=== PATIENT | female | born 1960 | race African-American/Black ===

== ENCOUNTER 2018-07-25 10:53 | Emergency (ER) | payer OTHER, SELFPAY ==
[2018-07-25 11:14] VITALS: BP 131/72; PULSE 99; RESP 12; TEMP 36.4; O2SAT 100
--- NOTE | 2018-07-25 11:16 | PC.NURSE ---
lesions present on right leg, inside of right thigh. Started on wednesday. Saw PCP for right side sciatic pain been taking naproxsyn, tylenol and oxycodon with minimal to no relief.
--- NOTE | 2018-07-25 11:24 | ED_ITS ---
HPI - Skin/Abscess/Foreign Bdy General Chief complaint: Skin/Abscess/Foreign Body Stated complaint: siatica, blisters on right leg Time Seen by Provider: 07/25/18 11:01 Source: patient Mode of arrival: ambulatory Limitations: no limitations History of Present Illness HPI narrative: Patient is a 58-year-old female who presents with all right leg pain and back pain. She had sharp stabbing burning pain down her right leg starting on Wednesday. She was seen by the [employer] [facility] started on prednisone given oxycodone and Tylenol. She says none of it is helping. 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 She does not remember any specific injury. She noticed a rash last evening and progressively got worse today. Pain is unbearable. MD complaint: rash Related Data Home Medications Medication Instructions Recorded Confirmed acetaminophen [Mapap 1 dose PO PRN PRN 07/25/18 07/25/18 (acetaminophen)] aspirin 81 mg PO DAILY 07/25/18 07/25/18 atorvastatin 10 mg PO DAILY 07/25/18 07/25/18 hydroxychloroquine 1 tab PO BID 07/25/18 07/25/18 lisinopril 10 mg PO DAILY 07/25/18 07/25/18 metformin 1,000 mg PO BID 07/25/18 07/25/18 oxycodone 1 tab PO TID 07/25/18 07/25/18 prednisolone acetate 1 drp OPHTHALMIC (EYE) DIRECTED 07/25/18 07/25/18 prednisone 1 dose PO DIRECTED 07/25/18 07/25/18 Previous Rx's Medication Instructions Recorded acyclovir 800 mg PO 5XD #35 tab 07/25/18 hydrocodone-acetaminophen 1 tab PO Q6H PRN #10 tab 07/25/18 meloxicam 15 mg PO DAILY #20 tab 07/25/18 Allergies Allergy/AdvReac Type Severity Reaction Status Date / Time atenolol [ATENOLOL] Allergy Unknown RASH Unverified 07/25/18 11:29 Review of Systems Review of Systems All systems reviewed & are unremarkable except as noted in HPI and below Constitutional Denies chills, Denies fever(s), Denies lethargy and Denies weakness ENT Ears, Nose, Mouth, and Throat: Denies neck pain Cardiovascular Denies chest pain, Denies irregular heart rhythm, Denies lightheadedness, Denies palpitations, Denies dyspnea, Denies dyspnea on exertion and Denies orthopnea Respiratory Denies cough, Denies dyspnea, Denies dyspnea on exertion and Denies wheezing Gastrointestinal Gastrointestinal: Denies abdominal pain, Denies change in bowel habits, Denies diarrhea, Denies nausea and Denies vomiting Musculoskeletal Denies back pain, Denies deformity, Denies neck pain and Reports tingling Integumentary/Breasts Reports as per HPI Neurologic Reports tingling and Denies weakness Endocrine Denies palpitations Allergic/Immunologic Denies wheezing Exam Initial Vital Signs Initial Vital Signs: Vital Signs Temperature 97.6 F 07/25/18 11:14 Pulse Rate 99 H 07/25/18 11:14 Respiratory Rate 12 07/25/18 11:14 Blood Pressure 131/72 07/25/18 11:14 Pulse Oximetry 100 07/25/18 11:14 GENERAL: Tearful crying appears in pain HEENT: Head atraumatic,EOMI, pupils reactive, face symmetric, CARDIOVASCULAR: Regular rate and rhythm without murmurs, rubs or gallops. RESPIRATORY: Breath sounds equal bilaterally, no wheezes rales or rhonchi. ABDOMEN: Soft, nontender. Normoactive bowel sounds all 4 quadrants. No guarding or rebound. BACK: No vertebral tenderness no step-offs EXTREMITIES: Normal range of motion, no clubbing or edema. Neurovascularly intact NEUROLOGICAL: Alert and oriented x4.Normal gait and speech. Cranial nerves II through XII grossly intact. SKIN: Grouped vesicle like lesions right leg none on the left leg. They are mostly on the lower part of her leg mostly L4 dermatome Course Orders Ordered: Discontinued Medications Morphine Sulfate (Morphine) 4 mg SUBCUT NOW ONE Stop: 07/25/18 11:21 Last Admin: 07/25/18 11:25 Dose: 4 mg Vital Signs - 8 hr 07/25/18 11:14 07/25/18 12:28 Temperature 97.6 F Pulse Rate 99 H 83 Respiratory Rate 12 12 Blood Pressure 131/72 Blood Pressure [Right Arm] 135/83 Pulse Oximetry 100 98 MDM - Skin/Abscess/Foreign Bdy MDM Narrative Medical decision making narrative: Pain is better after morphine. She is given medications. She has already been on gabapentin in the past she said that she did not like the way it made her feel. Recommend follow up with her primary care physician and clearance for return to work. 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 Discharge Plan Departure Patient Disposition: Home Clinical Impression: Shingles rash Discharge Date/Time: 07/25/18 12:39 Interventions: ED Discharge Assessment Last Done: 07/25/18 12:38 Instructions: Shingles (Herpes Zoster) (Alternative Therapy), Shingles Activity Restrictions/Additional Instructions: *You have been diagnosed with shingles *What to do: Do not work until the rash crust over usually in 1-2weeks. See your primary care provider if you should need disability. The pain can persist for 3-6 weeks. Do not come in contact with anyone who hasn't had chickenpox or been vaccinated *Continue to take medications as directed Acyclovir 800 mg 5 times a day for 7 days Meloxicam 15 mg once a day for [id number] pain [place] 1 tablet every 4 hr or 2 tablets every 6 hr *Follow up with your primary care provider in 2-3 days *Return to ER if you should have pain that is not tolerable, worsening rash, fever, headache, neck pain or any new, worsening or concerning symptoms CONTROLLED SUBSTANCE DISCHARGE (Narcotoic/benzodiazepine/Flexeril/Phenergan) 1. You have been prescribed narcotic medications, it does have acetaminophen/ Tylenol/paracetamol in it so do not take extra Tylenol or Tylenol containing products 2. Please understand that we cannot provide further refills of narcotics, benzodiazepines or controlled substances through the ED and her pain management will need to be through your provider. 3. While on these medications you cannot drive or operate heavy machinery. 4. You cannot sign legal documents or perform any duties such as this. 5. As long as you're taking opiate pain medications he should also be taking a stool softener such as Colace, Dulcolax, MiraLAX or prune juice, to help avoid constipation. Prescriptions: New hydrocodone-acetaminophen 5-325 mg tablet 1 tab PO Q6H PRN (Reason: pain) Qty: 10 RF: 0 meloxicam 15 mg tablet 15 mg PO DAILY Qty: 20 RF: 0 acyclovir 800 mg tablet 800 mg PO 5XD Qty: 35 RF: 0 No Action acetaminophen [Mapap (acetaminophen)] 325 mg tablet 1 dose PO PRN PRN (Reason: pain) RF: 0 atorvastatin 10 mg tablet 10 mg PO DAILY RF: 0 prednisone 20 mg tablet 1 dose PO DIRECTED RF: 0 aspirin 81 mg tablet,delayed release (DR/EC) 81 mg PO DAILY RF: 0 prednisolone acetate 1 % drops,suspension 1 drp ophthalmic (eye) DIRECTED RF: 0 metformin 1,000 mg tablet 1,000 mg PO BID RF: 0 lisinopril 10 mg tablet 10 mg PO DAILY RF: 0 hydroxychloroquine 200 mg tablet 1 tab PO BID RF: 0 oxycodone 5 mg tablet 1 tab PO TID RF: 0 Referrals: [facility] [Outside] Stand Alone Forms: Work/School Restrictions
[2018-07-25] MEDS: MORPHINE 4 MG/ML INJ SUBCUT (11:25)
[2018-07-25 12:28] VITALS: BP 135/83; PULSE 83; RESP 12; O2SAT 98
--- NOTE | 2018-07-28 16:18 | PC.NURSE ---
follow up call, no answer
== END 2018-07-25 12:39 | disposition home or self-care (01) ==
PROVIDERS: Emergency Provider Emergency Medicine
DX: B02.9 Zoster without complications (principal)
CPT/HCPCS: 96372; 99282; 99283; J2270

== ENCOUNTER 2022-09-29 12:36 | Emergency (ER) | payer OTHER, SELFPAY ==
[2022-09-29] VITALS (15 sets, daily range): BP systolic 118–153; BP diastolic 58–74; PULSE 80–91; RESP 15–27; TEMP 36.7–37.4; O2SAT 99–100; BMI 31.4
[2022-09-29 13:56] LABS: Mean Corpuscular HGB Conc 32.2 % (30-36); Mean Corpuscular Hemoglobin 23.4 PG (26-34); Mean Corpuscular Volume 72.6 fL (80-100); Platelet Count 191 X10^3/uL (150-400); Red Cell Distribution Width 22.7 % (11.6-14.8); White Blood Cell Count 7.3 X10^3/uL (4.5-11.0)
[2022-09-29 13:58] LABS: Add Manual Diff / Slide Review YES; Hemoglobin 6.8 g/dL (12.0-16.0)
[2022-09-29 14:06] LABS: Alanine Aminotransferase 24 IU/L (<35); Albumin 2.5 g/dL (3.5-5.0); Albumin Globulin Ratio 0.6 (1.0-2.8); Alkaline Phosphatase 92 U/L (38-126); Aspartate Aminotransferase 47 IU/L (14-36); BUN Creatinine Ratio 15.8 (6-22); Bilirubin Total 1.3 mg/dL (0.2-1.3); Blood Urea Nitrogen 9 mg/dL (7-17); Calcium 7.6 mg/dL (8.4-10.2); Carbon Dioxide 28 mmol/L (22-32); Chloride 105 mmol/L (98-107); Estimated Glomerular Filt Rate > 60 mL/min (>60); Globulin 4.4 g/dL (1.7-4.1); Glucose 113 mg/dL (80-110); HEMOLYSIS < 15 (0-50); Potassium 3.2 mmol/L (3.4-5.1); Sodium 138 mmol/L (137-145); Total Protein 6.9 g/dL (6.3-8.2)
[2022-09-29 14:10] LABS: Neutrophils Absolute Manual 3285 /uL (3000-5900); Nucleated Red Blood Cells 1 #/Diff; Total Cells Counted 100
[2022-09-29 14:11] LABS: Anisocytosis 3+; Hypersegmented Neutrophils 1+; Hypochromasia 2+; Poikilocytosis 2+; Target Cells 2+
[2022-09-29 14:14] LABS: NT-proBNP (BNP-Adult 18+) 181 pg/mL (<125)
--- NOTE | 2022-09-29 18:58 | ED_ITS ---
HPI - Recheck/Abnormal Lab/Rx General Chief Complaint: Recheck/Abnormal Lab/Rx Stated Complaint: sent by [facility], anemic Time Seen by Provider: 09/29/22 18:14 Source: patient Mode of arrival: Ambulatory History of Present Illness HPI narrative: Patient here with . Here for anemia. Patient states she saw her family doctor today for ongoing 3 weeks of feeling bloated and tired and fatigued. Not her usual self. She was found to be anemic and sent here for transfusion. Blood has been started. Denies any regular black or bloody stools but had 1 episode of dark stool about a week or 2 ago. Denies any chest pain palpitations or dyspnea. Is not on any blood thinners. No history of anemia in the past. No hematemesis or hematuria. Related Data Home Medications Medication Instructions Recorded Confirmed acetaminophen 325 mg tablet 1 dose PO PRN PRN pain 07/25/18 07/25/18 aspirin 81 mg tablet,delayed 81 mg PO DAILY 07/25/18 07/25/18 release atorvastatin 10 mg tablet 10 mg PO DAILY 07/25/18 07/25/18 hydroxychloroquine 200 mg tablet 1 tab PO BID 07/25/18 07/25/18 lisinopril 10 mg tablet 10 mg PO DAILY 07/25/18 07/25/18 metformin 1,000 mg tablet 1,000 mg PO BID 07/25/18 07/25/18 oxycodone 5 mg tablet 1 tab PO TID 07/25/18 07/25/18 prednisolone acetate 1 % eye 1 drp ophthalmic (eye) DIRECTED 07/25/18 07/25/18 drops,suspension prednisone 20 mg tablet 1 dose PO DIRECTED 07/25/18 07/25/18 Previous Rx's Medication Instructions Recorded acyclovir 800 mg tablet 800 mg PO 5XD #35 tabs 07/25/18 hydrocodone 5 mg-acetaminophen 325 1 tab PO Q6H PRN pain #10 tabs 07/25/18 mg tablet meloxicam 15 mg tablet 15 mg PO DAILY #20 tabs 07/25/18 Allergies Allergy/AdvReac Type Severity Reaction Status Date / Time atenolol [ATENOLOL] Allergy Unknown RASH Verified 09/29/22 13:18 Review of Systems Review of Systems Narrative: GENERAL: negative chills, positive fatigue, malaise, negative fever, sweats. HEENT: negative sinus pain, ear pain, sore throat RESPIRATORY: negative dyspnea, cough CARDIOVASCULAR: negative chest pain, palpitations GASTROINTESTINAL: negative nausea, vomiting, abdominal pain, negative black or bloody stools or GI bleed : negative dysuria, frequency, hematuria MUSCULOSKELETAL: negative muscle or bony pain SKIN: negative rash, skin lesions NEUROLOGIC: negative weakness, numbness ROS Unobtainable: All systems reviewed & are unremarkable except as noted in HPI and below Patient History Social History Smoking Status: Unknown if ever smoked Smoking Status: Unknown if ever smoked alcohol intake frequency: holidays/special occasions only Substance Use Type: does not use Exam Narrative Exam Narrative: GENERAL: in no distress, not toxic not dyspneic HEAD: Normocephalic. EYES: Pupils equal round No scleral icterus. There is pale conjunctiva ENT: Mucous membranes moist. NECK: Trachea midline. CARDIOVASCULAR: Regular rate and rhythm without murmurs RESPIRATORY: Clear to auscultation. Breath sounds equal bilaterally. No wheezes, rales, or rhonchi. GASTROINTESTINAL: Abdomen soft, non-tender EXTREMITIES: No gross deformities. There is 2+ bilateral pedal edema. BACK: No flank tenderness. NEURO: AOx4. 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 SKIN: Warm and dry PSYCH: Not anxious, is cooperative Initial Vital Signs Initial Vital Signs: Vital Signs Temperature 98.3 F 09/29/22 13:18 Pulse Rate 90 09/29/22 13:18 Respiratory Rate 15 09/29/22 13:18 Blood Pressure 144/69 H 09/29/22 13:18 Pulse Oximetry 99 09/29/22 13:18 Oxygen Delivery Method 09/29/22 13:18 Course Course Course Narrative: No new issues during course of stay Orders Ordered: ED Orders 09/29/22 23:34 HH [Hemoglobin and Hematocrit] Stat Reevaluation(s) Reevaluation #1: Reviewed laboratory studies with patient and . They do agree for blood transfusions and they do agree for outpatient workup with Hematology and general surgery for workup for anemia including endoscopy. Return precautions reviewed with them. They did desire discharge home Time: 01:51 Vital Signs Vital signs: Vital Signs - 8 hr 09/29/22 23:10 09/30/22 01:08 09/30/22 02:07 Temperature 98.3 F Pulse Rate 81 80 82 Respiratory Rate 19 16 16 Blood Pressure 118/58 L 111/58 L 125/60 Pulse Oximetry 97 100 Oxygen Delivery Method Room Air Room Air MDM - Recheck/Abnormal Lab/Rx Lab Data Result diagrams: 09/30/22 01:17 09/29/22 13:23 Labs: Lab Results 09/29/22 09/29/22 09/29/22 Range/Units 13:23 13:23 13:23 WBC 7.3 (4.5-11.0) X10^3/uL RBC 2.90 L (4.0-5.2) X10^6/uL Hgb 6.8 L* (12.0-16.0) g/dL Hct 21.0 L (36-46) % MCV 72.6 L (80-100) fL MCH 23.4 L (26-34) PG MCHC 32.2 (30-36) % RDW 22.7 H (11.6-14.8) % Plt Count 191 (150-400) X10^3/uL Neut % (Auto) Not Reportable Lymph % (Auto) Not Reportable [place] % (Auto) Not Reportable Eos % (Auto) Not Reportable Baso % (Auto) Not Reportable Lymph # (Auto) Not Reportable [place] # (Auto) Not Reportable Baso # (Auto) Not Reportable Total Counted 100 Seg Neutrophils % 45.0 (38-70) % Lymphocytes % (Manual) 29.0 (25-45) % Monocytes % (Manual) 6.0 (2-11) % Eosinophils % (Manual) 19.0 H (2-4) % Basophils % (Manual) 1.0 (0-1) % Neutrophils # (Manual) 3285 (2970-3627) /uL Nucleated RBCs 1 H ( - 0) #/Diff Hypersegmented Neuts 1+ RBC Morphology Not Reportable Hypochromasia 2+ H Poikilocytosis 2+ H Anisocytosis 3+ H Target Cells 2+ H Sodium 138 (137-145) mmol/L Potassium 3.2 L (3.4-5.1) mmol/L Chloride 105 (98-107) mmol/L Carbon Dioxide 28 (22-32) mmol/L BUN 9 (7-17) mg/dL Creatinine 0.57 (0.52-1.04) mg/dL Estimated GFR > 60 (>60) mL/min BUN/Creatinine Ratio 15.8 (6-22) Glucose 113 H (80-110) mg/dL Calcium 7.6 L (8.4-10.2) mg/dL Total Bilirubin 1.3 (0.2-1.3) mg/dL AST 47 H (14-36) IU/L ALT 24 (<35) IU/L Alkaline Phosphatase 92 (38-126) U/L NT-Pro-B Natriuret Pep 181 H (<125) pg/mL Total Protein 6.9 (6.3-8.2) g/dL Albumin 2.5 L (3.5-5.0) g/dL Globulin 4.4 H (1.7-4.1) g/dL Albumin/Globulin Ratio 0.6 L (1.0-2.8) Blood Type A Positive Antibody Screen Negative Crossmatch See Detail 09/30/22 Range/Units 01:17 WBC (4.5-11.0) X10^3/uL RBC (4.0-5.2) X10^6/uL Hgb 7.8 L (12.0-16.0) g/dL Hct 23.6 L (36-46) % MCV (80-100) fL MCH (26-34) PG MCHC (30-36) % RDW (11.6-14.8) % Plt Count (150-400) X10^3/uL Neut % (Auto) Lymph % (Auto) [place] % (Auto) Eos % (Auto) Baso % (Auto) Lymph # (Auto) [place] # (Auto) Baso # (Auto) Total Counted Seg Neutrophils % (38-70) % Lymphocytes % (Manual) (25-45) % Monocytes % (Manual) (2-11) % Eosinophils % (Manual) (2-4) % Basophils % (Manual) (0-1) % Neutrophils # (Manual) ([id number]) /uL Nucleated RBCs ( - 0) #/Diff Hypersegmented Neuts RBC Morphology Hypochromasia Poikilocytosis Anisocytosis Target Cells Sodium (137-145) mmol/L Potassium (3.4-5.1) mmol/L Chloride (98-107) mmol/L Carbon Dioxide (22-32) mmol/L BUN (7-17) mg/dL Creatinine (0.52-1.04) mg/dL Estimated GFR (>60) mL/min BUN/Creatinine Ratio (6-22) Glucose (80-110) mg/dL Calcium (8.4-10.2) mg/dL Total Bilirubin (0.2-1.3) mg/dL AST (14-36) IU/L ALT (<35) IU/L Alkaline Phosphatase (38-126) U/L NT-Pro-B Natriuret Pep (<125) pg/mL Total Protein (6.3-8.2) g/dL Albumin (3.5-5.0) g/dL Globulin (1.7-4.1) g/dL Albumin/Globulin Ratio (1.0-2.8) Blood Type Antibody Screen Crossmatch MDM Narrative Medical decision making narrative: Appropriate for discharge home. Exam reassuring. At this time appropriate for outpatient evaluation for anemia including Hematology as well as General surgery for endoscopy. No rectal bleeding here. Reviewed results with patient and . They do agree for discharge home. Return precautions reviewed with them. Given CBC results likely this is chronic/indolent anemia. Not brisk bleed. No imaging indicated. Repeat H&H is reassuring as well. Vital signs are stable Discharge Plan Departure Patient Disposition: Home Clinical Impression: Anemia Instructions: Anemia Activity Restrictions/Additional Instructions: Please see family doctor for referral to General surgery as well as Hematology for your diagnosis of anemia. There are many sources of anemia. You also may call provided general surgery office tomorrow to schedule appointment for endoscopy of the stomach and colon. Return if worsening questions or concerns or if any dizziness or any trouble breathing or feel like you are going to faint. Prescriptions: No Action acetaminophen [Mapap (acetaminophen)] 325 mg tablet 1 dose PO PRN PRN (Reason: pain) atorvastatin 10 mg tablet 10 mg PO DAILY prednisone 20 mg tablet 1 dose PO DIRECTED aspirin 81 mg tablet,delayed release (DR/EC) 81 mg PO DAILY prednisolone acetate 1 % drops,suspension 1 drp ophthalmic (eye) DIRECTED metformin 1,000 mg tablet 1,000 mg PO BID lisinopril 10 mg tablet 10 mg PO DAILY hydroxychloroquine 200 mg tablet 1 tab PO BID oxycodone 5 mg tablet 1 tab PO TID hydrocodone-acetaminophen 5-325 mg tablet 1 tab PO Q6H PRN (Reason: pain) Qty: 10 0RF meloxicam 15 mg tablet 15 mg PO DAILY Qty: 20 0RF acyclovir 800 mg tablet 800 mg PO 5XD Qty: 35 0RF Rx Instructions: while awake Referrals: Wild Todd MD [Physician] - Provider,Esperanza HANKS [Primary Care Provider] - Visit Report Forms: Patient Portal/API
[2022-09-30 01:08] VITALS: BP 111/58; PULSE 80; RESP 16; O2SAT 97
[2022-09-30 01:35] LABS: Hematocrit 23.6 % (36-46); Hemoglobin 7.8 g/dL (12.0-16.0)
[2022-09-30 02:07] VITALS: BP 125/60; PULSE 82; RESP 16; O2SAT 100
== END 2022-09-30 02:10 | disposition home or self-care (01) ==
PROVIDERS: Emergency Medicine; Emergency Provider Emergency Medicine
DX: D64.9 Anemia, unspecified (principal)
CPT/HCPCS: 36415; 36430; 80053; 83880; 85007; 85014; 85018; 85025; 86850; 86900; 86901; 99284; P9016

== ENCOUNTER 2022-10-19 21:30 | Emergency (ER) | payer OTHER, SELFPAY ==
[2022-10-19 21:41] VITALS: BP 131/89; PULSE 97; RESP 16; TEMP 36.9; O2SAT 100; BMI 27.4
[2022-10-19 22:12] LABS: INR 1.5 (0.9-1.3); Prothrombin Time 16.9 SECONDS (10.1-12.7)
[2022-10-19 22:14] LABS: PTT Partial Thromboplastin Tim 37 SECONDS (26-36)
[2022-10-19 22:16] LABS: Alanine Aminotransferase 24 IU/L (<35); Albumin 2.6 g/dL (3.5-5.0); Albumin Globulin Ratio 0.6 (1.0-2.8); Alkaline Phosphatase 81 U/L (38-126); Aspartate Aminotransferase 44 IU/L (14-36); BUN Creatinine Ratio 23.9 (6-22); Bilirubin Total 1.6 mg/dL (0.2-1.3); Blood Urea Nitrogen 16 mg/dL (7-17); Calcium 7.4 mg/dL (8.4-10.2); Carbon Dioxide 28 mmol/L (22-32); Chloride 108 mmol/L (98-107); Estimated Glomerular Filt Rate > 60 mL/min (>60); Globulin 4.4 g/dL (1.7-4.1); Glucose 102 mg/dL (80-110); HEMOLYSIS < 15 (0-50); Potassium 3.3 mmol/L (3.4-5.1); Sodium 139 mmol/L (137-145)
--- NOTE | 2022-10-19 22:29 | ED.GIBLEED ---
HPI - GI Bleed <Danita Cooper, DO - Last Filed: 10/26/22 08:03> General Chief complaint: GI Bleed Stated complaint: no energy/black stool/fever Time Seen by Provider: 10/19/22 22:29 Source: patient Mode of arrival: Ambulatory Limitations: no limitations History of Present Illness HPI Narrative: This is a 62-year-old female with history of hypertension, dyslipidemia patient is on aspirin daily. Her home meds are Lasix, aspirin, atorvastatin and losartan. Patient presents today with lightheadedness, near syncopal episode, patient states she would a fever of 101 F temp early today, she states no chest pain but she is had some shortness of breath with exertion, she describes abdominal pain that is sort of diffuse. She notes nausea and at least 1 episode of vomiting. She is had 6 black stools today which she describes as diarrhea like. She states she had had any bloody stools or black stools since September 30 when she was discharged for anemia. Patient denies dysuria, urgency and states she only has frequency when she takes her Lasix. She denies any vaginal bleeding or discharge. She has been referred to Gastroenterology she is supposed to be seen in their office but has not had an EGD or colonoscopy. Patient states she is allergic to lisinopril and atenolol. She follows with primary care at [facility]. No tobacco, occasional alcohol, no illicit. She is accompanied by her . Related Data Home Medications Medication Instructions Recorded Confirmed aspirin 81 mg tablet,delayed 81 mg PO DAILY 07/25/18 10/20/22 release atorvastatin 10 mg tablet 10 mg PO DAILY 07/25/18 10/20/22 furosemide 20 mg tablet 20 mg PO DAILY 10/20/22 10/20/22 losartan 25 mg tablet 25 mg PO DAILY 10/20/22 10/20/22 potassium chloride 20 mEq 20 meq PO BID 10/23/22 10/23/22 tablet,extended release(part/cryst) Previous Rx's Medication Instructions Recorded cephalexin 500 mg capsule 500 mg PO TID #12 caps 10/25/22 pantoprazole 40 mg tablet,delayed 40 mg PO BID #60 tabs 10/25/22 release (Protonix) pantoprazole 40 mg tablet,delayed 40 mg PO BID #60 tabs 10/25/22 release (Protonix) Allergies Allergy/AdvReac Type Severity Reaction Status Date / Time atenolol [ATENOLOL] Allergy Unknown RASH Verified 10/23/22 20:06 lisinopril AdvReac Verified 10/23/22 20:06 Review of Systems <Danita Cooper DO - Last Filed: 10/26/22 08:03> Review of Systems ROS Unobtainable: All systems reviewed & are unremarkable except as noted in HPI and below Patient History <Danita Cooper DO - Last Filed: 10/26/22 08:03> Social History Smoking Status: Unknown if ever smoked Smoking Status: Unknown if ever smoked alcohol intake frequency: holidays/special occasions only Substance Use Type: does not use Exam <Danita Cooper DO - Last Filed: 10/26/22 08:03> Narrative Exam Narrative: GEN: well nourished, well appearing female, alert and oriented x 3, patient appears to be in mild distress. HEENT: Atraumatic, pupils are equal round reactive to light, extraocular movements are intact, nares are clear, there is conjunctival pallor. Throat is clear without any exudates, erythema, tonsillar enlargement or uvular deviation HEART: Regular rate and rhythm without murmur, clicks, rubs. LUNGS:Lungs clear to auscultation, no wheezes, rales, crackles, chest moves symmetrically ABD:bowel sounds normal, soft, non-tender, no guarding, rebound, rigidity, no masses noted, no hepatosplenomegaly, stool occult :No CVA tenderness MSCL: Non-tender, no muscle atrophy, muscles strength 5/5 upper and lower extremities, full range of motion, normal gait NEURO:CN 2-12 intact, sensation normal Initial Vital Signs Initial Vital Signs: Vital Signs Temperature 98.4 F 10/19/22 21:41 Pulse Rate 97 H 10/19/22 21:41 Respiratory Rate 16 10/19/22 21:41 Blood Pressure 131/89 10/19/22 21:41 Pulse Oximetry 100 10/19/22 21:41 Oxygen Delivery Method 10/19/22 21:41 <Didi Fitzpatrick MD - Last Filed: 10/25/22 12:36> Initial Vital Signs Initial Vital Signs: Vital Signs Temperature 98.4 F 10/19/22 21:41 Pulse Rate 97 H 10/19/22 21:41 Respiratory Rate 16 10/19/22 21:41 Blood Pressure 131/89 10/19/22 21:41 Pulse Oximetry 100 10/19/22 21:41 Oxygen Delivery Method 10/19/22 21:41 <Rayo Cho DO - Last Filed: 10/24/22 06:15> Initial Vital Signs Initial Vital Signs: Vital Signs Temperature 98.4 F 10/19/22 21:41 Pulse Rate 97 H 10/19/22 21:41 Respiratory Rate 16 10/19/22 21:41 Blood Pressure 131/89 10/19/22 21:41 Pulse Oximetry 100 10/19/22 21:41 Oxygen Delivery Method 10/19/22 21:41 <Eamon Mtz MD - Last Filed: 11/18/22 08:19> Initial Vital Signs Initial Vital Signs: Vital Signs Temperature 98.4 F 10/19/22 21:41 Pulse Rate 97 H 10/19/22 21:41 Respiratory Rate 16 10/19/22 21:41 Blood Pressure 131/89 10/19/22 21:41 Pulse Oximetry 100 10/19/22 21:41 Oxygen Delivery Method 10/19/22 21:41 <Mervin King DO - Last Filed: 10/25/22 17:41> Initial Vital Signs Initial Vital Signs: Vital Signs Temperature 98.4 F 10/19/22 21:41 Pulse Rate 97 H 10/19/22 21:41 Respiratory Rate 16 10/19/22 21:41 Blood Pressure 131/89 10/19/22 21:41 Pulse Oximetry 100 10/19/22 21:41 Oxygen Delivery Method 10/19/22 21:41 <Cristel Jacome DO - Last Filed: 10/26/22 07:41> Initial Vital Signs Initial Vital Signs: Vital Signs Temperature 98.4 F 10/19/22 21:41 Pulse Rate 97 H 10/19/22 21:41 Respiratory Rate 16 10/19/22 21:41 Blood Pressure 131/89 10/19/22 21:41 Pulse Oximetry 100 10/19/22 21:41 Oxygen Delivery Method 10/19/22 21:41 Course <Danita Cooper DO - Last Filed: 10/26/22 08:03> Orders Ordered: Discontinued Medications Atorvastatin Calcium (Atorvastatin 20 Mg Tablet) 10 mg PO BEDTIME [facility] Last Admin: 10/24/22 21:04 Dose: 10 mg Documented By: Admin: 10/23/22 21:10 Dose: 10 mg Documented By: Admin: 10/22/22 21:03 Dose: 10 mg Documented By: Admin: 10/21/22 21:05 Dose: 10 mg Documented By: Admin: 10/20/22 20:53 Dose: 10 mg Documented By: YUNIOR Furosemide (Furosemide 40 Mg/4 Ml Vial) 40 mg IV NOW ONE Stop: 10/24/22 19:12 Last Admin: 10/24/22 19:53 Dose: 40 mg Documented By: RENETTA Sodium Chloride (Normal Saline 0.9%) 1,000 mls @ 150 mls/hr IV CONT [facility] Last Infusion: 10/21/22 12:42 Dose: 0 mls/hr Documented By: Admin: 10/21/22 06:57 Dose: 150 mls/hr Documented By: Infusion: 10/21/22 06:47 Dose: 150 mls/hr Documented By: Admin: 10/21/22 00:06 Dose: 150 mls/hr Documented By: Infusion: 10/21/22 00:05 Dose: 0 mls/hr Documented By: Admin: 10/20/22 17:29 Dose: 150 mls/hr Documented By: Infusion: 10/20/22 17:28 Dose: 0 mls/hr Documented By: Infusion: 10/20/22 16:13 Dose: 150 mls/hr Documented By: Infusion: 10/20/22 08:00 Dose: 0 mls/hr Documented By: Admin: 10/20/22 02:11 Dose: 150 mls/hr Documented By: CHRISTIANO Metronidazole (Flagyl) 500 mg in 100 mls @ 100 mls/hr IV NOW ONE Stop: 10/20/22 02:45 Last Infusion: 10/20/22 04:26 Dose: 0 mls/hr Documented By: Admin: 10/20/22 03:15 Dose: 100 mls/hr Documented By: CHRISTIANO Cefepime HCl 2 gm/ Sodium (Chloride) 100 mls @ 200 mls/hr IV NOW ONE Stop: 10/20/22 01:47 Last Infusion: 10/20/22 03:11 Dose: 0 mls/hr Documented By: Infusion: 10/20/22 02:26 Dose: 200 mls/hr Documented By: Infusion: 10/20/22 02:13 Dose: 0 mls/hr Documented By: Admin: 10/20/22 02:12 Dose: 200 mls/hr Documented By: CHRISTIANO Octreotide Acetate 500 mcg/ (Sodium Chloride) 101 mls @ 10.1 mls/hr IV CONT [facility]; Protocol Last Infusion: 10/24/22 08:00 Dose: 0 mcg/hr, 0 mls/hr Documented By: Admin: 10/24/22 00:58 Dose: 50 mcg/hr, 10.1 mls/hr Documented By: Infusion: 10/24/22 00:58 Dose: 50 mcg/hr, 10.1 mls/hr Documented By: Admin: 10/23/22 15:54 Dose: 50 mcg/hr, 10.1 mls/hr Documented By: Infusion: 10/23/22 02:44 Dose: 50 mcg/hr, 10.1 mls/hr Documented By: Infusion: 10/23/22 02:43 Dose: 0 mcg/hr, 0 mls/hr Documented By: Admin: 10/22/22 16:59 Dose: 50 mcg/hr, 10.1 mls/hr Documented By: Infusion: 10/22/22 16:59 Dose: 50 mcg/hr, 10.1 mls/hr Documented By: Admin: 10/22/22 07:05 Dose: 50 mcg/hr, 10.1 mls/hr Documented By: Infusion: 10/22/22 07:05 Dose: 0 mcg/hr, 0 mls/hr Documented By: Admin: 10/21/22 21:06 Dose: 50 mcg/hr, 10.1 mls/hr Documented By: Infusion: 10/21/22 20:46 Dose: 50 mcg/hr, 10.1 mls/hr Documented By: Admin: 10/21/22 10:46 Dose: 50 mcg/hr, 10.1 mls/hr Documented By: Infusion: 10/21/22 10:45 Dose: 0 mcg/hr, 0 mls/hr Documented By: Admin: 10/21/22 00:07 Dose: 50 mcg/hr, 10.1 mls/hr Documented By: Infusion: 10/21/22 00:05 Dose: 0 mcg/hr, 0 mls/hr Documented By: Admin: 10/20/22 14:11 Dose: 50 mcg/hr, 10.1 mls/hr Documented By: Infusion: 10/20/22 14:11 Dose: 50 mcg/hr, 10.1 mls/hr Documented By: Infusion: 10/20/22 09:22 Dose: 50 mcg/hr, 10.1 mls/hr Documented By: Infusion: 10/20/22 07:53 Dose: 0 mcg/hr, 0 mls/hr Documented By: Admin: 10/20/22 03:12 Dose: 50 mcg/hr, 10.1 mls/hr Documented By: CHRISTIANO Cefepime HCl 2 gm/ Sodium (Chloride) 100 mls @ 200 mls/hr IV Q12H [facility] Last Infusion: 10/24/22 06:13 Dose: 0 mls/hr Documented By: Admin: 10/24/22 05:31 Dose: 200 mls/hr Documented By: Infusion: 10/23/22 20:45 Dose: 0 mls/hr Documented By: Admin: 10/23/22 20:13 Dose: 200 mls/hr Documented By: Infusion: 10/23/22 08:37 Dose: 0 mls/hr Documented By: Admin: 10/23/22 07:13 Dose: 200 mls/hr Documented By: Infusion: 10/22/22 20:45 Dose: 0 mls/hr Documented By: Admin: 10/22/22 20:13 Dose: 200 mls/hr Documented By: GAETANO(2) Infusion: 10/22/22 06:40 Dose: 0 mls/hr Documented By: Admin: 10/22/22 05:52 Dose: 200 mls/hr Documented By: Infusion: 10/21/22 19:15 Dose: 0 mls/hr Documented By: Admin: 10/21/22 18:25 Dose: 200 mls/hr Documented By: Infusion: 10/21/22 05:36 Dose: 0 mls/hr Documented By: Admin: 10/21/22 05:02 Dose: 200 mls/hr Documented By: Infusion: 10/20/22 18:46 Dose: 0 mls/hr Documented By: Admin: 10/20/22 17:29 Dose: 200 mls/hr Documented By: Admin: 10/20/22 06:00 Dose: Not Given Documented By: TIMOTEO Metronidazole (Flagyl) 500 mg in 100 mls @ 100 mls/hr IV Q8H [facility] Last Infusion: 10/24/22 01:04 Dose: 0 mls/hr Documented By: Admin: 10/24/22 00:13 Dose: 100 mls/hr Documented By: Infusion: 10/23/22 17:45 Dose: 0 mls/hr Documented By: Admin: 10/23/22 16:33 Dose: 100 mls/hr Documented By: Infusion: 10/23/22 10:10 Dose: 0 mls/hr Documented By: Admin: 10/23/22 08:56 Dose: 100 mls/hr Documented By: Infusion: 10/23/22 02:30 Dose: 0 mls/hr Documented By: Admin: 10/23/22 01:28 Dose: 100 mls/hr Documented By: Infusion: 10/22/22 18:26 Dose: 0 mls/hr Documented By: GAETANO(2) Admin: 10/22/22 17:01 Dose: 100 mls/hr Documented By: Infusion: 10/22/22 09:10 Dose: 0 mls/hr Documented By: Admin: 10/22/22 08:08 Dose: 100 mls/hr Documented By: Infusion: 10/22/22 02:22 Dose: 0 mls/hr Documented By: Admin: 10/22/22 01:13 Dose: 100 mls/hr Documented By: Infusion: 10/21/22 18:26 Dose: 0 mls/hr Documented By: Admin: 10/21/22 17:06 Dose: 100 mls/hr Documented By: Infusion: 10/21/22 09:50 Dose: 0 mls/hr Documented By: Admin: 10/21/22 08:41 Dose: 100 mls/hr Documented By: Infusion: 10/21/22 01:20 Dose: 0 mls/hr Documented By: Admin: 10/21/22 00:16 Dose: 100 mls/hr Documented By: Infusion: 10/20/22 17:28 Dose: 0 mls/hr Documented By: Admin: 10/20/22 16:22 Dose: 100 mls/hr Documented By: Infusion: 10/20/22 11:45 Dose: 0 mls/hr Documented By: Admin: 10/20/22 10:31 Dose: 100 mls/hr Documented By: FAUZIA POTASSIUM CHLORIDE IN WATER (Potassium Cl 10 Meq/100 Ml Nathalia) 10 meq in 100 mls @ 100 mls/hr IV Q1H [facility] Stop: 10/21/22 13:29 Last Infusion: 10/21/22 15:04 Dose: 0 mls/hr Documented By: Admin: 10/21/22 13:54 Dose: 100 mls/hr Documented By: Infusion: 10/21/22 13:51 Dose: 0 mls/hr Documented By: Admin: 10/21/22 12:37 Dose: 100 mls/hr Documented By: NELY Calcium Gluconate 9.3 meq/ (Sodium Chloride) 70 mls @ 140 mls/hr IV NOW ONE Stop: 10/21/22 11:48 Last Infusion: 10/21/22 12:29 Dose: 0 mls/hr Documented By: Admin: 10/21/22 11:48 Dose: 140 mls/hr Documented By: ENRIQUE Phytonadione 10 mg/ Sodium (Chloride) 101 mls @ 202 mls/hr IV NOW ONE Stop: 10/24/22 18:41 Last Infusion: 10/24/22 20:45 Dose: 0 mls/hr Documented By: Admin: 10/24/22 19:52 Dose: 202 mls/hr Documented By: RENETTA Losartan Potassium (Losartan 25 Mg Tablet) 25 mg PO DAILY [facility] Last Admin: 10/25/22 09:27 Dose: 25 mg Documented By: Admin: 10/24/22 09:58 Dose: 25 mg Documented By: Admin: 10/23/22 08:56 Dose: 25 mg Documented By: Admin: 10/22/22 08:08 Dose: 25 mg Documented By: Admin: 10/21/22 08:40 Dose: 25 mg Documented By: Admin: 10/20/22 11:45 Dose: Not Given Documented By: FAUZIA Octreotide Acetate (Octreotide 100 Mcg/Ml Vial) 50 mcg IV NOW ONE Stop: 10/20/22 02:01 Last Admin: 10/20/22 03:13 Dose: 50 mcg Documented By: CHRISTIANO Ondansetron HCl (Ondansetron 4 Mg/2 Ml Inj) 4 mg IV NOW PRN PRN Reason: Nausea And Vomiting Last Admin: 10/20/22 03:28 Dose: 4 mg Documented By: CHRISTIANO Ondansetron HCl (Ondansetron 4 Mg Odt) 4 mg SL NOW PRN PRN Reason: Nausea And Vomiting Ondansetron HCl (Ondansetron 4 Mg/2 Ml Inj) 4 mg IV Q6HR PRN PRN Reason: Nausea And Vomiting Pantoprazole Sodium (Pantoprazole 40 Mg Vial) 80 mg IV NOW ONE Stop: 10/19/22 21:56 Last Admin: 10/19/22 22:55 Dose: 80 mg Documented By: OBEY(2) Pantoprazole Sodium (Pantoprazole 40 Mg Vial) 80 mg IV BID [facility] Last Admin: 10/23/22 21:10 Dose: 80 mg Documented By: Admin: 10/23/22 08:56 Dose: 80 mg Documented By: Admin: 10/22/22 21:03 Dose: 80 mg Documented By: Admin: 10/22/22 09:55 Dose: 80 mg Documented By: Admin: 10/21/22 21:05 Dose: 80 mg Documented By: Admin: 10/21/22 08:40 Dose: 80 mg Documented By: Admin: 10/20/22 20:52 Dose: 80 mg Documented By: Admin: 10/20/22 12:46 Dose: 80 mg Documented By: FAUZIA Pantoprazole Sodium (Pantoprazole Dr 20 Mg Tablet) 40 mg PO BID [facility] Last Admin: 10/25/22 09:27 Dose: 40 mg Documented By: Admin: 10/24/22 21:02 Dose: 40 mg Documented By: Admin: 10/24/22 09:58 Dose: 40 mg Documented By: GAETANO Reevaluation(s) Reevaluation #1: Patient has been at bedside reviewed her findings. They reiterate both her and her that she does not drink alcohol regularly and only occasionally will have a glass. Patient has never been told she would hepatitis there changes. She has had not had a prior EGD or scope. Vital Signs Vital signs: Vital Signs - 8 hr 10/25/22 12:35 10/25/22 12:36 10/25/22 12:36 Pulse Rate 74 74 Blood Pressure 127/61 Pulse Oximetry 99 99 Oxygen Delivery Method Room Air <Didi Fitzpatrick MD - Last Filed: 10/25/22 12:36> Orders Ordered: Discontinued Medications Atorvastatin Calcium (Atorvastatin 20 Mg Tablet) 10 mg PO BEDTIME [facility] Last Admin: 10/24/22 21:04 Dose: 10 mg Documented By: Admin: 10/23/22 21:10 Dose: 10 mg Documented By: Admin: 10/22/22 21:03 Dose: 10 mg Documented By: Admin: 10/21/22 21:05 Dose: 10 mg Documented By: Admin: 10/20/22 20:53 Dose: 10 mg Documented By: RB Furosemide (Furosemide 40 Mg/4 Ml Vial) 40 mg IV NOW ONE Stop: 10/24/22 19:12 Last Admin: 10/24/22 19:53 Dose: 40 mg Documented By: SB Sodium Chloride (Normal Saline 0.9%) 1,000 mls @ 150 mls/hr IV CONT [facility] Last Infusion: 10/21/22 12:42 Dose: 0 mls/hr Documented By: Admin: 10/21/22 06:57 Dose: 150 mls/hr Documented By: Infusion: 10/21/22 06:47 Dose: 150 mls/hr Documented By: Admin: 10/21/22 00:06 Dose: 150 mls/hr Documented By: Infusion: 10/21/22 00:05 Dose: 0 mls/hr Documented By: Admin: 10/20/22 17:29 Dose: 150 mls/hr Documented By: Infusion: 10/20/22 17:28 Dose: 0 mls/hr Documented By: Infusion: 10/20/22 16:13 Dose: 150 mls/hr Documented By: Infusion: 10/20/22 08:00 Dose: 0 mls/hr Documented By: Admin: 10/20/22 02:11 Dose: 150 mls/hr Documented By: CHRISTIANO Metronidazole (Flagyl) 500 mg in 100 mls @ 100 mls/hr IV NOW ONE Stop: 10/20/22 02:45 Last Infusion: 10/20/22 04:26 Dose: 0 mls/hr Documented By: Admin: 10/20/22 03:15 Dose: 100 mls/hr Documented By: CHRISTIANO Cefepime HCl 2 gm/ Sodium (Chloride) 100 mls @ 200 mls/hr IV NOW ONE Stop: 10/20/22 01:47 Last Infusion: 10/20/22 03:11 Dose: 0 mls/hr Documented By: Infusion: 10/20/22 02:26 Dose: 200 mls/hr Documented By: Infusion: 10/20/22 02:13 Dose: 0 mls/hr Documented By: Admin: 10/20/22 02:12 Dose: 200 mls/hr Documented By: CHRISTIANO Octreotide Acetate 500 mcg/ (Sodium Chloride) 101 mls @ 10.1 mls/hr IV CONT [facility]; Protocol Last Infusion: 10/24/22 08:00 Dose: 0 mcg/hr, 0 mls/hr Documented By: Admin: 10/24/22 00:58 Dose: 50 mcg/hr, 10.1 mls/hr Documented By: Infusion: 10/24/22 00:58 Dose: 50 mcg/hr, 10.1 mls/hr Documented By: Admin: 10/23/22 15:54 Dose: 50 mcg/hr, 10.1 mls/hr Documented By: Infusion: 10/23/22 02:44 Dose: 50 mcg/hr, 10.1 mls/hr Documented By: Infusion: 10/23/22 02:43 Dose: 0 mcg/hr, 0 mls/hr Documented By: Admin: 10/22/22 16:59 Dose: 50 mcg/hr, 10.1 mls/hr Documented By: Infusion: 10/22/22 16:59 Dose: 50 mcg/hr, 10.1 mls/hr Documented By: Admin: 10/22/22 07:05 Dose: 50 mcg/hr, 10.1 mls/hr Documented By: Infusion: 10/22/22 07:05 Dose: 0 mcg/hr, 0 mls/hr Documented By: Admin: 10/21/22 21:06 Dose: 50 mcg/hr, 10.1 mls/hr Documented By: Infusion: 10/21/22 20:46 Dose: 50 mcg/hr, 10.1 mls/hr Documented By: Admin: 10/21/22 10:46 Dose: 50 mcg/hr, 10.1 mls/hr Documented By: KMLb Infusion: 10/21/22 10:45 Dose: 0 mcg/hr, 0 mls/hr Documented By: Admin: 10/21/22 00:07 Dose: 50 mcg/hr, 10.1 mls/hr Documented By: Infusion: 10/21/22 00:05 Dose: 0 mcg/hr, 0 mls/hr Documented By: Admin: 10/20/22 14:11 Dose: 50 mcg/hr, 10.1 mls/hr Documented By: Infusion: 10/20/22 14:11 Dose: 50 mcg/hr, 10.1 mls/hr Documented By: Infusion: 10/20/22 09:22 Dose: 50 mcg/hr, 10.1 mls/hr Documented By: Infusion: 10/20/22 07:53 Dose: 0 mcg/hr, 0 mls/hr Documented By: Admin: 10/20/22 03:12 Dose: 50 mcg/hr, 10.1 mls/hr Documented By: CHRISTIANO Cefepime HCl 2 gm/ Sodium (Chloride) 100 mls @ 200 mls/hr IV Q12H [facility] Last Infusion: 10/24/22 06:13 Dose: 0 mls/hr Documented By: Admin: 10/24/22 05:31 Dose: 200 mls/hr Documented By: Infusion: 10/23/22 20:45 Dose: 0 mls/hr Documented By: Admin: 10/23/22 20:13 Dose: 200 mls/hr Documented By: Infusion: 10/23/22 08:37 Dose: 0 mls/hr Documented By: Admin: 10/23/22 07:13 Dose: 200 mls/hr Documented By: Infusion: 10/22/22 20:45 Dose: 0 mls/hr Documented By: Admin: 10/22/22 20:13 Dose: 200 mls/hr Documented By: GAETANO(2) Infusion: 10/22/22 06:40 Dose: 0 mls/hr Documented By: Admin: 10/22/22 05:52 Dose: 200 mls/hr Documented By: Infusion: 10/21/22 19:15 Dose: 0 mls/hr Documented By: Admin: 10/21/22 18:25 Dose: 200 mls/hr Documented By: Infusion: 10/21/22 05:36 Dose: 0 mls/hr Documented By: Admin: 10/21/22 05:02 Dose: 200 mls/hr Documented By: Infusion: 10/20/22 18:46 Dose: 0 mls/hr Documented By: Admin: 10/20/22 17:29 Dose: 200 mls/hr Documented By: Admin: 10/20/22 06:00 Dose: Not Given Documented By: TIMOTEO Metronidazole (Flagyl) 500 mg in 100 mls @ 100 mls/hr IV Q8H [facility] Last Infusion: 10/24/22 01:04 Dose: 0 mls/hr Documented By: Admin: 10/24/22 00:13 Dose: 100 mls/hr Documented By: Infusion: 10/23/22 17:45 Dose: 0 mls/hr Documented By: Admin: 10/23/22 16:33 Dose: 100 mls/hr Documented By: Infusion: 10/23/22 10:10 Dose: 0 mls/hr Documented By: Admin: 10/23/22 08:56 Dose: 100 mls/hr Documented By: Infusion: 10/23/22 02:30 Dose: 0 mls/hr Documented By: Admin: 10/23/22 01:28 Dose: 100 mls/hr Documented By: Infusion: 10/22/22 18:26 Dose: 0 mls/hr Documented By: GAETANO(2) Admin: 10/22/22 17:01 Dose: 100 mls/hr Documented By: Infusion: 10/22/22 09:10 Dose: 0 mls/hr Documented By: Admin: 10/22/22 08:08 Dose: 100 mls/hr Documented By: Infusion: 10/22/22 02:22 Dose: 0 mls/hr Documented By: Admin: 10/22/22 01:13 Dose: 100 mls/hr Documented By: Infusion: 10/21/22 18:26 Dose: 0 mls/hr Documented By: Admin: 10/21/22 17:06 Dose: 100 mls/hr Documented By: Infusion: 10/21/22 09:50 Dose: 0 mls/hr Documented By: Admin: 10/21/22 08:41 Dose: 100 mls/hr Documented By: Infusion: 10/21/22 01:20 Dose: 0 mls/hr Documented By: Admin: 10/21/22 00:16 Dose: 100 mls/hr Documented By: Infusion: 10/20/22 17:28 Dose: 0 mls/hr Documented By: Admin: 10/20/22 16:22 Dose: 100 mls/hr Documented By: Infusion: 10/20/22 11:45 Dose: 0 mls/hr Documented By: Admin: 10/20/22 10:31 Dose: 100 mls/hr Documented By: FAUZIA POTASSIUM CHLORIDE IN WATER (Potassium Cl 10 Meq/100 Ml Nathalia) 10 meq in 100 mls @ 100 mls/hr IV Q1H [facility] Stop: 10/21/22 13:29 Last Infusion: 10/21/22 15:04 Dose: 0 mls/hr Documented By: Admin: 10/21/22 13:54 Dose: 100 mls/hr Documented By: Infusion: 10/21/22 13:51 Dose: 0 mls/hr Documented By: Admin: 10/21/22 12:37 Dose: 100 mls/hr Documented By: NELY Calcium Gluconate 9.3 meq/ (Sodium Chloride) 70 mls @ 140 mls/hr IV NOW ONE Stop: 10/21/22 11:48 Last Infusion: 10/21/22 12:29 Dose: 0 mls/hr Documented By: Admin: 10/21/22 11:48 Dose: 140 mls/hr Documented By: ENRIQUE Phytonadione 10 mg/ Sodium (Chloride) 101 mls @ 202 mls/hr IV NOW ONE Stop: 10/24/22 18:41 Last Infusion: 10/24/22 20:45 Dose: 0 mls/hr Documented By: Admin: 10/24/22 19:52 Dose: 202 mls/hr Documented By: RENETTA Losartan Potassium (Losartan 25 Mg Tablet) 25 mg PO DAILY [facility] Last Admin: 10/25/22 09:27 Dose: 25 mg Documented By: Admin: 10/24/22 09:58 Dose: 25 mg Documented By: Admin: 10/23/22 08:56 Dose: 25 mg Documented By: Admin: 10/22/22 08:08 Dose: 25 mg Documented By: Admin: 10/21/22 08:40 Dose: 25 mg Documented By: Admin: 10/20/22 11:45 Dose: Not Given Documented By: FAUZIA Octreotide Acetate (Octreotide 100 Mcg/Ml Vial) 50 mcg IV NOW ONE Stop: 10/20/22 02:01 Last Admin: 10/20/22 03:13 Dose: 50 mcg Documented By: CHRISTIANO Ondansetron HCl (Ondansetron 4 Mg/2 Ml Inj) 4 mg IV NOW PRN PRN Reason: Nausea And Vomiting Last Admin: 10/20/22 03:28 Dose: 4 mg Documented By: CHRISTIANO Ondansetron HCl (Ondansetron 4 Mg Odt) 4 mg SL NOW PRN PRN Reason: Nausea And Vomiting Ondansetron HCl (Ondansetron 4 Mg/2 Ml Inj) 4 mg IV Q6HR PRN PRN Reason: Nausea And Vomiting Pantoprazole Sodium (Pantoprazole 40 Mg Vial) 80 mg IV NOW ONE Stop: 10/19/22 21:56 Last Admin: 10/19/22 22:55 Dose: 80 mg Documented By: OBEY(2) Pantoprazole Sodium (Pantoprazole 40 Mg Vial) 80 mg IV BID [facility] Last Admin: 10/23/22 21:10 Dose: 80 mg Documented By: Admin: 10/23/22 08:56 Dose: 80 mg Documented By: Admin: 10/22/22 21:03 Dose: 80 mg Documented By: Admin: 10/22/22 09:55 Dose: 80 mg Documented By: Admin: 10/21/22 21:05 Dose: 80 mg Documented By: Admin: 10/21/22 08:40 Dose: 80 mg Documented By: Admin: 10/20/22 20:52 Dose: 80 mg Documented By: Admin: 10/20/22 12:46 Dose: 80 mg Documented By: FAUZIA Pantoprazole Sodium (Pantoprazole Dr 20 Mg Tablet) 40 mg PO BID [facility] Last Admin: 10/25/22 09:27 Dose: 40 mg Documented By: Admin: 10/24/22 21:02 Dose: 40 mg Documented By: Admin: 10/24/22 09:58 Dose: 40 mg Documented By: GAETANO Vital Signs Vital signs: Vital Signs - 8 hr 10/25/22 12:35 10/25/22 12:36 10/25/22 12:36 Pulse Rate 74 74 Blood Pressure 127/61 Pulse Oximetry 99 99 Oxygen Delivery Method Room Air <Rayo Cho, DO - Last Filed: 10/24/22 06:15> Orders Ordered: Discontinued Medications Atorvastatin Calcium (Atorvastatin 20 Mg Tablet) 10 mg PO BEDTIME [facility] Last Admin: 10/24/22 21:04 Dose: 10 mg Documented By: Admin: 10/23/22 21:10 Dose: 10 mg Documented By: Admin: 10/22/22 21:03 Dose: 10 mg Documented By: Admin: 10/21/22 21:05 Dose: 10 mg Documented By: Admin: 10/20/22 20:53 Dose: 10 mg Documented By: YUNIOR Furosemide (Furosemide 40 Mg/4 Ml Vial) 40 mg IV NOW ONE Stop: 10/24/22 19:12 Last Admin: 10/24/22 19:53 Dose: 40 mg Documented By: RENETTA Sodium Chloride (Normal Saline 0.9%) 1,000 mls @ 150 mls/hr IV CONT [facility] Last Infusion: 10/21/22 12:42 Dose: 0 mls/hr Documented By: Admin: 10/21/22 06:57 Dose: 150 mls/hr Documented By: Infusion: 10/21/22 06:47 Dose: 150 mls/hr Documented By: Admin: 10/21/22 00:06 Dose: 150 mls/hr Documented By: Infusion: 10/21/22 00:05 Dose: 0 mls/hr Documented By: Admin: 10/20/22 17:29 Dose: 150 mls/hr Documented By: Infusion: 10/20/22 17:28 Dose: 0 mls/hr Documented By: Infusion: 10/20/22 16:13 Dose: 150 mls/hr Documented By: Infusion: 10/20/22 08:00 Dose: 0 mls/hr Documented By: Admin: 10/20/22 02:11 Dose: 150 mls/hr Documented By: CHRISTIANO Metronidazole (Flagyl) 500 mg in 100 mls @ 100 mls/hr IV NOW ONE Stop: 10/20/22 02:45 Last Infusion: 10/20/22 04:26 Dose: 0 mls/hr Documented By: Admin: 10/20/22 03:15 Dose: 100 mls/hr Documented By: CHRISTIANO Cefepime HCl 2 gm/ Sodium (Chloride) 100 mls @ 200 mls/hr IV NOW ONE Stop: 10/20/22 01:47 Last Infusion: 10/20/22 03:11 Dose: 0 mls/hr Documented By: Infusion: 10/20/22 02:26 Dose: 200 mls/hr Documented By: Infusion: 10/20/22 02:13 Dose: 0 mls/hr Documented By: Admin: 10/20/22 02:12 Dose: 200 mls/hr Documented By: CHRISTIANO Octreotide Acetate 500 mcg/ (Sodium Chloride) 101 mls @ 10.1 mls/hr IV CONT [facility]; Protocol Last Infusion: 10/24/22 08:00 Dose: 0 mcg/hr, 0 mls/hr Documented By: Admin: 10/24/22 00:58 Dose: 50 mcg/hr, 10.1 mls/hr Documented By: Infusion: 10/24/22 00:58 Dose: 50 mcg/hr, 10.1 mls/hr Documented By: Admin: 10/23/22 15:54 Dose: 50 mcg/hr, 10.1 mls/hr Documented By: Infusion: 10/23/22 02:44 Dose: 50 mcg/hr, 10.1 mls/hr Documented By: Infusion: 10/23/22 02:43 Dose: 0 mcg/hr, 0 mls/hr Documented By: Admin: 10/22/22 16:59 Dose: 50 mcg/hr, 10.1 mls/hr Documented By: Infusion: 10/22/22 16:59 Dose: 50 mcg/hr, 10.1 mls/hr Documented By: Admin: 10/22/22 07:05 Dose: 50 mcg/hr, 10.1 mls/hr Documented By: Infusion: 10/22/22 07:05 Dose: 0 mcg/hr, 0 mls/hr Documented By: Admin: 10/21/22 21:06 Dose: 50 mcg/hr, 10.1 mls/hr Documented By: Infusion: 10/21/22 20:46 Dose: 50 mcg/hr, 10.1 mls/hr Documented By: Admin: 10/21/22 10:46 Dose: 50 mcg/hr, 10.1 mls/hr Documented By: Infusion: 10/21/22 10:45 Dose: 0 mcg/hr, 0 mls/hr Documented By: Admin: 10/21/22 00:07 Dose: 50 mcg/hr, 10.1 mls/hr Documented By: Infusion: 10/21/22 00:05 Dose: 0 mcg/hr, 0 mls/hr Documented By: Admin: 10/20/22 14:11 Dose: 50 mcg/hr, 10.1 mls/hr Documented By: Infusion: 10/20/22 14:11 Dose: 50 mcg/hr, 10.1 mls/hr Documented By: Infusion: 10/20/22 09:22 Dose: 50 mcg/hr, 10.1 mls/hr Documented By: Infusion: 10/20/22 07:53 Dose: 0 mcg/hr, 0 mls/hr Documented By: Admin: 10/20/22 03:12 Dose: 50 mcg/hr, 10.1 mls/hr Documented By: CHRISTIANO Cefepime HCl 2 gm/ Sodium (Chloride) 100 mls @ 200 mls/hr IV Q12H [facility] Last Infusion: 10/24/22 06:13 Dose: 0 mls/hr Documented By: Admin: 10/24/22 05:31 Dose: 200 mls/hr Documented By: Infusion: 10/23/22 20:45 Dose: 0 mls/hr Documented By: Admin: 10/23/22 20:13 Dose: 200 mls/hr Documented By: Infusion: 10/23/22 08:37 Dose: 0 mls/hr Documented By: Admin: 10/23/22 07:13 Dose: 200 mls/hr Documented By: Infusion: 10/22/22 20:45 Dose: 0 mls/hr Documented By: Admin: 10/22/22 20:13 Dose: 200 mls/hr Documented By: GAETANO(2) Infusion: 10/22/22 06:40 Dose: 0 mls/hr Documented By: Admin: 10/22/22 05:52 Dose: 200 mls/hr Documented By: Infusion: 10/21/22 19:15 Dose: 0 mls/hr Documented By: Admin: 10/21/22 18:25 Dose: 200 mls/hr Documented By: Infusion: 10/21/22 05:36 Dose: 0 mls/hr Documented By: Admin: 10/21/22 05:02 Dose: 200 mls/hr Documented By: Infusion: 10/20/22 18:46 Dose: 0 mls/hr Documented By: Admin: 10/20/22 17:29 Dose: 200 mls/hr Documented By: Admin: 10/20/22 06:00 Dose: Not Given Documented By: TIMOTEO Metronidazole (Flagyl) 500 mg in 100 mls @ 100 mls/hr IV Q8H [facility] Last Infusion: 10/24/22 01:04 Dose: 0 mls/hr Documented By: Admin: 10/24/22 00:13 Dose: 100 mls/hr Documented By: Infusion: 10/23/22 17:45 Dose: 0 mls/hr Documented By: Admin: 10/23/22 16:33 Dose: 100 mls/hr Documented By: Infusion: 10/23/22 10:10 Dose: 0 mls/hr Documented By: Admin: 10/23/22 08:56 Dose: 100 mls/hr Documented By: Infusion: 10/23/22 02:30 Dose: 0 mls/hr Documented By: Admin: 10/23/22 01:28 Dose: 100 mls/hr Documented By: Infusion: 10/22/22 18:26 Dose: 0 mls/hr Documented By: GAETANO(2) Admin: 10/22/22 17:01 Dose: 100 mls/hr Documented By: Infusion: 10/22/22 09:10 Dose: 0 mls/hr Documented By: Admin: 10/22/22 08:08 Dose: 100 mls/hr Documented By: Infusion: 10/22/22 02:22 Dose: 0 mls/hr Documented By: Admin: 10/22/22 01:13 Dose: 100 mls/hr Documented By: Infusion: 10/21/22 18:26 Dose: 0 mls/hr Documented By: Admin: 10/21/22 17:06 Dose: 100 mls/hr Documented By: Infusion: 10/21/22 09:50 Dose: 0 mls/hr Documented By: Admin: 10/21/22 08:41 Dose: 100 mls/hr Documented By: Infusion: 10/21/22 01:20 Dose: 0 mls/hr Documented By: Admin: 10/21/22 00:16 Dose: 100 mls/hr Documented By: Infusion: 10/20/22 17:28 Dose: 0 mls/hr Documented By: Admin: 10/20/22 16:22 Dose: 100 mls/hr Documented By: Infusion: 10/20/22 11:45 Dose: 0 mls/hr Documented By: Admin: 10/20/22 10:31 Dose: 100 mls/hr Documented By: FAUZIA POTASSIUM CHLORIDE IN WATER (Potassium Cl 10 Meq/100 Ml Nathalia) 10 meq in 100 mls @ 100 mls/hr IV Q1H [facility] Stop: 10/21/22 13:29 Last Infusion: 10/21/22 15:04 Dose: 0 mls/hr Documented By: Admin: 10/21/22 13:54 Dose: 100 mls/hr Documented By: Infusion: 10/21/22 13:51 Dose: 0 mls/hr Documented By: Admin: 10/21/22 12:37 Dose: 100 mls/hr Documented By: NELY Calcium Gluconate 9.3 meq/ (Sodium Chloride) 70 mls @ 140 mls/hr IV NOW ONE Stop: 10/21/22 11:48 Last Infusion: 10/21/22 12:29 Dose: 0 mls/hr Documented By: Admin: 10/21/22 11:48 Dose: 140 mls/hr Documented By: ENRIQUE Phytonadione 10 mg/ Sodium (Chloride) 101 mls @ 202 mls/hr IV NOW ONE Stop: 10/24/22 18:41 Last Infusion: 10/24/22 20:45 Dose: 0 mls/hr Documented By: Admin: 10/24/22 19:52 Dose: 202 mls/hr Documented By: RENETTA Losartan Potassium (Losartan 25 Mg Tablet) 25 mg PO DAILY [facility] Last Admin: 10/25/22 09:27 Dose: 25 mg Documented By: Admin: 10/24/22 09:58 Dose: 25 mg Documented By: Admin: 10/23/22 08:56 Dose: 25 mg Documented By: Admin: 10/22/22 08:08 Dose: 25 mg Documented By: Admin: 10/21/22 08:40 Dose: 25 mg Documented By: Admin: 10/20/22 11:45 Dose: Not Given Documented By: FAUZIA Octreotide Acetate (Octreotide 100 Mcg/Ml Vial) 50 mcg IV NOW ONE Stop: 10/20/22 02:01 Last Admin: 10/20/22 03:13 Dose: 50 mcg Documented By: CHRISTIANO Ondansetron HCl (Ondansetron 4 Mg/2 Ml Inj) 4 mg IV NOW PRN PRN Reason: Nausea And Vomiting Last Admin: 10/20/22 03:28 Dose: 4 mg Documented By: CHRISTIANO Ondansetron HCl (Ondansetron 4 Mg Odt) 4 mg SL NOW PRN PRN Reason: Nausea And Vomiting Ondansetron HCl (Ondansetron 4 Mg/2 Ml Inj) 4 mg IV Q6HR PRN PRN Reason: Nausea And Vomiting Pantoprazole Sodium (Pantoprazole 40 Mg Vial) 80 mg IV NOW ONE Stop: 10/19/22 21:56 Last Admin: 10/19/22 22:55 Dose: 80 mg Documented By: OBEY(2) Pantoprazole Sodium (Pantoprazole 40 Mg Vial) 80 mg IV BID [facility] Last Admin: 10/23/22 21:10 Dose: 80 mg Documented By: Admin: 10/23/22 08:56 Dose: 80 mg Documented By: Admin: 10/22/22 21:03 Dose: 80 mg Documented By: Admin: 10/22/22 09:55 Dose: 80 mg Documented By: Admin: 10/21/22 21:05 Dose: 80 mg Documented By: Admin: 10/21/22 08:40 Dose: 80 mg Documented By: Admin: 10/20/22 20:52 Dose: 80 mg Documented By: Admin: 10/20/22 12:46 Dose: 80 mg Documented By: FAUZIA Pantoprazole Sodium (Pantoprazole Dr 20 Mg Tablet) 40 mg PO BID [facility] Last Admin: 10/25/22 09:27 Dose: 40 mg Documented By: Admin: 10/24/22 21:02 Dose: 40 mg Documented By: Admin: 10/24/22 09:58 Dose: 40 mg Documented By: GAETANO Vital Signs Vital signs: Vital Signs - 8 hr 10/25/22 12:35 10/25/22 12:36 10/25/22 12:36 Pulse Rate 74 74 Blood Pressure 127/61 Pulse Oximetry 99 99 Oxygen Delivery Method Room Air <Eamon Mtz MD - Last Filed: 11/18/22 08:19> Course Course Narrative: 10/21/22 @12:20. Patient has a prior history of GI bleed. She re-presented yesterday, not feeling well. She had acute anemia with H/H 6.7/20.9. She was transfused 2 units PRBCs. She drinks very little alcohol. She has no prior history of PUD. CT findings included cirrhosis and portal hypertension with gastroesophageal and splenic varices. A recanalized paraumbilical vein is present, with ascites. Cholelithiasis was noted. A stone was present at the ampulla of Vater. MRCP revealed a small stone at the ampulla, there is no biliary ductal dilatation. Cirrhosis and portal hypertension was again noted. Labs this morning shows stable H and H of 8.3/25.3. Total bilirubin is 1.7. There is no significant elevation of AST, ALT, or ALP. She remains on octreotide drip. She is receiving Protonix. She is receiving Cefepime due to concerns of cholecystitis/common bile duct stone. Multiple facilities have been called regarding transfer, she should be seen by employee development director regarding bleeding varices, in potential ERCP. She is on multiple eating this. Calls have been initiated again today, there is yet to be a receiving facility identified.Elvi RENDON Orders Ordered: Discontinued Medications Atorvastatin Calcium (Atorvastatin 20 Mg Tablet) 10 mg PO BEDTIME [facility] Last Admin: 10/24/22 21:04 Dose: 10 mg Documented By: Admin: 10/23/22 21:10 Dose: 10 mg Documented By: Admin: 10/22/22 21:03 Dose: 10 mg Documented By: Admin: 10/21/22 21:05 Dose: 10 mg Documented By: Admin: 10/20/22 20:53 Dose: 10 mg Documented By: YUNIOR Furosemide (Furosemide 40 Mg/4 Ml Vial) 40 mg IV NOW ONE Stop: 10/24/22 19:12 Last Admin: 10/24/22 19:53 Dose: 40 mg Documented By: RENETTA Sodium Chloride (Normal Saline 0.9%) 1,000 mls @ 150 mls/hr IV CONT [facility] Last Infusion: 10/21/22 12:42 Dose: 0 mls/hr Documented By: Admin: 10/21/22 06:57 Dose: 150 mls/hr Documented By: Infusion: 10/21/22 06:47 Dose: 150 mls/hr Documented By: Admin: 10/21/22 00:06 Dose: 150 mls/hr Documented By: Infusion: 10/21/22 00:05 Dose: 0 mls/hr Documented By: Admin: 10/20/22 17:29 Dose: 150 mls/hr Documented By: Infusion: 10/20/22 17:28 Dose: 0 mls/hr Documented By: Infusion: 10/20/22 16:13 Dose: 150 mls/hr Documented By: Infusion: 10/20/22 08:00 Dose: 0 mls/hr Documented By: Admin: 10/20/22 02:11 Dose: 150 mls/hr Documented By: CHRISTIANO Metronidazole (Flagyl) 500 mg in 100 mls @ 100 mls/hr IV NOW ONE Stop: 10/20/22 02:45 Last Infusion: 10/20/22 04:26 Dose: 0 mls/hr Documented By: Admin: 10/20/22 03:15 Dose: 100 mls/hr Documented By: CHRISTIANO Cefepime HCl 2 gm/ Sodium (Chloride) 100 mls @ 200 mls/hr IV NOW ONE Stop: 10/20/22 01:47 Last Infusion: 10/20/22 03:11 Dose: 0 mls/hr Documented By: Infusion: 10/20/22 02:26 Dose: 200 mls/hr Documented By: Infusion: 10/20/22 02:13 Dose: 0 mls/hr Documented By: Admin: 10/20/22 02:12 Dose: 200 mls/hr Documented By: CHRISTIANO Octreotide Acetate 500 mcg/ (Sodium Chloride) 101 mls @ 10.1 mls/hr IV CONT [facility]; Protocol Last Infusion: 10/24/22 08:00 Dose: 0 mcg/hr, 0 mls/hr Documented By: Admin: 10/24/22 00:58 Dose: 50 mcg/hr, 10.1 mls/hr Documented By: Infusion: 10/24/22 00:58 Dose: 50 mcg/hr, 10.1 mls/hr Documented By: Admin: 10/23/22 15:54 Dose: 50 mcg/hr, 10.1 mls/hr Documented By: Infusion: 10/23/22 02:44 Dose: 50 mcg/hr, 10.1 mls/hr Documented By: Infusion: 10/23/22 02:43 Dose: 0 mcg/hr, 0 mls/hr Documented By: Admin: 10/22/22 16:59 Dose: 50 mcg/hr, 10.1 mls/hr Documented By: Infusion: 10/22/22 16:59 Dose: 50 mcg/hr, 10.1 mls/hr Documented By: Admin: 10/22/22 07:05 Dose: 50 mcg/hr, 10.1 mls/hr Documented By: Infusion: 10/22/22 07:05 Dose: 0 mcg/hr, 0 mls/hr Documented By: Admin: 10/21/22 21:06 Dose: 50 mcg/hr, 10.1 mls/hr Documented By: Infusion: 10/21/22 20:46 Dose: 50 mcg/hr, 10.1 mls/hr Documented By: Admin: 10/21/22 10:46 Dose: 50 mcg/hr, 10.1 mls/hr Documented By: Infusion: 10/21/22 10:45 Dose: 0 mcg/hr, 0 mls/hr Documented By: Admin: 10/21/22 00:07 Dose: 50 mcg/hr, 10.1 mls/hr Documented By: Infusion: 10/21/22 00:05 Dose: 0 mcg/hr, 0 mls/hr Documented By: Admin: 10/20/22 14:11 Dose: 50 mcg/hr, 10.1 mls/hr Documented By: Infusion: 10/20/22 14:11 Dose: 50 mcg/hr, 10.1 mls/hr Documented By: Infusion: 10/20/22 09:22 Dose: 50 mcg/hr, 10.1 mls/hr Documented By: Infusion: 10/20/22 07:53 Dose: 0 mcg/hr, 0 mls/hr Documented By: Admin: 10/20/22 03:12 Dose: 50 mcg/hr, 10.1 mls/hr Documented By: CHRISTIANO Cefepime HCl 2 gm/ Sodium (Chloride) 100 mls @ 200 mls/hr IV Q12H [facility] Last Infusion: 10/24/22 06:13 Dose: 0 mls/hr Documented By: Admin: 10/24/22 05:31 Dose: 200 mls/hr Documented By: Infusion: 10/23/22 20:45 Dose: 0 mls/hr Documented By: Admin: 10/23/22 20:13 Dose: 200 mls/hr Documented By: Infusion: 10/23/22 08:37 Dose: 0 mls/hr Documented By: Admin: 10/23/22 07:13 Dose: 200 mls/hr Documented By: Infusion: 10/22/22 20:45 Dose: 0 mls/hr Documented By: Admin: 10/22/22 20:13 Dose: 200 mls/hr Documented By: GAETANO(2) Infusion: 10/22/22 06:40 Dose: 0 mls/hr Documented By: Admin: 10/22/22 05:52 Dose: 200 mls/hr Documented By: Infusion: 10/21/22 19:15 Dose: 0 mls/hr Documented By: Admin: 10/21/22 18:25 Dose: 200 mls/hr Documented By: Infusion: 10/21/22 05:36 Dose: 0 mls/hr Documented By: Admin: 10/21/22 05:02 Dose: 200 mls/hr Documented By: Infusion: 10/20/22 18:46 Dose: 0 mls/hr Documented By: Admin: 10/20/22 17:29 Dose: 200 mls/hr Documented By: Admin: 10/20/22 06:00 Dose: Not Given Documented By: TIMOTEO Metronidazole (Flagyl) 500 mg in 100 mls @ 100 mls/hr IV Q8H [facility] Last Infusion: 10/24/22 01:04 Dose: 0 mls/hr Documented By: Admin: 10/24/22 00:13 Dose: 100 mls/hr Documented By: Infusion: 10/23/22 17:45 Dose: 0 mls/hr Documented By: Admin: 10/23/22 16:33 Dose: 100 mls/hr Documented By: Infusion: 10/23/22 10:10 Dose: 0 mls/hr Documented By: Admin: 10/23/22 08:56 Dose: 100 mls/hr Documented By: Infusion: 10/23/22 02:30 Dose: 0 mls/hr Documented By: Admin: 10/23/22 01:28 Dose: 100 mls/hr Documented By: Infusion: 10/22/22 18:26 Dose: 0 mls/hr Documented By: GAETANO(2) Admin: 10/22/22 17:01 Dose: 100 mls/hr Documented By: Infusion: 10/22/22 09:10 Dose: 0 mls/hr Documented By: Admin: 10/22/22 08:08 Dose: 100 mls/hr Documented By: Infusion: 10/22/22 02:22 Dose: 0 mls/hr Documented By: Admin: 10/22/22 01:13 Dose: 100 mls/hr Documented By: Infusion: 10/21/22 18:26 Dose: 0 mls/hr Documented By: Admin: 10/21/22 17:06 Dose: 100 mls/hr Documented By: Infusion: 10/21/22 09:50 Dose: 0 mls/hr Documented By: Admin: 10/21/22 08:41 Dose: 100 mls/hr Documented By: Infusion: 10/21/22 01:20 Dose: 0 mls/hr Documented By: Admin: 10/21/22 00:16 Dose: 100 mls/hr Documented By: Infusion: 10/20/22 17:28 Dose: 0 mls/hr Documented By: Admin: 10/20/22 16:22 Dose: 100 mls/hr Documented By: Infusion: 10/20/22 11:45 Dose: 0 mls/hr Documented By: Admin: 10/20/22 10:31 Dose: 100 mls/hr Documented By: FAUZIA POTASSIUM CHLORIDE IN WATER (Potassium Cl 10 Meq/100 Ml Nathalia) 10 meq in 100 mls @ 100 mls/hr IV Q1H [facility] Stop: 10/21/22 13:29 Last Infusion: 10/21/22 15:04 Dose: 0 mls/hr Documented By: Admin: 10/21/22 13:54 Dose: 100 mls/hr Documented By: Infusion: 10/21/22 13:51 Dose: 0 mls/hr Documented By: Admin: 10/21/22 12:37 Dose: 100 mls/hr Documented By: NELY Calcium Gluconate 9.3 meq/ (Sodium Chloride) 70 mls @ 140 mls/hr IV NOW ONE Stop: 10/21/22 11:48 Last Infusion: 10/21/22 12:29 Dose: 0 mls/hr Documented By: Admin: 10/21/22 11:48 Dose: 140 mls/hr Documented By: ENRIQUE Phytonadione 10 mg/ Sodium (Chloride) 101 mls @ 202 mls/hr IV NOW ONE Stop: 10/24/22 18:41 Last Infusion: 10/24/22 20:45 Dose: 0 mls/hr Documented By: Admin: 10/24/22 19:52 Dose: 202 mls/hr Documented By: RENETTA Losartan Potassium (Losartan 25 Mg Tablet) 25 mg PO DAILY [facility] Last Admin: 10/25/22 09:27 Dose: 25 mg Documented By: Admin: 10/24/22 09:58 Dose: 25 mg Documented By: Admin: 10/23/22 08:56 Dose: 25 mg Documented By: Admin: 10/22/22 08:08 Dose: 25 mg Documented By: Admin: 10/21/22 08:40 Dose: 25 mg Documented By: Admin: 10/20/22 11:45 Dose: Not Given Documented By: FAUZIA Octreotide Acetate (Octreotide 100 Mcg/Ml Vial) 50 mcg IV NOW ONE Stop: 10/20/22 02:01 Last Admin: 10/20/22 03:13 Dose: 50 mcg Documented By: CHRISTIANO Ondansetron HCl (Ondansetron 4 Mg/2 Ml Inj) 4 mg IV NOW PRN PRN Reason: Nausea And Vomiting Last Admin: 10/20/22 03:28 Dose: 4 mg Documented By: CHRISTIANO Ondansetron HCl (Ondansetron 4 Mg Odt) 4 mg SL NOW PRN PRN Reason: Nausea And Vomiting Ondansetron HCl (Ondansetron 4 Mg/2 Ml Inj) 4 mg IV Q6HR PRN PRN Reason: Nausea And Vomiting Pantoprazole Sodium (Pantoprazole 40 Mg Vial) 80 mg IV NOW ONE Stop: 10/19/22 21:56 Last Admin: 10/19/22 22:55 Dose: 80 mg Documented By: OBEY(2) Pantoprazole Sodium (Pantoprazole 40 Mg Vial) 80 mg IV BID [facility] Last Admin: 10/23/22 21:10 Dose: 80 mg Documented By: Admin: 10/23/22 08:56 Dose: 80 mg Documented By: Admin: 10/22/22 21:03 Dose: 80 mg Documented By: Admin: 10/22/22 09:55 Dose: 80 mg Documented By: Admin: 10/21/22 21:05 Dose: 80 mg Documented By: Admin: 10/21/22 08:40 Dose: 80 mg Documented By: Admin: 10/20/22 20:52 Dose: 80 mg Documented By: Admin: 10/20/22 12:46 Dose: 80 mg Documented By: FAUZIA Pantoprazole Sodium (Pantoprazole Dr 20 Mg Tablet) 40 mg PO BID [facility] Last Admin: 10/25/22 09:27 Dose: 40 mg Documented By: Admin: 10/24/22 21:02 Dose: 40 mg Documented By: Admin: 10/24/22 09:58 Dose: 40 mg Documented By: GAETANO Vital Signs Vital signs: Vital Signs - 8 hr 10/25/22 12:35 10/25/22 12:36 10/25/22 12:36 Pulse Rate 74 74 Blood Pressure 127/61 Pulse Oximetry 99 99 Oxygen Delivery Method Room Air <Mervin King DO - Last Filed: 10/25/22 17:41> Orders Ordered: Discontinued Medications Atorvastatin Calcium (Atorvastatin 20 Mg Tablet) 10 mg PO BEDTIME [facility] Last Admin: 10/24/22 21:04 Dose: 10 mg Documented By: Admin: 10/23/22 21:10 Dose: 10 mg Documented By: Admin: 10/22/22 21:03 Dose: 10 mg Documented By: Admin: 10/21/22 21:05 Dose: 10 mg Documented By: Admin: 10/20/22 20:53 Dose: 10 mg Documented By: YUNIOR Furosemide (Furosemide 40 Mg/4 Ml Vial) 40 mg IV NOW ONE Stop: 10/24/22 19:12 Last Admin: 10/24/22 19:53 Dose: 40 mg Documented By: RENETTA Sodium Chloride (Normal Saline 0.9%) 1,000 mls @ 150 mls/hr IV CONT [facility] Last Infusion: 10/21/22 12:42 Dose: 0 mls/hr Documented By: Admin: 10/21/22 06:57 Dose: 150 mls/hr Documented By: Infusion: 10/21/22 06:47 Dose: 150 mls/hr Documented By: Admin: 10/21/22 00:06 Dose: 150 mls/hr Documented By: Infusion: 10/21/22 00:05 Dose: 0 mls/hr Documented By: Admin: 10/20/22 17:29 Dose: 150 mls/hr Documented By: Infusion: 10/20/22 17:28 Dose: 0 mls/hr Documented By: Infusion: 10/20/22 16:13 Dose: 150 mls/hr Documented By: Infusion: 10/20/22 08:00 Dose: 0 mls/hr Documented By: Admin: 10/20/22 02:11 Dose: 150 mls/hr Documented By: CHRISTIANO Metronidazole (Flagyl) 500 mg in 100 mls @ 100 mls/hr IV NOW ONE Stop: 10/20/22 02:45 Last Infusion: 10/20/22 04:26 Dose: 0 mls/hr Documented By: Admin: 10/20/22 03:15 Dose: 100 mls/hr Documented By: CHRISTIANO Cefepime HCl 2 gm/ Sodium (Chloride) 100 mls @ 200 mls/hr IV NOW ONE Stop: 10/20/22 01:47 Last Infusion: 10/20/22 03:11 Dose: 0 mls/hr Documented By: Infusion: 10/20/22 02:26 Dose: 200 mls/hr Documented By: Infusion: 10/20/22 02:13 Dose: 0 mls/hr Documented By: Admin: 10/20/22 02:12 Dose: 200 mls/hr Documented By: CHRISTIANO Octreotide Acetate 500 mcg/ (Sodium Chloride) 101 mls @ 10.1 mls/hr IV CONT [facility]; Protocol Last Infusion: 10/24/22 08:00 Dose: 0 mcg/hr, 0 mls/hr Documented By: Admin: 10/24/22 00:58 Dose: 50 mcg/hr, 10.1 mls/hr Documented By: Infusion: 10/24/22 00:58 Dose: 50 mcg/hr, 10.1 mls/hr Documented By: Admin: 10/23/22 15:54 Dose: 50 mcg/hr, 10.1 mls/hr Documented By: Infusion: 10/23/22 02:44 Dose: 50 mcg/hr, 10.1 mls/hr Documented By: Infusion: 10/23/22 02:43 Dose: 0 mcg/hr, 0 mls/hr Documented By: Admin: 10/22/22 16:59 Dose: 50 mcg/hr, 10.1 mls/hr Documented By: Infusion: 10/22/22 16:59 Dose: 50 mcg/hr, 10.1 mls/hr Documented By: Admin: 10/22/22 07:05 Dose: 50 mcg/hr, 10.1 mls/hr Documented By: Infusion: 10/22/22 07:05 Dose: 0 mcg/hr, 0 mls/hr Documented By: Admin: 10/21/22 21:06 Dose: 50 mcg/hr, 10.1 mls/hr Documented By: Infusion: 10/21/22 20:46 Dose: 50 mcg/hr, 10.1 mls/hr Documented By: Admin: 10/21/22 10:46 Dose: 50 mcg/hr, 10.1 mls/hr Documented By: Infusion: 10/21/22 10:45 Dose: 0 mcg/hr, 0 mls/hr Documented By: Admin: 10/21/22 00:07 Dose: 50 mcg/hr, 10.1 mls/hr Documented By: Infusion: 10/21/22 00:05 Dose: 0 mcg/hr, 0 mls/hr Documented By: Admin: 10/20/22 14:11 Dose: 50 mcg/hr, 10.1 mls/hr Documented By: Infusion: 10/20/22 14:11 Dose: 50 mcg/hr, 10.1 mls/hr Documented By: Infusion: 10/20/22 09:22 Dose: 50 mcg/hr, 10.1 mls/hr Documented By: Infusion: 10/20/22 07:53 Dose: 0 mcg/hr, 0 mls/hr Documented By: Admin: 10/20/22 03:12 Dose: 50 mcg/hr, 10.1 mls/hr Documented By: CHRISTIANO Cefepime HCl 2 gm/ Sodium (Chloride) 100 mls @ 200 mls/hr IV Q12H [facility] Last Infusion: 10/24/22 06:13 Dose: 0 mls/hr Documented By: Admin: 10/24/22 05:31 Dose: 200 mls/hr Documented By: Infusion: 10/23/22 20:45 Dose: 0 mls/hr Documented By: Admin: 10/23/22 20:13 Dose: 200 mls/hr Documented By: Infusion: 10/23/22 08:37 Dose: 0 mls/hr Documented By: Admin: 10/23/22 07:13 Dose: 200 mls/hr Documented By: Infusion: 10/22/22 20:45 Dose: 0 mls/hr Documented By: Admin: 10/22/22 20:13 Dose: 200 mls/hr Documented By: GAETANO(2) Infusion: 10/22/22 06:40 Dose: 0 mls/hr Documented By: Admin: 10/22/22 05:52 Dose: 200 mls/hr Documented By: Infusion: 10/21/22 19:15 Dose: 0 mls/hr Documented By: Admin: 10/21/22 18:25 Dose: 200 mls/hr Documented By: Infusion: 10/21/22 05:36 Dose: 0 mls/hr Documented By: Admin: 10/21/22 05:02 Dose: 200 mls/hr Documented By: Infusion: 10/20/22 18:46 Dose: 0 mls/hr Documented By: Admin: 10/20/22 17:29 Dose: 200 mls/hr Documented By: Admin: 10/20/22 06:00 Dose: Not Given Documented By: TIMOTEO Metronidazole (Flagyl) 500 mg in 100 mls @ 100 mls/hr IV Q8H [facility] Last Infusion: 10/24/22 01:04 Dose: 0 mls/hr Documented By: Admin: 10/24/22 00:13 Dose: 100 mls/hr Documented By: Infusion: 10/23/22 17:45 Dose: 0 mls/hr Documented By: Admin: 10/23/22 16:33 Dose: 100 mls/hr Documented By: Infusion: 10/23/22 10:10 Dose: 0 mls/hr Documented By: Admin: 10/23/22 08:56 Dose: 100 mls/hr Documented By: Infusion: 10/23/22 02:30 Dose: 0 mls/hr Documented By: Admin: 10/23/22 01:28 Dose: 100 mls/hr Documented By: Infusion: 10/22/22 18:26 Dose: 0 mls/hr Documented By: GAETANO(2) Admin: 10/22/22 17:01 Dose: 100 mls/hr Documented By: Infusion: 10/22/22 09:10 Dose: 0 mls/hr Documented By: Admin: 10/22/22 08:08 Dose: 100 mls/hr Documented By: Infusion: 10/22/22 02:22 Dose: 0 mls/hr Documented By: Admin: 10/22/22 01:13 Dose: 100 mls/hr Documented By: Infusion: 10/21/22 18:26 Dose: 0 mls/hr Documented By: Admin: 10/21/22 17:06 Dose: 100 mls/hr Documented By: Infusion: 10/21/22 09:50 Dose: 0 mls/hr Documented By: Admin: 10/21/22 08:41 Dose: 100 mls/hr Documented By: Infusion: 10/21/22 01:20 Dose: 0 mls/hr Documented By: Admin: 10/21/22 00:16 Dose: 100 mls/hr Documented By: Infusion: 10/20/22 17:28 Dose: 0 mls/hr Documented By: Admin: 10/20/22 16:22 Dose: 100 mls/hr Documented By: Infusion: 10/20/22 11:45 Dose: 0 mls/hr Documented By: Admin: 10/20/22 10:31 Dose: 100 mls/hr Documented By: FAUZIA POTASSIUM CHLORIDE IN WATER (Potassium Cl 10 Meq/100 Ml Nathalia) 10 meq in 100 mls @ 100 mls/hr IV Q1H [facility] Stop: 10/21/22 13:29 Last Infusion: 10/21/22 15:04 Dose: 0 mls/hr Documented By: Admin: 10/21/22 13:54 Dose: 100 mls/hr Documented By: Infusion: 10/21/22 13:51 Dose: 0 mls/hr Documented By: Admin: 10/21/22 12:37 Dose: 100 mls/hr Documented By: NELY Calcium Gluconate 9.3 meq/ (Sodium Chloride) 70 mls @ 140 mls/hr IV NOW ONE Stop: 10/21/22 11:48 Last Infusion: 10/21/22 12:29 Dose: 0 mls/hr Documented By: Admin: 10/21/22 11:48 Dose: 140 mls/hr Documented By: ENRIQUE Phytonadione 10 mg/ Sodium (Chloride) 101 mls @ 202 mls/hr IV NOW ONE Stop: 10/24/22 18:41 Last Infusion: 10/24/22 20:45 Dose: 0 mls/hr Documented By: Admin: 10/24/22 19:52 Dose: 202 mls/hr Documented By: RENETTA Losartan Potassium (Losartan 25 Mg Tablet) 25 mg PO DAILY [facility] Last Admin: 10/25/22 09:27 Dose: 25 mg Documented By: Admin: 10/24/22 09:58 Dose: 25 mg Documented By: Admin: 10/23/22 08:56 Dose: 25 mg Documented By: Admin: 10/22/22 08:08 Dose: 25 mg Documented By: Admin: 10/21/22 08:40 Dose: 25 mg Documented By: Admin: 10/20/22 11:45 Dose: Not Given Documented By: FAUZIA Octreotide Acetate (Octreotide 100 Mcg/Ml Vial) 50 mcg IV NOW ONE Stop: 10/20/22 02:01 Last Admin: 10/20/22 03:13 Dose: 50 mcg Documented By: CHRISTIANO Ondansetron HCl (Ondansetron 4 Mg/2 Ml Inj) 4 mg IV NOW PRN PRN Reason: Nausea And Vomiting Last Admin: 10/20/22 03:28 Dose: 4 mg Documented By: CHRISTIANO Ondansetron HCl (Ondansetron 4 Mg Odt) 4 mg SL NOW PRN PRN Reason: Nausea And Vomiting Ondansetron HCl (Ondansetron 4 Mg/2 Ml Inj) 4 mg IV Q6HR PRN PRN Reason: Nausea And Vomiting Pantoprazole Sodium (Pantoprazole 40 Mg Vial) 80 mg IV NOW ONE Stop: 10/19/22 21:56 Last Admin: 10/19/22 22:55 Dose: 80 mg Documented By: OBEY(2) Pantoprazole Sodium (Pantoprazole 40 Mg Vial) 80 mg IV BID [facility] Last Admin: 10/23/22 21:10 Dose: 80 mg Documented By: Admin: 10/23/22 08:56 Dose: 80 mg Documented By: Admin: 10/22/22 21:03 Dose: 80 mg Documented By: Admin: 10/22/22 09:55 Dose: 80 mg Documented By: Admin: 10/21/22 21:05 Dose: 80 mg Documented By: Admin: 10/21/22 08:40 Dose: 80 mg Documented By: Admin: 10/20/22 20:52 Dose: 80 mg Documented By: Admin: 10/20/22 12:46 Dose: 80 mg Documented By: FAUZIA Pantoprazole Sodium (Pantoprazole Dr 20 Mg Tablet) 40 mg PO BID [facility] Last Admin: 10/25/22 09:27 Dose: 40 mg Documented By: Admin: 10/24/22 21:02 Dose: 40 mg Documented By: Admin: 10/24/22 09:58 Dose: 40 mg Documented By: GAETANO Vital Signs Vital signs: Vital Signs - 8 hr 10/25/22 12:35 10/25/22 12:36 10/25/22 12:36 Pulse Rate 74 74 Blood Pressure 127/61 Pulse Oximetry 99 99 Oxygen Delivery Method Room Air <Cristel Jacome DO - Last Filed: 10/26/22 07:41> Orders Ordered: Discontinued Medications Atorvastatin Calcium (Atorvastatin 20 Mg Tablet) 10 mg PO BEDTIME [facility] Last Admin: 10/24/22 21:04 Dose: 10 mg Documented By: Admin: 10/23/22 21:10 Dose: 10 mg Documented By: Admin: 10/22/22 21:03 Dose: 10 mg Documented By: Admin: 10/21/22 21:05 Dose: 10 mg Documented By: Admin: 10/20/22 20:53 Dose: 10 mg Documented By: RB Furosemide (Furosemide 40 Mg/4 Ml Vial) 40 mg IV NOW ONE Stop: 10/24/22 19:12 Last Admin: 10/24/22 19:53 Dose: 40 mg Documented By: RENETTA Sodium Chloride (Normal Saline 0.9%) 1,000 mls @ 150 mls/hr IV CONT [facility] Last Infusion: 10/21/22 12:42 Dose: 0 mls/hr Documented By: Admin: 10/21/22 06:57 Dose: 150 mls/hr Documented By: Infusion: 10/21/22 06:47 Dose: 150 mls/hr Documented By: Admin: 10/21/22 00:06 Dose: 150 mls/hr Documented By: Infusion: 10/21/22 00:05 Dose: 0 mls/hr Documented By: Admin: 10/20/22 17:29 Dose: 150 mls/hr Documented By: Infusion: 10/20/22 17:28 Dose: 0 mls/hr Documented By: Infusion: 10/20/22 16:13 Dose: 150 mls/hr Documented By: Infusion: 10/20/22 08:00 Dose: 0 mls/hr Documented By: Admin: 10/20/22 02:11 Dose: 150 mls/hr Documented By: CHRISTIANO Metronidazole (Flagyl) 500 mg in 100 mls @ 100 mls/hr IV NOW ONE Stop: 10/20/22 02:45 Last Infusion: 10/20/22 04:26 Dose: 0 mls/hr Documented By: Admin: 10/20/22 03:15 Dose: 100 mls/hr Documented By: CHRISTIANO Cefepime HCl 2 gm/ Sodium (Chloride) 100 mls @ 200 mls/hr IV NOW ONE Stop: 10/20/22 01:47 Last Infusion: 10/20/22 03:11 Dose: 0 mls/hr Documented By: Infusion: 10/20/22 02:26 Dose: 200 mls/hr Documented By: Infusion: 10/20/22 02:13 Dose: 0 mls/hr Documented By: Admin: 10/20/22 02:12 Dose: 200 mls/hr Documented By: CHRISTIANO Octreotide Acetate 500 mcg/ (Sodium Chloride) 101 mls @ 10.1 mls/hr IV CONT [facility]; Protocol Last Infusion: 10/24/22 08:00 Dose: 0 mcg/hr, 0 mls/hr Documented By: Admin: 10/24/22 00:58 Dose: 50 mcg/hr, 10.1 mls/hr Documented By: Infusion: 10/24/22 00:58 Dose: 50 mcg/hr, 10.1 mls/hr Documented By: Admin: 10/23/22 15:54 Dose: 50 mcg/hr, 10.1 mls/hr Documented By: Infusion: 10/23/22 02:44 Dose: 50 mcg/hr, 10.1 mls/hr Documented By: Infusion: 10/23/22 02:43 Dose: 0 mcg/hr, 0 mls/hr Documented By: Admin: 10/22/22 16:59 Dose: 50 mcg/hr, 10.1 mls/hr Documented By: Infusion: 10/22/22 16:59 Dose: 50 mcg/hr, 10.1 mls/hr Documented By: Admin: 10/22/22 07:05 Dose: 50 mcg/hr, 10.1 mls/hr Documented By: Infusion: 10/22/22 07:05 Dose: 0 mcg/hr, 0 mls/hr Documented By: Admin: 10/21/22 21:06 Dose: 50 mcg/hr, 10.1 mls/hr Documented By: Infusion: 10/21/22 20:46 Dose: 50 mcg/hr, 10.1 mls/hr Documented By: Admin: 10/21/22 10:46 Dose: 50 mcg/hr, 10.1 mls/hr Documented By: Infusion: 10/21/22 10:45 Dose: 0 mcg/hr, 0 mls/hr Documented By: Admin: 10/21/22 00:07 Dose: 50 mcg/hr, 10.1 mls/hr Documented By: Infusion: 10/21/22 00:05 Dose: 0 mcg/hr, 0 mls/hr Documented By: Admin: 10/20/22 14:11 Dose: 50 mcg/hr, 10.1 mls/hr Documented By: Infusion: 10/20/22 14:11 Dose: 50 mcg/hr, 10.1 mls/hr Documented By: Infusion: 10/20/22 09:22 Dose: 50 mcg/hr, 10.1 mls/hr Documented By: Infusion: 10/20/22 07:53 Dose: 0 mcg/hr, 0 mls/hr Documented By: Admin: 10/20/22 03:12 Dose: 50 mcg/hr, 10.1 mls/hr Documented By: CHRISTIANO Cefepime HCl 2 gm/ Sodium (Chloride) 100 mls @ 200 mls/hr IV Q12H [facility] Last Infusion: 10/24/22 06:13 Dose: 0 mls/hr Documented By: Admin: 10/24/22 05:31 Dose: 200 mls/hr Documented By: Infusion: 10/23/22 20:45 Dose: 0 mls/hr Documented By: Admin: 10/23/22 20:13 Dose: 200 mls/hr Documented By: Infusion: 10/23/22 08:37 Dose: 0 mls/hr Documented By: Admin: 10/23/22 07:13 Dose: 200 mls/hr Documented By: Infusion: 10/22/22 20:45 Dose: 0 mls/hr Documented By: Admin: 10/22/22 20:13 Dose: 200 mls/hr Documented By: GAETANO(2) Infusion: 10/22/22 06:40 Dose: 0 mls/hr Documented By: Admin: 10/22/22 05:52 Dose: 200 mls/hr Documented By: Infusion: 10/21/22 19:15 Dose: 0 mls/hr Documented By: Admin: 10/21/22 18:25 Dose: 200 mls/hr Documented By: Infusion: 10/21/22 05:36 Dose: 0 mls/hr Documented By: Admin: 10/21/22 05:02 Dose: 200 mls/hr Documented By: Infusion: 10/20/22 18:46 Dose: 0 mls/hr Documented By: Admin: 10/20/22 17:29 Dose: 200 mls/hr Documented By: Admin: 10/20/22 06:00 Dose: Not Given Documented By: TIMOTEO Metronidazole (Flagyl) 500 mg in 100 mls @ 100 mls/hr IV Q8H [facility] Last Infusion: 10/24/22 01:04 Dose: 0 mls/hr Documented By: Admin: 10/24/22 00:13 Dose: 100 mls/hr Documented By: Infusion: 10/23/22 17:45 Dose: 0 mls/hr Documented By: Admin: 10/23/22 16:33 Dose: 100 mls/hr Documented By: Infusion: 10/23/22 10:10 Dose: 0 mls/hr Documented By: Admin: 10/23/22 08:56 Dose: 100 mls/hr Documented By: Infusion: 10/23/22 02:30 Dose: 0 mls/hr Documented By: Admin: 10/23/22 01:28 Dose: 100 mls/hr Documented By: Infusion: 10/22/22 18:26 Dose: 0 mls/hr Documented By: GAETANO(2) Admin: 10/22/22 17:01 Dose: 100 mls/hr Documented By: Infusion: 10/22/22 09:10 Dose: 0 mls/hr Documented By: Admin: 10/22/22 08:08 Dose: 100 mls/hr Documented By: Infusion: 10/22/22 02:22 Dose: 0 mls/hr Documented By: Admin: 10/22/22 01:13 Dose: 100 mls/hr Documented By: Infusion: 10/21/22 18:26 Dose: 0 mls/hr Documented By: Admin: 10/21/22 17:06 Dose: 100 mls/hr Documented By: Infusion: 10/21/22 09:50 Dose: 0 mls/hr Documented By: Admin: 10/21/22 08:41 Dose: 100 mls/hr Documented By: Infusion: 10/21/22 01:20 Dose: 0 mls/hr Documented By: Admin: 10/21/22 00:16 Dose: 100 mls/hr Documented By: Infusion: 10/20/22 17:28 Dose: 0 mls/hr Documented By: Admin: 10/20/22 16:22 Dose: 100 mls/hr Documented By: Infusion: 10/20/22 11:45 Dose: 0 mls/hr Documented By: Admin: 10/20/22 10:31 Dose: 100 mls/hr Documented By: FAUZIA POTASSIUM CHLORIDE IN WATER (Potassium Cl 10 Meq/100 Ml Nathalia) 10 meq in 100 mls @ 100 mls/hr IV Q1H [facility] Stop: 10/21/22 13:29 Last Infusion: 10/21/22 15:04 Dose: 0 mls/hr Documented By: Admin: 10/21/22 13:54 Dose: 100 mls/hr Documented By: Infusion: 10/21/22 13:51 Dose: 0 mls/hr Documented By: Admin: 10/21/22 12:37 Dose: 100 mls/hr Documented By: NELY Calcium Gluconate 9.3 meq/ (Sodium Chloride) 70 mls @ 140 mls/hr IV NOW ONE Stop: 10/21/22 11:48 Last Infusion: 10/21/22 12:29 Dose: 0 mls/hr Documented By: Admin: 10/21/22 11:48 Dose: 140 mls/hr Documented By: ENRIQUE Phytonadione 10 mg/ Sodium (Chloride) 101 mls @ 202 mls/hr IV NOW ONE Stop: 10/24/22 18:41 Last Infusion: 10/24/22 20:45 Dose: 0 mls/hr Documented By: Admin: 10/24/22 19:52 Dose: 202 mls/hr Documented By: RENETTA Losartan Potassium (Losartan 25 Mg Tablet) 25 mg PO DAILY [facility] Last Admin: 10/25/22 09:27 Dose: 25 mg Documented By: Admin: 10/24/22 09:58 Dose: 25 mg Documented By: Admin: 10/23/22 08:56 Dose: 25 mg Documented By: Admin: 10/22/22 08:08 Dose: 25 mg Documented By: Admin: 10/21/22 08:40 Dose: 25 mg Documented By: Admin: 10/20/22 11:45 Dose: Not Given Documented By: FAUZIA Octreotide Acetate (Octreotide 100 Mcg/Ml Vial) 50 mcg IV NOW ONE Stop: 10/20/22 02:01 Last Admin: 10/20/22 03:13 Dose: 50 mcg Documented By: CHRISTIANO Ondansetron HCl (Ondansetron 4 Mg/2 Ml Inj) 4 mg IV NOW PRN PRN Reason: Nausea And Vomiting Last Admin: 10/20/22 03:28 Dose: 4 mg Documented By: CHRISTIANO Ondansetron HCl (Ondansetron 4 Mg Odt) 4 mg SL NOW PRN PRN Reason: Nausea And Vomiting Ondansetron HCl (Ondansetron 4 Mg/2 Ml Inj) 4 mg IV Q6HR PRN PRN Reason: Nausea And Vomiting Pantoprazole Sodium (Pantoprazole 40 Mg Vial) 80 mg IV NOW ONE Stop: 10/19/22 21:56 Last Admin: 10/19/22 22:55 Dose: 80 mg Documented By: OBEY(2) Pantoprazole Sodium (Pantoprazole 40 Mg Vial) 80 mg IV BID [facility] Last Admin: 10/23/22 21:10 Dose: 80 mg Documented By: Admin: 10/23/22 08:56 Dose: 80 mg Documented By: Admin: 10/22/22 21:03 Dose: 80 mg Documented By: Admin: 10/22/22 09:55 Dose: 80 mg Documented By: Admin: 10/21/22 21:05 Dose: 80 mg Documented By: Admin: 10/21/22 08:40 Dose: 80 mg Documented By: Admin: 10/20/22 20:52 Dose: 80 mg Documented By: Admin: 10/20/22 12:46 Dose: 80 mg Documented By: FAUZIA Pantoprazole Sodium (Pantoprazole Dr 20 Mg Tablet) 40 mg PO BID [facility] Last Admin: 10/25/22 09:27 Dose: 40 mg Documented By: Admin: 10/24/22 21:02 Dose: 40 mg Documented By: Admin: 10/24/22 09:58 Dose: 40 mg Documented By: GAETANO Vital Signs Vital signs: Vital Signs - 8 hr 10/25/22 12:35 10/25/22 12:36 10/25/22 12:36 Pulse Rate 74 74 Blood Pressure 127/61 Pulse Oximetry 99 99 Oxygen Delivery Method Room Air MDM - GI Bleed <Danita Cooper DO - Last Filed: 10/26/22 08:03> Lab Data 10/25/22 10:25 10/25/22 05:47 Labs: Lab Results 10/19/22 10/19/22 10/19/22 Range/Units 21:55 21:55 21:55 WBC 9.3 (4.5-11.0) X10^3/uL RBC 3.55 L (4.0-5.2) X10^6/uL Hgb 8.1 L (12.0-16.0) g/dL Hct 25.3 L (36-46) % MCV 71.3 L (80-100) fL MCH 22.7 L (26-34) PG MCHC 31.8 (30-36) % RDW 23.3 H (11.6-14.8) % Plt Count 224 (150-400) X10^3/uL Neut % (Auto) Not Reportable Lymph % (Auto) Not Reportable [place] % (Auto) Not Reportable Eos % (Auto) Not Reportable Baso % (Auto) Not Reportable Neut # (Auto) (4849-4978) /uL Lymph # (Auto) Not Reportable [place] # (Auto) Not Reportable Eos # (Auto) (0-450) /uL Baso # (Auto) Not Reportable Total Counted 100 Seg Neutrophils % 48.0 (38-70) % Band Neutrophils % 1.0 L (3-7) % Lymphocytes % (Manual) 27.0 (25-45) % Atypical Lymphs % ( - 0) % Monocytes % (Manual) 15.0 H (2-11) % Eosinophils % (Manual) 6.0 H (2-4) % Basophils % (Manual) 3.0 H (0-1) % Neutrophils # (Manual) 4557 (9435-2993) /uL RBC Morphology See below Hypochromasia 2+ H Poikilocytosis Anisocytosis 3+ H Microcytosis Target Cells [place] Cells Schistocytes 1+ H Smear Path Review PT 16.9 H (10.1-12.7) SECONDS INR 1.5 H (0.9-1.3) APTT 37 H (26-36) SECONDS Sodium 139 (137-145) mmol/L Potassium 3.3 L (3.4-5.1) mmol/L Chloride 108 H (98-107) mmol/L Carbon Dioxide 28 (22-32) mmol/L BUN 16 (7-17) mg/dL Creatinine 0.67 (0.52-1.04) mg/dL Estimated GFR > 60 (>60) mL/min BUN/Creatinine Ratio 23.9 H (6-22) Glucose 102 (80-110) mg/dL Calcium 7.4 L (8.4-10.2) mg/dL Total Bilirubin 1.6 H (0.2-1.3) mg/dL AST 44 H (14-36) IU/L ALT 24 (<35) IU/L Alkaline Phosphatase 81 (38-126) U/L Ammonia (9-30) umol/L Total Creatine Kinase (30-135) U/L CK-MB (CK-2) CK-MB (CK-2) Rel Index Troponin I (0.01-0.034) ng/mL NT-Pro-B Natriuret Pep (<125) pg/mL Total Protein 7.0 (6.3-8.2) g/dL Albumin 2.6 L (3.5-5.0) g/dL Globulin 4.4 H (1.7-4.1) g/dL Albumin/Globulin Ratio 0.6 L (1.0-2.8) Lipase (23-300) U/L SARS-CoV-2 (PCR) (Negative) Blood Type Antibody Screen Crossmatch 10/19/22 10/19/22 10/20/22 Range/Units 21:55 21:55 01:35 WBC (4.5-11.0) X10^3/uL RBC (4.0-5.2) X10^6/uL Hgb (12.0-16.0) g/dL Hct (36-46) % MCV (80-100) fL MCH (26-34) PG MCHC (30-36) % RDW (11.6-14.8) % Plt Count (150-400) X10^3/uL Neut % (Auto) Lymph % (Auto) [place] % (Auto) Eos % (Auto) Baso % (Auto) Neut # (Auto) (9173-4322) /uL Lymph # (Auto) [place] # (Auto) Eos # (Auto) (0-450) /uL Baso # (Auto) Total Counted Seg Neutrophils % (38-70) % Band Neutrophils % (3-7) % Lymphocytes % (Manual) (25-45) % Atypical Lymphs % ( - 0) % Monocytes % (Manual) (2-11) % Eosinophils % (Manual) (2-4) % Basophils % (Manual) (0-1) % Neutrophils # (Manual) (5542-8309) /uL RBC Morphology Hypochromasia Poikilocytosis Anisocytosis Microcytosis Target Cells [place] Cells Schistocytes Smear Path Review PT (10.1-12.7) SECONDS INR (0.9-1.3) APTT (26-36) SECONDS Sodium (137-145) mmol/L Potassium (3.4-5.1) mmol/L Chloride (98-107) mmol/L Carbon Dioxide (22-32) mmol/L BUN (7-17) mg/dL Creatinine (0.52-1.04) mg/dL Estimated GFR (>60) mL/min BUN/Creatinine Ratio (6-22) Glucose (80-110) mg/dL Calcium (8.4-10.2) mg/dL Total Bilirubin (0.2-1.3) mg/dL AST (14-36) IU/L ALT (<35) IU/L Alkaline Phosphatase (38-126) U/L Ammonia (9-30) umol/L Total Creatine Kinase (30-135) U/L CK-MB (CK-2) CK-MB (CK-2) Rel Index Troponin I (0.01-0.034) ng/mL NT-Pro-B Natriuret Pep (<125) pg/mL Total Protein (6.3-8.2) g/dL Albumin (3.5-5.0) g/dL Globulin (1.7-4.1) g/dL Albumin/Globulin Ratio (1.0-2.8) Lipase 256 (23-300) U/L SARS-CoV-2 (PCR) Negative (Negative) Blood Type A Positive Antibody Screen Negative Crossmatch See Detail 10/20/22 10/20/22 10/20/22 Range/Units 06:28 06:28 06:28 WBC 7.4 (4.5-11.0) X10^3/uL RBC 2.90 L (4.0-5.2) X10^6/uL Hgb 6.7 L* (12.0-16.0) g/dL Hct 20.9 L* (36-46) % MCV 72.0 L (80-100) fL MCH 23.2 L (26-34) PG MCHC 32.2 (30-36) % RDW 23.6 H (11.6-14.8) % Plt Count 166 (150-400) X10^3/uL Neut % (Auto) 29.7 L Lymph % (Auto) 42.[address] [place] % (Auto) 12.9 Eos % (Auto) 14.0 H Baso % (Auto) 1.1 Neut # (Auto) 2200 (8170-1096) /uL Lymph # (Auto) 3100 [place] # (Auto) 1000 H Eos # (Auto) 1000 H (0-450) /uL Baso # (Auto) 100 Total Counted Seg Neutrophils % (38-70) % Band Neutrophils % (3-7) % Lymphocytes % (Manual) (25-45) % Atypical Lymphs % ( - 0) % Monocytes % (Manual) (2-11) % Eosinophils % (Manual) (2-4) % Basophils % (Manual) (0-1) % Neutrophils # (Manual) (2155-1323) /uL RBC Morphology See below Hypochromasia 2+ H Poikilocytosis Anisocytosis 2+ H Microcytosis 1+ H Target Cells Ene Cells Schistocytes 1+ H Smear Path Review PT 18.0 H (10.1-12.7) SECONDS INR 1.6 H (0.9-1.3) APTT 38 H (26-36) SECONDS Sodium 137 (137-145) mmol/L Potassium 3.2 L (3.4-5.1) mmol/L Chloride 111 H (98-107) mmol/L Carbon Dioxide 22 (22-32) mmol/L BUN 17 (7-17) mg/dL Creatinine 0.57 (0.52-1.04) mg/dL Estimated GFR > 60 (>60) mL/min BUN/Creatinine Ratio 29.8 H (6-22) Glucose 86 (80-110) mg/dL Calcium 7.0 L (8.4-10.2) mg/dL Total Bilirubin 1.5 H (0.2-1.3) mg/dL AST 41 H (14-36) IU/L ALT 21 (<35) IU/L Alkaline Phosphatase 63 (38-126) U/L Ammonia (9-30) umol/L Total Creatine Kinase (30-135) U/L CK-MB (CK-2) CK-MB (CK-2) Rel Index Troponin I (0.01-0.034) ng/mL NT-Pro-B Natriuret Pep (<125) pg/mL Total Protein 6.0 L (6.3-8.2) g/dL Albumin 2.1 L (3.5-5.0) g/dL Globulin 3.9 (1.7-4.1) g/dL Albumin/Globulin Ratio 0.5 L (1.0-2.8) Lipase 210 (23-300) U/L SARS-CoV-2 (PCR) (Negative) Blood Type Antibody Screen Crossmatch 10/20/22 10/20/22 10/21/22 Range/Units 06:28 17:40 05:54 WBC 6.0 (4.5-11.0) X10^3/uL RBC 3.26 L (4.0-5.2) X10^6/uL Hgb 8.5 L 8.3 L (12.0-16.0) g/dL Hct 25.4 L 25.3 L (36-46) % MCV 77.5 L D (80-100) fL MCH 25.4 L (26-34) PG MCHC 32.7 (30-36) % RDW 23.7 H (11.6-14.8) % Plt Count 134 L (150-400) X10^3/uL Neut % (Auto) 27.0 L Lymph % (Auto) 34.7 [place] % (Auto) 15.8 H Eos % (Auto) 21.0 H Baso % (Auto) 1.5 Neut # (Auto) 1600 (3185-8429) /uL Lymph # (Auto) [address] [place] # (Auto) 1000 H Eos # (Auto) 1300 H (0-450) /uL Baso # (Auto) 100 Total Counted Seg Neutrophils % (38-70) % Band Neutrophils % (3-7) % Lymphocytes % (Manual) (25-45) % Atypical Lymphs % ( - 0) % Monocytes % (Manual) (2-11) % Eosinophils % (Manual) (2-4) % Basophils % (Manual) (0-1) % Neutrophils # (Manual) (6275-7027) /uL RBC Morphology See below Hypochromasia 2+ H Poikilocytosis 1+ H Anisocytosis 3+ H Microcytosis Target Cells 1+ H [place] Cells Schistocytes 1+ H Smear Path Review PT (10.1-12.7) SECONDS INR (0.9-1.3) APTT (26-36) SECONDS Sodium (137-145) mmol/L Potassium (3.4-5.1) mmol/L Chloride (98-107) mmol/L Carbon Dioxide (22-32) mmol/L BUN (7-17) mg/dL Creatinine (0.52-1.04) mg/dL Estimated GFR (>60) mL/min BUN/Creatinine Ratio (6-22) Glucose (80-110) mg/dL Calcium (8.4-10.2) mg/dL Total Bilirubin (0.2-1.3) mg/dL AST (14-36) IU/L ALT (<35) IU/L Alkaline Phosphatase (38-126) U/L Ammonia 15 (9-30) umol/L Total Creatine Kinase (30-135) U/L CK-MB (CK-2) CK-MB (CK-2) Rel Index Troponin I (0.01-0.034) ng/mL NT-Pro-B Natriuret Pep (<125) pg/mL Total Protein (6.3-8.2) g/dL Albumin (3.5-5.0) g/dL Globulin (1.7-4.1) g/dL Albumin/Globulin Ratio (1.0-2.8) Lipase (23-300) U/L SARS-CoV-2 (PCR) (Negative) Blood Type Antibody Screen Crossmatch 10/21/22 10/21/22 10/22/22 Range/Units 05:54 17:35 07:04 WBC 5.6 6.7 (4.5-11.0) X10^3/uL RBC 3.27 L 3.83 L (4.0-5.2) X10^6/uL Hgb 8.3 L 9.6 L (12.0-16.0) g/dL Hct 25.4 L 30.1 L (36-46) % MCV 77.6 L 78.5 L (80-100) fL MCH 25.4 L 24.9 L (26-34) PG MCHC 32.7 31.8 (30-36) % RDW 24.0 H 24.4 H (11.6-14.8) % Plt Count 145 L 169 (150-400) X10^3/uL Neut % (Auto) 22.6 L 21.3 L Lymph % (Auto) 38.[address] [place] % (Auto) 16.3 H 13.0 Eos % (Auto) 21.1 H 21.0 H Baso % (Auto) 1.2 1.2 Neut # (Auto) 1300 L 1400 L (9975-3402) /uL Lymph # (Auto) [address] # (Auto) 900 900 Eos # (Auto) 1200 H 1400 H (0-450) /uL Baso # (Auto) 100 100 Total Counted Seg Neutrophils % (38-70) % Band Neutrophils % (3-7) % Lymphocytes % (Manual) (25-45) % Atypical Lymphs % ( - 0) % Monocytes % (Manual) (2-11) % Eosinophils % (Manual) (2-4) % Basophils % (Manual) (0-1) % Neutrophils # (Manual) (4641-7475) /uL RBC Morphology See below Not Reportable Hypochromasia 2+ H Poikilocytosis 1+ H Anisocytosis 2+ H Microcytosis 2+ H Target Cells 1+ H Ene Cells 1+ H Schistocytes 2+ H Smear Path Review PT (10.1-12.7) SECONDS INR (0.9-1.3) APTT (26-36) SECONDS Sodium 139 (137-145) mmol/L Potassium 3.2 L (3.4-5.1) mmol/L Chloride 113 H (98-107) mmol/L Carbon Dioxide 23 (22-32) mmol/L BUN 12 (7-17) mg/dL Creatinine 0.68 (0.52-1.04) mg/dL Estimated GFR > 60 (>60) mL/min BUN/Creatinine Ratio 17.6 (6-22) Glucose 85 (80-110) mg/dL Calcium 6.8 L (8.4-10.2) mg/dL Total Bilirubin 1.7 H (0.2-1.3) mg/dL AST 40 H (14-36) IU/L ALT 20 (<35) IU/L Alkaline Phosphatase 64 (38-126) U/L Ammonia (9-30) umol/L Total Creatine Kinase (30-135) U/L CK-MB (CK-2) CK-MB (CK-2) Rel Index Troponin I (0.01-0.034) ng/mL NT-Pro-B Natriuret Pep (<125) pg/mL Total Protein 5.9 L (6.3-8.2) g/dL Albumin 2.1 L (3.5-5.0) g/dL Globulin 3.8 (1.7-4.1) g/dL Albumin/Globulin Ratio 0.6 L (1.0-2.8) Lipase 230 (23-300) U/L SARS-CoV-2 (PCR) (Negative) Blood Type Antibody Screen Crossmatch 10/22/22 10/23/22 10/23/22 Range/Units 07:04 07:30 07:30 WBC 5.8 (4.5-11.0) X10^3/uL RBC 3.49 L (4.0-5.2) X10^6/uL Hgb 9.0 L (12.0-16.0) g/dL Hct 27.4 L (36-46) % MCV 78.5 L (80-100) fL MCH 25.6 L (26-34) PG MCHC 32.6 (30-36) % RDW 25.3 H (11.6-14.8) % Plt Count 144 L (150-400) X10^3/uL Neut % (Auto) Not Reportable Lymph % (Auto) Not Reportable [place] % (Auto) Not Reportable Eos % (Auto) Not Reportable Baso % (Auto) Not Reportable Neut # (Auto) (4968-6817) /uL Lymph # (Auto) Not Reportable [place] # (Auto) Not Reportable Eos # (Auto) (0-450) /uL Baso # (Auto) Not Reportable Total Counted 100 Seg Neutrophils % 36.0 L (38-70) % Band Neutrophils % (3-7) % Lymphocytes % (Manual) 25.0 (25-45) % Atypical Lymphs % 7.0 H ( - 0) % Monocytes % (Manual) 9.0 (2-11) % Eosinophils % (Manual) 23.0 H (2-4) % Basophils % (Manual) (0-1) % Neutrophils # (Manual) 2088 L (1359-9245) /uL RBC Morphology Not Reportable Hypochromasia Poikilocytosis 1+ H Anisocytosis Microcytosis Target Cells [place] Cells Schistocytes Smear Path Review PT (10.1-12.7) SECONDS INR (0.9-1.3) APTT (26-36) SECONDS Sodium 140 141 (137-145) mmol/L Potassium 3.6 3.6 (3.4-5.1) mmol/L Chloride 113 H 115 H (98-107) mmol/L Carbon Dioxide 22 24 (22-32) mmol/L BUN 10 9 (7-17) mg/dL Creatinine 0.75 0.62 (0.52-1.04) mg/dL Estimated GFR > 60 > 60 (>60) mL/min BUN/Creatinine Ratio 13.3 14.5 (6-22) Glucose 94 91 (80-110) mg/dL Calcium 7.6 L 7.0 L (8.4-10.2) mg/dL Total Bilirubin 1.7 H 1.4 H (0.2-1.3) mg/dL AST 53 H 42 H (14-36) IU/L ALT 23 18 (<35) IU/L Alkaline Phosphatase 81 68 (38-126) U/L Ammonia (9-30) umol/L Total Creatine Kinase (30-135) U/L CK-MB (CK-2) CK-MB (CK-2) Rel Index Troponin I (0.01-0.034) ng/mL NT-Pro-B Natriuret Pep (<125) pg/mL Total Protein 7.1 6.0 L (6.3-8.2) g/dL Albumin 2.5 L 2.1 L (3.5-5.0) g/dL Globulin 4.6 H 3.9 (1.7-4.1) g/dL Albumin/Globulin Ratio 0.5 L 0.5 L (1.0-2.8) Lipase 342 H 220 (23-300) U/L SARS-CoV-2 (PCR) (Negative) Blood Type Antibody Screen Crossmatch 10/24/22 10/24/22 10/24/22 Range/Units 07:03 07:03 13:40 WBC 6.2 (4.5-11.0) X10^3/uL RBC 3.63 L (4.0-5.2) X10^6/uL Hgb 9.1 L (12.0-16.0) g/dL Hct 28.4 L (36-46) % MCV 78.3 L (80-100) fL MCH 25.2 L (26-34) PG MCHC 32.2 (30-36) % RDW 26.1 H (11.6-14.8) % Plt Count 148 L (150-400) X10^3/uL Neut % (Auto) 22.9 L Lymph % (Auto) 32.6 [place] % (Auto) 19.0 H Eos % (Auto) 23.6 H Baso % (Auto) 1.9 Neut # (Auto) 1400 L (2857-1763) /uL Lymph # (Auto) 2000 [place] # (Auto) 1200 H Eos # (Auto) 1500 H (0-450) /uL Baso # (Auto) 100 Total Counted Seg Neutrophils % (38-70) % Band Neutrophils % (3-7) % Lymphocytes % (Manual) (25-45) % Atypical Lymphs % ( - 0) % Monocytes % (Manual) (2-11) % Eosinophils % (Manual) (2-4) % Basophils % (Manual) (0-1) % Neutrophils # (Manual) (2183-6211) /uL RBC Morphology See below Hypochromasia 1+ H Poikilocytosis Anisocytosis Microcytosis 1+ H Target Cells 1+ H [place] Cells Schistocytes 1+ H Smear Path Review PT 23.0 H D (10.1-12.7) SECONDS INR 2.0 H (0.9-1.3) APTT 40 H (26-36) SECONDS Sodium 140 (137-145) mmol/L Potassium 3.5 (3.4-5.1) mmol/L Chloride 113 H (98-107) mmol/L Carbon Dioxide 23 (22-32) mmol/L BUN 8 (7-17) mg/dL Creatinine 0.63 (0.52-1.04) mg/dL Estimated GFR > 60 (>60) mL/min BUN/Creatinine Ratio 12.7 (6-22) Glucose 85 (80-110) mg/dL Calcium 7.1 L (8.4-10.2) mg/dL Total Bilirubin 1.4 H (0.2-1.3) mg/dL AST 41 H (14-36) IU/L ALT 17 (<35) IU/L Alkaline Phosphatase 68 (38-126) U/L Ammonia (9-30) umol/L Total Creatine Kinase (30-135) U/L CK-MB (CK-2) CK-MB (CK-2) Rel Index Troponin I (0.01-0.034) ng/mL NT-Pro-B Natriuret Pep (<125) pg/mL Total Protein 6.2 L (6.3-8.2) g/dL Albumin 2.1 L (3.5-5.0) g/dL Globulin 4.1 (1.7-4.1) g/dL Albumin/Globulin Ratio 0.5 L (1.0-2.8) Lipase 213 (23-300) U/L SARS-CoV-2 (PCR) (Negative) Blood Type Antibody Screen Crossmatch 10/24/22 10/25/22 10/25/22 Range/Units 18:29 05:47 05:47 WBC (4.5-11.0) X10^3/uL RBC (4.0-5.2) X10^6/uL Hgb 8.7 L (12.0-16.0) g/dL Hct 26.9 L (36-46) % MCV (80-100) fL MCH (26-34) PG MCHC (30-36) % RDW (11.6-14.8) % Plt Count (150-400) X10^3/uL Neut % (Auto) Lymph % (Auto) [place] % (Auto) Eos % (Auto) Baso % (Auto) Neut # (Auto) (7871-4761) /uL Lymph # (Auto) [place] # (Auto) Eos # (Auto) (0-450) /uL Baso # (Auto) Total Counted Seg Neutrophils % (38-70) % Band Neutrophils % (3-7) % Lymphocytes % (Manual) (25-45) % Atypical Lymphs % ( - 0) % Monocytes % (Manual) (2-11) % Eosinophils % (Manual) (2-4) % Basophils % (Manual) (0-1) % Neutrophils # (Manual) (9863-9214) /uL RBC Morphology Hypochromasia Poikilocytosis Anisocytosis Microcytosis Target Cells [place] Cells Schistocytes Smear Path Review PT (10.1-12.7) SECONDS INR (0.9-1.3) APTT (26-36) SECONDS Sodium 138 (137-145) mmol/L Potassium 3.4 (3.4-5.1) mmol/L Chloride 109 H (98-107) mmol/L Carbon Dioxide 26 (22-32) mmol/L BUN 8 (7-17) mg/dL Creatinine 0.66 (0.52-1.04) mg/dL Estimated GFR > 60 (>60) mL/min BUN/Creatinine Ratio 12.1 (6-22) Glucose 94 (80-110) mg/dL Calcium 6.8 L (8.4-10.2) mg/dL Total Bilirubin 1.3 (0.2-1.3) mg/dL AST 38 H (14-36) IU/L ALT 16 (<35) IU/L Alkaline Phosphatase 62 (38-126) U/L Ammonia (9-30) umol/L Total Creatine Kinase 66 (30-135) U/L CK-MB (CK-2) TNP CK-MB (CK-2) Rel Index TNP Troponin I < 0.012 (0.01-0.034) ng/mL NT-Pro-B Natriuret Pep 320 H (<125) pg/mL Total Protein 5.7 L (6.3-8.2) g/dL Albumin 1.9 L (3.5-5.0) g/dL Globulin 3.8 (1.7-4.1) g/dL Albumin/Globulin Ratio 0.5 L (1.0-2.8) Lipase (23-300) U/L SARS-CoV-2 (PCR) (Negative) Blood Type Antibody Screen Crossmatch 10/25/22 Range/Units 10:25 WBC (4.5-11.0) X10^3/uL RBC (4.0-5.2) X10^6/uL Hgb 9.5 L (12.0-16.0) g/dL Hct 29.2 L (36-46) % MCV (80-100) fL MCH (26-34) PG MCHC (30-36) % RDW (11.6-14.8) % Plt Count (150-400) X10^3/uL Neut % (Auto) Lymph % (Auto) [place] % (Auto) Eos % (Auto) Baso % (Auto) Neut # (Auto) (2507-2898) /uL Lymph # (Auto) [place] # (Auto) Eos # (Auto) (0-450) /uL Baso # (Auto) Total Counted Seg Neutrophils % (38-70) % Band Neutrophils % (3-7) % Lymphocytes % (Manual) (25-45) % Atypical Lymphs % ( - 0) % Monocytes % (Manual) (2-11) % Eosinophils % (Manual) (2-4) % Basophils % (Manual) (0-1) % Neutrophils # (Manual) (7536-4005) /uL RBC Morphology Hypochromasia Poikilocytosis Anisocytosis Microcytosis Target Cells Ene Cells Schistocytes Smear Path Review PT (10.1-12.7) SECONDS INR (0.9-1.3) APTT (26-36) SECONDS Sodium (137-145) mmol/L Potassium (3.4-5.1) mmol/L Chloride (98-107) mmol/L Carbon Dioxide (22-32) mmol/L BUN (7-17) mg/dL Creatinine (0.52-1.04) mg/dL Estimated GFR (>60) mL/min BUN/Creatinine Ratio (6-22) Glucose (80-110) mg/dL Calcium (8.4-10.2) mg/dL Total Bilirubin (0.2-1.3) mg/dL AST (14-36) IU/L ALT (<35) IU/L Alkaline Phosphatase (38-126) U/L Ammonia (9-30) umol/L Total Creatine Kinase (30-135) U/L CK-MB (CK-2) CK-MB (CK-2) Rel Index Troponin I (0.01-0.034) ng/mL NT-Pro-B Natriuret Pep (<125) pg/mL Total Protein (6.3-8.2) g/dL Albumin (3.5-5.0) g/dL Globulin (1.7-4.1) g/dL Albumin/Globulin Ratio (1.0-2.8) Lipase (23-300) U/L SARS-CoV-2 (PCR) (Negative) Blood Type Antibody Screen Crossmatch Urine Dip Bedside Urine Glucose Negative Bedside Urine Bilirubin - Negative Bedside Urine Ketone +/- 5 Urine Specific [place] 1.005 Bedside Urine Occult Blood - Negative Bedside Urine pH 6.0 Bedside Urine Protein - Negative Bedside Urine Urobilinogen - Negative Bedside Urine Nitrite - Negative Bedside Urine Leukocytes - Negative Esterase Imaging Data CT scan - abdomen/pelvis: Radiologist's Impression: Close Abdomen/Pelvis CT (Signed) Colt Rondon - 10/19/22 Launch?[place] [address] CT Scan Report Signed Patient: Ruba Lan MR#: [id number] : 1960 Acct:[id number] Age/Sex: 62 / F Date of Service: 10/19/22 Loc: ED Accession Number: [id number] ?? Procedure: CT abdomen pelvis w con Ordering Provider: Danita Cooper D.O. PROCEDURE:? CT ABDOMEN PELVIS W CON ? INDICATIONS:? abd pain, elevated lfts, black stools, vomiting ? TECHNIQUE:? After the administration of IV contrast, axial sections were acquired from the lung bases to the pubic symphysis.? Coronal and sagittal reformats were performed.? For radiation dose reduction, the following was used:? automated exposure control, adjustment of mA and/or kV according to patient size. ? COMPARISON:? None. ? FINDINGS:? Image quality:? Excellent.? ? Lung bases:? There is a small right pleural effusion.? Mild dependent atelectasis demonstrated bilaterally.? ? Heart:? Heart is normal in size. ? ? ABDOMEN: Liver:? There is a nodular hepatic contour with heterogeneous attenuation of the liver compatible with cirrhosis.? No discrete mass identified on the current study. Gallbladder:? There are calcified gallstones in the gallbladder fundus.? Mild gallbladder wall thickening is also noted. Biliary ducts:? No biliary ductal dilatation.? There is a small calcification measuring up to 0.3 cm in the region of the ampulla of Vater suggestive of choledocholithiasis. ? Pancreas:? Unremarkable.? ? Spleen:? Normal in size.? ? Adrenal Glands:? No adrenal nodules.? ? Kidneys and Ureters:? No hydronephrosis.? ? ? Stomach and Bowel:? There is diffuse bowel wall thickening throughout the small and large bowel. Peritoneum:? There is a small to moderate amount of intraperitoneal free fluid consistent with ascites.? No free air.? ? Ventral Wall: ? No hernia.? Abdominal Nodes:? No retroperitoneal or mesenteric adenopathy by size criteria.? Vessels:? Aorta and inferior vena cava are normal in size.? There are gastroesophageal and splenic varices.? A prominent enlarged recanalized paraumbilical vein is also noted.? ? ? PELVIS: Pelvic Organs:? Unremarkable.? ? Bladder:? Unremarkable.? ? Pelvic Nodes: No enlarged lymph nodes.? Miscellaneous: No inguinal hernias are seen. ? ? ? Bones:? Visualized osseous structures demonstrate no suspicious focal lesions. ? IMPRESSION:? ? 1.? Findings consistent with cirrhosis and portal hypertension including gastroesophageal and splenic varices, a recanalized paraumbilical vein, and ascites. ? 2. Cholelithiasis with a suspected common duct stone at the ampulla of Vater.? Recommend correlation with laboratory values and if indicated further evaluation may be obtained with MRCP or ERCP. ? 3. Diffuse bowel wall thickening involving small and large bowel loops suggestive of an infectious or inflammatory gastroenteritis.? ? ? Dictated by: Colt Rondon M.D. on 10/20/2022 at 0:43 ? ? Approved by: Colt Rondon M.D. on 10/20/2022 at 0:50?? [facility] Narrative Medical decision making narrative: This is a 62-year-old female comes with complaint of near-syncope, black stools and diarrhea and fever today. Patient is noted to have hemoglobin which appears stable from when she was transfused before it is 8 today which would be consistent with being transfused 2 units from when she her hemoglobin was 6 on 09/30/2022. Patient does not have any leukocytosis, normal platelets, microcytic anemia. INR is 1.5 patient is on aspirin but no other reported anticoagulants, she is also noted to have elevation in her bilirubin at 1.6, AST is 44 ALT is normal alk-phos is 81 lipase is 256. Patient's abdomen pelvis CT shows what appears to be stone in the ampulla of Vater, cholelithiasis patient has some diffuse bowel wall thickening suggestive infectious or inflammatory gastroenteritis. Patient has cirrhosis with portal hypertension gastroesophageal and splenic varices and a recanalized paraumbilical vein and ascites, patient received Protonix 80 mg IV plan for b.i.d., octreotide drip as stools and GI bleed could be from varices she has not had any hematemesis reported or here in the department. No reported significant alcohol history. Patient's renal function normal although she is potassium at 3.3 likely from vomiting today. Patient appears to need ERCP, possible banding of varices will need transfer as we do not have either of these available at our facility. So far has been hemodynamically stable will continue with very turned fluids. Protonix 80 mg b.i.d., octreotide drip, continue antibiotics for possible infection as patient had reported fever of 101 F yesterday and is high risk for cholangitis. Cultures were obtained prior to antibiotics. Patient signed out to Dr. Fitzpatrick while awaiting goal of placement for ERCP. 10/20/22 7:[address] Fitzpatrick 62-year-old woman who presented the evening of October 19 with recurrent black stools, dizziness low-grade temp to 101.? She was seen for similar on September 30 after outpatient labs revealed an H&H of 6.8 and 21, transfused and eventually discharged home.? Has not been able to follow-up as an outpatient.? Initial labs indicate a bilirubin of 1.6, AST of 44 and lipase is 256.? CT scan indicates a stone in the ampulla of Vater. ?We have been looking for facilities with a capacity for ERCP and she is on multiple waiting list and [facility] is involved as well. Objective: Appears fatigued Chest:? Symmetrical air movement, no wheezing Cardiac: Mild tachycardia no murmurs Abdomen: Minor epigastric pain no rebound or guarding Assessment and plan 1.? Upper GI bleed with known esophageal and gastric varices.? Being transfused 2 units of packed red blood cells currently.? Will check H&H after transfusion. 2.? Incidentally appreciated common bile duct stone, bilirubin today is 1.5, AST is 41, ALT is 21, alk-phos is 63.? MRCP confirms ?possible/equivocal small stone at the downstream extrahepatic bile duct near the ampulla.? No ductal dilatation demonstrated.? 7 mm cyst in the pancreatic body recommended pancreatic protocol MRI as follow-up in a year Patient is updated. Phone calls again made to [facility] with no beds available.? Recommendation was to try back again at 3. 355pm Again, phone calls to hospital. No beds for transfer Dr cho overnight 10/20-10/21: Received turned over. Reviewed patient's history and physical workup up to this point. She is remained stable. Has received 2 units of packed red blood cells. Her H&H is improved. Continues to be no beds available for transfer. Care turned over to Dr. Mtz to follow-up and disposition. Dr Cho overnight 10/21-10/22: Resumed care of patient. Reviewed the daily events. Her H&H has been stable. She is been stable overnight without issue. Morning labs ordered. Care turned over to Dr. King to follow-up and disposition. 0700 (Fernando) Patient received in sign out from Dr. Cho. I have reviewed the clinical course and performed an independent history and physical exam. Repeat labs are pending. No reported issues over the course of the night. She feels significantly better than when she presented a few days ago and denies any ongoing dizziness or lightheadedness. She has been consuming clear liquids without difficulty. H&H is stable up to 9.6 and 30 0855 - call to Dr. Garcia ([facility]). We discussed history and physical exam as well as labs and imaging. He recommends we stay the course but does recommend contacting local GI Dr. Aguayo as he may be available 0915 - discussed with Dr. Aguayo. He is not in town and does not take call. After lengthy discussion of clinical course including labs, therapies and interventions he recommends continuing the course and states transfer for EGD and possible ERCP is in patient's best interest. Dr cho overnight 10/22-10/23: Assumed care patient. Reviewed patient's daily events. Patient has been stable overnight. Care turned over to Dr. Jacome to continue to observe until disposition. 10/23/[address] Jacome-patient signed out to me by Dr. Brown culinary manager seen evaluated patient myself. Patient presents with GI bleed found to have varices fever and probable common bile duct stone. She did receive a blood transfusion while in the emergency department H and H has been stable for couple of days. She has also remained if afebrile without leukocytosis. MRCP does show probable common bile duct stone. After speaking with to GI doctor yesterday they agree that she does need further evaluation with ERCP and of it evaluation for esophageal varices. She remains on octreotide drip and Protonix 80 mg twice daily. Patient reports that she is had no further episodes of bleeding. She would like to get up and shower today. She has no abdominal pain nausea or vomiting. Significant critical bed shortage she remains on multiple lists. She is hemodynamically stable at this time GENERAL: Alert generally weak 62-year-old female HEENT: Head atraumatic,EOMI, pupils reactive, CARDIOVASCULAR: Regular rate and rhythm without murmurs, rubs or gallops. RESPIRATORY: Breath sounds equal bilaterally, no wheezes rales or rhonchi. ABDOMEN: Soft no localization of tenderness no distention no right upper quadrant pain EXTREMITIES: Normal range of motion, no clubbing or edema. Neurovascularly intact NEUROLOGICAL: Alert and oriented x4. SKIN: Warm, dry, no laceration, no petechiae, no rashes or lesions. Assessment and plan 1.? Upper GI bleed with known esophageal and gastric varices.? Has been transfused 2 units H&H stable . Remains on octreotide and Protonix 2.? Incidentally appreciated common bile duct stone, bilirubin today is 1.4, AST is 42, ALT is 18, alk-phos is 68.? MRCP confirms ?possible/equivocal small stone at the downstream extrahepatic bile duct near the ampulla.? No ductal dilatation demonstrated.? 7 mm cyst in the pancreatic body recommended pancreatic protocol MRI as follow-up in a year. To GI providers recommended transfer for ERCP. 3. Transfer higher level of care Dr cho overnight 10/23-10/24: Received turned over and reviewed patient's daily events. She is remained stable overnight. No new issues. Morning labs ordered. Care turned over to day provider to continue to observe until disposition can be found. We again attempted to find placement overnight without success. 04/06/23-8am (naa) patient signed out to me by Dr. Cho seen evaluated patient myself this morning. Patient has been stable for the last couple of days. She has intermittent mild abdominal cramping and pain but not requiring any pain medication. She has had no further episodes of rectal bleeding looks as though she is may have only had 1 episode of vomiting. Found to have esophageal varices and anemia transfused but now stable. She is been on octreotide drip 405 hours along with Protonix and antibiotics. Blood cultures are negative no further fevers. GENERAL: Well-appearing, well-nourished and in no acute distress. CARDIOVASCULAR: peripheral pulses in tact, cap refill <2 sec RESPIRATORY: No respiratory distress, speaks in full sentences without difficulty ABDOMEN: Soft, minimal tenderness no distention no guarding no rebound negative Angela sign EXTREMITIES: Normal range of motion, no clubbing or edema. Neurovascularly intact NEUROLOGICAL: Cranial nerves II through XII grossly intact. Normal gait and speech. SKIN: Warm, dry, no petechiae, no rashes or lesions. Assessment and plan 1.? Upper GI bleed with known esophageal and gastric varices.? Has been transfused 2 units H&H stable . -spoke with Dr. Clayton [facility] updated patient's symptoms and test results reports that is okay to stop Protonix and octreotide. If no bleeding for 12 hours after the octreotide has stopped may consider discharging home. He is updated on the bilirubin liver enzymes as well and waiting for ERCP. He reports that numbers are not alarming and without any significant pain or worsening status could actually have an ERCP as an outpatient. No evidence of choledocholithiasis or pancreatitis. 2.? Incidentally appreciated common bile duct stone, bilirubin today is 145, AST is 41, ALT is 17, alk-phos is 68.? MRCP confirms ?possible/equivocal small stone at the downstream extrahepatic bile duct near the ampulla.? -Dr. Clayton consulted this morning states that can have an outpatient ERCP please see above plan 3. Patient remains on multiple list however a likelihood of getting her transferred seem low. She also has been in the emergency department for multiple days and remains stable. Stop octreotide assess if there is further bleeding, change to p.o. PPI and possible follow-up GI as an outpatient. 4. Fever blood cultures are negative no leukocytosis no other evidence of infection she has had 4 days of antibiotics at this time I feel it is appropriate to stop the antibiotics. 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 She denies any calf pain they are not erythematous 181-called to evaluate patient by nursing. Patient is complaining of some shortness of breath she feels like she can not swallow. Tongue is not swollen she does not really have any chest pain but sometimes she does. She earlier had swelling on her feet with a negative DVT study. She is not hypoxic or tachycardic. Ordered CT angio to rule out out pulmonary embolism BNP troponin and EKG. Patient does report that she does have a history of congestive heart failure,. CT angio was negative for pulmonary embolism blood work is overall reassuring negative troponin BNP minimally elevated at 320. It will give her 1 dose of Lasix to help diurese her. She has not no evidence of rebleeding. No evidence of angioedema or allergic reaction [1900] (Fernando) Patient received in sign out from [Naa]. I have reviewed the clinical course and performed an independent history and physical exam. She is feeling better. Plan was to re-evaluate at about 8:00 p.m., 12 hours after octreotide. Given her shortness of breath and development of symptoms late this afternoon evening CT angiogram was ordered which was thankfully negative but did demonstrate some fluid overload, she is given Lasix as an has created dilute urine. As she was not yet discharge she remained on transfer center list and as result [facility] called back. We have reviewed the patient's course and she also agrees with discharge and outpatient follow-up but recommends a dose of vitamin K here in the emergency department given her evidence of liver disease and elevated INR. Furthermore she recommends antibiotics for 5 days as an outpatient 2100 -patient feeling some cramping in her anterior thighs and feeling nauseated, I have reassed her and she has reassuring vitals and exam. Repeat labs ordered. Will hold on over night, repeat labs in the morning 10/25/22 Dr Nanette Khan is assumed. 62-year-old patient with presumed upper GI bleeding new diagnosis of cirrhosis uncertain etiology Patient has now been off octreotide for 24 hours. H&H has increased from 9.1-9.5 without any evidence of continued active bleeding. She has had a liquid diet and is willing to try a turkey sandwich to make sure that it stays down without pain. Liver enzymes including bilirubin trended down without additional intervention. We have been unsuccessful in trying to transfer this patient due to severe bed shortages across [facility]. We have talked to multiple providers. Most recently discussion with Dr. Clayton, GI doctor at [facility] who felt that discharge home and outpatient follow-up would be safe. Again reviewed with Dr. Clayton who agrees with discharge home. Recommends having patient call [phone], [place] to schedule an urgent follow-up next week with him. All of these findings reviewed with patient as well as instructions to return to the emergency department should she have additional upper or lower bleeding. Patient does have an increasing appetite and did tolerate a turkey sandwich in the emergency department without any nausea or retching. Recommendation was to continue antibiotics so 5 additional days of Keflex will be given. Discharge meds will include 25 mg of losartan as prior to admission, pantoprazole 40 mg b.i.d., 5 days of Keflex. Discontinue aspirin, Lasix and potassium. <Didi Fitzpatrick MD - Last Filed: 10/25/22 12:36> Lab Data Labs: Lab Results 10/19/22 10/19/22 10/19/22 Range/Units 21:55 21:55 21:55 WBC 9.3 (4.5-11.0) X10^3/uL RBC 3.55 L (4.0-5.2) X10^6/uL Hgb 8.1 L (12.0-16.0) g/dL Hct 25.3 L (36-46) % MCV 71.3 L (80-100) fL MCH 22.7 L (26-34) PG MCHC 31.8 (30-36) % RDW 23.3 H (11.6-14.8) % Plt Count 224 (150-400) X10^3/uL Neut % (Auto) Not Reportable Lymph % (Auto) Not Reportable [place] % (Auto) Not Reportable Eos % (Auto) Not Reportable Baso % (Auto) Not Reportable Neut # (Auto) (4496-3198) /uL Lymph # (Auto) Not Reportable [place] # (Auto) Not Reportable Eos # (Auto) (0-450) /uL Baso # (Auto) Not Reportable Total Counted 100 Seg Neutrophils % 48.0 (38-70) % Band Neutrophils % 1.0 L (3-7) % Lymphocytes % (Manual) 27.0 (25-45) % Atypical Lymphs % ( - 0) % Monocytes % (Manual) 15.0 H (2-11) % Eosinophils % (Manual) 6.0 H (2-4) % Basophils % (Manual) 3.0 H (0-1) % Neutrophils # (Manual) 4557 (5671-3205) /uL RBC Morphology See below Hypochromasia 2+ H Poikilocytosis Anisocytosis 3+ H Microcytosis Target Cells Ene Cells Schistocytes 1+ H Smear Path Review PT 16.9 H (10.1-12.7) SECONDS INR 1.5 H (0.9-1.3) APTT 37 H (26-36) SECONDS Sodium 139 (137-145) mmol/L Potassium 3.3 L (3.4-5.1) mmol/L Chloride 108 H (98-107) mmol/L Carbon Dioxide 28 (22-32) mmol/L BUN 16 (7-17) mg/dL Creatinine 0.67 (0.52-1.04) mg/dL Estimated GFR > 60 (>60) mL/min BUN/Creatinine Ratio 23.9 H (6-22) Glucose 102 (80-110) mg/dL Calcium 7.4 L (8.4-10.2) mg/dL Total Bilirubin 1.6 H (0.2-1.3) mg/dL AST 44 H (14-36) IU/L ALT 24 (<35) IU/L Alkaline Phosphatase 81 (38-126) U/L Ammonia (9-30) umol/L Total Creatine Kinase (30-135) U/L CK-MB (CK-2) CK-MB (CK-2) Rel Index Troponin I (0.01-0.034) ng/mL NT-Pro-B Natriuret Pep (<125) pg/mL Total Protein 7.0 (6.3-8.2) g/dL Albumin 2.6 L (3.5-5.0) g/dL Globulin 4.4 H (1.7-4.1) g/dL Albumin/Globulin Ratio 0.6 L (1.0-2.8) Lipase (23-300) U/L SARS-CoV-2 (PCR) (Negative) Blood Type Antibody Screen Crossmatch 10/19/22 10/19/22 10/20/22 Range/Units 21:55 21:55 01:35 WBC (4.5-11.0) X10^3/uL RBC (4.0-5.2) X10^6/uL Hgb (12.0-16.0) g/dL Hct (36-46) % MCV (80-100) fL MCH (26-34) PG MCHC (30-36) % RDW (11.6-14.8) % Plt Count (150-400) X10^3/uL Neut % (Auto) Lymph % (Auto) [place] % (Auto) Eos % (Auto) Baso % (Auto) Neut # (Auto) (8509-2921) /uL Lymph # (Auto) [place] # (Auto) Eos # (Auto) (0-450) /uL Baso # (Auto) Total Counted Seg Neutrophils % (38-70) % Band Neutrophils % (3-7) % Lymphocytes % (Manual) (25-45) % Atypical Lymphs % ( - 0) % Monocytes % (Manual) (2-11) % Eosinophils % (Manual) (2-4) % Basophils % (Manual) (0-1) % Neutrophils # (Manual) (0080-2180) /uL RBC Morphology Hypochromasia Poikilocytosis Anisocytosis Microcytosis Target Cells Ene Cells Schistocytes Smear Path Review PT (10.1-12.7) SECONDS INR (0.9-1.3) APTT (26-36) SECONDS Sodium (137-145) mmol/L Potassium (3.4-5.1) mmol/L Chloride (98-107) mmol/L Carbon Dioxide (22-32) mmol/L BUN (7-17) mg/dL Creatinine (0.52-1.04) mg/dL Estimated GFR (>60) mL/min BUN/Creatinine Ratio (6-22) Glucose (80-110) mg/dL Calcium (8.4-10.2) mg/dL Total Bilirubin (0.2-1.3) mg/dL AST (14-36) IU/L ALT (<35) IU/L Alkaline Phosphatase (38-126) U/L Ammonia (9-30) umol/L Total Creatine Kinase (30-135) U/L CK-MB (CK-2) CK-MB (CK-2) Rel Index Troponin I (0.01-0.034) ng/mL NT-Pro-B Natriuret Pep (<125) pg/mL Total Protein (6.3-8.2) g/dL Albumin (3.5-5.0) g/dL Globulin (1.7-4.1) g/dL Albumin/Globulin Ratio (1.0-2.8) Lipase 256 (23-300) U/L SARS-CoV-2 (PCR) Negative (Negative) Blood Type A Positive Antibody Screen Negative Crossmatch See Detail 10/20/22 10/20/22 10/20/22 Range/Units 06:28 06:28 06:28 WBC 7.4 (4.5-11.0) X10^3/uL RBC 2.90 L (4.0-5.2) X10^6/uL Hgb 6.7 L* (12.0-16.0) g/dL Hct 20.9 L* (36-46) % MCV 72.0 L (80-100) fL MCH 23.2 L (26-34) PG MCHC 32.2 (30-36) % RDW 23.6 H (11.6-14.8) % Plt Count 166 (150-400) X10^3/uL Neut % (Auto) 29.7 L Lymph % (Auto) 42.[address] [place] % (Auto) 12.9 Eos % (Auto) 14.0 H Baso % (Auto) 1.1 Neut # (Auto) 2200 (5063-9442) /uL Lymph # (Auto) 3100 [place] # (Auto) 1000 H Eos # (Auto) 1000 H (0-450) /uL Baso # (Auto) 100 Total Counted Seg Neutrophils % (38-70) % Band Neutrophils % (3-7) % Lymphocytes % (Manual) (25-45) % Atypical Lymphs % ( - 0) % Monocytes % (Manual) (2-11) % Eosinophils % (Manual) (2-4) % Basophils % (Manual) (0-1) % Neutrophils # (Manual) (6939-8231) /uL RBC Morphology See below Hypochromasia 2+ H Poikilocytosis Anisocytosis 2+ H Microcytosis 1+ H Target Cells Ene Cells Schistocytes 1+ H Smear Path Review PT 18.0 H (10.1-12.7) SECONDS INR 1.6 H (0.9-1.3) APTT 38 H (26-36) SECONDS Sodium 137 (137-145) mmol/L Potassium 3.2 L (3.4-5.1) mmol/L Chloride 111 H (98-107) mmol/L Carbon Dioxide 22 (22-32) mmol/L BUN 17 (7-17) mg/dL Creatinine 0.57 (0.52-1.04) mg/dL Estimated GFR > 60 (>60) mL/min BUN/Creatinine Ratio 29.8 H (6-22) Glucose 86 (80-110) mg/dL Calcium 7.0 L (8.4-10.2) mg/dL Total Bilirubin 1.5 H (0.2-1.3) mg/dL AST 41 H (14-36) IU/L ALT 21 (<35) IU/L Alkaline Phosphatase 63 (38-126) U/L Ammonia (9-30) umol/L Total Creatine Kinase (30-135) U/L CK-MB (CK-2) CK-MB (CK-2) Rel Index Troponin I (0.01-0.034) ng/mL NT-Pro-B Natriuret Pep (<125) pg/mL Total Protein 6.0 L (6.3-8.2) g/dL Albumin 2.1 L (3.5-5.0) g/dL Globulin 3.9 (1.7-4.1) g/dL Albumin/Globulin Ratio 0.5 L (1.0-2.8) Lipase 210 (23-300) U/L SARS-CoV-2 (PCR) (Negative) Blood Type Antibody Screen Crossmatch 10/20/22 10/20/22 10/21/22 Range/Units 06:28 17:40 05:54 WBC 6.0 (4.5-11.0) X10^3/uL RBC 3.26 L (4.0-5.2) X10^6/uL Hgb 8.5 L 8.3 L (12.0-16.0) g/dL Hct 25.4 L 25.3 L (36-46) % MCV 77.5 L D (80-100) fL MCH 25.4 L (26-34) PG MCHC 32.7 (30-36) % RDW 23.7 H (11.6-14.8) % Plt Count 134 L (150-400) X10^3/uL Neut % (Auto) 27.0 L Lymph % (Auto) 34.7 [place] % (Auto) 15.8 H Eos % (Auto) 21.0 H Baso % (Auto) 1.5 Neut # (Auto) 1600 (3857-6122) /uL Lymph # (Auto) 2100 [place] # (Auto) 1000 H Eos # (Auto) 1300 H (0-450) /uL Baso # (Auto) 100 Total Counted Seg Neutrophils % (38-70) % Band Neutrophils % (3-7) % Lymphocytes % (Manual) (25-45) % Atypical Lymphs % ( - 0) % Monocytes % (Manual) (2-11) % Eosinophils % (Manual) (2-4) % Basophils % (Manual) (0-1) % Neutrophils # (Manual) (9451-2612) /uL RBC Morphology See below Hypochromasia 2+ H Poikilocytosis 1+ H Anisocytosis 3+ H Microcytosis Target Cells 1+ H Ene Cells Schistocytes 1+ H Smear Path Review PT (10.1-12.7) SECONDS INR (0.9-1.3) APTT (26-36) SECONDS Sodium (137-145) mmol/L Potassium (3.4-5.1) mmol/L Chloride (98-107) mmol/L Carbon Dioxide (22-32) mmol/L BUN (7-17) mg/dL Creatinine (0.52-1.04) mg/dL Estimated GFR (>60) mL/min BUN/Creatinine Ratio (6-22) Glucose (80-110) mg/dL Calcium (8.4-10.2) mg/dL Total Bilirubin (0.2-1.3) mg/dL AST (14-36) IU/L ALT (<35) IU/L Alkaline Phosphatase (38-126) U/L Ammonia 15 (9-30) umol/L Total Creatine Kinase (30-135) U/L CK-MB (CK-2) CK-MB (CK-2) Rel Index Troponin I (0.01-0.034) ng/mL NT-Pro-B Natriuret Pep (<125) pg/mL Total Protein (6.3-8.2) g/dL Albumin (3.5-5.0) g/dL Globulin (1.7-4.1) g/dL Albumin/Globulin Ratio (1.0-2.8) Lipase (23-300) U/L SARS-CoV-2 (PCR) (Negative) Blood Type Antibody Screen Crossmatch 10/21/22 10/21/22 10/22/22 Range/Units 05:54 17:35 07:04 WBC 5.6 6.7 (4.5-11.0) X10^3/uL RBC 3.27 L 3.83 L (4.0-5.2) X10^6/uL Hgb 8.3 L 9.6 L (12.0-16.0) g/dL Hct 25.4 L 30.1 L (36-46) % MCV 77.6 L 78.5 L (80-100) fL MCH 25.4 L 24.9 L (26-34) PG MCHC 32.7 31.8 (30-36) % RDW 24.0 H 24.4 H (11.6-14.8) % Plt Count 145 L 169 (150-400) X10^3/uL Neut % (Auto) 22.6 L 21.3 L Lymph % (Auto) 38.[address] [place] % (Auto) 16.3 H 13.0 Eos % (Auto) 21.1 H 21.0 H Baso % (Auto) 1.2 1.2 Neut # (Auto) 1300 L 1400 L (9367-3547) /uL Lymph # (Auto) [address] [place] # (Auto) 900 900 Eos # (Auto) 1200 H 1400 H (0-450) /uL Baso # (Auto) 100 100 Total Counted Seg Neutrophils % (38-70) % Band Neutrophils % (3-7) % Lymphocytes % (Manual) (25-45) % Atypical Lymphs % ( - 0) % Monocytes % (Manual) (2-11) % Eosinophils % (Manual) (2-4) % Basophils % (Manual) (0-1) % Neutrophils # (Manual) (2773-8278) /uL RBC Morphology See below Not Reportable Hypochromasia 2+ H Poikilocytosis 1+ H Anisocytosis 2+ H Microcytosis 2+ H Target Cells 1+ H Ene Cells 1+ H Schistocytes 2+ H Smear Path Review PT (10.1-12.7) SECONDS INR (0.9-1.3) APTT (26-36) SECONDS Sodium 139 (137-145) mmol/L Potassium 3.2 L (3.4-5.1) mmol/L Chloride 113 H (98-107) mmol/L Carbon Dioxide 23 (22-32) mmol/L BUN 12 (7-17) mg/dL Creatinine 0.68 (0.52-1.04) mg/dL Estimated GFR > 60 (>60) mL/min BUN/Creatinine Ratio 17.6 (6-22) Glucose 85 (80-110) mg/dL Calcium 6.8 L (8.4-10.2) mg/dL Total Bilirubin 1.7 H (0.2-1.3) mg/dL AST 40 H (14-36) IU/L ALT 20 (<35) IU/L Alkaline Phosphatase 64 (38-126) U/L Ammonia (9-30) umol/L Total Creatine Kinase (30-135) U/L CK-MB (CK-2) CK-MB (CK-2) Rel Index Troponin I (0.01-0.034) ng/mL NT-Pro-B Natriuret Pep (<125) pg/mL Total Protein 5.9 L (6.3-8.2) g/dL Albumin 2.1 L (3.5-5.0) g/dL Globulin 3.8 (1.7-4.1) g/dL Albumin/Globulin Ratio 0.6 L (1.0-2.8) Lipase 230 (23-300) U/L SARS-CoV-2 (PCR) (Negative) Blood Type Antibody Screen Crossmatch 10/22/22 10/23/22 10/23/22 Range/Units 07:04 07:30 07:30 WBC 5.8 (4.5-11.0) X10^3/uL RBC 3.49 L (4.0-5.2) X10^6/uL Hgb 9.0 L (12.0-16.0) g/dL Hct 27.4 L (36-46) % MCV 78.5 L (80-100) fL MCH 25.6 L (26-34) PG MCHC 32.6 (30-36) % RDW 25.3 H (11.6-14.8) % Plt Count 144 L (150-400) X10^3/uL Neut % (Auto) Not Reportable Lymph % (Auto) Not Reportable [place] % (Auto) Not Reportable Eos % (Auto) Not Reportable Baso % (Auto) Not Reportable Neut # (Auto) (4118-8476) /uL Lymph # (Auto) Not Reportable [place] # (Auto) Not Reportable Eos # (Auto) (0-450) /uL Baso # (Auto) Not Reportable Total Counted 100 Seg Neutrophils % 36.0 L (38-70) % Band Neutrophils % (3-7) % Lymphocytes % (Manual) 25.0 (25-45) % Atypical Lymphs % 7.0 H ( - 0) % Monocytes % (Manual) 9.0 (2-11) % Eosinophils % (Manual) 23.0 H (2-4) % Basophils % (Manual) (0-1) % Neutrophils # (Manual) 2088 L (0918-5090) /uL RBC Morphology Not Reportable Hypochromasia Poikilocytosis 1+ H Anisocytosis Microcytosis Target Cells Ene Cells Schistocytes Smear Path Review PT (10.1-12.7) SECONDS INR (0.9-1.3) APTT (26-36) SECONDS Sodium 140 141 (137-145) mmol/L Potassium 3.6 3.6 (3.4-5.1) mmol/L Chloride 113 H 115 H (98-107) mmol/L Carbon Dioxide 22 24 (22-32) mmol/L BUN 10 9 (7-17) mg/dL Creatinine 0.75 0.62 (0.52-1.04) mg/dL Estimated GFR > 60 > 60 (>60) mL/min BUN/Creatinine Ratio 13.3 14.5 (6-22) Glucose 94 91 (80-110) mg/dL Calcium 7.6 L 7.0 L (8.4-10.2) mg/dL Total Bilirubin 1.7 H 1.4 H (0.2-1.3) mg/dL AST 53 H 42 H (14-36) IU/L ALT 23 18 (<35) IU/L Alkaline Phosphatase 81 68 (38-126) U/L Ammonia (9-30) umol/L Total Creatine Kinase (30-135) U/L CK-MB (CK-2) CK-MB (CK-2) Rel Index Troponin I (0.01-0.034) ng/mL NT-Pro-B Natriuret Pep (<125) pg/mL Total Protein 7.1 6.0 L (6.3-8.2) g/dL Albumin 2.5 L 2.1 L (3.5-5.0) g/dL Globulin 4.6 H 3.9 (1.7-4.1) g/dL Albumin/Globulin Ratio 0.5 L 0.5 L (1.0-2.8) Lipase 342 H 220 (23-300) U/L SARS-CoV-2 (PCR) (Negative) Blood Type Antibody Screen Crossmatch 10/24/22 10/24/22 10/24/22 Range/Units 07:03 07:03 13:40 WBC 6.2 (4.5-11.0) X10^3/uL RBC 3.63 L (4.0-5.2) X10^6/uL Hgb 9.1 L (12.0-16.0) g/dL Hct 28.4 L (36-46) % MCV 78.3 L (80-100) fL MCH 25.2 L (26-34) PG MCHC 32.2 (30-36) % RDW 26.1 H (11.6-14.8) % Plt Count 148 L (150-400) X10^3/uL Neut % (Auto) 22.9 L Lymph % (Auto) 32.6 [place] % (Auto) 19.0 H Eos % (Auto) 23.6 H Baso % (Auto) 1.9 Neut # (Auto) 1400 L (8367-1070) /uL Lymph # (Auto) 2000 [place] # (Auto) 1200 H Eos # (Auto) 1500 H (0-450) /uL Baso # (Auto) 100 Total Counted Seg Neutrophils % (38-70) % Band Neutrophils % (3-7) % Lymphocytes % (Manual) (25-45) % Atypical Lymphs % ( - 0) % Monocytes % (Manual) (2-11) % Eosinophils % (Manual) (2-4) % Basophils % (Manual) (0-1) % Neutrophils # (Manual) (7308-9230) /uL RBC Morphology See below Hypochromasia 1+ H Poikilocytosis Anisocytosis Microcytosis 1+ H Target Cells 1+ H Ene Cells Schistocytes 1+ H Smear Path Review PT 23.0 H D (10.1-12.7) SECONDS INR 2.0 H (0.9-1.3) APTT 40 H (26-36) SECONDS Sodium 140 (137-145) mmol/L Potassium 3.5 (3.4-5.1) mmol/L Chloride 113 H (98-107) mmol/L Carbon Dioxide 23 (22-32) mmol/L BUN 8 (7-17) mg/dL Creatinine 0.63 (0.52-1.04) mg/dL Estimated GFR > 60 (>60) mL/min BUN/Creatinine Ratio 12.7 (6-22) Glucose 85 (80-110) mg/dL Calcium 7.1 L (8.4-10.2) mg/dL Total Bilirubin 1.4 H (0.2-1.3) mg/dL AST 41 H (14-36) IU/L ALT 17 (<35) IU/L Alkaline Phosphatase 68 (38-126) U/L Ammonia (9-30) umol/L Total Creatine Kinase (30-135) U/L CK-MB (CK-2) CK-MB (CK-2) Rel Index Troponin I (0.01-0.034) ng/mL NT-Pro-B Natriuret Pep (<125) pg/mL Total Protein 6.2 L (6.3-8.2) g/dL Albumin 2.1 L (3.5-5.0) g/dL Globulin 4.1 (1.7-4.1) g/dL Albumin/Globulin Ratio 0.5 L (1.0-2.8) Lipase 213 (23-300) U/L SARS-CoV-2 (PCR) (Negative) Blood Type Antibody Screen Crossmatch 10/24/22 10/25/22 10/25/22 Range/Units 18:29 05:47 05:47 WBC (4.5-11.0) X10^3/uL RBC (4.0-5.2) X10^6/uL Hgb 8.7 L (12.0-16.0) g/dL Hct 26.9 L (36-46) % MCV (80-100) fL MCH (26-34) PG MCHC (30-36) % RDW (11.6-14.8) % Plt Count (150-400) X10^3/uL Neut % (Auto) Lymph % (Auto) [place] % (Auto) Eos % (Auto) Baso % (Auto) Neut # (Auto) (3214-8879) /uL Lymph # (Auto) [place] # (Auto) Eos # (Auto) (0-450) /uL Baso # (Auto) Total Counted Seg Neutrophils % (38-70) % Band Neutrophils % (3-7) % Lymphocytes % (Manual) (25-45) % Atypical Lymphs % ( - 0) % Monocytes % (Manual) (2-11) % Eosinophils % (Manual) (2-4) % Basophils % (Manual) (0-1) % Neutrophils # (Manual) (5570-2562) /uL RBC Morphology Hypochromasia Poikilocytosis Anisocytosis Microcytosis Target Cells [place] Cells Schistocytes Smear Path Review PT (10.1-12.7) SECONDS INR (0.9-1.3) APTT (26-36) SECONDS Sodium 138 (137-145) mmol/L Potassium 3.4 (3.4-5.1) mmol/L Chloride 109 H (98-107) mmol/L Carbon Dioxide 26 (22-32) mmol/L BUN 8 (7-17) mg/dL Creatinine 0.66 (0.52-1.04) mg/dL Estimated GFR > 60 (>60) mL/min BUN/Creatinine Ratio 12.1 (6-22) Glucose 94 (80-110) mg/dL Calcium 6.8 L (8.4-10.2) mg/dL Total Bilirubin 1.3 (0.2-1.3) mg/dL AST 38 H (14-36) IU/L ALT 16 (<35) IU/L Alkaline Phosphatase 62 (38-126) U/L Ammonia (9-30) umol/L Total Creatine Kinase 66 (30-135) U/L CK-MB (CK-2) TNP CK-MB (CK-2) Rel Index TNP Troponin I < 0.012 (0.01-0.034) ng/mL NT-Pro-B Natriuret Pep 320 H (<125) pg/mL Total Protein 5.7 L (6.3-8.2) g/dL Albumin 1.9 L (3.5-5.0) g/dL Globulin 3.8 (1.7-4.1) g/dL Albumin/Globulin Ratio 0.5 L (1.0-2.8) Lipase (23-300) U/L SARS-CoV-2 (PCR) (Negative) Blood Type Antibody Screen Crossmatch 10/25/22 Range/Units 10:25 WBC (4.5-11.0) X10^3/uL RBC (4.0-5.2) X10^6/uL Hgb 9.5 L (12.0-16.0) g/dL Hct 29.2 L (36-46) % MCV (80-100) fL MCH (26-34) PG MCHC (30-36) % RDW (11.6-14.8) % Plt Count (150-400) X10^3/uL Neut % (Auto) Lymph % (Auto) [place] % (Auto) Eos % (Auto) Baso % (Auto) Neut # (Auto) (6537-2862) /uL Lymph # (Auto) [place] # (Auto) Eos # (Auto) (0-450) /uL Baso # (Auto) Total Counted Seg Neutrophils % (38-70) % Band Neutrophils % (3-7) % Lymphocytes % (Manual) (25-45) % Atypical Lymphs % ( - 0) % Monocytes % (Manual) (2-11) % Eosinophils % (Manual) (2-4) % Basophils % (Manual) (0-1) % Neutrophils # (Manual) (7692-1499) /uL RBC Morphology Hypochromasia Poikilocytosis Anisocytosis Microcytosis Target Cells Ene Cells Schistocytes Smear Path Review PT (10.1-12.7) SECONDS INR (0.9-1.3) APTT (26-36) SECONDS Sodium (137-145) mmol/L Potassium (3.4-5.1) mmol/L Chloride (98-107) mmol/L Carbon Dioxide (22-32) mmol/L BUN (7-17) mg/dL Creatinine (0.52-1.04) mg/dL Estimated GFR (>60) mL/min BUN/Creatinine Ratio (6-22) Glucose (80-110) mg/dL Calcium (8.4-10.2) mg/dL Total Bilirubin (0.2-1.3) mg/dL AST (14-36) IU/L ALT (<35) IU/L Alkaline Phosphatase (38-126) U/L Ammonia (9-30) umol/L Total Creatine Kinase (30-135) U/L CK-MB (CK-2) CK-MB (CK-2) Rel Index Troponin I (0.01-0.034) ng/mL NT-Pro-B Natriuret Pep (<125) pg/mL Total Protein (6.3-8.2) g/dL Albumin (3.5-5.0) g/dL Globulin (1.7-4.1) g/dL Albumin/Globulin Ratio (1.0-2.8) Lipase (23-300) U/L SARS-CoV-2 (PCR) (Negative) Blood Type Antibody Screen Crossmatch Urine Dip Bedside Urine Glucose Negative Bedside Urine Bilirubin - Negative Bedside Urine Ketone +/- 5 Urine Specific [place] 1.005 Bedside Urine Occult Blood - Negative Bedside Urine pH 6.0 Bedside Urine Protein - Negative Bedside Urine Urobilinogen - Negative Bedside Urine Nitrite - Negative Bedside Urine Leukocytes - Negative Esterase MDM Narrative Medical decision making narrative: This is a 62-year-old female comes with complaint of near-syncope, black stools and diarrhea and fever today. Patient is noted to have hemoglobin which appears stable from when she was transfused before it is 8 today which would be consistent with being transfused 2 units from when she her hemoglobin was 6 on 09/30/2022. Patient does not have any leukocytosis, normal platelets, microcytic anemia. INR is 1.5 patient is on aspirin but no other reported anticoagulants, she is also noted to have elevation in her bilirubin at 1.6, AST is 44 ALT is normal alk-phos is 81 lipase is 256. Patient's abdomen pelvis CT shows what appears to be stone in the ampulla of Vater, cholelithiasis patient has some diffuse bowel wall thickening suggestive infectious or inflammatory gastroenteritis. Patient has cirrhosis with portal hypertension gastroesophageal and splenic varices and a recanalized paraumbilical vein and ascites, patient received Protonix 80 mg IV plan for b.i.d., octreotide drip as stools and GI bleed could be from varices she has not had any hematemesis reported or here in the department. No reported significant alcohol history. Patient's renal function normal although she is potassium at 3.3 likely from vomiting today. Patient appears to need ERCP, possible banding of varices will need transfer as we do not have either of these available at our facility. So far has been hemodynamically stable will continue with very turned fluids. Protonix 80 mg b.i.d., octreotide drip, continue antibiotics for possible infection as patient had reported fever of 101 F yesterday and is high risk for cholangitis. Cultures were obtained prior to antibiotics. 10/20/22 7:[address] Fitzpatrick 62-year-old woman who presented the evening of October 19 with recurrent black stools, dizziness low-grade temp to 101.? She was seen for similar on September 30 after outpatient labs revealed an H&H of 6.8 and 21, transfused and eventually discharged home.? Has not been able to follow-up as an outpatient.? Initial labs indicate a bilirubin of 1.6, AST of 44 and lipase is 256.? CT scan indicates a stone in the ampulla of Vater. ?We have been looking for facilities with a capacity for ERCP and she is on multiple waiting list and [facility] is involved as well. Objective: Appears fatigued Chest:? Symmetrical air movement, no wheezing Cardiac: Mild tachycardia no murmurs Abdomen: Minor epigastric pain no rebound or guarding Assessment and plan 1.? Upper GI bleed with known esophageal and gastric varices.? Being transfused 2 units of packed red blood cells currently.? Will check H&H after transfusion. 2.? Incidentally appreciated common bile duct stone, bilirubin today is 1.5, AST is 41, ALT is 21, alk-phos is 63.? MRCP confirms ?possible/equivocal small stone at the downstream extrahepatic bile duct near the ampulla.? No ductal dilatation demonstrated.? 7 mm cyst in the pancreatic body recommended pancreatic protocol MRI as follow-up in a year Patient is updated. Phone calls again made to [facility] with no beds available.? Recommendation was to try back again at 3. 355pm Again, phone calls to hospital. No beds for transfer Dr cho overnight 10/20-10/21: Received turned over. Reviewed patient's history and physical workup up to this point. She is remained stable. Has received 2 units of packed red blood cells. Her H&H is improved. Continues to be no beds available for transfer. Care turned over to Dr. Mtz to follow-up and disposition. Dr Cho overnight 10/21-10/22: Resumed care of patient. Reviewed the daily events. Her H&H has been stable. She is been stable overnight without issue. Morning labs ordered. Care turned over to Dr. King to follow-up and disposition. 0700 (Fernando) Patient received in sign out from Dr. Cho. I have reviewed the clinical course and performed an independent history and physical exam. Repeat labs are pending. No reported issues over the course of the night. She feels significantly better than when she presented a few days ago and denies any ongoing dizziness or lightheadedness. She has been consuming clear liquids without difficulty. H&H is stable up to 9.6 and 30 0855 - call to Dr. Garcia ([facility]). We discussed history and physical exam as well as labs and imaging. He recommends we stay the course but does recommend contacting local GI Dr. Aguayo as he may be available 0915 - discussed with Dr. Aguayo. He is not in town and does not take call. After lengthy discussion of clinical course including labs, therapies and interventions he recommends continuing the course and states transfer for EGD and possible ERCP is in patient's best interest. Dr cho overnight 10/22-10/23: Assumed care patient. Reviewed patient's daily events. Patient has been stable overnight. Care turned over to Dr. Jacome to continue to observe until disposition. 10/23/[address] Jacome-patient signed out to me by Dr. Kevin uribe seen evaluated patient myself. Patient presents with GI bleed found to have varices fever and probable common bile duct stone. She did receive a blood transfusion while in the emergency department H and H has been stable for couple of days. She has also remained if afebrile without leukocytosis. MRCP does show probable common bile duct stone. After speaking with to GI doctor yesterday they agree that she does need further evaluation with ERCP and of it evaluation for esophageal varices. She remains on octreotide drip and Protonix 80 mg twice daily. Patient reports that she is had no further episodes of bleeding. She would like to get up and shower today. She has no abdominal pain nausea or vomiting. Significant critical bed shortage she remains on multiple lists. She is hemodynamically stable at this time GENERAL: Alert generally weak 62-year-old female HEENT: Head atraumatic,EOMI, pupils reactive, CARDIOVASCULAR: Regular rate and rhythm without murmurs, rubs or gallops. RESPIRATORY: Breath sounds equal bilaterally, no wheezes rales or rhonchi. ABDOMEN: Soft no localization of tenderness no distention no right upper quadrant pain EXTREMITIES: Normal range of motion, no clubbing or edema. Neurovascularly intact NEUROLOGICAL: Alert and oriented x4. SKIN: Warm, dry, no laceration, no petechiae, no rashes or lesions. Assessment and plan 1.? Upper GI bleed with known esophageal and gastric varices.? Has been transfused 2 units H&H stable . Remains on octreotide and Protonix 2.? Incidentally appreciated common bile duct stone, bilirubin today is 1.4, AST is 42, ALT is 18, alk-phos is 68.? MRCP confirms ?possible/equivocal small stone at the downstream extrahepatic bile duct near the ampulla.? No ductal dilatation demonstrated.? 7 mm cyst in the pancreatic body recommended pancreatic protocol MRI as follow-up in a year. To GI providers recommended transfer for ERCP. 3. Transfer higher level of care Dr cho overnight 10/23-10/24: Received turned over and reviewed patient's daily events. She is remained stable overnight. No new issues. Morning labs ordered. Care turned over to day provider to continue to observe until disposition can be found. We again attempted to find placement overnight without success. 04/06/23-8am (naa) patient signed out to me by Dr. Cho seen evaluated patient myself this morning. Patient has been stable for the last couple of days. She has intermittent mild abdominal cramping and pain but not requiring any pain medication. She has had no further episodes of rectal bleeding looks as though she is may have only had 1 episode of vomiting. Found to have esophageal varices and anemia transfused but now stable. She is been on octreotide drip 405 hours along with Protonix and antibiotics. Blood cultures are negative no further fevers. GENERAL: Well-appearing, well-nourished and in no acute distress. CARDIOVASCULAR: peripheral pulses in tact, cap refill <2 sec RESPIRATORY: No respiratory distress, speaks in full sentences without difficulty ABDOMEN: Soft, minimal tenderness no distention no guarding no rebound negative Angela sign EXTREMITIES: Normal range of motion, no clubbing or edema. Neurovascularly intact NEUROLOGICAL: Cranial nerves II through XII grossly intact. Normal gait and speech. SKIN: Warm, dry, no petechiae, no rashes or lesions. Assessment and plan 1.? Upper GI bleed with known esophageal and gastric varices.? Has been transfused 2 units H&H stable . -spoke with Dr. Clayton [facility] updated patient's symptoms and test results reports that is okay to stop Protonix and octreotide. If no bleeding for 12 hours after the octreotide has stopped may consider discharging home. He is updated on the bilirubin liver enzymes as well and waiting for ERCP. He reports that numbers are not alarming and without any significant pain or worsening status could actually have an ERCP as an outpatient. No evidence of choledocholithiasis or pancreatitis. 2.? Incidentally appreciated common bile duct stone, bilirubin today is 145, AST is 41, ALT is 17, alk-phos is 68.? MRCP confirms ?possible/equivocal small stone at the downstream extrahepatic bile duct near the ampulla.? -Dr. Clayton consulted this morning states that can have an outpatient ERCP please see above plan 3. Patient remains on multiple list however a likelihood of getting her transferred seem low. She also has been in the emergency department for multiple days and remains stable. Stop octreotide assess if there is further bleeding, change to p.o. PPI and possible follow-up GI as an outpatient. 4. Fever blood cultures are negative no leukocytosis no other evidence of infection she has had 4 days of antibiotics at this time I feel it is appropriate to stop the antibiotics. 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 She denies any calf pain they are not erythematous 181-called to evaluate patient by nursing. Patient is complaining of some shortness of breath she feels like she can not swallow. Tongue is not swollen she does not really have any chest pain but sometimes she does. She earlier had swelling on her feet with a negative DVT study. She is not hypoxic or tachycardic. Ordered CT angio to rule out out pulmonary embolism BNP troponin and EKG. Patient does report that she does have a history of congestive heart failure,. CT angio was negative for pulmonary embolism blood work is overall reassuring negative troponin BNP minimally elevated at 320. It will give her 1 dose of Lasix to help diurese her. She has not no evidence of rebleeding. No evidence of angioedema or allergic reaction [1900] (Fernando) Patient received in sign out from [Naa]. I have reviewed the clinical course and performed an independent history and physical exam. She is feeling better. Plan was to re-evaluate at about 8:00 p.m., 12 hours after octreotide. Given her shortness of breath and development of symptoms late this afternoon evening CT angiogram was ordered which was thankfully negative but did demonstrate some fluid overload, she is given Lasix as an has created dilute urine. As she was not yet discharge she remained on transfer center list and as result [place] [facility] called back. We have reviewed the patient's course and she also agrees with discharge and outpatient follow-up but recommends a dose of vitamin K here in the emergency department given her evidence of liver disease and elevated INR. Furthermore she recommends antibiotics for 5 days as an outpatient 2100 -patient feeling some cramping in her anterior thighs and feeling nauseated, I have reassed her and she has reassuring vitals and exam. Repeat labs ordered. Will hold on over night, repeat labs in the morning 10/25/22 Dr Nanette Khan is assumed. 62-year-old patient with presumed upper GI bleeding new diagnosis of cirrhosis uncertain etiology Patient has now been off octreotide for 24 hours. H&H has increased from 9.1-9.5 without any evidence of continued active bleeding. She has had a liquid diet and is willing to try a turkey sandwich to make sure that it stays down without pain. Liver enzymes including bilirubin trended down without additional intervention. We have been unsuccessful in trying to transfer this patient due to severe bed shortages across [facility]. We have talked to multiple providers. Most recently discussion with Dr. Clayton, GI doctor at [facility] who felt that discharge home and outpatient follow-up would be safe. Again reviewed with Dr. Clayton who agrees with discharge home. Recommends having patient call [phone], [facility] to schedule an urgent follow-up next week with him. All of these findings reviewed with patient as well as instructions to return to the emergency department should she have additional upper or lower bleeding. Patient does have an increasing appetite and did tolerate a turkey sandwich in the emergency department without any nausea or retching. Recommendation was to continue antibiotics so 5 additional days of Keflex will be given. Discharge meds will include 25 mg of losartan as prior to admission, pantoprazole 40 mg b.i.d., 5 days of Keflex. Discontinue aspirin, Lasix and potassium. <Rayo Cho, - Last Filed: 10/24/22 06:15> Lab Data Labs: Lab Results 10/19/22 10/19/22 10/19/22 Range/Units 21:55 21:55 21:55 WBC 9.3 (4.5-11.0) X10^3/uL RBC 3.55 L (4.0-5.2) X10^6/uL Hgb 8.1 L (12.0-16.0) g/dL Hct 25.3 L (36-46) % MCV 71.3 L (80-100) fL MCH 22.7 L (26-34) PG MCHC 31.8 (30-36) % RDW 23.3 H (11.6-14.8) % Plt Count 224 (150-400) X10^3/uL Neut % (Auto) Not Reportable Lymph % (Auto) Not Reportable [place] % (Auto) Not Reportable Eos % (Auto) Not Reportable Baso % (Auto) Not Reportable Neut # (Auto) (9439-2397) /uL Lymph # (Auto) Not Reportable [place] # (Auto) Not Reportable Eos # (Auto) (0-450) /uL Baso # (Auto) Not Reportable Total Counted 100 Seg Neutrophils % 48.0 (38-70) % Band Neutrophils % 1.0 L (3-7) % Lymphocytes % (Manual) 27.0 (25-45) % Atypical Lymphs % ( - 0) % Monocytes % (Manual) 15.0 H (2-11) % Eosinophils % (Manual) 6.0 H (2-4) % Basophils % (Manual) 3.0 H (0-1) % Neutrophils # (Manual) 4557 (8837-9081) /uL RBC Morphology See below Hypochromasia 2+ H Poikilocytosis Anisocytosis 3+ H Microcytosis Target Cells Ene Cells Schistocytes 1+ H Smear Path Review PT 16.9 H (10.1-12.7) SECONDS INR 1.5 H (0.9-1.3) APTT 37 H (26-36) SECONDS Sodium 139 (137-145) mmol/L Potassium 3.3 L (3.4-5.1) mmol/L Chloride 108 H (98-107) mmol/L Carbon Dioxide 28 (22-32) mmol/L BUN 16 (7-17) mg/dL Creatinine 0.67 (0.52-1.04) mg/dL Estimated GFR > 60 (>60) mL/min BUN/Creatinine Ratio 23.9 H (6-22) Glucose 102 (80-110) mg/dL Calcium 7.4 L (8.4-10.2) mg/dL Total Bilirubin 1.6 H (0.2-1.3) mg/dL AST 44 H (14-36) IU/L ALT 24 (<35) IU/L Alkaline Phosphatase 81 (38-126) U/L Ammonia (9-30) umol/L Total Creatine Kinase (30-135) U/L CK-MB (CK-2) CK-MB (CK-2) Rel Index Troponin I (0.01-0.034) ng/mL NT-Pro-B Natriuret Pep (<125) pg/mL Total Protein 7.0 (6.3-8.2) g/dL Albumin 2.6 L (3.5-5.0) g/dL Globulin 4.4 H (1.7-4.1) g/dL Albumin/Globulin Ratio 0.6 L (1.0-2.8) Lipase (23-300) U/L SARS-CoV-2 (PCR) (Negative) Blood Type Antibody Screen Crossmatch 10/19/22 10/19/22 10/20/22 Range/Units 21:55 21:55 01:35 WBC (4.5-11.0) X10^3/uL RBC (4.0-5.2) X10^6/uL Hgb (12.0-16.0) g/dL Hct (36-46) % MCV (80-100) fL MCH (26-34) PG MCHC (30-36) % RDW (11.6-14.8) % Plt Count (150-400) X10^3/uL Neut % (Auto) Lymph % (Auto) [place] % (Auto) Eos % (Auto) Baso % (Auto) Neut # (Auto) (0540-4267) /uL Lymph # (Auto) [place] # (Auto) Eos # (Auto) (0-450) /uL Baso # (Auto) Total Counted Seg Neutrophils % (38-70) % Band Neutrophils % (3-7) % Lymphocytes % (Manual) (25-45) % Atypical Lymphs % ( - 0) % Monocytes % (Manual) (2-11) % Eosinophils % (Manual) (2-4) % Basophils % (Manual) (0-1) % Neutrophils # (Manual) (2410-5530) /uL RBC Morphology Hypochromasia Poikilocytosis Anisocytosis Microcytosis Target Cells Ene Cells Schistocytes Smear Path Review PT (10.1-12.7) SECONDS INR (0.9-1.3) APTT (26-36) SECONDS Sodium (137-145) mmol/L Potassium (3.4-5.1) mmol/L Chloride (98-107) mmol/L Carbon Dioxide (22-32) mmol/L BUN (7-17) mg/dL Creatinine (0.52-1.04) mg/dL Estimated GFR (>60) mL/min BUN/Creatinine Ratio (6-22) Glucose (80-110) mg/dL Calcium (8.4-10.2) mg/dL Total Bilirubin (0.2-1.3) mg/dL AST (14-36) IU/L ALT (<35) IU/L Alkaline Phosphatase (38-126) U/L Ammonia (9-30) umol/L Total Creatine Kinase (30-135) U/L CK-MB (CK-2) CK-MB (CK-2) Rel Index Troponin I (0.01-0.034) ng/mL NT-Pro-B Natriuret Pep (<125) pg/mL Total Protein (6.3-8.2) g/dL Albumin (3.5-5.0) g/dL Globulin (1.7-4.1) g/dL Albumin/Globulin Ratio (1.0-2.8) Lipase 256 (23-300) U/L SARS-CoV-2 (PCR) Negative (Negative) Blood Type A Positive Antibody Screen Negative Crossmatch See Detail 10/20/22 10/20/22 10/20/22 Range/Units 06:28 06:28 06:28 WBC 7.4 (4.5-11.0) X10^3/uL RBC 2.90 L (4.0-5.2) X10^6/uL Hgb 6.7 L* (12.0-16.0) g/dL Hct 20.9 L* (36-46) % MCV 72.0 L (80-100) fL MCH 23.2 L (26-34) PG MCHC 32.2 (30-36) % RDW 23.6 H (11.6-14.8) % Plt Count 166 (150-400) X10^3/uL Neut % (Auto) 29.7 L Lymph % (Auto) 42.[address] [place] % (Auto) 12.9 Eos % (Auto) 14.0 H Baso % (Auto) 1.1 Neut # (Auto) 2200 (7312-5083) /uL Lymph # (Auto) 3100 [place] # (Auto) 1000 H Eos # (Auto) 1000 H (0-450) /uL Baso # (Auto) 100 Total Counted Seg Neutrophils % (38-70) % Band Neutrophils % (3-7) % Lymphocytes % (Manual) (25-45) % Atypical Lymphs % ( - 0) % Monocytes % (Manual) (2-11) % Eosinophils % (Manual) (2-4) % Basophils % (Manual) (0-1) % Neutrophils # (Manual) (6516-5103) /uL RBC Morphology See below Hypochromasia 2+ H Poikilocytosis Anisocytosis 2+ H Microcytosis 1+ H Target Cells [place] Cells Schistocytes 1+ H Smear Path Review PT 18.0 H (10.1-12.7) SECONDS INR 1.6 H (0.9-1.3) APTT 38 H (26-36) SECONDS Sodium 137 (137-145) mmol/L Potassium 3.2 L (3.4-5.1) mmol/L Chloride 111 H (98-107) mmol/L Carbon Dioxide 22 (22-32) mmol/L BUN 17 (7-17) mg/dL Creatinine 0.57 (0.52-1.04) mg/dL Estimated GFR > 60 (>60) mL/min BUN/Creatinine Ratio 29.8 H (6-22) Glucose 86 (80-110) mg/dL Calcium 7.0 L (8.4-10.2) mg/dL Total Bilirubin 1.5 H (0.2-1.3) mg/dL AST 41 H (14-36) IU/L ALT 21 (<35) IU/L Alkaline Phosphatase 63 (38-126) U/L Ammonia (9-30) umol/L Total Creatine Kinase (30-135) U/L CK-MB (CK-2) CK-MB (CK-2) Rel Index Troponin I (0.01-0.034) ng/mL NT-Pro-B Natriuret Pep (<125) pg/mL Total Protein 6.0 L (6.3-8.2) g/dL Albumin 2.1 L (3.5-5.0) g/dL Globulin 3.9 (1.7-4.1) g/dL Albumin/Globulin Ratio 0.5 L (1.0-2.8) Lipase 210 (23-300) U/L SARS-CoV-2 (PCR) (Negative) Blood Type Antibody Screen Crossmatch 10/20/22 10/20/22 10/21/22 Range/Units 06:28 17:40 05:54 WBC 6.0 (4.5-11.0) X10^3/uL RBC 3.26 L (4.0-5.2) X10^6/uL Hgb 8.5 L 8.3 L (12.0-16.0) g/dL Hct 25.4 L 25.3 L (36-46) % MCV 77.5 L D (80-100) fL MCH 25.4 L (26-34) PG MCHC 32.7 (30-36) % RDW 23.7 H (11.6-14.8) % Plt Count 134 L (150-400) X10^3/uL Neut % (Auto) 27.0 L Lymph % (Auto) 34.7 [place] % (Auto) 15.8 H Eos % (Auto) 21.0 H Baso % (Auto) 1.5 Neut # (Auto) 1600 (1656-9546) /uL Lymph # (Auto) 2[address] [place] # (Auto) 1000 H Eos # (Auto) 1300 H (0-450) /uL Baso # (Auto) 100 Total Counted Seg Neutrophils % (38-70) % Band Neutrophils % (3-7) % Lymphocytes % (Manual) (25-45) % Atypical Lymphs % ( - 0) % Monocytes % (Manual) (2-11) % Eosinophils % (Manual) (2-4) % Basophils % (Manual) (0-1) % Neutrophils # (Manual) (4869-2357) /uL RBC Morphology See below Hypochromasia 2+ H Poikilocytosis 1+ H Anisocytosis 3+ H Microcytosis Target Cells 1+ H Ene Cells Schistocytes 1+ H Smear Path Review PT (10.1-12.7) SECONDS INR (0.9-1.3) APTT (26-36) SECONDS Sodium (137-145) mmol/L Potassium (3.4-5.1) mmol/L Chloride (98-107) mmol/L Carbon Dioxide (22-32) mmol/L BUN (7-17) mg/dL Creatinine (0.52-1.04) mg/dL Estimated GFR (>60) mL/min BUN/Creatinine Ratio (6-22) Glucose (80-110) mg/dL Calcium (8.4-10.2) mg/dL Total Bilirubin (0.2-1.3) mg/dL AST (14-36) IU/L ALT (<35) IU/L Alkaline Phosphatase (38-126) U/L Ammonia 15 (9-30) umol/L Total Creatine Kinase (30-135) U/L CK-MB (CK-2) CK-MB (CK-2) Rel Index Troponin I (0.01-0.034) ng/mL NT-Pro-B Natriuret Pep (<125) pg/mL Total Protein (6.3-8.2) g/dL Albumin (3.5-5.0) g/dL Globulin (1.7-4.1) g/dL Albumin/Globulin Ratio (1.0-2.8) Lipase (23-300) U/L SARS-CoV-2 (PCR) (Negative) Blood Type Antibody Screen Crossmatch 10/21/22 10/21/22 10/22/22 Range/Units 05:54 17:35 07:04 WBC 5.6 6.7 (4.5-11.0) X10^3/uL RBC 3.27 L 3.83 L (4.0-5.2) X10^6/uL Hgb 8.3 L 9.6 L (12.0-16.0) g/dL Hct 25.4 L 30.1 L (36-46) % MCV 77.6 L 78.5 L (80-100) fL MCH 25.4 L 24.9 L (26-34) PG MCHC 32.7 31.8 (30-36) % RDW 24.0 H 24.4 H (11.6-14.8) % Plt Count 145 L 169 (150-400) X10^3/uL Neut % (Auto) 22.6 L 21.3 L Lymph % (Auto) 38.[address] % (Auto) 16.3 H 13.0 Eos % (Auto) 21.1 H 21.0 H Baso % (Auto) 1.2 1.2 Neut # (Auto) 1300 L 1400 L (3872-0718) /uL Lymph # (Auto) [address] # (Auto) 900 900 Eos # (Auto) 1200 H 1400 H (0-450) /uL Baso # (Auto) 100 100 Total Counted Seg Neutrophils % (38-70) % Band Neutrophils % (3-7) % Lymphocytes % (Manual) (25-45) % Atypical Lymphs % ( - 0) % Monocytes % (Manual) (2-11) % Eosinophils % (Manual) (2-4) % Basophils % (Manual) (0-1) % Neutrophils # (Manual) (2370-9909) /uL RBC Morphology See below Not Reportable Hypochromasia 2+ H Poikilocytosis 1+ H Anisocytosis 2+ H Microcytosis 2+ H Target Cells 1+ H Ene Cells 1+ H Schistocytes 2+ H Smear Path Review PT (10.1-12.7) SECONDS INR (0.9-1.3) APTT (26-36) SECONDS Sodium 139 (137-145) mmol/L Potassium 3.2 L (3.4-5.1) mmol/L Chloride 113 H (98-107) mmol/L Carbon Dioxide 23 (22-32) mmol/L BUN 12 (7-17) mg/dL Creatinine 0.68 (0.52-1.04) mg/dL Estimated GFR > 60 (>60) mL/min BUN/Creatinine Ratio 17.6 (6-22) Glucose 85 (80-110) mg/dL Calcium 6.8 L (8.4-10.2) mg/dL Total Bilirubin 1.7 H (0.2-1.3) mg/dL AST 40 H (14-36) IU/L ALT 20 (<35) IU/L Alkaline Phosphatase 64 (38-126) U/L Ammonia (9-30) umol/L Total Creatine Kinase (30-135) U/L CK-MB (CK-2) CK-MB (CK-2) Rel Index Troponin I (0.01-0.034) ng/mL NT-Pro-B Natriuret Pep (<125) pg/mL Total Protein 5.9 L (6.3-8.2) g/dL Albumin 2.1 L (3.5-5.0) g/dL Globulin 3.8 (1.7-4.1) g/dL Albumin/Globulin Ratio 0.6 L (1.0-2.8) Lipase 230 (23-300) U/L SARS-CoV-2 (PCR) (Negative) Blood Type Antibody Screen Crossmatch 10/22/22 10/23/22 10/23/22 Range/Units 07:04 07:30 07:30 WBC 5.8 (4.5-11.0) X10^3/uL RBC 3.49 L (4.0-5.2) X10^6/uL Hgb 9.0 L (12.0-16.0) g/dL Hct 27.4 L (36-46) % MCV 78.5 L (80-100) fL MCH 25.6 L (26-34) PG MCHC 32.6 (30-36) % RDW 25.3 H (11.6-14.8) % Plt Count 144 L (150-400) X10^3/uL Neut % (Auto) Not Reportable Lymph % (Auto) Not Reportable [place] % (Auto) Not Reportable Eos % (Auto) Not Reportable Baso % (Auto) Not Reportable Neut # (Auto) (6532-9934) /uL Lymph # (Auto) Not Reportable [place] # (Auto) Not Reportable Eos # (Auto) (0-450) /uL Baso # (Auto) Not Reportable Total Counted 100 Seg Neutrophils % 36.0 L (38-70) % Band Neutrophils % (3-7) % Lymphocytes % (Manual) 25.0 (25-45) % Atypical Lymphs % 7.0 H ( - 0) % Monocytes % (Manual) 9.0 (2-11) % Eosinophils % (Manual) 23.0 H (2-4) % Basophils % (Manual) (0-1) % Neutrophils # (Manual) 2088 L (5909-6395) /uL RBC Morphology Not Reportable Hypochromasia Poikilocytosis 1+ H Anisocytosis Microcytosis Target Cells Ene Cells Schistocytes Smear Path Review PT (10.1-12.7) SECONDS INR (0.9-1.3) APTT (26-36) SECONDS Sodium 140 141 (137-145) mmol/L Potassium 3.6 3.6 (3.4-5.1) mmol/L Chloride 113 H 115 H (98-107) mmol/L Carbon Dioxide 22 24 (22-32) mmol/L BUN 10 9 (7-17) mg/dL Creatinine 0.75 0.62 (0.52-1.04) mg/dL Estimated GFR > 60 > 60 (>60) mL/min BUN/Creatinine Ratio 13.3 14.5 (6-22) Glucose 94 91 (80-110) mg/dL Calcium 7.6 L 7.0 L (8.4-10.2) mg/dL Total Bilirubin 1.7 H 1.4 H (0.2-1.3) mg/dL AST 53 H 42 H (14-36) IU/L ALT 23 18 (<35) IU/L Alkaline Phosphatase 81 68 (38-126) U/L Ammonia (9-30) umol/L Total Creatine Kinase (30-135) U/L CK-MB (CK-2) CK-MB (CK-2) Rel Index Troponin I (0.01-0.034) ng/mL NT-Pro-B Natriuret Pep (<125) pg/mL Total Protein 7.1 6.0 L (6.3-8.2) g/dL Albumin 2.5 L 2.1 L (3.5-5.0) g/dL Globulin 4.6 H 3.9 (1.7-4.1) g/dL Albumin/Globulin Ratio 0.5 L 0.5 L (1.0-2.8) Lipase 342 H 220 (23-300) U/L SARS-CoV-2 (PCR) (Negative) Blood Type Antibody Screen Crossmatch 10/24/22 10/24/22 10/24/22 Range/Units 07:03 07:03 13:40 WBC 6.2 (4.5-11.0) X10^3/uL RBC 3.63 L (4.0-5.2) X10^6/uL Hgb 9.1 L (12.0-16.0) g/dL Hct 28.4 L (36-46) % MCV 78.3 L (80-100) fL MCH 25.2 L (26-34) PG MCHC 32.2 (30-36) % RDW 26.1 H (11.6-14.8) % Plt Count 148 L (150-400) X10^3/uL Neut % (Auto) 22.9 L Lymph % (Auto) 32.6 [place] % (Auto) 19.0 H Eos % (Auto) 23.6 H Baso % (Auto) 1.9 Neut # (Auto) 1400 L (7790-5449) /uL Lymph # (Auto) 2000 [place] # (Auto) 1200 H Eos # (Auto) 1500 H (0-450) /uL Baso # (Auto) 100 Total Counted Seg Neutrophils % (38-70) % Band Neutrophils % (3-7) % Lymphocytes % (Manual) (25-45) % Atypical Lymphs % ( - 0) % Monocytes % (Manual) (2-11) % Eosinophils % (Manual) (2-4) % Basophils % (Manual) (0-1) % Neutrophils # (Manual) (6157-0908) /uL RBC Morphology See below Hypochromasia 1+ H Poikilocytosis Anisocytosis Microcytosis 1+ H Target Cells 1+ H Ene Cells Schistocytes 1+ H Smear Path Review PT 23.0 H D (10.1-12.7) SECONDS INR 2.0 H (0.9-1.3) APTT 40 H (26-36) SECONDS Sodium 140 (137-145) mmol/L Potassium 3.5 (3.4-5.1) mmol/L Chloride 113 H (98-107) mmol/L Carbon Dioxide 23 (22-32) mmol/L BUN 8 (7-17) mg/dL Creatinine 0.63 (0.52-1.04) mg/dL Estimated GFR > 60 (>60) mL/min BUN/Creatinine Ratio 12.7 (6-22) Glucose 85 (80-110) mg/dL Calcium 7.1 L (8.4-10.2) mg/dL Total Bilirubin 1.4 H (0.2-1.3) mg/dL AST 41 H (14-36) IU/L ALT 17 (<35) IU/L Alkaline Phosphatase 68 (38-126) U/L Ammonia (9-30) umol/L Total Creatine Kinase (30-135) U/L CK-MB (CK-2) CK-MB (CK-2) Rel Index Troponin I (0.01-0.034) ng/mL NT-Pro-B Natriuret Pep (<125) pg/mL Total Protein 6.2 L (6.3-8.2) g/dL Albumin 2.1 L (3.5-5.0) g/dL Globulin 4.1 (1.7-4.1) g/dL Albumin/Globulin Ratio 0.5 L (1.0-2.8) Lipase 213 (23-300) U/L SARS-CoV-2 (PCR) (Negative) Blood Type Antibody Screen Crossmatch 10/24/22 10/25/22 10/25/22 Range/Units 18:29 05:47 05:47 WBC (4.5-11.0) X10^3/uL RBC (4.0-5.2) X10^6/uL Hgb 8.7 L (12.0-16.0) g/dL Hct 26.9 L (36-46) % MCV (80-100) fL MCH (26-34) PG MCHC (30-36) % RDW (11.6-14.8) % Plt Count (150-400) X10^3/uL Neut % (Auto) Lymph % (Auto) [place] % (Auto) Eos % (Auto) Baso % (Auto) Neut # (Auto) (8316-3043) /uL Lymph # (Auto) [place] # (Auto) Eos # (Auto) (0-450) /uL Baso # (Auto) Total Counted Seg Neutrophils % (38-70) % Band Neutrophils % (3-7) % Lymphocytes % (Manual) (25-45) % Atypical Lymphs % ( - 0) % Monocytes % (Manual) (2-11) % Eosinophils % (Manual) (2-4) % Basophils % (Manual) (0-1) % Neutrophils # (Manual) (4816-0927) /uL RBC Morphology Hypochromasia Poikilocytosis Anisocytosis Microcytosis Target Cells [place] Cells Schistocytes Smear Path Review PT (10.1-12.7) SECONDS INR (0.9-1.3) APTT (26-36) SECONDS Sodium 138 (137-145) mmol/L Potassium 3.4 (3.4-5.1) mmol/L Chloride 109 H (98-107) mmol/L Carbon Dioxide 26 (22-32) mmol/L BUN 8 (7-17) mg/dL Creatinine 0.66 (0.52-1.04) mg/dL Estimated GFR > 60 (>60) mL/min BUN/Creatinine Ratio 12.1 (6-22) Glucose 94 (80-110) mg/dL Calcium 6.8 L (8.4-10.2) mg/dL Total Bilirubin 1.3 (0.2-1.3) mg/dL AST 38 H (14-36) IU/L ALT 16 (<35) IU/L Alkaline Phosphatase 62 (38-126) U/L Ammonia (9-30) umol/L Total Creatine Kinase 66 (30-135) U/L CK-MB (CK-2) TNP CK-MB (CK-2) Rel Index TNP Troponin I < 0.012 (0.01-0.034) ng/mL NT-Pro-B Natriuret Pep 320 H (<125) pg/mL Total Protein 5.7 L (6.3-8.2) g/dL Albumin 1.9 L (3.5-5.0) g/dL Globulin 3.8 (1.7-4.1) g/dL Albumin/Globulin Ratio 0.5 L (1.0-2.8) Lipase (23-300) U/L SARS-CoV-2 (PCR) (Negative) Blood Type Antibody Screen Crossmatch 10/25/22 Range/Units 10:25 WBC (4.5-11.0) X10^3/uL RBC (4.0-5.2) X10^6/uL Hgb 9.5 L (12.0-16.0) g/dL Hct 29.2 L (36-46) % MCV (80-100) fL MCH (26-34) PG MCHC (30-36) % RDW (11.6-14.8) % Plt Count (150-400) X10^3/uL Neut % (Auto) Lymph % (Auto) [place] % (Auto) Eos % (Auto) Baso % (Auto) Neut # (Auto) (5454-5208) /uL Lymph # (Auto) [place] # (Auto) Eos # (Auto) (0-450) /uL Baso # (Auto) Total Counted Seg Neutrophils % (38-70) % Band Neutrophils % (3-7) % Lymphocytes % (Manual) (25-45) % Atypical Lymphs % ( - 0) % Monocytes % (Manual) (2-11) % Eosinophils % (Manual) (2-4) % Basophils % (Manual) (0-1) % Neutrophils # (Manual) (0094-2532) /uL RBC Morphology Hypochromasia Poikilocytosis Anisocytosis Microcytosis Target Cells Ene Cells Schistocytes Smear Path Review PT (10.1-12.7) SECONDS INR (0.9-1.3) APTT (26-36) SECONDS Sodium (137-145) mmol/L Potassium (3.4-5.1) mmol/L Chloride (98-107) mmol/L Carbon Dioxide (22-32) mmol/L BUN (7-17) mg/dL Creatinine (0.52-1.04) mg/dL Estimated GFR (>60) mL/min BUN/Creatinine Ratio (6-22) Glucose (80-110) mg/dL Calcium (8.4-10.2) mg/dL Total Bilirubin (0.2-1.3) mg/dL AST (14-36) IU/L ALT (<35) IU/L Alkaline Phosphatase (38-126) U/L Ammonia (9-30) umol/L Total Creatine Kinase (30-135) U/L CK-MB (CK-2) CK-MB (CK-2) Rel Index Troponin I (0.01-0.034) ng/mL NT-Pro-B Natriuret Pep (<125) pg/mL Total Protein (6.3-8.2) g/dL Albumin (3.5-5.0) g/dL Globulin (1.7-4.1) g/dL Albumin/Globulin Ratio (1.0-2.8) Lipase (23-300) U/L SARS-CoV-2 (PCR) (Negative) Blood Type Antibody Screen Crossmatch Urine Dip Bedside Urine Glucose Negative Bedside Urine Bilirubin - Negative Bedside Urine Ketone +/- 5 Urine Specific [place] 1.005 Bedside Urine Occult Blood - Negative Bedside Urine pH 6.0 Bedside Urine Protein - Negative Bedside Urine Urobilinogen - Negative Bedside Urine Nitrite - Negative Bedside Urine Leukocytes - Negative Esterase MDM Narrative Medical decision making narrative: This is a 62-year-old female comes with complaint of near-syncope, black stools and diarrhea and fever today. Patient is noted to have hemoglobin which appears stable from when she was transfused before it is 8 today which would be consistent with being transfused 2 units from when she her hemoglobin was 6 on 09/30/2022. Patient does not have any leukocytosis, normal platelets, microcytic anemia. INR is 1.5 patient is on aspirin but no other reported anticoagulants, she is also noted to have elevation in her bilirubin at 1.6, AST is 44 ALT is normal alk-phos is 81 lipase is 256. Patient's abdomen pelvis CT shows what appears to be stone in the ampulla of Vater, cholelithiasis patient has some diffuse bowel wall thickening suggestive infectious or inflammatory gastroenteritis. Patient has cirrhosis with portal hypertension gastroesophageal and splenic varices and a recanalized paraumbilical vein and ascites, patient received Protonix 80 mg IV plan for b.i.d., octreotide drip as stools and GI bleed could be from varices she has not had any hematemesis reported or here in the department. No reported significant alcohol history. Patient's renal function normal although she is potassium at 3.3 likely from vomiting today. Patient appears to need ERCP, possible banding of varices will need transfer as we do not have either of these available at our facility. So far has been hemodynamically stable will continue with very turned fluids. Protonix 80 mg b.i.d., octreotide drip, continue antibiotics for possible infection as patient had reported fever of 101 F yesterday and is high risk for cholangitis. Cultures were obtained prior to antibiotics. 10/20/22 7:[address] Fitzpatrick 62-year-old woman who presented the evening of October 19 with recurrent black stools, dizziness low-grade temp to 101.? She was seen for similar on September 30 after outpatient labs revealed an H&H of 6.8 and 21, transfused and eventually discharged home.? Has not been able to follow-up as an outpatient.? Initial labs indicate a bilirubin of 1.6, AST of 44 and lipase is 256.? CT scan indicates a stone in the ampulla of Vater. ?We have been looking for facilities with a capacity for ERCP and she is on multiple waiting list and [facility] is involved as well. Objective: Appears fatigued Chest:? Symmetrical air movement, no wheezing Cardiac: Mild tachycardia no murmurs Abdomen: Minor epigastric pain no rebound or guarding Assessment and plan 1.? Upper GI bleed with known esophageal and gastric varices.? Being transfused 2 units of packed red blood cells currently.? Will check H&H after transfusion. 2.? Incidentally appreciated common bile duct stone, bilirubin today is 1.5, AST is 41, ALT is 21, alk-phos is 63.? MRCP confirms ?possible/equivocal small stone at the downstream extrahepatic bile duct near the ampulla.? No ductal dilatation demonstrated.? 7 mm cyst in the pancreatic body recommended pancreatic protocol MRI as follow-up in a year Patient is updated. Phone calls again made to [facility] with no beds available.? Recommendation was to try back again at 3. 355pm Again, phone calls to hospital. No beds for transfer Dr cho overnight 10/20-10/21: Received turned over. Reviewed patient's history and physical workup up to this point. She is remained stable. Has received 2 units of packed red blood cells. Her H&H is improved. Continues to be no beds available for transfer. Care turned over to Dr. Mtz to follow-up and disposition. Dr Cho overnight 10/21-10/22: Resumed care of patient. Reviewed the daily events. Her H&H has been stable. She is been stable overnight without issue. Morning labs ordered. Care turned over to Dr. King to follow-up and disposition. [0700] (Fernando) Patient received in sign out from Dr. Jordan]. I have reviewed the clinical course and performed an independent history and physical exam. Repeat labs are pending. No reported issues over the course of the night. She feels significantly better than when she presented a few days ago and denies any ongoing dizziness or lightheadedness. She has been consuming clear liquids without difficulty. H&H is stable up to 9.6 and 30 0855 - call to Dr. Garcia ([facility]). We discussed history and physical exam as well as labs and imaging. He recommends we stay the course but does recommend contacting local GI Dr. Aguayo as he may be available 0915 - discussed with Dr. Aguayo. He is not in town and does not take call. After lengthy discussion of clinical course including labs, therapies and interventions he recommends continuing the course and states transfer for EGD and possible ERCP is in patient's best interest. Dr cho overnight 10/22-10/23: Assumed care patient. Reviewed patient's daily events. Patient has been stable overnight. Care turned over to Dr. Jacome to continue to observe until disposition. 10/23/[address] Jacome-patient signed out to me by Dr. Kevin uribe seen evaluated patient myself. Patient presents with GI bleed found to have varices fever and probable common bile duct stone. She did receive a blood transfusion while in the emergency department H and H has been stable for couple of days. She has also remained if afebrile without leukocytosis. MRCP does show probable common bile duct stone. After speaking with to GI doctor yesterday they agree that she does need further evaluation with ERCP and of it evaluation for esophageal varices. She remains on octreotide drip and Protonix 80 mg twice daily. Patient reports that she is had no further episodes of bleeding. She would like to get up and shower today. She has no abdominal pain nausea or vomiting. Significant critical bed shortage she remains on multiple lists. She is hemodynamically stable at this time GENERAL: Alert generally weak 62-year-old female HEENT: Head atraumatic,EOMI, pupils reactive, CARDIOVASCULAR: Regular rate and rhythm without murmurs, rubs or gallops. RESPIRATORY: Breath sounds equal bilaterally, no wheezes rales or rhonchi. ABDOMEN: Soft no localization of tenderness no distention no right upper quadrant pain EXTREMITIES: Normal range of motion, no clubbing or edema. Neurovascularly intact NEUROLOGICAL: Alert and oriented x4. SKIN: Warm, dry, no laceration, no petechiae, no rashes or lesions. Assessment and plan 1.? Upper GI bleed with known esophageal and gastric varices.? Has been transfused 2 units H&H stable . Remains on octreotide and Protonix 2.? Incidentally appreciated common bile duct stone, bilirubin today is 1.5, AST is 41, ALT is 21, alk-phos is 63.? MRCP confirms ?possible/equivocal small stone at the downstream extrahepatic bile duct near the ampulla.? No ductal dilatation demonstrated.? 7 mm cyst in the pancreatic body recommended pancreatic protocol MRI as follow-up in a year. To GI providers recommended transfer for ERCP. 3. Transfer higher level of care Dr cho overnight 10/23-10/24: Received turned over and reviewed patient's daily events. She is remained stable overnight. No new issues. Morning labs ordered. Care turned over to day provider to continue to observe until disposition can be found. We again attempted to find placement overnight without success. <Eamon Mtz MD - Last Filed: 11/18/22 08:19> Lab Data Labs: Lab Results 10/19/22 10/19/22 10/19/22 Range/Units 21:55 21:55 21:55 WBC 9.3 (4.5-11.0) X10^3/uL RBC 3.55 L (4.0-5.2) X10^6/uL Hgb 8.1 L (12.0-16.0) g/dL Hct 25.3 L (36-46) % MCV 71.3 L (80-100) fL MCH 22.7 L (26-34) PG MCHC 31.8 (30-36) % RDW 23.3 H (11.6-14.8) % Plt Count 224 (150-400) X10^3/uL Neut % (Auto) Not Reportable Lymph % (Auto) Not Reportable [place] % (Auto) Not Reportable Eos % (Auto) Not Reportable Baso % (Auto) Not Reportable Neut # (Auto) (7590-2110) /uL Lymph # (Auto) Not Reportable [place] # (Auto) Not Reportable Eos # (Auto) (0-450) /uL Baso # (Auto) Not Reportable Total Counted 100 Seg Neutrophils % 48.0 (38-70) % Band Neutrophils % 1.0 L (3-7) % Lymphocytes % (Manual) 27.0 (25-45) % Atypical Lymphs % ( - 0) % Monocytes % (Manual) 15.0 H (2-11) % Eosinophils % (Manual) 6.0 H (2-4) % Basophils % (Manual) 3.0 H (0-1) % Neutrophils # (Manual) 4557 (0164-9428) /uL RBC Morphology See below Hypochromasia 2+ H Poikilocytosis Anisocytosis 3+ H Microcytosis Target Cells [place] Cells Schistocytes 1+ H Smear Path Review PT 16.9 H (10.1-12.7) SECONDS INR 1.5 H (0.9-1.3) APTT 37 H (26-36) SECONDS Sodium 139 (137-145) mmol/L Potassium 3.3 L (3.4-5.1) mmol/L Chloride 108 H (98-107) mmol/L Carbon Dioxide 28 (22-32) mmol/L BUN 16 (7-17) mg/dL Creatinine 0.67 (0.52-1.04) mg/dL Estimated GFR > 60 (>60) mL/min BUN/Creatinine Ratio 23.9 H (6-22) Glucose 102 (80-110) mg/dL Calcium 7.4 L (8.4-10.2) mg/dL Total Bilirubin 1.6 H (0.2-1.3) mg/dL AST 44 H (14-36) IU/L ALT 24 (<35) IU/L Alkaline Phosphatase 81 (38-126) U/L Ammonia (9-30) umol/L Total Creatine Kinase (30-135) U/L CK-MB (CK-2) CK-MB (CK-2) Rel Index Troponin I (0.01-0.034) ng/mL NT-Pro-B Natriuret Pep (<125) pg/mL Total Protein 7.0 (6.3-8.2) g/dL Albumin 2.6 L (3.5-5.0) g/dL Globulin 4.4 H (1.7-4.1) g/dL Albumin/Globulin Ratio 0.6 L (1.0-2.8) Lipase (23-300) U/L SARS-CoV-2 (PCR) (Negative) Blood Type Antibody Screen Crossmatch 10/19/22 10/19/22 10/20/22 Range/Units 21:55 21:55 01:35 WBC (4.5-11.0) X10^3/uL RBC (4.0-5.2) X10^6/uL Hgb (12.0-16.0) g/dL Hct (36-46) % MCV (80-100) fL MCH (26-34) PG MCHC (30-36) % RDW (11.6-14.8) % Plt Count (150-400) X10^3/uL Neut % (Auto) Lymph % (Auto) [place] % (Auto) Eos % (Auto) Baso % (Auto) Neut # (Auto) (1953-2738) /uL Lymph # (Auto) [place] # (Auto) Eos # (Auto) (0-450) /uL Baso # (Auto) Total Counted Seg Neutrophils % (38-70) % Band Neutrophils % (3-7) % Lymphocytes % (Manual) (25-45) % Atypical Lymphs % ( - 0) % Monocytes % (Manual) (2-11) % Eosinophils % (Manual) (2-4) % Basophils % (Manual) (0-1) % Neutrophils # (Manual) (3036-0965) /uL RBC Morphology Hypochromasia Poikilocytosis Anisocytosis Microcytosis Target Cells [place] Cells Schistocytes Smear Path Review PT (10.1-12.7) SECONDS INR (0.9-1.3) APTT (26-36) SECONDS Sodium (137-145) mmol/L Potassium (3.4-5.1) mmol/L Chloride (98-107) mmol/L Carbon Dioxide (22-32) mmol/L BUN (7-17) mg/dL Creatinine (0.52-1.04) mg/dL Estimated GFR (>60) mL/min BUN/Creatinine Ratio (6-22) Glucose (80-110) mg/dL Calcium (8.4-10.2) mg/dL Total Bilirubin (0.2-1.3) mg/dL AST (14-36) IU/L ALT (<35) IU/L Alkaline Phosphatase (38-126) U/L Ammonia (9-30) umol/L Total Creatine Kinase (30-135) U/L CK-MB (CK-2) CK-MB (CK-2) Rel Index Troponin I (0.01-0.034) ng/mL NT-Pro-B Natriuret Pep (<125) pg/mL Total Protein (6.3-8.2) g/dL Albumin (3.5-5.0) g/dL Globulin (1.7-4.1) g/dL Albumin/Globulin Ratio (1.0-2.8) Lipase 256 (23-300) U/L SARS-CoV-2 (PCR) Negative (Negative) Blood Type A Positive Antibody Screen Negative Crossmatch See Detail 10/20/22 10/20/22 10/20/22 Range/Units 06:28 06:28 06:28 WBC 7.4 (4.5-11.0) X10^3/uL RBC 2.90 L (4.0-5.2) X10^6/uL Hgb 6.7 L* (12.0-16.0) g/dL Hct 20.9 L* (36-46) % MCV 72.0 L (80-100) fL MCH 23.2 L (26-34) PG MCHC 32.2 (30-36) % RDW 23.6 H (11.6-14.8) % Plt Count 166 (150-400) X10^3/uL Neut % (Auto) 29.7 L Lymph % (Auto) 42.[address] [place] % (Auto) 12.9 Eos % (Auto) 14.0 H Baso % (Auto) 1.1 Neut # (Auto) 2200 (0799-6814) /uL Lymph # (Auto) 3100 [place] # (Auto) 1000 H Eos # (Auto) 1000 H (0-450) /uL Baso # (Auto) 100 Total Counted Seg Neutrophils % (38-70) % Band Neutrophils % (3-7) % Lymphocytes % (Manual) (25-45) % Atypical Lymphs % ( - 0) % Monocytes % (Manual) (2-11) % Eosinophils % (Manual) (2-4) % Basophils % (Manual) (0-1) % Neutrophils # (Manual) (3775-6704) /uL RBC Morphology See below Hypochromasia 2+ H Poikilocytosis Anisocytosis 2+ H Microcytosis 1+ H Target Cells [place] Cells Schistocytes 1+ H Smear Path Review PT 18.0 H (10.1-12.7) SECONDS INR 1.6 H (0.9-1.3) APTT 38 H (26-36) SECONDS Sodium 137 (137-145) mmol/L Potassium 3.2 L (3.4-5.1) mmol/L Chloride 111 H (98-107) mmol/L Carbon Dioxide 22 (22-32) mmol/L BUN 17 (7-17) mg/dL Creatinine 0.57 (0.52-1.04) mg/dL Estimated GFR > 60 (>60) mL/min BUN/Creatinine Ratio 29.8 H (6-22) Glucose 86 (80-110) mg/dL Calcium 7.0 L (8.4-10.2) mg/dL Total Bilirubin 1.5 H (0.2-1.3) mg/dL AST 41 H (14-36) IU/L ALT 21 (<35) IU/L Alkaline Phosphatase 63 (38-126) U/L Ammonia (9-30) umol/L Total Creatine Kinase (30-135) U/L CK-MB (CK-2) CK-MB (CK-2) Rel Index Troponin I (0.01-0.034) ng/mL NT-Pro-B Natriuret Pep (<125) pg/mL Total Protein 6.0 L (6.3-8.2) g/dL Albumin 2.1 L (3.5-5.0) g/dL Globulin 3.9 (1.7-4.1) g/dL Albumin/Globulin Ratio 0.5 L (1.0-2.8) Lipase 210 (23-300) U/L SARS-CoV-2 (PCR) (Negative) Blood Type Antibody Screen Crossmatch 10/20/22 10/20/22 10/21/22 Range/Units 06:28 17:40 05:54 WBC 6.0 (4.5-11.0) X10^3/uL RBC 3.26 L (4.0-5.2) X10^6/uL Hgb 8.5 L 8.3 L (12.0-16.0) g/dL Hct 25.4 L 25.3 L (36-46) % MCV 77.5 L D (80-100) fL MCH 25.4 L (26-34) PG MCHC 32.7 (30-36) % RDW 23.7 H (11.6-14.8) % Plt Count 134 L (150-400) X10^3/uL Neut % (Auto) 27.0 L Lymph % (Auto) 34.7 [place] % (Auto) 15.8 H Eos % (Auto) 21.0 H Baso % (Auto) 1.5 Neut # (Auto) 1600 (0070-0565) /uL Lymph # (Auto) 2100 [place] # (Auto) 1000 H Eos # (Auto) 1300 H (0-450) /uL Baso # (Auto) 100 Total Counted Seg Neutrophils % (38-70) % Band Neutrophils % (3-7) % Lymphocytes % (Manual) (25-45) % Atypical Lymphs % ( - 0) % Monocytes % (Manual) (2-11) % Eosinophils % (Manual) (2-4) % Basophils % (Manual) (0-1) % Neutrophils # (Manual) (4232-3440) /uL RBC Morphology See below Hypochromasia 2+ H Poikilocytosis 1+ H Anisocytosis 3+ H Microcytosis Target Cells 1+ H Ene Cells Schistocytes 1+ H Smear Path Review PT (10.1-12.7) SECONDS INR (0.9-1.3) APTT (26-36) SECONDS Sodium (137-145) mmol/L Potassium (3.4-5.1) mmol/L Chloride (98-107) mmol/L Carbon Dioxide (22-32) mmol/L BUN (7-17) mg/dL Creatinine (0.52-1.04) mg/dL Estimated GFR (>60) mL/min BUN/Creatinine Ratio (6-22) Glucose (80-110) mg/dL Calcium (8.4-10.2) mg/dL Total Bilirubin (0.2-1.3) mg/dL AST (14-36) IU/L ALT (<35) IU/L Alkaline Phosphatase (38-126) U/L Ammonia 15 (9-30) umol/L Total Creatine Kinase (30-135) U/L CK-MB (CK-2) CK-MB (CK-2) Rel Index Troponin I (0.01-0.034) ng/mL NT-Pro-B Natriuret Pep (<125) pg/mL Total Protein (6.3-8.2) g/dL Albumin (3.5-5.0) g/dL Globulin (1.7-4.1) g/dL Albumin/Globulin Ratio (1.0-2.8) Lipase (23-300) U/L SARS-CoV-2 (PCR) (Negative) Blood Type Antibody Screen Crossmatch 10/21/22 10/21/22 10/22/22 Range/Units 05:54 17:35 07:04 WBC 5.6 6.7 (4.5-11.0) X10^3/uL RBC 3.27 L 3.83 L (4.0-5.2) X10^6/uL Hgb 8.3 L 9.6 L (12.0-16.0) g/dL Hct 25.4 L 30.1 L (36-46) % MCV 77.6 L 78.5 L (80-100) fL MCH 25.4 L 24.9 L (26-34) PG MCHC 32.7 31.8 (30-36) % RDW 24.0 H 24.4 H (11.6-14.8) % Plt Count 145 L 169 (150-400) X10^3/uL Neut % (Auto) 22.6 L 21.3 L Lymph % (Auto) 38.[address] [place] % (Auto) 16.3 H 13.0 Eos % (Auto) 21.1 H 21.0 H Baso % (Auto) 1.2 1.2 Neut # (Auto) 1300 L 1400 L (2807-3118) /uL Lymph # (Auto) [address] # (Auto) 900 900 Eos # (Auto) 1200 H 1400 H (0-450) /uL Baso # (Auto) 100 100 Total Counted Seg Neutrophils % (38-70) % Band Neutrophils % (3-7) % Lymphocytes % (Manual) (25-45) % Atypical Lymphs % ( - 0) % Monocytes % (Manual) (2-11) % Eosinophils % (Manual) (2-4) % Basophils % (Manual) (0-1) % Neutrophils # (Manual) (1310-8710) /uL RBC Morphology See below Not Reportable Hypochromasia 2+ H Poikilocytosis 1+ H Anisocytosis 2+ H Microcytosis 2+ H Target Cells 1+ H Ene Cells 1+ H Schistocytes 2+ H Smear Path Review PT (10.1-12.7) SECONDS INR (0.9-1.3) APTT (26-36) SECONDS Sodium 139 (137-145) mmol/L Potassium 3.2 L (3.4-5.1) mmol/L Chloride 113 H (98-107) mmol/L Carbon Dioxide 23 (22-32) mmol/L BUN 12 (7-17) mg/dL Creatinine 0.68 (0.52-1.04) mg/dL Estimated GFR > 60 (>60) mL/min BUN/Creatinine Ratio 17.6 (6-22) Glucose 85 (80-110) mg/dL Calcium 6.8 L (8.4-10.2) mg/dL Total Bilirubin 1.7 H (0.2-1.3) mg/dL AST 40 H (14-36) IU/L ALT 20 (<35) IU/L Alkaline Phosphatase 64 (38-126) U/L Ammonia (9-30) umol/L Total Creatine Kinase (30-135) U/L CK-MB (CK-2) CK-MB (CK-2) Rel Index Troponin I (0.01-0.034) ng/mL NT-Pro-B Natriuret Pep (<125) pg/mL Total Protein 5.9 L (6.3-8.2) g/dL Albumin 2.1 L (3.5-5.0) g/dL Globulin 3.8 (1.7-4.1) g/dL Albumin/Globulin Ratio 0.6 L (1.0-2.8) Lipase 230 (23-300) U/L SARS-CoV-2 (PCR) (Negative) Blood Type Antibody Screen Crossmatch 10/22/22 10/23/22 10/23/22 Range/Units 07:04 07:30 07:30 WBC 5.8 (4.5-11.0) X10^3/uL RBC 3.49 L (4.0-5.2) X10^6/uL Hgb 9.0 L (12.0-16.0) g/dL Hct 27.4 L (36-46) % MCV 78.5 L (80-100) fL MCH 25.6 L (26-34) PG MCHC 32.6 (30-36) % RDW 25.3 H (11.6-14.8) % Plt Count 144 L (150-400) X10^3/uL Neut % (Auto) Not Reportable Lymph % (Auto) Not Reportable [place] % (Auto) Not Reportable Eos % (Auto) Not Reportable Baso % (Auto) Not Reportable Neut # (Auto) (9943-1822) /uL Lymph # (Auto) Not Reportable [place] # (Auto) Not Reportable Eos # (Auto) (0-450) /uL Baso # (Auto) Not Reportable Total Counted 100 Seg Neutrophils % 36.0 L (38-70) % Band Neutrophils % (3-7) % Lymphocytes % (Manual) 25.0 (25-45) % Atypical Lymphs % 7.0 H ( - 0) % Monocytes % (Manual) 9.0 (2-11) % Eosinophils % (Manual) 23.0 H (2-4) % Basophils % (Manual) (0-1) % Neutrophils # (Manual) 2088 L (4329-7379) /uL RBC Morphology Not Reportable Hypochromasia Poikilocytosis 1+ H Anisocytosis Microcytosis Target Cells [place] Cells Schistocytes Smear Path Review PT (10.1-12.7) SECONDS INR (0.9-1.3) APTT (26-36) SECONDS Sodium 140 141 (137-145) mmol/L Potassium 3.6 3.6 (3.4-5.1) mmol/L Chloride 113 H 115 H (98-107) mmol/L Carbon Dioxide 22 24 (22-32) mmol/L BUN 10 9 (7-17) mg/dL Creatinine 0.75 0.62 (0.52-1.04) mg/dL Estimated GFR > 60 > 60 (>60) mL/min BUN/Creatinine Ratio 13.3 14.5 (6-22) Glucose 94 91 (80-110) mg/dL Calcium 7.6 L 7.0 L (8.4-10.2) mg/dL Total Bilirubin 1.7 H 1.4 H (0.2-1.3) mg/dL AST 53 H 42 H (14-36) IU/L ALT 23 18 (<35) IU/L Alkaline Phosphatase 81 68 (38-126) U/L Ammonia (9-30) umol/L Total Creatine Kinase (30-135) U/L CK-MB (CK-2) CK-MB (CK-2) Rel Index Troponin I (0.01-0.034) ng/mL NT-Pro-B Natriuret Pep (<125) pg/mL Total Protein 7.1 6.0 L (6.3-8.2) g/dL Albumin 2.5 L 2.1 L (3.5-5.0) g/dL Globulin 4.6 H 3.9 (1.7-4.1) g/dL Albumin/Globulin Ratio 0.5 L 0.5 L (1.0-2.8) Lipase 342 H 220 (23-300) U/L SARS-CoV-2 (PCR) (Negative) Blood Type Antibody Screen Crossmatch 10/24/22 10/24/22 10/24/22 Range/Units 07:03 07:03 13:40 WBC 6.2 (4.5-11.0) X10^3/uL RBC 3.63 L (4.0-5.2) X10^6/uL Hgb 9.1 L (12.0-16.0) g/dL Hct 28.4 L (36-46) % MCV 78.3 L (80-100) fL MCH 25.2 L (26-34) PG MCHC 32.2 (30-36) % RDW 26.1 H (11.6-14.8) % Plt Count 148 L (150-400) X10^3/uL Neut % (Auto) 22.9 L Lymph % (Auto) 32.6 [place] % (Auto) 19.0 H Eos % (Auto) 23.6 H Baso % (Auto) 1.9 Neut # (Auto) 1400 L (1433-7676) /uL Lymph # (Auto) 2000 [place] # (Auto) 1200 H Eos # (Auto) 1500 H (0-450) /uL Baso # (Auto) 100 Total Counted Seg Neutrophils % (38-70) % Band Neutrophils % (3-7) % Lymphocytes % (Manual) (25-45) % Atypical Lymphs % ( - 0) % Monocytes % (Manual) (2-11) % Eosinophils % (Manual) (2-4) % Basophils % (Manual) (0-1) % Neutrophils # (Manual) (7997-2404) /uL RBC Morphology See below Hypochromasia 1+ H Poikilocytosis Anisocytosis Microcytosis 1+ H Target Cells 1+ H Ene Cells Schistocytes 1+ H Smear Path Review PT 23.0 H D (10.1-12.7) SECONDS INR 2.0 H (0.9-1.3) APTT 40 H (26-36) SECONDS Sodium 140 (137-145) mmol/L Potassium 3.5 (3.4-5.1) mmol/L Chloride 113 H (98-107) mmol/L Carbon Dioxide 23 (22-32) mmol/L BUN 8 (7-17) mg/dL Creatinine 0.63 (0.52-1.04) mg/dL Estimated GFR > 60 (>60) mL/min BUN/Creatinine Ratio 12.7 (6-22) Glucose 85 (80-110) mg/dL Calcium 7.1 L (8.4-10.2) mg/dL Total Bilirubin 1.4 H (0.2-1.3) mg/dL AST 41 H (14-36) IU/L ALT 17 (<35) IU/L Alkaline Phosphatase 68 (38-126) U/L Ammonia (9-30) umol/L Total Creatine Kinase (30-135) U/L CK-MB (CK-2) CK-MB (CK-2) Rel Index Troponin I (0.01-0.034) ng/mL NT-Pro-B Natriuret Pep (<125) pg/mL Total Protein 6.2 L (6.3-8.2) g/dL Albumin 2.1 L (3.5-5.0) g/dL Globulin 4.1 (1.7-4.1) g/dL Albumin/Globulin Ratio 0.5 L (1.0-2.8) Lipase 213 (23-300) U/L SARS-CoV-2 (PCR) (Negative) Blood Type Antibody Screen Crossmatch 10/24/22 10/25/22 10/25/22 Range/Units 18:29 05:47 05:47 WBC (4.5-11.0) X10^3/uL RBC (4.0-5.2) X10^6/uL Hgb 8.7 L (12.0-16.0) g/dL Hct 26.9 L (36-46) % MCV (80-100) fL MCH (26-34) PG MCHC (30-36) % RDW (11.6-14.8) % Plt Count (150-400) X10^3/uL Neut % (Auto) Lymph % (Auto) [place] % (Auto) Eos % (Auto) Baso % (Auto) Neut # (Auto) (7107-2023) /uL Lymph # (Auto) [place] # (Auto) Eos # (Auto) (0-450) /uL Baso # (Auto) Total Counted Seg Neutrophils % (38-70) % Band Neutrophils % (3-7) % Lymphocytes % (Manual) (25-45) % Atypical Lymphs % ( - 0) % Monocytes % (Manual) (2-11) % Eosinophils % (Manual) (2-4) % Basophils % (Manual) (0-1) % Neutrophils # (Manual) (4270-1052) /uL RBC Morphology Hypochromasia Poikilocytosis Anisocytosis Microcytosis Target Cells [place] Cells Schistocytes Smear Path Review PT (10.1-12.7) SECONDS INR (0.9-1.3) APTT (26-36) SECONDS Sodium 138 (137-145) mmol/L Potassium 3.4 (3.4-5.1) mmol/L Chloride 109 H (98-107) mmol/L Carbon Dioxide 26 (22-32) mmol/L BUN 8 (7-17) mg/dL Creatinine 0.66 (0.52-1.04) mg/dL Estimated GFR > 60 (>60) mL/min BUN/Creatinine Ratio 12.1 (6-22) Glucose 94 (80-110) mg/dL Calcium 6.8 L (8.4-10.2) mg/dL Total Bilirubin 1.3 (0.2-1.3) mg/dL AST 38 H (14-36) IU/L ALT 16 (<35) IU/L Alkaline Phosphatase 62 (38-126) U/L Ammonia (9-30) umol/L Total Creatine Kinase 66 (30-135) U/L CK-MB (CK-2) TNP CK-MB (CK-2) Rel Index TNP Troponin I < 0.012 (0.01-0.034) ng/mL NT-Pro-B Natriuret Pep 320 H (<125) pg/mL Total Protein 5.7 L (6.3-8.2) g/dL Albumin 1.9 L (3.5-5.0) g/dL Globulin 3.8 (1.7-4.1) g/dL Albumin/Globulin Ratio 0.5 L (1.0-2.8) Lipase (23-300) U/L SARS-CoV-2 (PCR) (Negative) Blood Type Antibody Screen Crossmatch 10/25/22 Range/Units 10:25 WBC (4.5-11.0) X10^3/uL RBC (4.0-5.2) X10^6/uL Hgb 9.5 L (12.0-16.0) g/dL Hct 29.2 L (36-46) % MCV (80-100) fL MCH (26-34) PG MCHC (30-36) % RDW (11.6-14.8) % Plt Count (150-400) X10^3/uL Neut % (Auto) Lymph % (Auto) [place] % (Auto) Eos % (Auto) Baso % (Auto) Neut # (Auto) (2380-6634) /uL Lymph # (Auto) [place] # (Auto) Eos # (Auto) (0-450) /uL Baso # (Auto) Total Counted Seg Neutrophils % (38-70) % Band Neutrophils % (3-7) % Lymphocytes % (Manual) (25-45) % Atypical Lymphs % ( - 0) % Monocytes % (Manual) (2-11) % Eosinophils % (Manual) (2-4) % Basophils % (Manual) (0-1) % Neutrophils # (Manual) (9847-5389) /uL RBC Morphology Hypochromasia Poikilocytosis Anisocytosis Microcytosis Target Cells Ene Cells Schistocytes Smear Path Review PT (10.1-12.7) SECONDS INR (0.9-1.3) APTT (26-36) SECONDS Sodium (137-145) mmol/L Potassium (3.4-5.1) mmol/L Chloride (98-107) mmol/L Carbon Dioxide (22-32) mmol/L BUN (7-17) mg/dL Creatinine (0.52-1.04) mg/dL Estimated GFR (>60) mL/min BUN/Creatinine Ratio (6-22) Glucose (80-110) mg/dL Calcium (8.4-10.2) mg/dL Total Bilirubin (0.2-1.3) mg/dL AST (14-36) IU/L ALT (<35) IU/L Alkaline Phosphatase (38-126) U/L Ammonia (9-30) umol/L Total Creatine Kinase (30-135) U/L CK-MB (CK-2) CK-MB (CK-2) Rel Index Troponin I (0.01-0.034) ng/mL NT-Pro-B Natriuret Pep (<125) pg/mL Total Protein (6.3-8.2) g/dL Albumin (3.5-5.0) g/dL Globulin (1.7-4.1) g/dL Albumin/Globulin Ratio (1.0-2.8) Lipase (23-300) U/L SARS-CoV-2 (PCR) (Negative) Blood Type Antibody Screen Crossmatch Urine Dip Bedside Urine Glucose Negative Bedside Urine Bilirubin - Negative Bedside Urine Ketone +/- 5 Urine Specific [place] 1.005 Bedside Urine Occult Blood - Negative Bedside Urine pH 6.0 Bedside Urine Protein - Negative Bedside Urine Urobilinogen - Negative Bedside Urine Nitrite - Negative Bedside Urine Leukocytes - Negative Esterase <Mervin King, DO - Last Filed: 10/25/22 17:41> Lab Data Labs: Lab Results 10/19/22 10/19/22 10/19/22 Range/Units 21:55 21:55 21:55 WBC 9.3 (4.5-11.0) X10^3/uL RBC 3.55 L (4.0-5.2) X10^6/uL Hgb 8.1 L (12.0-16.0) g/dL Hct 25.3 L (36-46) % MCV 71.3 L (80-100) fL MCH 22.7 L (26-34) PG MCHC 31.8 (30-36) % RDW 23.3 H (11.6-14.8) % Plt Count 224 (150-400) X10^3/uL Neut % (Auto) Not Reportable Lymph % (Auto) Not Reportable [place] % (Auto) Not Reportable Eos % (Auto) Not Reportable Baso % (Auto) Not Reportable Neut # (Auto) (6465-1565) /uL Lymph # (Auto) Not Reportable [place] # (Auto) Not Reportable Eos # (Auto) (0-450) /uL Baso # (Auto) Not Reportable Total Counted 100 Seg Neutrophils % 48.0 (38-70) % Band Neutrophils % 1.0 L (3-7) % Lymphocytes % (Manual) 27.0 (25-45) % Atypical Lymphs % ( - 0) % Monocytes % (Manual) 15.0 H (2-11) % Eosinophils % (Manual) 6.0 H (2-4) % Basophils % (Manual) 3.0 H (0-1) % Neutrophils # (Manual) 4557 (9336-2616) /uL RBC Morphology See below Hypochromasia 2+ H Poikilocytosis Anisocytosis 3+ H Microcytosis Target Cells Ene Cells Schistocytes 1+ H Smear Path Review PT 16.9 H (10.1-12.7) SECONDS INR 1.5 H (0.9-1.3) APTT 37 H (26-36) SECONDS Sodium 139 (137-145) mmol/L Potassium 3.3 L (3.4-5.1) mmol/L Chloride 108 H (98-107) mmol/L Carbon Dioxide 28 (22-32) mmol/L BUN 16 (7-17) mg/dL Creatinine 0.67 (0.52-1.04) mg/dL Estimated GFR > 60 (>60) mL/min BUN/Creatinine Ratio 23.9 H (6-22) Glucose 102 (80-110) mg/dL Calcium 7.4 L (8.4-10.2) mg/dL Total Bilirubin 1.6 H (0.2-1.3) mg/dL AST 44 H (14-36) IU/L ALT 24 (<35) IU/L Alkaline Phosphatase 81 (38-126) U/L Ammonia (9-30) umol/L Total Creatine Kinase (30-135) U/L CK-MB (CK-2) CK-MB (CK-2) Rel Index Troponin I (0.01-0.034) ng/mL NT-Pro-B Natriuret Pep (<125) pg/mL Total Protein 7.0 (6.3-8.2) g/dL Albumin 2.6 L (3.5-5.0) g/dL Globulin 4.4 H (1.7-4.1) g/dL Albumin/Globulin Ratio 0.6 L (1.0-2.8) Lipase (23-300) U/L SARS-CoV-2 (PCR) (Negative) Blood Type Antibody Screen Crossmatch 10/19/22 10/19/22 10/20/22 Range/Units 21:55 21:55 01:35 WBC (4.5-11.0) X10^3/uL RBC (4.0-5.2) X10^6/uL Hgb (12.0-16.0) g/dL Hct (36-46) % MCV (80-100) fL MCH (26-34) PG MCHC (30-36) % RDW (11.6-14.8) % Plt Count (150-400) X10^3/uL Neut % (Auto) Lymph % (Auto) [place] % (Auto) Eos % (Auto) Baso % (Auto) Neut # (Auto) (8225-6269) /uL Lymph # (Auto) [place] # (Auto) Eos # (Auto) (0-450) /uL Baso # (Auto) Total Counted Seg Neutrophils % (38-70) % Band Neutrophils % (3-7) % Lymphocytes % (Manual) (25-45) % Atypical Lymphs % ( - 0) % Monocytes % (Manual) (2-11) % Eosinophils % (Manual) (2-4) % Basophils % (Manual) (0-1) % Neutrophils # (Manual) (8819-1486) /uL RBC Morphology Hypochromasia Poikilocytosis Anisocytosis Microcytosis Target Cells [place] Cells Schistocytes Smear Path Review PT (10.1-12.7) SECONDS INR (0.9-1.3) APTT (26-36) SECONDS Sodium (137-145) mmol/L Potassium (3.4-5.1) mmol/L Chloride (98-107) mmol/L Carbon Dioxide (22-32) mmol/L BUN (7-17) mg/dL Creatinine (0.52-1.04) mg/dL Estimated GFR (>60) mL/min BUN/Creatinine Ratio (6-22) Glucose (80-110) mg/dL Calcium (8.4-10.2) mg/dL Total Bilirubin (0.2-1.3) mg/dL AST (14-36) IU/L ALT (<35) IU/L Alkaline Phosphatase (38-126) U/L Ammonia (9-30) umol/L Total Creatine Kinase (30-135) U/L CK-MB (CK-2) CK-MB (CK-2) Rel Index Troponin I (0.01-0.034) ng/mL NT-Pro-B Natriuret Pep (<125) pg/mL Total Protein (6.3-8.2) g/dL Albumin (3.5-5.0) g/dL Globulin (1.7-4.1) g/dL Albumin/Globulin Ratio (1.0-2.8) Lipase 256 (23-300) U/L SARS-CoV-2 (PCR) Negative (Negative) Blood Type A Positive Antibody Screen Negative Crossmatch See Detail 10/20/22 10/20/22 10/20/22 Range/Units 06:28 06:28 06:28 WBC 7.4 (4.5-11.0) X10^3/uL RBC 2.90 L (4.0-5.2) X10^6/uL Hgb 6.7 L* (12.0-16.0) g/dL Hct 20.9 L* (36-46) % MCV 72.0 L (80-100) fL MCH 23.2 L (26-34) PG MCHC 32.2 (30-36) % RDW 23.6 H (11.6-14.8) % Plt Count 166 (150-400) X10^3/uL Neut % (Auto) 29.7 L Lymph % (Auto) 42.[address] [place] % (Auto) 12.9 Eos % (Auto) 14.0 H Baso % (Auto) 1.1 Neut # (Auto) 2200 (3846-4633) /uL Lymph # (Auto) 3[address] [place] # (Auto) 1000 H Eos # (Auto) 1000 H (0-450) /uL Baso # (Auto) 100 Total Counted Seg Neutrophils % (38-70) % Band Neutrophils % (3-7) % Lymphocytes % (Manual) (25-45) % Atypical Lymphs % ( - 0) % Monocytes % (Manual) (2-11) % Eosinophils % (Manual) (2-4) % Basophils % (Manual) (0-1) % Neutrophils # (Manual) (5157-8814) /uL RBC Morphology See below Hypochromasia 2+ H Poikilocytosis Anisocytosis 2+ H Microcytosis 1+ H Target Cells [place] Cells Schistocytes 1+ H Smear Path Review PT 18.0 H (10.1-12.7) SECONDS INR 1.6 H (0.9-1.3) APTT 38 H (26-36) SECONDS Sodium 137 (137-145) mmol/L Potassium 3.2 L (3.4-5.1) mmol/L Chloride 111 H (98-107) mmol/L Carbon Dioxide 22 (22-32) mmol/L BUN 17 (7-17) mg/dL Creatinine 0.57 (0.52-1.04) mg/dL Estimated GFR > 60 (>60) mL/min BUN/Creatinine Ratio 29.8 H (6-22) Glucose 86 (80-110) mg/dL Calcium 7.0 L (8.4-10.2) mg/dL Total Bilirubin 1.5 H (0.2-1.3) mg/dL AST 41 H (14-36) IU/L ALT 21 (<35) IU/L Alkaline Phosphatase 63 (38-126) U/L Ammonia (9-30) umol/L Total Creatine Kinase (30-135) U/L CK-MB (CK-2) CK-MB (CK-2) Rel Index Troponin I (0.01-0.034) ng/mL NT-Pro-B Natriuret Pep (<125) pg/mL Total Protein 6.0 L (6.3-8.2) g/dL Albumin 2.1 L (3.5-5.0) g/dL Globulin 3.9 (1.7-4.1) g/dL Albumin/Globulin Ratio 0.5 L (1.0-2.8) Lipase 210 (23-300) U/L SARS-CoV-2 (PCR) (Negative) Blood Type Antibody Screen Crossmatch 10/20/22 10/20/22 10/21/22 Range/Units 06:28 17:40 05:54 WBC 6.0 (4.5-11.0) X10^3/uL RBC 3.26 L (4.0-5.2) X10^6/uL Hgb 8.5 L 8.3 L (12.0-16.0) g/dL Hct 25.4 L 25.3 L (36-46) % MCV 77.5 L D (80-100) fL MCH 25.4 L (26-34) PG MCHC 32.7 (30-36) % RDW 23.7 H (11.6-14.8) % Plt Count 134 L (150-400) X10^3/uL Neut % (Auto) 27.0 L Lymph % (Auto) 34.7 [place] % (Auto) 15.8 H Eos % (Auto) 21.0 H Baso % (Auto) 1.5 Neut # (Auto) 1600 (4416-2675) /uL Lymph # (Auto) [address] [place] # (Auto) 1000 H Eos # (Auto) 1300 H (0-450) /uL Baso # (Auto) 100 Total Counted Seg Neutrophils % (38-70) % Band Neutrophils % (3-7) % Lymphocytes % (Manual) (25-45) % Atypical Lymphs % ( - 0) % Monocytes % (Manual) (2-11) % Eosinophils % (Manual) (2-4) % Basophils % (Manual) (0-1) % Neutrophils # (Manual) (3080-8450) /uL RBC Morphology See below Hypochromasia 2+ H Poikilocytosis 1+ H Anisocytosis 3+ H Microcytosis Target Cells 1+ H [place] Cells Schistocytes 1+ H Smear Path Review PT (10.1-12.7) SECONDS INR (0.9-1.3) APTT (26-36) SECONDS Sodium (137-145) mmol/L Potassium (3.4-5.1) mmol/L Chloride (98-107) mmol/L Carbon Dioxide (22-32) mmol/L BUN (7-17) mg/dL Creatinine (0.52-1.04) mg/dL Estimated GFR (>60) mL/min BUN/Creatinine Ratio (6-22) Glucose (80-110) mg/dL Calcium (8.4-10.2) mg/dL Total Bilirubin (0.2-1.3) mg/dL AST (14-36) IU/L ALT (<35) IU/L Alkaline Phosphatase (38-126) U/L Ammonia 15 (9-30) umol/L Total Creatine Kinase (30-135) U/L CK-MB (CK-2) CK-MB (CK-2) Rel Index Troponin I (0.01-0.034) ng/mL NT-Pro-B Natriuret Pep (<125) pg/mL Total Protein (6.3-8.2) g/dL Albumin (3.5-5.0) g/dL Globulin (1.7-4.1) g/dL Albumin/Globulin Ratio (1.0-2.8) Lipase (23-300) U/L SARS-CoV-2 (PCR) (Negative) Blood Type Antibody Screen Crossmatch 10/21/22 10/21/22 10/22/22 Range/Units 05:54 17:35 07:04 WBC 5.6 6.7 (4.5-11.0) X10^3/uL RBC 3.27 L 3.83 L (4.0-5.2) X10^6/uL Hgb 8.3 L 9.6 L (12.0-16.0) g/dL Hct 25.4 L 30.1 L (36-46) % MCV 77.6 L 78.5 L (80-100) fL MCH 25.4 L 24.9 L (26-34) PG MCHC 32.7 31.8 (30-36) % RDW 24.0 H 24.4 H (11.6-14.8) % Plt Count 145 L 169 (150-400) X10^3/uL Neut % (Auto) 22.6 L 21.3 L Lymph % (Auto) 38.[address] [place] % (Auto) 16.3 H 13.0 Eos % (Auto) 21.1 H 21.0 H Baso % (Auto) 1.2 1.2 Neut # (Auto) 1300 L 1400 L (9933-9181) /uL Lymph # (Auto) [address] # (Auto) 900 900 Eos # (Auto) 1200 H 1400 H (0-450) /uL Baso # (Auto) 100 100 Total Counted Seg Neutrophils % (38-70) % Band Neutrophils % (3-7) % Lymphocytes % (Manual) (25-45) % Atypical Lymphs % ( - 0) % Monocytes % (Manual) (2-11) % Eosinophils % (Manual) (2-4) % Basophils % (Manual) (0-1) % Neutrophils # (Manual) (7326-5643) /uL RBC Morphology See below Not Reportable Hypochromasia 2+ H Poikilocytosis 1+ H Anisocytosis 2+ H Microcytosis 2+ H Target Cells 1+ H [place] Cells 1+ H Schistocytes 2+ H Smear Path Review PT (10.1-12.7) SECONDS INR (0.9-1.3) APTT (26-36) SECONDS Sodium 139 (137-145) mmol/L Potassium 3.2 L (3.4-5.1) mmol/L Chloride 113 H (98-107) mmol/L Carbon Dioxide 23 (22-32) mmol/L BUN 12 (7-17) mg/dL Creatinine 0.68 (0.52-1.04) mg/dL Estimated GFR > 60 (>60) mL/min BUN/Creatinine Ratio 17.6 (6-22) Glucose 85 (80-110) mg/dL Calcium 6.8 L (8.4-10.2) mg/dL Total Bilirubin 1.7 H (0.2-1.3) mg/dL AST 40 H (14-36) IU/L ALT 20 (<35) IU/L Alkaline Phosphatase 64 (38-126) U/L Ammonia (9-30) umol/L Total Creatine Kinase (30-135) U/L CK-MB (CK-2) CK-MB (CK-2) Rel Index Troponin I (0.01-0.034) ng/mL NT-Pro-B Natriuret Pep (<125) pg/mL Total Protein 5.9 L (6.3-8.2) g/dL Albumin 2.1 L (3.5-5.0) g/dL Globulin 3.8 (1.7-4.1) g/dL Albumin/Globulin Ratio 0.6 L (1.0-2.8) Lipase 230 (23-300) U/L SARS-CoV-2 (PCR) (Negative) Blood Type Antibody Screen Crossmatch 10/22/22 10/23/22 10/23/22 Range/Units 07:04 07:30 07:30 WBC 5.8 (4.5-11.0) X10^3/uL RBC 3.49 L (4.0-5.2) X10^6/uL Hgb 9.0 L (12.0-16.0) g/dL Hct 27.4 L (36-46) % MCV 78.5 L (80-100) fL MCH 25.6 L (26-34) PG MCHC 32.6 (30-36) % RDW 25.3 H (11.6-14.8) % Plt Count 144 L (150-400) X10^3/uL Neut % (Auto) Not Reportable Lymph % (Auto) Not Reportable [place] % (Auto) Not Reportable Eos % (Auto) Not Reportable Baso % (Auto) Not Reportable Neut # (Auto) (4437-3341) /uL Lymph # (Auto) Not Reportable [place] # (Auto) Not Reportable Eos # (Auto) (0-450) /uL Baso # (Auto) Not Reportable Total Counted 100 Seg Neutrophils % 36.0 L (38-70) % Band Neutrophils % (3-7) % Lymphocytes % (Manual) 25.0 (25-45) % Atypical Lymphs % 7.0 H ( - 0) % Monocytes % (Manual) 9.0 (2-11) % Eosinophils % (Manual) 23.0 H (2-4) % Basophils % (Manual) (0-1) % Neutrophils # (Manual) 2088 L (9386-5847) /uL RBC Morphology Not Reportable Hypochromasia Poikilocytosis 1+ H Anisocytosis Microcytosis Target Cells Ene Cells Schistocytes Smear Path Review PT (10.1-12.7) SECONDS INR (0.9-1.3) APTT (26-36) SECONDS Sodium 140 141 (137-145) mmol/L Potassium 3.6 3.6 (3.4-5.1) mmol/L Chloride 113 H 115 H (98-107) mmol/L Carbon Dioxide 22 24 (22-32) mmol/L BUN 10 9 (7-17) mg/dL Creatinine 0.75 0.62 (0.52-1.04) mg/dL Estimated GFR > 60 > 60 (>60) mL/min BUN/Creatinine Ratio 13.3 14.5 (6-22) Glucose 94 91 (80-110) mg/dL Calcium 7.6 L 7.0 L (8.4-10.2) mg/dL Total Bilirubin 1.7 H 1.4 H (0.2-1.3) mg/dL AST 53 H 42 H (14-36) IU/L ALT 23 18 (<35) IU/L Alkaline Phosphatase 81 68 (38-126) U/L Ammonia (9-30) umol/L Total Creatine Kinase (30-135) U/L CK-MB (CK-2) CK-MB (CK-2) Rel Index Troponin I (0.01-0.034) ng/mL NT-Pro-B Natriuret Pep (<125) pg/mL Total Protein 7.1 6.0 L (6.3-8.2) g/dL Albumin 2.5 L 2.1 L (3.5-5.0) g/dL Globulin 4.6 H 3.9 (1.7-4.1) g/dL Albumin/Globulin Ratio 0.5 L 0.5 L (1.0-2.8) Lipase 342 H 220 (23-300) U/L SARS-CoV-2 (PCR) (Negative) Blood Type Antibody Screen Crossmatch 10/24/22 10/24/22 10/24/22 Range/Units 07:03 07:03 13:40 WBC 6.2 (4.5-11.0) X10^3/uL RBC 3.63 L (4.0-5.2) X10^6/uL Hgb 9.1 L (12.0-16.0) g/dL Hct 28.4 L (36-46) % MCV 78.3 L (80-100) fL MCH 25.2 L (26-34) PG MCHC 32.2 (30-36) % RDW 26.1 H (11.6-14.8) % Plt Count 148 L (150-400) X10^3/uL Neut % (Auto) 22.9 L Lymph % (Auto) 32.6 [place] % (Auto) 19.0 H Eos % (Auto) 23.6 H Baso % (Auto) 1.9 Neut # (Auto) 1400 L (8973-8097) /uL Lymph # (Auto) 2000 [place] # (Auto) 1200 H Eos # (Auto) 1500 H (0-450) /uL Baso # (Auto) 100 Total Counted Seg Neutrophils % (38-70) % Band Neutrophils % (3-7) % Lymphocytes % (Manual) (25-45) % Atypical Lymphs % ( - 0) % Monocytes % (Manual) (2-11) % Eosinophils % (Manual) (2-4) % Basophils % (Manual) (0-1) % Neutrophils # (Manual) (4938-5192) /uL RBC Morphology See below Hypochromasia 1+ H Poikilocytosis Anisocytosis Microcytosis 1+ H Target Cells 1+ H Ene Cells Schistocytes 1+ H Smear Path Review PT 23.0 H D (10.1-12.7) SECONDS INR 2.0 H (0.9-1.3) APTT 40 H (26-36) SECONDS Sodium 140 (137-145) mmol/L Potassium 3.5 (3.4-5.1) mmol/L Chloride 113 H (98-107) mmol/L Carbon Dioxide 23 (22-32) mmol/L BUN 8 (7-17) mg/dL Creatinine 0.63 (0.52-1.04) mg/dL Estimated GFR > 60 (>60) mL/min BUN/Creatinine Ratio 12.7 (6-22) Glucose 85 (80-110) mg/dL Calcium 7.1 L (8.4-10.2) mg/dL Total Bilirubin 1.4 H (0.2-1.3) mg/dL AST 41 H (14-36) IU/L ALT 17 (<35) IU/L Alkaline Phosphatase 68 (38-126) U/L Ammonia (9-30) umol/L Total Creatine Kinase (30-135) U/L CK-MB (CK-2) CK-MB (CK-2) Rel Index Troponin I (0.01-0.034) ng/mL NT-Pro-B Natriuret Pep (<125) pg/mL Total Protein 6.2 L (6.3-8.2) g/dL Albumin 2.1 L (3.5-5.0) g/dL Globulin 4.1 (1.7-4.1) g/dL Albumin/Globulin Ratio 0.5 L (1.0-2.8) Lipase 213 (23-300) U/L SARS-CoV-2 (PCR) (Negative) Blood Type Antibody Screen Crossmatch 10/24/22 10/25/22 10/25/22 Range/Units 18:29 05:47 05:47 WBC (4.5-11.0) X10^3/uL RBC (4.0-5.2) X10^6/uL Hgb 8.7 L (12.0-16.0) g/dL Hct 26.9 L (36-46) % MCV (80-100) fL MCH (26-34) PG MCHC (30-36) % RDW (11.6-14.8) % Plt Count (150-400) X10^3/uL Neut % (Auto) Lymph % (Auto) [place] % (Auto) Eos % (Auto) Baso % (Auto) Neut # (Auto) (4533-2456) /uL Lymph # (Auto) [place] # (Auto) Eos # (Auto) (0-450) /uL Baso # (Auto) Total Counted Seg Neutrophils % (38-70) % Band Neutrophils % (3-7) % Lymphocytes % (Manual) (25-45) % Atypical Lymphs % ( - 0) % Monocytes % (Manual) (2-11) % Eosinophils % (Manual) (2-4) % Basophils % (Manual) (0-1) % Neutrophils # (Manual) (7928-3472) /uL RBC Morphology Hypochromasia Poikilocytosis Anisocytosis Microcytosis Target Cells [place] Cells Schistocytes Smear Path Review PT (10.1-12.7) SECONDS INR (0.9-1.3) APTT (26-36) SECONDS Sodium 138 (137-145) mmol/L Potassium 3.4 (3.4-5.1) mmol/L Chloride 109 H (98-107) mmol/L Carbon Dioxide 26 (22-32) mmol/L BUN 8 (7-17) mg/dL Creatinine 0.66 (0.52-1.04) mg/dL Estimated GFR > 60 (>60) mL/min BUN/Creatinine Ratio 12.1 (6-22) Glucose 94 (80-110) mg/dL Calcium 6.8 L (8.4-10.2) mg/dL Total Bilirubin 1.3 (0.2-1.3) mg/dL AST 38 H (14-36) IU/L ALT 16 (<35) IU/L Alkaline Phosphatase 62 (38-126) U/L Ammonia (9-30) umol/L Total Creatine Kinase 66 (30-135) U/L CK-MB (CK-2) TNP CK-MB (CK-2) Rel Index TNP Troponin I < 0.012 (0.01-0.034) ng/mL NT-Pro-B Natriuret Pep 320 H (<125) pg/mL Total Protein 5.7 L (6.3-8.2) g/dL Albumin 1.9 L (3.5-5.0) g/dL Globulin 3.8 (1.7-4.1) g/dL Albumin/Globulin Ratio 0.5 L (1.0-2.8) Lipase (23-300) U/L SARS-CoV-2 (PCR) (Negative) Blood Type Antibody Screen Crossmatch 10/25/22 Range/Units 10:25 WBC (4.5-11.0) X10^3/uL RBC (4.0-5.2) X10^6/uL Hgb 9.5 L (12.0-16.0) g/dL Hct 29.2 L (36-46) % MCV (80-100) fL MCH (26-34) PG MCHC (30-36) % RDW (11.6-14.8) % Plt Count (150-400) X10^3/uL Neut % (Auto) Lymph % (Auto) [place] % (Auto) Eos % (Auto) Baso % (Auto) Neut # (Auto) (2213-3536) /uL Lymph # (Auto) [place] # (Auto) Eos # (Auto) (0-450) /uL Baso # (Auto) Total Counted Seg Neutrophils % (38-70) % Band Neutrophils % (3-7) % Lymphocytes % (Manual) (25-45) % Atypical Lymphs % ( - 0) % Monocytes % (Manual) (2-11) % Eosinophils % (Manual) (2-4) % Basophils % (Manual) (0-1) % Neutrophils # (Manual) (1147-2776) /uL RBC Morphology Hypochromasia Poikilocytosis Anisocytosis Microcytosis Target Cells Ene Cells Schistocytes Smear Path Review PT (10.1-12.7) SECONDS INR (0.9-1.3) APTT (26-36) SECONDS Sodium (137-145) mmol/L Potassium (3.4-5.1) mmol/L Chloride (98-107) mmol/L Carbon Dioxide (22-32) mmol/L BUN (7-17) mg/dL Creatinine (0.52-1.04) mg/dL Estimated GFR (>60) mL/min BUN/Creatinine Ratio (6-22) Glucose (80-110) mg/dL Calcium (8.4-10.2) mg/dL Total Bilirubin (0.2-1.3) mg/dL AST (14-36) IU/L ALT (<35) IU/L Alkaline Phosphatase (38-126) U/L Ammonia (9-30) umol/L Total Creatine Kinase (30-135) U/L CK-MB (CK-2) CK-MB (CK-2) Rel Index Troponin I (0.01-0.034) ng/mL NT-Pro-B Natriuret Pep (<125) pg/mL Total Protein (6.3-8.2) g/dL Albumin (3.5-5.0) g/dL Globulin (1.7-4.1) g/dL Albumin/Globulin Ratio (1.0-2.8) Lipase (23-300) U/L SARS-CoV-2 (PCR) (Negative) Blood Type Antibody Screen Crossmatch Urine Dip Bedside Urine Glucose Negative Bedside Urine Bilirubin - Negative Bedside Urine Ketone +/- 5 Urine Specific [place] 1.005 Bedside Urine Occult Blood - Negative Bedside Urine pH 6.0 Bedside Urine Protein - Negative Bedside Urine Urobilinogen - Negative Bedside Urine Nitrite - Negative Bedside Urine Leukocytes - Negative Esterase MDM Narrative Medical decision making narrative: This is a 62-year-old female comes with complaint of near-syncope, black stools and diarrhea and fever today. Patient is noted to have hemoglobin which appears stable from when she was transfused before it is 8 today which would be consistent with being transfused 2 units from when she her hemoglobin was 6 on 09/30/2022. Patient does not have any leukocytosis, normal platelets, microcytic anemia. INR is 1.5 patient is on aspirin but no other reported anticoagulants, she is also noted to have elevation in her bilirubin at 1.6, AST is 44 ALT is normal alk-phos is 81 lipase is 256. Patient's abdomen pelvis CT shows what appears to be stone in the ampulla of Vater, cholelithiasis patient has some diffuse bowel wall thickening suggestive infectious or inflammatory gastroenteritis. Patient has cirrhosis with portal hypertension gastroesophageal and splenic varices and a recanalized paraumbilical vein and ascites, patient received Protonix 80 mg IV plan for b.i.d., octreotide drip as stools and GI bleed could be from varices she has not had any hematemesis reported or here in the department. No reported significant alcohol history. Patient's renal function normal although she is potassium at 3.3 likely from vomiting today. Patient appears to need ERCP, possible banding of varices will need transfer as we do not have either of these available at our facility. So far has been hemodynamically stable will continue with very turned fluids. Protonix 80 mg b.i.d., octreotide drip, continue antibiotics for possible infection as patient had reported fever of 101 F yesterday and is high risk for cholangitis. Cultures were obtained prior to antibiotics. 10/20/22 7:[address] Fitzpatrick 62-year-old woman who presented the evening of October 19 with recurrent black stools, dizziness low-grade temp to 101.? She was seen for similar on September 30 after outpatient labs revealed an H&H of 6.8 and 21, transfused and eventually discharged home.? Has not been able to follow-up as an outpatient.? Initial labs indicate a bilirubin of 1.6, AST of 44 and lipase is 256.? CT scan indicates a stone in the ampulla of Vater. ?We have been looking for facilities with a capacity for ERCP and she is on multiple waiting list and [facility] is involved as well. Objective: Appears fatigued Chest:? Symmetrical air movement, no wheezing Cardiac: Mild tachycardia no murmurs Abdomen: Minor epigastric pain no rebound or guarding Assessment and plan 1.? Upper GI bleed with known esophageal and gastric varices.? Being transfused 2 units of packed red blood cells currently.? Will check H&H after transfusion. 2.? Incidentally appreciated common bile duct stone, bilirubin today is 1.5, AST is 41, ALT is 21, alk-phos is 63.? MRCP confirms ?possible/equivocal small stone at the downstream extrahepatic bile duct near the ampulla.? No ductal dilatation demonstrated.? 7 mm cyst in the pancreatic body recommended pancreatic protocol MRI as follow-up in a year Patient is updated. Phone calls again made to [facility] with no beds available.? Recommendation was to try back again at 3. 355pm Again, phone calls to hospital. No beds for transfer Dr cho overnight 10/20-10/21: Received turned over. Reviewed patient's history and physical workup up to this point. She is remained stable. Has received 2 units of packed red blood cells. Her H&H is improved. Continues to be no beds available for transfer. Care turned over to Dr. Mtz to follow-up and disposition. Dr Cho overnight 10/21-10/22: Resumed care of patient. Reviewed the daily events. Her H&H has been stable. She is been stable overnight without issue. Morning labs ordered. Care turned over to Dr. King to follow-up and disposition. 0700 (Fernando) Patient received in sign out from Dr. Cho. I have reviewed the clinical course and performed an independent history and physical exam. Repeat labs are pending. No reported issues over the course of the night. She feels significantly better than when she presented a few days ago and denies any ongoing dizziness or lightheadedness. She has been consuming clear liquids without difficulty. H&H is stable up to 9.6 and 30 0855 - call to Dr. Garcia ([facility]). We discussed history and physical exam as well as labs and imaging. He recommends we stay the course but does recommend contacting local GI Dr. Aguayo as he may be available 0915 - discussed with Dr. Aguayo. He is not in town and does not take call. After lengthy discussion of clinical course including labs, therapies and interventions he recommends continuing the course and states transfer for EGD and possible ERCP is in patient's best interest. Dr cho overnight 10/22-10/23: Assumed care patient. Reviewed patient's daily events. Patient has been stable overnight. Care turned over to Dr. Jacome to continue to observe until disposition. 10/23/[address] Jacome-patient signed out to me by Dr. Kevin uribe seen evaluated patient myself. Patient presents with GI bleed found to have varices fever and probable common bile duct stone. She did receive a blood transfusion while in the emergency department H and H has been stable for couple of days. She has also remained if afebrile without leukocytosis. MRCP does show probable common bile duct stone. After speaking with to GI doctor yesterday they agree that she does need further evaluation with ERCP and of it evaluation for esophageal varices. She remains on octreotide drip and Protonix 80 mg twice daily. Patient reports that she is had no further episodes of bleeding. She would like to get up and shower today. She has no abdominal pain nausea or vomiting. Significant critical bed shortage she remains on multiple lists. She is hemodynamically stable at this time GENERAL: Alert generally weak 62-year-old female HEENT: Head atraumatic,EOMI, pupils reactive, CARDIOVASCULAR: Regular rate and rhythm without murmurs, rubs or gallops. RESPIRATORY: Breath sounds equal bilaterally, no wheezes rales or rhonchi. ABDOMEN: Soft no localization of tenderness no distention no right upper quadrant pain EXTREMITIES: Normal range of motion, no clubbing or edema. Neurovascularly intact NEUROLOGICAL: Alert and oriented x4. SKIN: Warm, dry, no laceration, no petechiae, no rashes or lesions. Assessment and plan 1.? Upper GI bleed with known esophageal and gastric varices.? Has been transfused 2 units H&H stable . Remains on octreotide and Protonix 2.? Incidentally appreciated common bile duct stone, bilirubin today is 1.4, AST is 42, ALT is 18, alk-phos is 68.? MRCP confirms ?possible/equivocal small stone at the downstream extrahepatic bile duct near the ampulla.? No ductal dilatation demonstrated.? 7 mm cyst in the pancreatic body recommended pancreatic protocol MRI as follow-up in a year. To GI providers recommended transfer for ERCP. 3. Transfer higher level of care Dr cho overnight 10/23-10/24: Received turned over and reviewed patient's daily events. She is remained stable overnight. No new issues. Morning labs ordered. Care turned over to day provider to continue to observe until disposition can be found. We again attempted to find placement overnight without success. 04/06/23-8am (naa) patient signed out to me by Dr. Cho seen evaluated patient myself this morning. Patient has been stable for the last couple of days. She has intermittent mild abdominal cramping and pain but not requiring any pain medication. She has had no further episodes of rectal bleeding looks as though she is may have only had 1 episode of vomiting. Found to have esophageal varices and anemia transfused but now stable. She is been on octreotide drip 405 hours along with Protonix and antibiotics. Blood cultures are negative no further fevers. GENERAL: Well-appearing, well-nourished and in no acute distress. CARDIOVASCULAR: peripheral pulses in tact, cap refill <2 sec RESPIRATORY: No respiratory distress, speaks in full sentences without difficulty ABDOMEN: Soft, minimal tenderness no distention no guarding no rebound negative Angela sign EXTREMITIES: Normal range of motion, no clubbing or edema. Neurovascularly intact NEUROLOGICAL: Cranial nerves II through XII grossly intact. Normal gait and speech. SKIN: Warm, dry, no petechiae, no rashes or lesions. Assessment and plan 1.? Upper GI bleed with known esophageal and gastric varices.? Has been transfused 2 units H&H stable . -spoke with Dr. Clayton [facility] updated patient's symptoms and test results reports that is okay to stop Protonix and octreotide. If no bleeding for 12 hours after the octreotide has stopped may consider discharging home. He is updated on the bilirubin liver enzymes as well and waiting for ERCP. He reports that numbers are not alarming and without any significant pain or worsening status could actually have an ERCP as an outpatient. No evidence of choledocholithiasis or pancreatitis. 2.? Incidentally appreciated common bile duct stone, bilirubin today is 145, AST is 41, ALT is 17, alk-phos is 68.? MRCP confirms ?possible/equivocal small stone at the downstream extrahepatic bile duct near the ampulla.? -Dr. Clayton consulted this morning states that can have an outpatient ERCP please see above plan 3. Patient remains on multiple list however a likelihood of getting her transferred seem low. She also has been in the emergency department for multiple days and remains stable. Stop octreotide assess if there is further bleeding, change to p.o. PPI and possible follow-up GI as an outpatient. 4. Fever blood cultures are negative no leukocytosis no other evidence of infection she has had 4 days of antibiotics at this time I feel it is appropriate to stop the antibiotics. 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 She denies any calf pain they are not erythematous 1810-called to evaluate patient by nursing. Patient is complaining of some shortness of breath she feels like she can not swallow. Tongue is not swollen she does not really have any chest pain but sometimes she does. She earlier had swelling on her feet with a negative DVT study. She is not hypoxic or tachycardic. Ordered CT angio to rule out out pulmonary embolism BNP troponin and EKG. Patient does report that she does have a history of congestive heart failure,. CT angio was negative for pulmonary embolism blood work is overall reassuring negative troponin BNP minimally elevated at 320. It will give her 1 dose of Lasix to help diurese her. She has not no evidence of rebleeding. No evidence of angioedema or allergic reaction [1900] (Fernando) Patient received in sign out from [Naa]. I have reviewed the clinical course and performed an independent history and physical exam. She is feeling better. Plan was to re-evaluate at about 8:00 p.m., 12 hours after octreotide. Given her shortness of breath and development of symptoms late this afternoon evening CT angiogram was ordered which was thankfully negative but did demonstrate some fluid overload, she is given Lasix as an has created dilute urine. As she was not yet discharge she remained on transfer center list and as result [facility] called back. We have reviewed the patient's course and she also agrees with discharge and outpatient follow-up but recommends a dose of vitamin K here in the emergency department given her evidence of liver disease and elevated INR. Furthermore she recommends antibiotics for 5 days as an outpatient 2100 -patient feeling some cramping in her anterior thighs and feeling nauseated, I have reassed her and she has reassuring vitals and exam. Repeat labs ordered. Will hold on over night, repeat labs in the morning <Cristel Jacome, - Last Filed: 10/26/22 07:41> Lab Data Labs: Lab Results 10/19/22 10/19/22 10/19/22 Range/Units 21:55 21:55 21:55 WBC 9.3 (4.5-11.0) X10^3/uL RBC 3.55 L (4.0-5.2) X10^6/uL Hgb 8.1 L (12.0-16.0) g/dL Hct 25.3 L (36-46) % MCV 71.3 L (80-100) fL MCH 22.7 L (26-34) PG MCHC 31.8 (30-36) % RDW 23.3 H (11.6-14.8) % Plt Count 224 (150-400) X10^3/uL Neut % (Auto) Not Reportable Lymph % (Auto) Not Reportable [place] % (Auto) Not Reportable Eos % (Auto) Not Reportable Baso % (Auto) Not Reportable Neut # (Auto) (8820-4093) /uL Lymph # (Auto) Not Reportable [place] # (Auto) Not Reportable Eos # (Auto) (0-450) /uL Baso # (Auto) Not Reportable Total Counted 100 Seg Neutrophils % 48.0 (38-70) % Band Neutrophils % 1.0 L (3-7) % Lymphocytes % (Manual) 27.0 (25-45) % Atypical Lymphs % ( - 0) % Monocytes % (Manual) 15.0 H (2-11) % Eosinophils % (Manual) 6.0 H (2-4) % Basophils % (Manual) 3.0 H (0-1) % Neutrophils # (Manual) 4557 (0018-7425) /uL RBC Morphology See below Hypochromasia 2+ H Poikilocytosis Anisocytosis 3+ H Microcytosis Target Cells Ene Cells Schistocytes 1+ H Smear Path Review PT 16.9 H (10.1-12.7) SECONDS INR 1.5 H (0.9-1.3) APTT 37 H (26-36) SECONDS Sodium 139 (137-145) mmol/L Potassium 3.3 L (3.4-5.1) mmol/L Chloride 108 H (98-107) mmol/L Carbon Dioxide 28 (22-32) mmol/L BUN 16 (7-17) mg/dL Creatinine 0.67 (0.52-1.04) mg/dL Estimated GFR > 60 (>60) mL/min BUN/Creatinine Ratio 23.9 H (6-22) Glucose 102 (80-110) mg/dL Calcium 7.4 L (8.4-10.2) mg/dL Total Bilirubin 1.6 H (0.2-1.3) mg/dL AST 44 H (14-36) IU/L ALT 24 (<35) IU/L Alkaline Phosphatase 81 (38-126) U/L Ammonia (9-30) umol/L Total Creatine Kinase (30-135) U/L CK-MB (CK-2) CK-MB (CK-2) Rel Index Troponin I (0.01-0.034) ng/mL NT-Pro-B Natriuret Pep (<125) pg/mL Total Protein 7.0 (6.3-8.2) g/dL Albumin 2.6 L (3.5-5.0) g/dL Globulin 4.4 H (1.7-4.1) g/dL Albumin/Globulin Ratio 0.6 L (1.0-2.8) Lipase (23-300) U/L SARS-CoV-2 (PCR) (Negative) Blood Type Antibody Screen Crossmatch 10/19/22 10/19/22 10/20/22 Range/Units 21:55 21:55 01:35 WBC (4.5-11.0) X10^3/uL RBC (4.0-5.2) X10^6/uL Hgb (12.0-16.0) g/dL Hct (36-46) % MCV (80-100) fL MCH (26-34) PG MCHC (30-36) % RDW (11.6-14.8) % Plt Count (150-400) X10^3/uL Neut % (Auto) Lymph % (Auto) [place] % (Auto) Eos % (Auto) Baso % (Auto) Neut # (Auto) (1025-6129) /uL Lymph # (Auto) [place] # (Auto) Eos # (Auto) (0-450) /uL Baso # (Auto) Total Counted Seg Neutrophils % (38-70) % Band Neutrophils % (3-7) % Lymphocytes % (Manual) (25-45) % Atypical Lymphs % ( - 0) % Monocytes % (Manual) (2-11) % Eosinophils % (Manual) (2-4) % Basophils % (Manual) (0-1) % Neutrophils # (Manual) (8615-7567) /uL RBC Morphology Hypochromasia Poikilocytosis Anisocytosis Microcytosis Target Cells [place] Cells Schistocytes Smear Path Review PT (10.1-12.7) SECONDS INR (0.9-1.3) APTT (26-36) SECONDS Sodium (137-145) mmol/L Potassium (3.4-5.1) mmol/L Chloride (98-107) mmol/L Carbon Dioxide (22-32) mmol/L BUN (7-17) mg/dL Creatinine (0.52-1.04) mg/dL Estimated GFR (>60) mL/min BUN/Creatinine Ratio (6-22) Glucose (80-110) mg/dL Calcium (8.4-10.2) mg/dL Total Bilirubin (0.2-1.3) mg/dL AST (14-36) IU/L ALT (<35) IU/L Alkaline Phosphatase (38-126) U/L Ammonia (9-30) umol/L Total Creatine Kinase (30-135) U/L CK-MB (CK-2) CK-MB (CK-2) Rel Index Troponin I (0.01-0.034) ng/mL NT-Pro-B Natriuret Pep (<125) pg/mL Total Protein (6.3-8.2) g/dL Albumin (3.5-5.0) g/dL Globulin (1.7-4.1) g/dL Albumin/Globulin Ratio (1.0-2.8) Lipase 256 (23-300) U/L SARS-CoV-2 (PCR) Negative (Negative) Blood Type A Positive Antibody Screen Negative Crossmatch See Detail 10/20/22 10/20/22 10/20/22 Range/Units 06:28 06:28 06:28 WBC 7.4 (4.5-11.0) X10^3/uL RBC 2.90 L (4.0-5.2) X10^6/uL Hgb 6.7 L* (12.0-16.0) g/dL Hct 20.9 L* (36-46) % MCV 72.0 L (80-100) fL MCH 23.2 L (26-34) PG MCHC 32.2 (30-36) % RDW 23.6 H (11.6-14.8) % Plt Count 166 (150-400) X10^3/uL Neut % (Auto) 29.7 L Lymph % (Auto) 42.[address] [place] % (Auto) 12.9 Eos % (Auto) 14.0 H Baso % (Auto) 1.1 Neut # (Auto) 2200 (9884-4883) /uL Lymph # (Auto) 3[address] [place] # (Auto) 1000 H Eos # (Auto) 1000 H (0-450) /uL Baso # (Auto) 100 Total Counted Seg Neutrophils % (38-70) % Band Neutrophils % (3-7) % Lymphocytes % (Manual) (25-45) % Atypical Lymphs % ( - 0) % Monocytes % (Manual) (2-11) % Eosinophils % (Manual) (2-4) % Basophils % (Manual) (0-1) % Neutrophils # (Manual) (6906-2316) /uL RBC Morphology See below Hypochromasia 2+ H Poikilocytosis Anisocytosis 2+ H Microcytosis 1+ H Target Cells [place] Cells Schistocytes 1+ H Smear Path Review PT 18.0 H (10.1-12.7) SECONDS INR 1.6 H (0.9-1.3) APTT 38 H (26-36) SECONDS Sodium 137 (137-145) mmol/L Potassium 3.2 L (3.4-5.1) mmol/L Chloride 111 H (98-107) mmol/L Carbon Dioxide 22 (22-32) mmol/L BUN 17 (7-17) mg/dL Creatinine 0.57 (0.52-1.04) mg/dL Estimated GFR > 60 (>60) mL/min BUN/Creatinine Ratio 29.8 H (6-22) Glucose 86 (80-110) mg/dL Calcium 7.0 L (8.4-10.2) mg/dL Total Bilirubin 1.5 H (0.2-1.3) mg/dL AST 41 H (14-36) IU/L ALT 21 (<35) IU/L Alkaline Phosphatase 63 (38-126) U/L Ammonia (9-30) umol/L Total Creatine Kinase (30-135) U/L CK-MB (CK-2) CK-MB (CK-2) Rel Index Troponin I (0.01-0.034) ng/mL NT-Pro-B Natriuret Pep (<125) pg/mL Total Protein 6.0 L (6.3-8.2) g/dL Albumin 2.1 L (3.5-5.0) g/dL Globulin 3.9 (1.7-4.1) g/dL Albumin/Globulin Ratio 0.5 L (1.0-2.8) Lipase 210 (23-300) U/L SARS-CoV-2 (PCR) (Negative) Blood Type Antibody Screen Crossmatch 10/20/22 10/20/22 10/21/22 Range/Units 06:28 17:40 05:54 WBC 6.0 (4.5-11.0) X10^3/uL RBC 3.26 L (4.0-5.2) X10^6/uL Hgb 8.5 L 8.3 L (12.0-16.0) g/dL Hct 25.4 L 25.3 L (36-46) % MCV 77.5 L D (80-100) fL MCH 25.4 L (26-34) PG MCHC 32.7 (30-36) % RDW 23.7 H (11.6-14.8) % Plt Count 134 L (150-400) X10^3/uL Neut % (Auto) 27.0 L Lymph % (Auto) 34.7 [place] % (Auto) 15.8 H Eos % (Auto) 21.0 H Baso % (Auto) 1.5 Neut # (Auto) 1600 (3612-6180) /uL Lymph # (Auto) 2[address] [place] # (Auto) 1000 H Eos # (Auto) 1300 H (0-450) /uL Baso # (Auto) 100 Total Counted Seg Neutrophils % (38-70) % Band Neutrophils % (3-7) % Lymphocytes % (Manual) (25-45) % Atypical Lymphs % ( - 0) % Monocytes % (Manual) (2-11) % Eosinophils % (Manual) (2-4) % Basophils % (Manual) (0-1) % Neutrophils # (Manual) (7551-7684) /uL RBC Morphology See below Hypochromasia 2+ H Poikilocytosis 1+ H Anisocytosis 3+ H Microcytosis Target Cells 1+ H Ene Cells Schistocytes 1+ H Smear Path Review PT (10.1-12.7) SECONDS INR (0.9-1.3) APTT (26-36) SECONDS Sodium (137-145) mmol/L Potassium (3.4-5.1) mmol/L Chloride (98-107) mmol/L Carbon Dioxide (22-32) mmol/L BUN (7-17) mg/dL Creatinine (0.52-1.04) mg/dL Estimated GFR (>60) mL/min BUN/Creatinine Ratio (6-22) Glucose (80-110) mg/dL Calcium (8.4-10.2) mg/dL Total Bilirubin (0.2-1.3) mg/dL AST (14-36) IU/L ALT (<35) IU/L Alkaline Phosphatase (38-126) U/L Ammonia 15 (9-30) umol/L Total Creatine Kinase (30-135) U/L CK-MB (CK-2) CK-MB (CK-2) Rel Index Troponin I (0.01-0.034) ng/mL NT-Pro-B Natriuret Pep (<125) pg/mL Total Protein (6.3-8.2) g/dL Albumin (3.5-5.0) g/dL Globulin (1.7-4.1) g/dL Albumin/Globulin Ratio (1.0-2.8) Lipase (23-300) U/L SARS-CoV-2 (PCR) (Negative) Blood Type Antibody Screen Crossmatch 10/21/22 10/21/22 10/22/22 Range/Units 05:54 17:35 07:04 WBC 5.6 6.7 (4.5-11.0) X10^3/uL RBC 3.27 L 3.83 L (4.0-5.2) X10^6/uL Hgb 8.3 L 9.6 L (12.0-16.0) g/dL Hct 25.4 L 30.1 L (36-46) % MCV 77.6 L 78.5 L (80-100) fL MCH 25.4 L 24.9 L (26-34) PG MCHC 32.7 31.8 (30-36) % RDW 24.0 H 24.4 H (11.6-14.8) % Plt Count 145 L 169 (150-400) X10^3/uL Neut % (Auto) 22.6 L 21.3 L Lymph % (Auto) 38.[address] [place] % (Auto) 16.3 H 13.0 Eos % (Auto) 21.1 H 21.0 H Baso % (Auto) 1.2 1.2 Neut # (Auto) 1300 L 1400 L (6669-8723) /uL Lymph # (Auto) [address] [place] # (Auto) 900 900 Eos # (Auto) 1200 H 1400 H (0-450) /uL Baso # (Auto) 100 100 Total Counted Seg Neutrophils % (38-70) % Band Neutrophils % (3-7) % Lymphocytes % (Manual) (25-45) % Atypical Lymphs % ( - 0) % Monocytes % (Manual) (2-11) % Eosinophils % (Manual) (2-4) % Basophils % (Manual) (0-1) % Neutrophils # (Manual) (8853-0206) /uL RBC Morphology See below Not Reportable Hypochromasia 2+ H Poikilocytosis 1+ H Anisocytosis 2+ H Microcytosis 2+ H Target Cells 1+ H Ene Cells 1+ H Schistocytes 2+ H Smear Path Review PT (10.1-12.7) SECONDS INR (0.9-1.3) APTT (26-36) SECONDS Sodium 139 (137-145) mmol/L Potassium 3.2 L (3.4-5.1) mmol/L Chloride 113 H (98-107) mmol/L Carbon Dioxide 23 (22-32) mmol/L BUN 12 (7-17) mg/dL Creatinine 0.68 (0.52-1.04) mg/dL Estimated GFR > 60 (>60) mL/min BUN/Creatinine Ratio 17.6 (6-22) Glucose 85 (80-110) mg/dL Calcium 6.8 L (8.4-10.2) mg/dL Total Bilirubin 1.7 H (0.2-1.3) mg/dL AST 40 H (14-36) IU/L ALT 20 (<35) IU/L Alkaline Phosphatase 64 (38-126) U/L Ammonia (9-30) umol/L Total Creatine Kinase (30-135) U/L CK-MB (CK-2) CK-MB (CK-2) Rel Index Troponin I (0.01-0.034) ng/mL NT-Pro-B Natriuret Pep (<125) pg/mL Total Protein 5.9 L (6.3-8.2) g/dL Albumin 2.1 L (3.5-5.0) g/dL Globulin 3.8 (1.7-4.1) g/dL Albumin/Globulin Ratio 0.6 L (1.0-2.8) Lipase 230 (23-300) U/L SARS-CoV-2 (PCR) (Negative) Blood Type Antibody Screen Crossmatch 10/22/22 10/23/22 10/23/22 Range/Units 07:04 07:30 07:30 WBC 5.8 (4.5-11.0) X10^3/uL RBC 3.49 L (4.0-5.2) X10^6/uL Hgb 9.0 L (12.0-16.0) g/dL Hct 27.4 L (36-46) % MCV 78.5 L (80-100) fL MCH 25.6 L (26-34) PG MCHC 32.6 (30-36) % RDW 25.3 H (11.6-14.8) % Plt Count 144 L (150-400) X10^3/uL Neut % (Auto) Not Reportable Lymph % (Auto) Not Reportable [place] % (Auto) Not Reportable Eos % (Auto) Not Reportable Baso % (Auto) Not Reportable Neut # (Auto) (6726-1639) /uL Lymph # (Auto) Not Reportable [place] # (Auto) Not Reportable Eos # (Auto) (0-450) /uL Baso # (Auto) Not Reportable Total Counted 100 Seg Neutrophils % 36.0 L (38-70) % Band Neutrophils % (3-7) % Lymphocytes % (Manual) 25.0 (25-45) % Atypical Lymphs % 7.0 H ( - 0) % Monocytes % (Manual) 9.0 (2-11) % Eosinophils % (Manual) 23.0 H (2-4) % Basophils % (Manual) (0-1) % Neutrophils # (Manual) 2088 L (1216-3232) /uL RBC Morphology Not Reportable Hypochromasia Poikilocytosis 1+ H Anisocytosis Microcytosis Target Cells [place] Cells Schistocytes Smear Path Review PT (10.1-12.7) SECONDS INR (0.9-1.3) APTT (26-36) SECONDS Sodium 140 141 (137-145) mmol/L Potassium 3.6 3.6 (3.4-5.1) mmol/L Chloride 113 H 115 H (98-107) mmol/L Carbon Dioxide 22 24 (22-32) mmol/L BUN 10 9 (7-17) mg/dL Creatinine 0.75 0.62 (0.52-1.04) mg/dL Estimated GFR > 60 > 60 (>60) mL/min BUN/Creatinine Ratio 13.3 14.5 (6-22) Glucose 94 91 (80-110) mg/dL Calcium 7.6 L 7.0 L (8.4-10.2) mg/dL Total Bilirubin 1.7 H 1.4 H (0.2-1.3) mg/dL AST 53 H 42 H (14-36) IU/L ALT 23 18 (<35) IU/L Alkaline Phosphatase 81 68 (38-126) U/L Ammonia (9-30) umol/L Total Creatine Kinase (30-135) U/L CK-MB (CK-2) CK-MB (CK-2) Rel Index Troponin I (0.01-0.034) ng/mL NT-Pro-B Natriuret Pep (<125) pg/mL Total Protein 7.1 6.0 L (6.3-8.2) g/dL Albumin 2.5 L 2.1 L (3.5-5.0) g/dL Globulin 4.6 H 3.9 (1.7-4.1) g/dL Albumin/Globulin Ratio 0.5 L 0.5 L (1.0-2.8) Lipase 342 H 220 (23-300) U/L SARS-CoV-2 (PCR) (Negative) Blood Type Antibody Screen Crossmatch 10/24/22 10/24/22 10/24/22 Range/Units 07:03 07:03 13:40 WBC 6.2 (4.5-11.0) X10^3/uL RBC 3.63 L (4.0-5.2) X10^6/uL Hgb 9.1 L (12.0-16.0) g/dL Hct 28.4 L (36-46) % MCV 78.3 L (80-100) fL MCH 25.2 L (26-34) PG MCHC 32.2 (30-36) % RDW 26.1 H (11.6-14.8) % Plt Count 148 L (150-400) X10^3/uL Neut % (Auto) 22.9 L Lymph % (Auto) 32.6 [place] % (Auto) 19.0 H Eos % (Auto) 23.6 H Baso % (Auto) 1.9 Neut # (Auto) 1400 L (1909-2963) /uL Lymph # (Auto) 2000 [place] # (Auto) 1200 H Eos # (Auto) 1500 H (0-450) /uL Baso # (Auto) 100 Total Counted Seg Neutrophils % (38-70) % Band Neutrophils % (3-7) % Lymphocytes % (Manual) (25-45) % Atypical Lymphs % ( - 0) % Monocytes % (Manual) (2-11) % Eosinophils % (Manual) (2-4) % Basophils % (Manual) (0-1) % Neutrophils # (Manual) (9778-7958) /uL RBC Morphology See below Hypochromasia 1+ H Poikilocytosis Anisocytosis Microcytosis 1+ H Target Cells 1+ H [place] Cells Schistocytes 1+ H Smear Path Review PT 23.0 H D (10.1-12.7) SECONDS INR 2.0 H (0.9-1.3) APTT 40 H (26-36) SECONDS Sodium 140 (137-145) mmol/L Potassium 3.5 (3.4-5.1) mmol/L Chloride 113 H (98-107) mmol/L Carbon Dioxide 23 (22-32) mmol/L BUN 8 (7-17) mg/dL Creatinine 0.63 (0.52-1.04) mg/dL Estimated GFR > 60 (>60) mL/min BUN/Creatinine Ratio 12.7 (6-22) Glucose 85 (80-110) mg/dL Calcium 7.1 L (8.4-10.2) mg/dL Total Bilirubin 1.4 H (0.2-1.3) mg/dL AST 41 H (14-36) IU/L ALT 17 (<35) IU/L Alkaline Phosphatase 68 (38-126) U/L Ammonia (9-30) umol/L Total Creatine Kinase (30-135) U/L CK-MB (CK-2) CK-MB (CK-2) Rel Index Troponin I (0.01-0.034) ng/mL NT-Pro-B Natriuret Pep (<125) pg/mL Total Protein 6.2 L (6.3-8.2) g/dL Albumin 2.1 L (3.5-5.0) g/dL Globulin 4.1 (1.7-4.1) g/dL Albumin/Globulin Ratio 0.5 L (1.0-2.8) Lipase 213 (23-300) U/L SARS-CoV-2 (PCR) (Negative) Blood Type Antibody Screen Crossmatch 10/24/22 10/25/22 10/25/22 Range/Units 18:29 05:47 05:47 WBC (4.5-11.0) X10^3/uL RBC (4.0-5.2) X10^6/uL Hgb 8.7 L (12.0-16.0) g/dL Hct 26.9 L (36-46) % MCV (80-100) fL MCH (26-34) PG MCHC (30-36) % RDW (11.6-14.8) % Plt Count (150-400) X10^3/uL Neut % (Auto) Lymph % (Auto) [place] % (Auto) Eos % (Auto) Baso % (Auto) Neut # (Auto) (3606-5653) /uL Lymph # (Auto) [place] # (Auto) Eos # (Auto) (0-450) /uL Baso # (Auto) Total Counted Seg Neutrophils % (38-70) % Band Neutrophils % (3-7) % Lymphocytes % (Manual) (25-45) % Atypical Lymphs % ( - 0) % Monocytes % (Manual) (2-11) % Eosinophils % (Manual) (2-4) % Basophils % (Manual) (0-1) % Neutrophils # (Manual) (8408-2382) /uL RBC Morphology Hypochromasia Poikilocytosis Anisocytosis Microcytosis Target Cells [place] Cells Schistocytes Smear Path Review PT (10.1-12.7) SECONDS INR (0.9-1.3) APTT (26-36) SECONDS Sodium 138 (137-145) mmol/L Potassium 3.4 (3.4-5.1) mmol/L Chloride 109 H (98-107) mmol/L Carbon Dioxide 26 (22-32) mmol/L BUN 8 (7-17) mg/dL Creatinine 0.66 (0.52-1.04) mg/dL Estimated GFR > 60 (>60) mL/min BUN/Creatinine Ratio 12.1 (6-22) Glucose 94 (80-110) mg/dL Calcium 6.8 L (8.4-10.2) mg/dL Total Bilirubin 1.3 (0.2-1.3) mg/dL AST 38 H (14-36) IU/L ALT 16 (<35) IU/L Alkaline Phosphatase 62 (38-126) U/L Ammonia (9-30) umol/L Total Creatine Kinase 66 (30-135) U/L CK-MB (CK-2) TNP CK-MB (CK-2) Rel Index TNP Troponin I < 0.012 (0.01-0.034) ng/mL NT-Pro-B Natriuret Pep 320 H (<125) pg/mL Total Protein 5.7 L (6.3-8.2) g/dL Albumin 1.9 L (3.5-5.0) g/dL Globulin 3.8 (1.7-4.1) g/dL Albumin/Globulin Ratio 0.5 L (1.0-2.8) Lipase (23-300) U/L SARS-CoV-2 (PCR) (Negative) Blood Type Antibody Screen Crossmatch 10/25/22 Range/Units 10:25 WBC (4.5-11.0) X10^3/uL RBC (4.0-5.2) X10^6/uL Hgb 9.5 L (12.0-16.0) g/dL Hct 29.2 L (36-46) % MCV (80-100) fL MCH (26-34) PG MCHC (30-36) % RDW (11.6-14.8) % Plt Count (150-400) X10^3/uL Neut % (Auto) Lymph % (Auto) [place] % (Auto) Eos % (Auto) Baso % (Auto) Neut # (Auto) (6795-5228) /uL Lymph # (Auto) [place] # (Auto) Eos # (Auto) (0-450) /uL Baso # (Auto) Total Counted Seg Neutrophils % (38-70) % Band Neutrophils % (3-7) % Lymphocytes % (Manual) (25-45) % Atypical Lymphs % ( - 0) % Monocytes % (Manual) (2-11) % Eosinophils % (Manual) (2-4) % Basophils % (Manual) (0-1) % Neutrophils # (Manual) (0858-8952) /uL RBC Morphology Hypochromasia Poikilocytosis Anisocytosis Microcytosis Target Cells [place] Cells Schistocytes Smear Path Review PT (10.1-12.7) SECONDS INR (0.9-1.3) APTT (26-36) SECONDS Sodium (137-145) mmol/L Potassium (3.4-5.1) mmol/L Chloride (98-107) mmol/L Carbon Dioxide (22-32) mmol/L BUN (7-17) mg/dL Creatinine (0.52-1.04) mg/dL Estimated GFR (>60) mL/min BUN/Creatinine Ratio (6-22) Glucose (80-110) mg/dL Calcium (8.4-10.2) mg/dL Total Bilirubin (0.2-1.3) mg/dL AST (14-36) IU/L ALT (<35) IU/L Alkaline Phosphatase (38-126) U/L Ammonia (9-30) umol/L Total Creatine Kinase (30-135) U/L CK-MB (CK-2) CK-MB (CK-2) Rel Index Troponin I (0.01-0.034) ng/mL NT-Pro-B Natriuret Pep (<125) pg/mL Total Protein (6.3-8.2) g/dL Albumin (3.5-5.0) g/dL Globulin (1.7-4.1) g/dL Albumin/Globulin Ratio (1.0-2.8) Lipase (23-300) U/L SARS-CoV-2 (PCR) (Negative) Blood Type Antibody Screen Crossmatch Urine Dip Bedside Urine Glucose Negative Bedside Urine Bilirubin - Negative Bedside Urine Ketone +/- 5 Urine Specific [place] 1.005 Bedside Urine Occult Blood - Negative Bedside Urine pH 6.0 Bedside Urine Protein - Negative Bedside Urine Urobilinogen - Negative Bedside Urine Nitrite - Negative Bedside Urine Leukocytes - Negative Esterase MDM Narrative Medical decision making narrative: This is a 62-year-old female comes with complaint of near-syncope, black stools and diarrhea and fever today. Patient is noted to have hemoglobin which appears stable from when she was transfused before it is 8 today which would be consistent with being transfused 2 units from when she her hemoglobin was 6 on 09/30/2022. Patient does not have any leukocytosis, normal platelets, microcytic anemia. INR is 1.5 patient is on aspirin but no other reported anticoagulants, she is also noted to have elevation in her bilirubin at 1.6, AST is 44 ALT is normal alk-phos is 81 lipase is 256. Patient's abdomen pelvis CT shows what appears to be stone in the ampulla of Vater, cholelithiasis patient has some diffuse bowel wall thickening suggestive infectious or inflammatory gastroenteritis. Patient has cirrhosis with portal hypertension gastroesophageal and splenic varices and a recanalized paraumbilical vein and ascites, patient received Protonix 80 mg IV plan for b.i.d., octreotide drip as stools and GI bleed could be from varices she has not had any hematemesis reported or here in the department. No reported significant alcohol history. Patient's renal function normal although she is potassium at 3.3 likely from vomiting today. Patient appears to need ERCP, possible banding of varices will need transfer as we do not have either of these available at our facility. So far has been hemodynamically stable will continue with very turned fluids. Protonix 80 mg b.i.d., octreotide drip, continue antibiotics for possible infection as patient had reported fever of 101 F yesterday and is high risk for cholangitis. Cultures were obtained prior to antibiotics. 10/20/22 7:[address] Fitzpatrick 62-year-old woman who presented the evening of October 19 with recurrent black stools, dizziness low-grade temp to 101.? She was seen for similar on September 30 after outpatient labs revealed an H&H of 6.8 and 21, transfused and eventually discharged home.? Has not been able to follow-up as an outpatient.? Initial labs indicate a bilirubin of 1.6, AST of 44 and lipase is 256.? CT scan indicates a stone in the ampulla of Vater. ?We have been looking for facilities with a capacity for ERCP and she is on multiple waiting list and [facility] is involved as well. Objective: Appears fatigued Chest:? Symmetrical air movement, no wheezing Cardiac: Mild tachycardia no murmurs Abdomen: Minor epigastric pain no rebound or guarding Assessment and plan 1.? Upper GI bleed with known esophageal and gastric varices.? Being transfused 2 units of packed red blood cells currently.? Will check H&H after transfusion. 2.? Incidentally appreciated common bile duct stone, bilirubin today is 1.5, AST is 41, ALT is 21, alk-phos is 63.? MRCP confirms ?possible/equivocal small stone at the downstream extrahepatic bile duct near the ampulla.? No ductal dilatation demonstrated.? 7 mm cyst in the pancreatic body recommended pancreatic protocol MRI as follow-up in a year Patient is updated. Phone calls again made to [facility] with no beds available.? Recommendation was to try back again at 3. 355pm Again, phone calls to hospital. No beds for transfer Dr cho overnight 10/20-10/21: Received turned over. Reviewed patient's history and physical workup up to this point. She is remained stable. Has received 2 units of packed red blood cells. Her H&H is improved. Continues to be no beds available for transfer. Care turned over to Dr. Mtz to follow-up and disposition. Dr Cho overnight 10/21-10/22: Resumed care of patient. Reviewed the daily events. Her H&H has been stable. She is been stable overnight without issue. Morning labs ordered. Care turned over to Dr. King to follow-up and disposition. 0700 (Fernando) Patient received in sign out from Dr. Cho. I have reviewed the clinical course and performed an independent history and physical exam. Repeat labs are pending. No reported issues over the course of the night. She feels significantly better than when she presented a few days ago and denies any ongoing dizziness or lightheadedness. She has been consuming clear liquids without difficulty. H&H is stable up to 9.6 and 30 0855 - call to Dr. Garcia ([facility]). We discussed history and physical exam as well as labs and imaging. He recommends we stay the course but does recommend contacting local GI Dr. Aguayo as he may be available 0915 - discussed with Dr. Aguayo. He is not in town and does not take call. After lengthy discussion of clinical course including labs, therapies and interventions he recommends continuing the course and states transfer for EGD and possible ERCP is in patient's best interest. Dr cho overnight 10/22-10/23: Assumed care patient. Reviewed patient's daily events. Patient has been stable overnight. Care turned over to Dr. Jacome to continue to observe until disposition. 10/23/[address] Jacome-patient signed out to me by Dr. Kevin uribe seen evaluated patient myself. Patient presents with GI bleed found to have varices fever and probable common bile duct stone. She did receive a blood transfusion while in the emergency department H and H has been stable for couple of days. She has also remained if afebrile without leukocytosis. MRCP does show probable common bile duct stone. After speaking with to GI doctor yesterday they agree that she does need further evaluation with ERCP and of it evaluation for esophageal varices. She remains on octreotide drip and Protonix 80 mg twice daily. Patient reports that she is had no further episodes of bleeding. She would like to get up and shower today. She has no abdominal pain nausea or vomiting. Significant critical bed shortage she remains on multiple lists. She is hemodynamically stable at this time GENERAL: Alert generally weak 62-year-old female HEENT: Head atraumatic,EOMI, pupils reactive, CARDIOVASCULAR: Regular rate and rhythm without murmurs, rubs or gallops. RESPIRATORY: Breath sounds equal bilaterally, no wheezes rales or rhonchi. ABDOMEN: Soft no localization of tenderness no distention no right upper quadrant pain EXTREMITIES: Normal range of motion, no clubbing or edema. Neurovascularly intact NEUROLOGICAL: Alert and oriented x4. SKIN: Warm, dry, no laceration, no petechiae, no rashes or lesions. Assessment and plan 1.? Upper GI bleed with known esophageal and gastric varices.? Has been transfused 2 units H&H stable . Remains on octreotide and Protonix 2.? Incidentally appreciated common bile duct stone, bilirubin today is 1.4, AST is 42, ALT is 18, alk-phos is 68.? MRCP confirms ?possible/equivocal small stone at the downstream extrahepatic bile duct near the ampulla.? No ductal dilatation demonstrated.? 7 mm cyst in the pancreatic body recommended pancreatic protocol MRI as follow-up in a year. To GI providers recommended transfer for ERCP. 3. Transfer higher level of care Dr cho overnight 10/23-10/24: Received turned over and reviewed patient's daily events. She is remained stable overnight. No new issues. Morning labs ordered. Care turned over to day provider to continue to observe until disposition can be found. We again attempted to find placement overnight without success. 04/06/23-8am (naa) patient signed out to me by Dr. Cho seen evaluated patient myself this morning. Patient has been stable for the last couple of days. She has intermittent mild abdominal cramping and pain but not requiring any pain medication. She has had no further episodes of rectal bleeding looks as though she is may have only had 1 episode of vomiting. Found to have esophageal varices and anemia transfused but now stable. She is been on octreotide drip 405 hours along with Protonix and antibiotics. Blood cultures are negative no further fevers. GENERAL: Well-appearing, well-nourished and in no acute distress. CARDIOVASCULAR: peripheral pulses in tact, cap refill <2 sec RESPIRATORY: No respiratory distress, speaks in full sentences without difficulty ABDOMEN: Soft, minimal tenderness no distention no guarding no rebound negative Angela sign EXTREMITIES: Normal range of motion, no clubbing or edema. Neurovascularly intact NEUROLOGICAL: Cranial nerves II through XII grossly intact. Normal gait and speech. SKIN: Warm, dry, no petechiae, no rashes or lesions. Assessment and plan 1.? Upper GI bleed with known esophageal and gastric varices.? Has been transfused 2 units H&H stable . -spoke with Dr. Clayton [facility] updated patient's symptoms and test results reports that is okay to stop Protonix and octreotide. If no bleeding for 12 hours after the octreotide has stopped may consider discharging home. He is updated on the bilirubin liver enzymes as well and waiting for ERCP. He reports that numbers are not alarming and without any significant pain or worsening status could actually have an ERCP as an outpatient. No evidence of choledocholithiasis or pancreatitis. 2.? Incidentally appreciated common bile duct stone, bilirubin today is 145, AST is 41, ALT is 17, alk-phos is 68.? MRCP confirms ?possible/equivocal small stone at the downstream extrahepatic bile duct near the ampulla.? -Dr. Clayton consulted this morning states that can have an outpatient ERCP please see above plan 3. Patient remains on multiple list however a likelihood of getting her transferred seem low. She also has been in the emergency department for multiple days and remains stable. Stop octreotide assess if there is further bleeding, change to p.o. PPI and possible follow-up GI as an outpatient. 4. Fever blood cultures are negative no leukocytosis no other evidence of infection she has had 4 days of antibiotics at this time I feel it is appropriate to stop the antibiotics. 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 She denies any calf pain they are not erythematous [id number] to evaluate patient by nursing. Patient is complaining of some shortness of breath she feels like she can not swallow. Tongue is not swollen she does not really have any chest pain but sometimes she does. She earlier had swelling on her feet with a negative DVT study. She is not hypoxic or tachycardic. Ordered CT angio to rule out out pulmonary embolism BNP troponin and EKG. Patient does report that she does have a history of congestive heart failure,. CT angio was negative for pulmonary embolism blood work is overall reassuring negative troponin BNP minimally elevated at 320. It will give her 1 dose of Lasix to help diurese her. She has not no evidence of rebleeding. No evidence of angioedema or allergic reaction <Mervin King, DO - Last Filed: 10/25/22 17:41> Critical Care Time Critical Care Time: Yes Total Critical Care Time: 45 Attestation: The high probability of a clinically significant, sudden or life threatening deterioration of the [CV/GI] system(s) required my full and direct attention, intervention and personal management. The aggregate critical care time was [125] minutes. 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 It is frustrating that our medical system is so overloaded at this time that we were unable to transfer you to a facility with a employee development director. Fortunately, we were able to continue all of your care in the emergency department. It does appear that you were having an upper GI bleed. You were also found to have liver injury with dilated blood vessels up along your esophagus. It also looked like you had a gallstone that was partially stuck outside of the gallbladder. Over your extended emergency room stay, you were given 2 units of packed red blood cells. Your red blood cell count has gone up and there is no sign of continued bleeding from your stomach after stopping the IV medication called octreotide. Your care was again reviewed with Dr. Clayton, employee development director at [facility]. He agrees that discharge home is safe. Tomorrow, you need to contact [facility] at [phone]. Please explain to them that you need to the seen urgently for upper GI bleeding and possible ERCP per Dr. Clayton. If they are not able to schedule you an appointment within the next week, please ask them to contact Dr. Rojas and explained to them you have been in the emergency department for the last week waiting for transfer for consultation and to have upper endoscopy. I have given you prescriptions for Keflex, on antibiotics for 5 days. Protonix 40 mg morning and night to reduce acid levels in your stomach. These medications have been electronically transmitted to [facility] in [place]. For your home medications, please stop your aspirin, Lasix and potassium. Please talk to Dr. Clayton about whether or not they should be restarted. Please do continue your losartan for your high blood pressure If you have recurrent issues or additional bleeding please feel free to return to the emergency department. If you are able, going to [facility] Emergency Department so that you can have appropriate gastroenterology consultation would be best. Prescriptions: New cephalexin 500 mg capsule 500 mg PO TID Qty: 12 0RF pantoprazole [Protonix] 40 mg tablet,delayed release (DR/EC) 40 mg PO BID Qty: 60 0RF No Action atorvastatin 10 mg tablet 10 mg PO DAILY aspirin 81 mg tablet,delayed release (DR/EC) 81 mg PO DAILY pantoprazole [Protonix] 40 mg tablet,delayed release (DR/EC) 40 mg PO BID Qty: 60 0RF losartan 25 mg Tablet 25 mg PO DAILY furosemide 20 mg Tablet 20 mg PO DAILY potassium chloride 20 mEq tablet,ER particles/crystals 20 meq PO BID Referrals: [facility] [Primary Care Provider] - Stand Alone Forms: Patient Portal/API
[2022-10-19 22:54] LABS: Add Manual Diff / Slide Review YES; Hematocrit 25.3 % (36-46); Hemoglobin 8.1 g/dL (12.0-16.0); Mean Corpuscular HGB Conc 31.8 % (30-36); Mean Corpuscular Hemoglobin 22.7 PG (26-34); Mean Corpuscular Volume 71.3 fL (80-100); Platelet Count 224 X10^3/uL (150-400); Red Blood Cell Count 3.55 X10^6/uL (4.0-5.2); Red Cell Distribution Width 23.3 % (11.6-14.8); White Blood Cell Count 9.3 X10^3/uL (4.5-11.0)
[2022-10-19] MEDS: PANTOPRAZOLE 40 MG VIAL 80 MG IV (22:55)
--- NOTE | 2022-10-19 23:02 | DI.CT.S_ITS ---
PROCEDURE: CT ABDOMEN PELVIS W CON INDICATIONS: abd pain, elevated lfts, black stools, vomiting TECHNIQUE: After the administration of IV contrast, axial sections were acquired from the lung bases to the pubic symphysis. Coronal and sagittal reformats were performed. For radiation dose reduction, the following was used: automated exposure control, adjustment of mA and/or kV according to patient size. COMPARISON: None. FINDINGS: Image quality: Excellent. Lung bases: There is a small right pleural effusion. Mild dependent atelectasis demonstrated bilaterally. Heart: Heart is normal in size. ABDOMEN: Liver: There is a nodular hepatic contour with heterogeneous attenuation of the liver compatible with cirrhosis. No discrete mass identified on the current study. Gallbladder: There are calcified gallstones in the gallbladder fundus. Mild gallbladder wall thickening is also noted. Biliary ducts: No biliary ductal dilatation. There is a small calcification measuring up to 0.3 cm in the region of the ampulla of Vater suggestive of choledocholithiasis. Pancreas: Unremarkable. Spleen: Normal in size. Adrenal Glands: No adrenal nodules. Kidneys and Ureters: No hydronephrosis. Stomach and Bowel: There is diffuse bowel wall thickening throughout the small and large bowel. Peritoneum: There is a small to moderate amount of intraperitoneal free fluid consistent with ascites. No free air. Ventral Wall: No hernia. Abdominal Nodes: No retroperitoneal or mesenteric adenopathy by size criteria. Vessels: Aorta and inferior vena cava are normal in size. There are gastroesophageal and splenic varices. A prominent enlarged recanalized paraumbilical vein is also noted. PELVIS: Pelvic Organs: Unremarkable. Bladder: Unremarkable. Pelvic Nodes: No enlarged lymph nodes. Miscellaneous: No inguinal hernias are seen. Bones: Visualized osseous structures demonstrate no suspicious focal lesions. IMPRESSION: 1. Findings consistent with cirrhosis and portal hypertension including gastroesophageal and splenic varices, a recanalized paraumbilical vein, and ascites. 2. Cholelithiasis with a suspected common duct stone at the ampulla of Vater. Recommend correlation with laboratory values and if indicated further evaluation may be obtained with MRCP or ERCP. 3. Diffuse bowel wall thickening involving small and large bowel loops suggestive of an infectious or inflammatory gastroenteritis. Dictated by: Colt Rondon M.D. on 10/20/2022 at 0:43 Approved by: Colt Rondon M.D. on 10/20/2022 at 0:50
[2022-10-19 23:16] LABS: Lipase 256 U/L (23-300)
[2022-10-20] VITALS (78 sets, daily range): BP systolic 92–137; BP diastolic 50–74; PULSE 72–92; RESP 11–31; TEMP 36.8–37.4; O2SAT 89–100
--- NOTE | 2022-10-20 01:29 | DI.MRI.S_ITS ---
PROCEDURE: MR ABDOMEN WO/W CON INDICATIONS: stone at ampulla of Vater TECHNIQUE: Coronal HASTE, axial 2D FLASH in- and [id number]; axial breath-hold T2 FSE with fat saturation from the hepatic dome to the iliac crests. Oblique coronal thin-slice and radial thick slab HASTE through the biliary system. Dynamic axial VIBE during administration of contrast. Post-contrast coronal VIBE or 2D FLASH with fat saturation from the hepatic dome to the iliac crests. Optional diffusion weighted imaging and ADC may be performed. COMPARISON: [facility], CT, CT ABDOMEN PELVIS W CON, 10/19/2022, 23:10. FINDINGS: Image quality: Suboptimal due to motion artifact. Pancreas and biliary system: No biliary ductal dilation demonstrated. Possible/equivocal small stone at the downstream extrahepatic duct near the ampulla (for example series 4, image 23). No dilation of the main pancreatic duct. 7 mm cyst present at the pancreatic body (3/11). Solid organs: Morphologic changes of cirrhosis. Gallbladder may contain a few tiny stones/gravel, no large gallstones visualized. Spleen is normal in size and enhancement. No adrenal nodules. Kidneys are normal in size and enhancement, without hydronephrosis. Few renal cortical cysts visualized without suspicious features identified. Nodes and vessels: Few prominent arlene hepatis lymph nodes present, nonspecific. Aorta and inferior vena cava are normal in size. Bowel and peritoneum: Unenhanced bowel loops are normal in caliber throughout. Small amount of abdominal free fluid present. Lung bases: Small right, trace left pleural effusions. IMPRESSION: 1. Possible/equivocal small stone at the downstream extrahepatic bile duct near the ampulla. No biliary ductal dilation demonstrated. Further evaluation with ERCP could be performed as clinically indicated. 2. Morphologic changes of cirrhosis with stigmata of portal hypertension. 3. A 7 mm cyst is present at the pancreatic body, nonspecific, possibly a side branch IPMN but other cystic neoplasms are not excluded. Per ACR incidental findings guidelines, imaging follow-up is recommended in 1 year. At the time of follow-up, pancreatic protocol MRI with and without contrast is recommended. Dictated by: Cas Fuller M.D. on 10/20/2022 at 9:08 Approved by: Cas Fuller M.D. on 10/20/2022 at 9:32
[2022-10-20] MEDS: SODIUM CHLORIDE 0.9% 1,000 ML 150 ML IV ×2 (02:11→17:29)
[2022-10-20] MEDS: CEFEPIME 2 GM in SODIUM CHLORIDE 0.9% 100 ML IV ×2 (02:12→17:29)
[2022-10-20 02:16] LABS: COVID19 -Nasal RAPID Negative (Negative)
[2022-10-20] MEDS: OCTREOTIDE 500 MCG in SODIUM CHLORIDE 0.9% 100 ML 10.1 MCG IV ×2 (03:12→14:11)
[2022-10-20] MEDS: OCTREOTIDE 100 MCG/ML VIAL 50 MCG IV (03:13)
[2022-10-20] MEDS: metroNIDAZOLE 500 MG/100 ML PIGGYBACK 100 MG IV ×3 (03:15→16:22)
[2022-10-20] MEDS: ONDANSETRON 4 MG/2 ML INJ IV (03:28)
--- NOTE | 2022-10-20 04:18 | PC.NURSE ---
called to initiate transfer : [facility] - no beds on wait list [facility] - no beds on waitlist [facility] - not beds on waitlist [facility]- L/m [id number]
[2022-10-20 06:39] LABS: Total Cells Counted 100
[2022-10-20 06:41] LABS: Neutrophils Absolute Manual 4557 /uL (3000-5900)
[2022-10-20 06:42] LABS: Basophils Absolute Auto 100 /uL (0-100); Basophils Percent Auto 1.1 % (0-2); Eosinophils Absolute Auto 1000 /uL (0-450); Lymphocytes Absolute Auto 3100 /uL (1100-4500); Lymphocytes Percent Auto 42.3 % (25-40); Mean Corpuscular HGB Conc 32.2 % (30-36); Mean Corpuscular Hemoglobin 23.2 PG (26-34); Monocytes Absolute Auto 1000 /uL (0-900); Monocytes Percent Auto 12.9 % (3-14); Neutrophils Absolute Auto 2200 /uL (1500-7000); Neutrophils Percent Auto 29.7 % (50-75); Platelet Count 166 X10^3/uL (150-400); Red Cell Distribution Width 23.6 % (11.6-14.8); White Blood Cell Count 7.4 X10^3/uL (4.5-11.0)
[2022-10-20 06:44] LABS: INR 1.6 (0.9-1.3)
[2022-10-20 06:45] LABS: Anisocytosis 3+; Hypochromasia 2+; Schistocytes 1+
[2022-10-20 06:46] LABS: Ammonia (NH3) 15 umol/L (9-30); PTT Partial Thromboplastin Tim 38 SECONDS (26-36)
[2022-10-20 06:48] LABS: Alanine Aminotransferase 21 IU/L (<35); Albumin 2.1 g/dL (3.5-5.0); Albumin Globulin Ratio 0.5 (1.0-2.8); Alkaline Phosphatase 63 U/L (38-126); Aspartate Aminotransferase 41 IU/L (14-36); BUN Creatinine Ratio 29.8 (6-22); Bilirubin Total 1.5 mg/dL (0.2-1.3); Blood Urea Nitrogen 17 mg/dL (7-17); Carbon Dioxide 22 mmol/L (22-32); Chloride 111 mmol/L (98-107); Estimated Glomerular Filt Rate > 60 mL/min (>60); Globulin 3.9 g/dL (1.7-4.1); Glucose 86 mg/dL (80-110); HEMOLYSIS < 15 (0-50); Lipase 210 U/L (23-300); Potassium 3.2 mmol/L (3.4-5.1); Sodium 137 mmol/L (137-145)
[2022-10-20 06:52] LABS: Add Manual Diff / Slide Review SLIDE REVIEW; Hematocrit 20.9 % (36-46); Hemoglobin 6.7 g/dL (12.0-16.0)
[2022-10-20 07:22] LABS: Anisocytosis 2+; Hypochromasia 2+; Microcytosis 1+; Schistocytes 1+
--- NOTE | 2022-10-20 07:52 | PC.NURSE ---
Patient to [facility] at this time. infusion of ocretotide paused at this time per order from Dr. Fitzpatrick.
[2022-10-20] MEDS: PANTOPRAZOLE 40 MG VIAL 80 MG IV ×2 (12:46→20:52)
[2022-10-20 18:00] LABS: Hematocrit 25.4 % (36-46); Hemoglobin 8.5 g/dL (12.0-16.0)
[2022-10-20] MEDS: ATORVASTATIN 20 MG TABLET 10 MG PO (20:53)
--- NOTE | 2022-10-20 21:14 | PC.NURSE ---
Addendum entered by Kelley Fraga CNA 10/21/22 00:53: 0045: Spoke to Constance at [facility]. She said she's still working on finding placement. Original Note: CHUY note: Attempting to transfer out: [facility]: 2021- [facility]- No beds. [facility]: 2024- [facility]- No beds [facility]: 2029-Dylan- No beds/ no movement.
[2022-10-21] VITALS (44 sets, daily range): BP systolic 109–147; BP diastolic 53–78; PULSE 62–77; RESP 9–23; O2SAT 95–100
[2022-10-21] MEDS: SODIUM CHLORIDE 0.9% 1,000 ML 150 ML IV ×2 (00:06→06:57)
[2022-10-21] MEDS: OCTREOTIDE 500 MCG in SODIUM CHLORIDE 0.9% 100 ML 10.1 MCG IV ×3 (00:07→21:06)
[2022-10-21] MEDS: metroNIDAZOLE 500 MG/100 ML PIGGYBACK 100 MG IV ×3 (00:16→17:06)
[2022-10-21] MEDS: CEFEPIME 2 GM in SODIUM CHLORIDE 0.9% 100 ML IV ×2 (05:02→18:25)
[2022-10-21 06:17] LABS: Alanine Aminotransferase 20 IU/L (<35); Albumin 2.1 g/dL (3.5-5.0); Albumin Globulin Ratio 0.6 (1.0-2.8); Alkaline Phosphatase 64 U/L (38-126); Aspartate Aminotransferase 40 IU/L (14-36); BUN Creatinine Ratio 17.6 (6-22); Bilirubin Total 1.7 mg/dL (0.2-1.3); Blood Urea Nitrogen 12 mg/dL (7-17); Calcium 6.8 mg/dL (8.4-10.2); Carbon Dioxide 23 mmol/L (22-32); Chloride 113 mmol/L (98-107); Estimated Glomerular Filt Rate > 60 mL/min (>60); Globulin 3.8 g/dL (1.7-4.1); Glucose 85 mg/dL (80-110); HEMOLYSIS < 15 (0-50); Lipase 230 U/L (23-300); Potassium 3.2 mmol/L (3.4-5.1); Sodium 139 mmol/L (137-145); Total Protein 5.9 g/dL (6.3-8.2)
[2022-10-21 06:26] LABS: Basophils Absolute Auto 100 /uL (0-100); Basophils Percent Auto 1.5 % (0-2); Eosinophils Absolute Auto 1300 /uL (0-450); Hematocrit 25.3 % (36-46); Hemoglobin 8.3 g/dL (12.0-16.0); Lymphocytes Absolute Auto 2100 /uL (1100-4500); Lymphocytes Percent Auto 34.7 % (25-40); Mean Corpuscular HGB Conc 32.7 % (30-36); Mean Corpuscular Hemoglobin 25.4 PG (26-34); Mean Corpuscular Volume 77.5 fL (80-100); Monocytes Absolute Auto 1000 /uL (0-900); Monocytes Percent Auto 15.8 % (3-14); Neutrophils Absolute Auto 1600 /uL (1500-7000); Platelet Count 134 X10^3/uL (150-400); Red Blood Cell Count 3.26 X10^6/uL (4.0-5.2); Red Cell Distribution Width 23.7 % (11.6-14.8)
[2022-10-21 06:28] LABS: Add Manual Diff / Slide Review SLIDE REVIEW
[2022-10-21 07:30] LABS: Anisocytosis 3+
[2022-10-21 07:31] LABS: Poikilocytosis 1+
[2022-10-21 07:32] LABS: Schistocytes 1+; Target Cells 1+
[2022-10-21 07:33] LABS: Hypochromasia 2+
[2022-10-21] MEDS: LOSARTAN 25 MG TABLET PO (08:40)
[2022-10-21] MEDS: PANTOPRAZOLE 40 MG VIAL 80 MG IV ×2 (08:40→21:05)
[2022-10-21] MEDS: CALCIUM GLUCONATE 9.3 MEQ in SODIUM CHLORIDE 0.9% 50 ML 140 MEQ IV (11:48)
[2022-10-21] MEDS: POTASSIUM CHLORIDE IN WATER 10 MEQ/100 ML PIGGYBACK 100 MEQ IV ×2 (12:37→13:54)
[2022-10-21 17:48] LABS: Add Manual Diff / Slide Review NO; Basophils Absolute Auto 100 /uL (0-100); Basophils Percent Auto 1.2 % (0-2); Eosinophils Absolute Auto 1200 /uL (0-450); Eosinophils Percent Auto 21.1 % (2-4); Hematocrit 25.4 % (36-46); Hemoglobin 8.3 g/dL (12.0-16.0); Lymphocytes Absolute Auto 2200 /uL (1100-4500); Lymphocytes Percent Auto 38.8 % (25-40); Mean Corpuscular HGB Conc 32.7 % (30-36); Mean Corpuscular Hemoglobin 25.4 PG (26-34); Mean Corpuscular Volume 77.6 fL (80-100); Monocytes Absolute Auto 900 /uL (0-900); Monocytes Percent Auto 16.3 % (3-14); Neutrophils Absolute Auto 1300 /uL (1500-7000); Neutrophils Percent Auto 22.6 % (50-75); Platelet Count 145 X10^3/uL (150-400); Red Blood Cell Count 3.27 X10^6/uL (4.0-5.2); White Blood Cell Count 5.6 X10^3/uL (4.5-11.0)
[2022-10-21 20:32] LABS: Hypochromasia 2+; Microcytosis 2+; Schistocytes 2+
[2022-10-21 20:33] LABS: Target Cells 1+
[2022-10-21] MEDS: ATORVASTATIN 20 MG TABLET 10 MG PO (21:05)
--- NOTE | 2022-10-21 22:27 | PC.NURSE ---
STRINGS TEACHER note: Spoke to Phoebe at [facility]. Patient is still on their lists.
[2022-10-22] VITALS (39 sets, daily range): BP systolic 126–156; BP diastolic 60–115; PULSE 59–73; RESP 12–31; O2SAT 96–100
[2022-10-22] MEDS: metroNIDAZOLE 500 MG/100 ML PIGGYBACK 100 MG IV ×3 (01:13→17:01)
[2022-10-22] MEDS: CEFEPIME 2 GM in SODIUM CHLORIDE 0.9% 100 ML IV ×2 (05:52→20:13)
[2022-10-22] MEDS: OCTREOTIDE 500 MCG in SODIUM CHLORIDE 0.9% 100 ML 10.1 MCG IV ×2 (07:05→16:59)
[2022-10-22 07:16] LABS: Basophils Absolute Auto 100 /uL (0-100); Basophils Percent Auto 1.2 % (0-2); Eosinophils Absolute Auto 1400 /uL (0-450); Hematocrit 30.1 % (36-46); Hemoglobin 9.6 g/dL (12.0-16.0); Lymphocytes Absolute Auto 2900 /uL (1100-4500); Lymphocytes Percent Auto 43.5 % (25-40); Mean Corpuscular HGB Conc 31.8 % (30-36); Mean Corpuscular Hemoglobin 24.9 PG (26-34); Mean Corpuscular Volume 78.5 fL (80-100); Monocytes Absolute Auto 900 /uL (0-900); Neutrophils Absolute Auto 1400 /uL (1500-7000); Neutrophils Percent Auto 21.3 % (50-75); Platelet Count 169 X10^3/uL (150-400); Red Blood Cell Count 3.83 X10^6/uL (4.0-5.2); Red Cell Distribution Width 24.4 % (11.6-14.8); White Blood Cell Count 6.7 X10^3/uL (4.5-11.0)
[2022-10-22 07:35] LABS: Alanine Aminotransferase 23 IU/L (<35); Albumin 2.5 g/dL (3.5-5.0); Albumin Globulin Ratio 0.5 (1.0-2.8); Alkaline Phosphatase 81 U/L (38-126); Aspartate Aminotransferase 53 IU/L (14-36); BUN Creatinine Ratio 13.3 (6-22); Bilirubin Total 1.7 mg/dL (0.2-1.3); Blood Urea Nitrogen 10 mg/dL (7-17); Calcium 7.6 mg/dL (8.4-10.2); Carbon Dioxide 22 mmol/L (22-32); Chloride 113 mmol/L (98-107); Estimated Glomerular Filt Rate > 60 mL/min (>60); Globulin 4.6 g/dL (1.7-4.1); Glucose 94 mg/dL (80-110); HEMOLYSIS < 15 (0-50); Lipase 342 U/L (23-300); Potassium 3.6 mmol/L (3.4-5.1); Sodium 140 mmol/L (137-145); Total Protein 7.1 g/dL (6.3-8.2)
[2022-10-22 07:47] LABS: Poikilocytosis 1+
[2022-10-22 07:48] LABS: Add Manual Diff / Slide Review NO; Anisocytosis 2+; Burr Cells 1+
[2022-10-22] MEDS: LOSARTAN 25 MG TABLET PO (08:08)
[2022-10-22] MEDS: PANTOPRAZOLE 40 MG VIAL 80 MG IV ×2 (09:55→21:03)
[2022-10-22] MEDS: ATORVASTATIN 20 MG TABLET 10 MG PO (21:03)
--- NOTE | 2022-10-22 23:07 | PC.NURSE ---
DEVELOPMENTAL THERAPIST note: Attempting to find placement for patient. Called the following places: [facility]: 2300- Cynthia- no space- boarding 20 patients. [facility]: 2300 Kaye- no beds no movement [facility]: 2300-Kaye- no beds. Still on waiting list. [facility]: 230 Panda- No beds. No wait list. [facility]: 2305 Bee- No beds. Currently at capacity. Wait list is at capacity. [facility]: left message.
[2022-10-23] VITALS (44 sets, daily range): BP systolic 117–145; BP diastolic 57–78; PULSE 58–83; RESP 16–18; O2SAT 96–100
[2022-10-23] MEDS: metroNIDAZOLE 500 MG/100 ML PIGGYBACK 100 MG IV ×3 (01:28→16:33)
[2022-10-23] MEDS: CEFEPIME 2 GM in SODIUM CHLORIDE 0.9% 100 ML IV ×2 (07:13→20:13)
[2022-10-23 08:03] LABS: Add Manual Diff / Slide Review YES; Hematocrit 27.4 % (36-46); Mean Corpuscular HGB Conc 32.6 % (30-36); Mean Corpuscular Hemoglobin 25.6 PG (26-34); Mean Corpuscular Volume 78.5 fL (80-100); Platelet Count 144 X10^3/uL (150-400); Red Blood Cell Count 3.49 X10^6/uL (4.0-5.2); Red Cell Distribution Width 25.3 % (11.6-14.8); White Blood Cell Count 5.8 X10^3/uL (4.5-11.0)
[2022-10-23 08:09] LABS: Alanine Aminotransferase 18 IU/L (<35); Albumin 2.1 g/dL (3.5-5.0); Albumin Globulin Ratio 0.5 (1.0-2.8); Alkaline Phosphatase 68 U/L (38-126); Aspartate Aminotransferase 42 IU/L (14-36); BUN Creatinine Ratio 14.5 (6-22); Bilirubin Total 1.4 mg/dL (0.2-1.3); Blood Urea Nitrogen 9 mg/dL (7-17); Carbon Dioxide 24 mmol/L (22-32); Chloride 115 mmol/L (98-107); Estimated Glomerular Filt Rate > 60 mL/min (>60); Globulin 3.9 g/dL (1.7-4.1); Glucose 91 mg/dL (80-110); HEMOLYSIS < 15 (0-50); Lipase 220 U/L (23-300); Potassium 3.6 mmol/L (3.4-5.1); Sodium 141 mmol/L (137-145)
[2022-10-23 08:17] LABS: Neutrophils Absolute Manual 2088 /uL (3000-5900); Poikilocytosis 1+; Total Cells Counted 100
[2022-10-23] MEDS: PANTOPRAZOLE 40 MG VIAL 80 MG IV ×2 (08:56→21:10)
[2022-10-23] MEDS: LOSARTAN 25 MG TABLET PO (08:56)
--- NOTE | 2022-10-23 09:57 | PC.NURSE ---
Addendum entered by Janee Hua CNA 10/23/22 17:06: CHUY at 1459 spoke to Karrie from [facility]. [facility] needed update labs and vitals. Update was given. [facility] will continue to help with search. Addendum entered by Janee Hua CNA 10/23/22 11:12: Call list continued [facility]- 1033, spoke to honing machine set up operator tool, stated potential transfers they have to page the superviosr, honing machine set up operator tool paged power transformer repair supervisor to call back. [facility]- 1107, spoke to house servant, no waitlist, boarding in their ED Original Note: LOAN SPECIALIST/CIRCULATION ASSISTANT Note: Placing phone calls for updates on for higher level of care transfer. Patient came in got GI bleed, Esophageal varices and needing ERCP. [facility]- 0937, spoke to Saba Rich boarding in ED, patient is still on waitlist [facility]- 0943, spoke in [place], boarding in the ED, was told to call back in 4 to 6 hours [facility]- 0947, spoke to Ju[facility], no updates, still on waitlist [facility]- 0954, spoke to transfer station, no rooms, unable to add patient to waitlist [facility]- 0955, spoke to transfer station, no rooms, unable to add patient to waitlist
[2022-10-23] MEDS: OCTREOTIDE 500 MCG in SODIUM CHLORIDE 0.9% 100 ML 10.1 MCG IV (15:54)
[2022-10-23] MEDS: ATORVASTATIN 20 MG TABLET 10 MG PO (21:10)
[2022-10-24] VITALS (30 sets, daily range): BP systolic 119–160; BP diastolic 59–80; PULSE 57–80; RESP 16–34; TEMP 36.6–37.4; O2SAT 91–100
[2022-10-24] MEDS: metroNIDAZOLE 500 MG/100 ML PIGGYBACK 100 MG IV (00:13)
[2022-10-24] MEDS: OCTREOTIDE 500 MCG in SODIUM CHLORIDE 0.9% 100 ML 10.1 MCG IV (00:58)
[2022-10-24] MEDS: CEFEPIME 2 GM in SODIUM CHLORIDE 0.9% 100 ML IV (05:31)
[2022-10-24 07:18] LABS: Add Manual Diff / Slide Review NO; Basophils Absolute Auto 100 /uL (0-100); Basophils Percent Auto 1.9 % (0-2); Eosinophils Absolute Auto 1500 /uL (0-450); Eosinophils Percent Auto 23.6 % (2-4); Hematocrit 28.4 % (36-46); Hemoglobin 9.1 g/dL (12.0-16.0); Lymphocytes Absolute Auto 2000 /uL (1100-4500); Lymphocytes Percent Auto 32.6 % (25-40); Mean Corpuscular HGB Conc 32.2 % (30-36); Mean Corpuscular Hemoglobin 25.2 PG (26-34); Mean Corpuscular Volume 78.3 fL (80-100); Monocytes Absolute Auto 1200 /uL (0-900); Neutrophils Absolute Auto 1400 /uL (1500-7000); Neutrophils Percent Auto 22.9 % (50-75); Platelet Count 148 X10^3/uL (150-400); Red Blood Cell Count 3.63 X10^6/uL (4.0-5.2); Red Cell Distribution Width 26.1 % (11.6-14.8); White Blood Cell Count 6.2 X10^3/uL (4.5-11.0)
[2022-10-24 07:28] LABS: Alanine Aminotransferase 17 IU/L (<35); Albumin 2.1 g/dL (3.5-5.0); Albumin Globulin Ratio 0.5 (1.0-2.8); Alkaline Phosphatase 68 U/L (38-126); Aspartate Aminotransferase 41 IU/L (14-36); BUN Creatinine Ratio 12.7 (6-22); Bilirubin Total 1.4 mg/dL (0.2-1.3); Blood Urea Nitrogen 8 mg/dL (7-17); Calcium 7.1 mg/dL (8.4-10.2); Carbon Dioxide 23 mmol/L (22-32); Chloride 113 mmol/L (98-107); Estimated Glomerular Filt Rate > 60 mL/min (>60); Globulin 4.1 g/dL (1.7-4.1); Glucose 85 mg/dL (80-110); HEMOLYSIS < 15 (0-50); Lipase 213 U/L (23-300); Potassium 3.5 mmol/L (3.4-5.1); Sodium 140 mmol/L (137-145); Total Protein 6.2 g/dL (6.3-8.2)
[2022-10-24 07:40] LABS: Hypochromasia 1+; Microcytosis 1+; Schistocytes 1+
[2022-10-24 07:41] LABS: Target Cells 1+
[2022-10-24] MEDS: LOSARTAN 25 MG TABLET PO (09:58)
[2022-10-24] MEDS: PANTOPRAZOLE DR 20 MG TABLET 40 MG PO ×2 (09:58→21:02)
--- NOTE | 2022-10-24 12:35 | DI.US.S_ITS ---
PROCEDURE: US PERIPH VENOUS LOW EXTREM BI INDICATIONS: SWELLING TECHNIQUE: Real-time imaging, as well as color and pulse Doppler interrogation, were performed of the deep veins of both legs from the inguinal ligament to the popliteal fossa. COMPARISON: None. FINDINGS: Right: The common femoral, femoral and popliteal veins are normally compressible, and free of intraluminal thrombus. Color and pulse Doppler demonstrate normal phasic intravascular flow. There is normal augmentation response to distal compression maneuver. Left: The common femoral, femoral and popliteal veins are normally compressible, and free of intraluminal thrombus. Color and pulse Doppler demonstrate normal phasic intravascular flow. There is normal augmentation response to distal compression maneuver. IMPRESSION: No evidence of deep venous thrombosis. Bilateral subcutaneous edema. No abscess. Approved by: Eusebio Che M.D. on 10/24/2022 at 13:09
[2022-10-24 13:54] LABS: PTT Partial Thromboplastin Tim 40 SECONDS (26-36)
--- NOTE | 2022-10-24 18:03 | PC.NURSE ---
Pt reports difficulty breathing and I feel like my airway is swelling. Pt respirations are within normal limits. Oxygen saturation is 99% on RA. Lung sounds throughout bilateral posterior solis are clear. Pt able to swallow secretions and is speaking in full sentences. Pt reports she did get up and walk around the room but was a little unsteady. Provider aware and at bedside.
--- NOTE | 2022-10-24 18:06 | DI.CT.S_ITS ---
PROCEDURE: CT ANGIO CHEST PE PROTOCOL INDICATIONS: Shortness of breath TECHNIQUE: After the administration of intravenous contrast, 2 mm thick sections acquired from the pulmonary apices to the posterior costophrenic angles. 3-dimensional maximum intensity projection (MIP) coronal and sagittal reformats were then acquired through the thorax. For radiation dose reduction, the following was used: automated exposure control, adjustment of mA and/or kV according to patient size. COMPARISON: [facility], CR, XR CHEST 1 VIEW, 10/02/2022, 19:25. [facility], CT, CT ABDOMEN PELVIS W CON, 10/19/2022, 23:10. FINDINGS: Image quality: Adequate. Pulmonary arteries: Pulmonary arteries are normal in size, and demonstrate no intraluminal filling defects to suggest central pulmonary embolism. Lungs and pleura: Moderate bilateral pleural effusions, right slightly larger than left. Bilateral interlobular septal thickening. Mediastinum: No pericardial effusion. Thoracic aorta is normal in caliber and enhancement. Esophagus is normal in caliber Bones and chest wall: Multilevel degenerative change of the visualized spine. No axillary or supraclavicular adenopathy. Abdomen: Small amount of upper abdominal free fluid. IMPRESSION: 1. No pulmonary embolism demonstrated. 2. Moderate bilateral pleural effusions. Findings compatible with interstitial pulmonary edema. Dictated by: Cas Fuller M.D. on 10/24/2022 at 18:54 Approved by: Cas Fuller M.D. on 10/24/2022 at 19:05
[2022-10-24 18:55] LABS: Creatine Kinase 66 U/L (30-135)
[2022-10-24 19:08] LABS: NT-proBNP (BNP-Adult 18+) 320 pg/mL (<125); Troponin I < 0.012 ng/mL (0.01-0.034)
[2022-10-24] MEDS: PHYTONADIONE (VIT K1) 10 MG in SODIUM CHLORIDE 0.9% 100 ML 202 MG IV (19:52)
[2022-10-24] MEDS: FUROSEMIDE 40 MG/4 ML VIAL IV (19:53)
[2022-10-24] MEDS: ATORVASTATIN 20 MG TABLET 10 MG PO (21:04)
--- NOTE | 2022-10-24 21:12 | PC.NURSE ---
2105: Pt reporting bilateral upper leg pain/tightness. Pt is moving back and forth in pain. Pt also stating she is very cold and nauseated. Pt temp is within normal limits. Provider aware.
--- NOTE | 2022-10-24 22:45 | PC.NURSE ---
Assisted pt to bathroom. Noticeable decrease in swelling of both pt's feet. Pt reports improvement of pain in legs.
[2022-10-25] VITALS (24 sets, daily range): BP systolic 120–127; BP diastolic 57–64; PULSE 58–79; RESP 12–23; TEMP 36.8; O2SAT 94–99
[2022-10-25 06:23] LABS: Hematocrit 26.9 % (36-46); Hemoglobin 8.7 g/dL (12.0-16.0)
[2022-10-25 06:29] LABS: Alanine Aminotransferase 16 IU/L (<35); Albumin 1.9 g/dL (3.5-5.0); Albumin Globulin Ratio 0.5 (1.0-2.8); Alkaline Phosphatase 62 U/L (38-126); Aspartate Aminotransferase 38 IU/L (14-36); BUN Creatinine Ratio 12.1 (6-22); Bilirubin Total 1.3 mg/dL (0.2-1.3); Blood Urea Nitrogen 8 mg/dL (7-17); Calcium 6.8 mg/dL (8.4-10.2); Carbon Dioxide 26 mmol/L (22-32); Chloride 109 mmol/L (98-107); Estimated Glomerular Filt Rate > 60 mL/min (>60); Globulin 3.8 g/dL (1.7-4.1); Glucose 94 mg/dL (80-110); HEMOLYSIS < 15 (0-50); Potassium 3.4 mmol/L (3.4-5.1); Sodium 138 mmol/L (137-145); Total Protein 5.7 g/dL (6.3-8.2)
[2022-10-25] MEDS: PANTOPRAZOLE DR 20 MG TABLET 40 MG PO (09:27)
[2022-10-25] MEDS: LOSARTAN 25 MG TABLET PO (09:27)
[2022-10-25 10:56] LABS: Hematocrit 29.2 % (36-46); Hemoglobin 9.5 g/dL (12.0-16.0)
== END 2022-10-25 12:54 | disposition home or self-care (01) ==
PROVIDERS: Emergency Medicine; Emergency Provider Emergency Medicine
DX: K80.51 Calculus of bile duct without cholangitis or cholecystitis with obstruction (principal); I85.00 Esophageal varices without bleeding; I86.8 Varicose veins of other specified sites; K76.6 Portal hypertension; K92.2 Gastrointestinal hemorrhage, unspecified; R42 Dizziness and giddiness; R55 Syncope and collapse; Z79.899 Other long term (current) drug therapy; Z20.822 Contact with and (suspected) exposure to COVID-19
CPT/HCPCS: 36415; 36430; 71275; 74177; 74183; 80053; 81003; 82140; 82550; 83690; 83880; 84484; 85007; 85014; 85018; 85025; 85610; 85730; 86850; 86900; 86901; 87040; 87635; 93005; 93010; 93970; 96365; 96366; 96367; 96368; 96375; 96376; 99285; 99291; 99292; C9803; P9016; C9113; J0610; J0692; J1940; J2354; J2405; J3430; Q9967

== ENCOUNTER → 2024-03-28 09:15 | Outpatient (CLI) | payer MEDICARE, OTHER, SELFPAY ==
--- NOTE | 2024-03-28 | DI.ECHO.S_ITS ---
[facility] [facility]+ [facility] : : [address] : [address] [address] : : [id number] : : Phone: [phone] Echocardiogram Report + + :Name: DONTA ARANA Study Date: 03/28/2024 Height: 64 in : :[facility] ReadingLocation: Weight: 155 lb : : Gender: Female BSA: 1.8 m2 : :: 1960 Age: 64 yrs BP: 126/84 mmHg: :Reason For Study: DYSPNEA : :Ordering Physician: CHRISTOFER, : :JANE Performed By: Yin Wood : :Referring: JANE SERRANO : + + Interpretation Summary 1) Normal left ventricular thickness, size, wall motion, and systolic function (EF 60-65%). 2) Upper normal right ventricular size with low normal function. 3) Diastolic parameters suggest a pseudonormalization pattern, consistent with probable elevated filling pressures. 4) No significant valvular abnormalities. 5) The right ventricular systolic pressure is estimated to be at least 33 mmHg based on an estimated right atrial pressure of 3 mm Hg. 6) Compared to the Echo done 03/16/2023, no significant change. Procedure: A two-dimensional transthoracic echocardiogram with color flow and Doppler was performed. The study quality was technically adequate. Comparison is made with the echocardiogram of 03/16/2023. The patient was in sinus rhythm with heart rates between 79-84 bpm during the exam. Left Ventricle: The left ventricle is normal in size and wall thickness. The ejection fraction is estimated to be 60-65%. Left ventricular systolic function appears normal without focal wall motion abnormalities. Diastolic parameters suggest a pseudonormalization pattern, consistent with probable elevated filling pressures. Right Ventricle: The right ventricle is at the upper limits of normal in size. Right ventricular systolic function is at the lower limits of normal. Atria: The left atrium is moderately dilated. The right atrium is moderately dilated. There is no Doppler evidence for an interatrial shunt. Mitral Valve: There is mild mitral annular calcification. The mitral valve leaflets appear mildly thickened, but open well. The mitral valve mean gradient is 5.1 mmHg. There is trace mitral regurgitation. Aortic Valve: The aortic valve opens well. The aortic valve is grossly normal. There is no aortic valve stenosis. The peak aortic velocity is 2.04 m/sec. The aortic valve mean gradient is 8 mmHg. The calculated aortic valve area is 1.8 cm2. No aortic regurgitation is present. Tricuspid Valve: The tricuspid valve is normal in structure and function. There is mild tricuspid regurgitation. The right ventricular systolic pressure is estimated to be at least 33 mmHg based on an estimated right atrial pressure of 3 mm Hg. Pulmonic Valve: The pulmonic valve leaflets are thin and pliable; valve motion is normal. There is trace pulmonic regurgitation. Great Vessels: The aortic root is normal size. The dimensions of the ascending aorta are normal. The IVC is of normal diameter and collapses greater than 50% with a sniff. This suggests a low right atrial pressure of 3 mm Hg. Pericardium/ Pleura There is no pericardial effusion. There is no pleural effusion. MMode/2D Measurements & Calculations LVIDd: 5.0 cm LVOT diam: 2.0 cm LVIDs: 3.3 cm Ao root diam: 2.6 cm FS: 34.0 % asc Aorta Diam: 3.6 cm EPSS: 1.5 cm Ao Arch Diam (Prox Trans): 2.6 cm IVSd: 0.95 cm LVPWd: 0.81 cm LV garrido. diameter/BSA (cm/m^2): 2.8 LV sys. diameter/BSA (cm/m^2): 1.9 LA A2 area: 19.4 cm2 RA long axis: 5.8 cm LA A4 area: 24.1 cm2 RA area: 22.4 cm2 LA length (vol): 6.1 cm RA vol: 73.5 ml LA vol: 65.6 ml RA : 41.9 ml/m2 LA vol index: 37.4 ml/m2 IVC diam: 1.5 cm RVD1 (basal): 4.0 cm RVD2 (mid): 3.5 cm TAPSE: 2.1 cm Doppler Measurements & Calculations Ao V2 max: 204.0 cm/sec LVOT Max Darrick: 121.7 cm/sec Ao V2 mean: 133.1 cm/sec LV V1 max P.0 mmHg Ao max P.8 mmHg LV V1 VTI: 28.4 cm Ao mean P.2 mmHg JOSE(I,D): 2.0 cm2 Ao V2 VTI: 41.6 cm JOSE(V,D): 1.8 cm2 sev ratio: 0.68 JOSE indexed to BSA (cm^2/m^2): 1.2 MV E max darrick: 161.2 cm/sec PA V2 max: 145.4 cm/sec MV A max darrick: 104.3 cm/sec PA V2 mean: 100.9 cm/sec MV E/A: 1.5 PA mean P.6 mmHg Med Peak E' Darrick: 6.6 cm/sec E/E' med: 24.2 Lat Peak E' Darrick: 7.2 cm/sec E/E' lat: 22.4 E/e' average: 23.3 MV dec time: 0.22 sec MVA(VTI): 2.0 cm2 MV V2 mean: 101.8 cm/sec SV(LVOT): 85.2 ml MV mean P.1 mmHg MV V2 VTI: 42.2 cm Reading Physician:02:13 PM
== END ==
PROVIDERS: Referring Provider Internal Medicine Cardiovascular Disease; Visit Provider Internal Medicine Cardiovascular Disease
DX: I08.1 Rheumatic disorders of both mitral and tricuspid valves (principal); I48.0 Paroxysmal atrial fibrillation; R06.09 Other forms of dyspnea
CPT/HCPCS: 93306

== ENCOUNTER → 2024-03-28 09:58 | Outpatient (CLI) | payer MEDICARE, OTHER, SELFPAY | PROVIDERS: PCP Physician Assistant; Referring Provider Physician Assistant; Visit Provider Physician Assistant | DX: R06.02 Shortness of breath (principal); I08.1 Rheumatic disorders of both mitral and tricuspid valves; I48.0 Paroxysmal atrial fibrillation; R06.09 Other forms of dyspnea | CPT/HCPCS: 93306; 94060; 94729 ==

== ENCOUNTER 2024-05-31 09:50 | Observation (INO) | payer MEDICARE, OTHER, SELFPAY ==
[2024-05-31] VITALS (32 sets, daily range): BP systolic 134–160; BP diastolic 62–72; PULSE 96–102; RESP 14–24; TEMP 35.6–37.5; O2SAT 94–100; BMI 35.4
--- NOTE | 2024-05-31 09:55 | DI.RAD.S_ITS ---
PROCEDURE: XR CHEST 1V INDICATIONS: suspected sepsis TECHNIQUE: One view of the chest was acquired. COMPARISON: None. FINDINGS: Surgical changes and devices: None. Lungs and pleura: Pulmonary edema. No pleural effusions or pneumothorax. Mediastinum: Mediastinal contours appear normal. Cardiomegaly. Bones and chest wall: No suspicious bony lesions. Overlying soft tissues appear unremarkable. IMPRESSION: Pulmonary edema. Cardiomegaly. Dictated by: Davi Chung M.D. on 05/31/2024 at 11:12 Approved by: Davi Chung M.D. on 05/31/2024 at 11:20
--- NOTE | 2024-05-31 09:55 | EKG_ITS ---
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
--- NOTE | 2024-05-31 09:56 | DI.CT.S_ITS ---
PROCEDURE: CT HEAD/BRAIN WO CON INDICATIONS: change in mental status TECHNIQUE: Noncontrast 4.5 mm thick angled axial sections acquired from the foramen magnum to the vertex, with coronal and sagittal reformats. For radiation dose reduction, the following was used: automated exposure control, adjustment of mA and/or kV according to patient size. COMPARISON: None. FINDINGS: Image quality: Diagnostic. CSF spaces: Basal cisterns are patent. No extra-axial fluid collections. The ventricles are symmetric in size and shape. Brain: Incidental calcified right frontal meningioma measuring 1.2 cm without vasogenic edema. No suspicious masses. No hemorrhage. There is cerebral volume loss for age, with resultant ventricular and sulcal prominence. There are periventricular and deep white matter chronic small vessel ischemic changes. There is intracranial internal carotid artery atherosclerosis. Skull and face: Calvarium and visualized facial bones appear intact, without suspicious lesions. Sinuses: Large air-fluid level, left maxillary sinus. Other paranasal sinuses and mastoids are clear. IMPRESSION: 1. No acute intracranial pathology. 2. Acute left maxillary sinusitis. 3. Incidental meningioma. 4. Small vessel ischemic change. Dictated by: Davi Chung M.D. on 05/31/2024 at 11:45 Approved by: Davi Chung M.D. on 05/31/2024 at 11:46
--- NOTE | 2024-05-31 09:56 | DI.CT.S_ITS ---
PROCEDURE: CT ANGIO HEAD AND NECK INDICATIONS: change in mental status TECHNIQUE: After the administration of intravenous contrast, 1 mm thick sections acquired from the aortic arch through the [place] of [place]. 3-dimensional azxvlif-zuhlonggm-onvfpfakgb (MIP) and/or volume rendering reformats were acquired of the central intracranial vasculature and neck separately. For radiation dose reduction, the following was used: automated exposure control, adjustment of mA and/or kV according to patient size. COMPARISON: [facility], CT, CT HEAD/BRAIN WO CON, 05/31/2024, 10:11. FINDINGS: Image quality: Diagnostic. BRAIN: CSF spaces: Ventricles are normal in size and shape. Basal cisterns are patent. No extra-axial fluid collections. Brain: Calcified incidental right frontal meningioma, measuring 1.2 cm without vasogenic edema. No significant abnormality of the brain can be seen. Skull and face: Calvarium and facial bones appear intact, without suspicious lesions. Orbits appear normal. Sinuses: Large left maxillary sinus air-fluid level. HEAD CT ANGIOGRAPHY: Anterior circulation: Intracranial internal carotid arteries are normal in size and flow. The flow within the paired anterior cerebral arteries is normal and symmetric. The flow within the middle cerebral arteries is normal and symmetric. The anterior communicating artery is seen. No aneurysms are seen. Posterior circulation: Visualized portions of the vertebral arteries demonstrate normal caliber, and join to form a normal appearing basilar artery. Flow within the posterior cerebral arteries is normal and symmetric. No aneurysms are seen. NECK CT ANGIOGRAPHY: Carotid system: The great vessels demonstrate a conventional anatomy as they arise from the aortic arch. The origins of the common carotid arteries appear patent. The common carotid arteries demonstrate normal caliber and courses. The bifurcation regions are both widely patent. The internal carotid arteries demonstrate normal caliber is. The high left cervical internal carotid is deviated anterior to the vertebral bodies of C3 and the inferior aspect of C2 as well. Posterior circulation: The origins of the vertebral arteries both appear widely patent. The more superior extracranial portions of both vertebral arteries also demonstrate normal courses and calibers. They join to form a normal appearing basilar artery. Soft tissues: Visualized neck soft tissues demonstrate no suspicious abnormalities. Bones: No suspicious bony lesions. Visualized cervical spine appears normally aligned. IMPRESSION: No significant intracranial arterial abnormality is seen. No significant abnormality is seen within the arteries of the neck. Incidental meningioma. Left internal carotid artery is medially deviated anterior to the C3 vertebral body and the inferior aspect of C2 near midline. Any quantitative measurements of stenosis were performed using NASCET criteria. Dictated by: Davi Chung M.D. on 05/31/2024 at 11:38 Approved by: Davi Chung M.D. on 05/31/2024 at 11:42
--- NOTE | 2024-05-31 09:58 | ED.AMS ---
HPI - Altered Mental Status General Chief Complaint: Altered Mental Status Stated Complaint: Dizzy and passing out . Time Seen by Provider: 05/31/24 09:58 History of Present Illness HPI narrative: Patient brought in by her niece. Here for altered mental status confusion. Patient is following instructions and commands. But has slow speech and slow processing. Has slurred speech. The niece states that she was over at patient's house yesterday to visit. Yesterday morning she was sitting on the stairs and staring out and appeared to be confused. According to the niece no known fall or injury. No complaints of pain yesterday. However patient has had nausea and vomiting. Patient denies any problems urinating. Patient does answers to some short questions/answers. Moving all 4 extremities. No facial droop. No unilateral weakness or numbness. No prior history of stroke. At this time patient denies any pain. She is only alert to self and name. Today, niece found her in the bathroom. Needed to have a bowel movement. Niece states patient has never had this type of episode before. Blood sugar 117 Related Data Home Medications Medication Instructions Recorded Confirmed aspirin 81 mg tablet,delayed 81 mg PO DAILY PRN Pain (Scale 07/25/18 05/31/24 release Score 1-3) atorvastatin 10 mg tablet 10 mg PO DAILY 07/25/18 05/31/24 losartan 25 mg tablet 25 mg PO BID 10/20/22 06/01/24 potassium chloride 20 mEq 20 meq PO BID 10/23/22 05/31/24 tablet,extended release(part/cryst) diltiazem HCl 120 mg capsule,24 120 mg PO DAILY 05/31/24 05/31/24 hr,extended release hydroxychloroquine 200 mg tablet 200 mg PO BID 05/31/24 05/31/24 (Plaquenil) pantoprazole 40 mg tablet,delayed 40 mg PO BID 06/01/24 06/01/24 release Previous Rx's Medication Instructions Recorded furosemide 20 mg tablet 10 mg (1/2 x 20 mg) PO DAILY #30 06/01/24 tabs lactulose 20 gram/30 mL oral 20 g (30 mL) PO BID 30 days #1,800 06/01/24 solution mL spironolactone 25 mg tablet 12.5 mg (1/2 x 25 mg) PO DAILY #30 06/01/24 tabs Allergies Allergy/AdvReac Type Severity Reaction Status Date / Time atenolol [ATENOLOL] Allergy Unknown RASH Verified 05/31/24 10:01 lisinopril AdvReac Verified 05/31/24 10:01 Review of Systems Review of Systems Narrative: GENERAL: negative chills, fatigue, malaise, fever, sweats. HEENT: negative sinus pain, ear pain, sore throat RESPIRATORY: negative dyspnea, cough CARDIOVASCULAR: negative chest pain, palpitations GASTROINTESTINAL: Positive nausea, vomiting, negative abdominal pain : negative dysuria, frequency, hematuria MUSCULOSKELETAL: negative muscle or bony pain SKIN: negative rash, skin lesions NEUROLOGIC: negative weakness, numbness PSYCH: Positive confusion Patient History Medical History Diastolic heart failure Cirrhosis Metabolic dysfunction-associated steatohepatitis (MASH) Social History household members: spouse and caregiver Smoking Status: Never smoker alcohol intake: never Smoking Status: Unknown if ever smoked alcohol intake frequency: holidays/special occasions only Substance Use Type: does not use Exam Narrative Exam Narrative: GENERAL: in no distress, not toxic not dyspneic HEAD: Normocephalic. EYES: Pupils equal round no pinpoint pupils ENT: Mucous membranes moist. NECK: Trachea midline. CARDIOVASCULAR: Regular rate and rhythm RESPIRATORY: Clear to auscultation. Breath sounds equal bilaterally. No wheezes, rales, or rhonchi. GASTROINTESTINAL: Abdomen soft, non-tender EXTREMITIES: No gross deformities. BACK: No flank tenderness. NEURO: Patient awake alert oriented self only. Moving all 4 extremities. Slow soft voice/speech. But no facial droop. Light touch intact to bilateral face hands and feet. 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 Able to lift each leg off the bed without drift. SKIN: Warm and dry PSYCH: Not anxious, is cooperative Initial Vital Signs Initial Vital Signs: Vital Signs Pulse Rate 101 H 05/31/24 09:55 Pulse Oximetry 98 05/31/24 09:55 Course Orders Ordered: Discontinued Medications Acetaminophen (Acetaminophen 325 Mg Tablet) 650 mg PO Q6H PRN PRN Reason: Fever/Mild Pain (1-3) Atorvastatin Calcium (Atorvastatin 20 Mg Tablet) 10 mg PO DAILY [facility] Atorvastatin Calcium (Atorvastatin 20 Mg Tablet) 10 mg PO BEDTIME [facility] Last Admin: 05/31/24 21:26 Dose: 10 mg Documented By: TREY Diltiazem HCl (Diltiazem Cd 120 Mg Cap) 120 mg PO DAILY [facility] Last Admin: 06/01/24 09:10 Dose: 120 mg Documented By: RENETTA Enoxaparin Sodium (Enoxaparin 40 Mg/0.4 Ml Syringe) 40 mg SUBCUT DAILY [facility] Last Admin: 06/01/24 09:10 Dose: 40 mg Documented By: RENETTA Hydroxychloroquine Sulfate (Hydroxychloroquine 200 Mg Tablet) 200 mg PO BID [facility] Last Admin: 06/01/24 09:17 Dose: Not Given Documented By: Admin: 05/31/24 21:26 Dose: 200 mg Documented By: TREY Sodium Chloride (Normal Saline 0.9%) 1,000 mls @ 1,000 mls/hr IV BOLUS ONE Stop: 05/31/24 10:54 Last Infusion: 05/31/24 15:26 Dose: Infused Documented By: Infusion: 05/31/24 14:32 Dose: 1,000 mls/hr Documented By: Infusion: 05/31/24 11:08 Dose: 0 mls/hr Documented By: Admin: 05/31/24 10:05 Dose: 1,000 mls/hr Documented By: NIKOLE Lactulose (Lactulose 20 Gm/30 Ml Solution) 20 gm PO NOW ONE Stop: 05/31/24 14:16 Last Admin: 05/31/24 15:02 Dose: 20 gm Documented By: ZACHARY Lactulose (Lactulose 20 Gm/30 Ml Solution) 20 gm PO BID [facility] Last Admin: 06/01/24 09:10 Dose: 20 gm Documented By: Admin: 05/31/24 21:27 Dose: 20 gm Documented By: TREY Naloxone HCl (Naloxone 0.4 Mg/Ml Vial) 0.2 mg IV Q2MIN PRN PRN Reason: Opiate Reversal Ondansetron HCl (Ondansetron 4 Mg/2 Ml Inj) 4 mg IV NOW PRN PRN Reason: Nausea And Vomiting Ondansetron HCl (Ondansetron 4 Mg Odt) 4 mg SL NOW PRN PRN Reason: Nausea And Vomiting Ondansetron HCl (Ondansetron 4 Mg/2 Ml Inj) 4 mg IV Q8HR PRN PRN Reason: Nausea And Vomiting Vital Signs Vital signs: Vital Signs - 8 hr 05/31/24 09:55 05/31/24 09:58 05/31/24 10:00 Temperature 97.7 F Pulse Rate 101 H 102 H 98 H Respiratory Rate 24 16 Blood Pressure 160/71 H Pulse Oximetry 98 99 100 Oxygen Delivery Method Room Air 05/31/24 10:00 05/31/24 10:15 05/31/24 10:40 Temperature 96.1 F L Pulse Rate 97 H 97 H Respiratory Rate 16 Blood Pressure 145/63 H Pulse Oximetry 94 98 Oxygen Delivery Method Room Air 05/31/24 10:41 05/31/24 10:41 05/31/24 10:45 Temperature 96.1 F L 96.1 F L Pulse Rate 97 H 96 H Respiratory Rate 14 17 Blood Pressure 150/70 H Pulse Oximetry 100 100 Oxygen Delivery Method 05/31/24 11:00 05/31/24 11:00 05/31/24 11:15 Temperature 96.1 F L 96.3 F L Pulse Rate 96 H 96 H Respiratory Rate 18 16 Blood Pressure 143/70 H Pulse Oximetry 100 100 Oxygen Delivery Method Room Air 05/31/24 11:30 05/31/24 11:30 05/31/24 11:45 Temperature 96.4 F L 96.6 F L Pulse Rate 96 H 97 H Respiratory Rate 18 18 Blood Pressure 142/68 H Pulse Oximetry 100 100 Oxygen Delivery Method 05/31/24 12:00 05/31/24 12:00 05/31/24 12:15 Temperature 97.0 F L Pulse Rate 97 H 98 H Respiratory Rate 19 17 Blood Pressure 148/69 H Pulse Oximetry 100 100 Oxygen Delivery Method 05/31/24 12:30 05/31/24 12:30 05/31/24 12:45 Temperature 97.2 F L 97.3 F L Pulse Rate 97 H 96 H Respiratory Rate 18 19 Blood Pressure 142/67 H Pulse Oximetry 99 99 Oxygen Delivery Method 05/31/24 13:00 05/31/24 13:00 05/31/24 13:15 Temperature 97.5 F L 97.7 F Pulse Rate 96 H 97 H Respiratory Rate 18 18 Blood Pressure 135/68 Pulse Oximetry 99 99 Oxygen Delivery Method Room Air 05/31/24 13:30 05/31/24 13:30 05/31/24 13:45 Temperature 97.9 F 97.9 F Pulse Rate 96 H 97 H Respiratory Rate 18 17 Blood Pressure 134/63 Pulse Oximetry 98 98 Oxygen Delivery Method 05/31/24 14:00 05/31/24 14:00 05/31/24 14:15 Temperature 98.1 F 98.2 F Pulse Rate 97 H 99 H Respiratory Rate 19 19 Blood Pressure 141/68 H Pulse Oximetry 98 98 Oxygen Delivery Method 05/31/24 14:26 05/31/24 14:26 05/31/24 14:30 Temperature Pulse Rate 101 H 100 H Respiratory Rate 14 17 Blood Pressure 143/72 H Pulse Oximetry 97 97 Oxygen Delivery Method 05/31/24 14:30 05/31/24 14:45 05/31/24 15:00 Temperature Pulse Rate 98 H 100 H Respiratory Rate 16 19 Blood Pressure 135/68 Pulse Oximetry 98 98 Oxygen Delivery Method MDM - Altered Mental Status Lab Data 05/31/24 09:59 05/31/24 14:41 Labs: Lab Results 05/31/24 05/31/24 05/31/24 Range/Units 09:59 09:59 10:15 WBC 6.7 (4.5-11.0) X10^3/uL RBC 3.84 L (4.0-5.2) X10^6/uL Hgb 11.2 L (12.0-16.0) g/dL Hct 33.3 L (36-46) % MCV 86.8 (80-100) fL MCH 29.2 (26-34) PG MCHC 33.6 (30-36) % RDW 14.9 H (11.6-14.8) % Plt Count 144 L (150-400) X10^3/uL Neut % (Auto) Not Reportable Lymph % (Auto) Not Reportable [place] % (Auto) Not Reportable Eos % (Auto) Not Reportable Baso % (Auto) Not Reportable Lymph # (Auto) Not Reportable [place] # (Auto) Not Reportable Baso # (Auto) Not Reportable Total Counted 100 Seg Neutrophils % 50.0 (38-70) % Lymphocytes % (Manual) 31.0 (25-45) % Monocytes % (Manual) 11.0 (2-11) % Eosinophils % (Manual) 8.0 H (2-4) % Neutrophils # (Manual) 3350 (8451-5751) /uL RBC Morphology See below Anisocytosis 1+ H PT 13.5 H (9.4-12.5) SECONDS INR 1.2 (0.9-1.3) APTT 39 H (25.1-36.5) SECONDS Sodium 142 (137-145) mmol/L Potassium 4.3 (3.4-5.1) mmol/L Chloride 114 H (98-107) mmol/L Carbon Dioxide 21 L (22-32) mmol/L BUN 18 H (7-17) mg/dL Creatinine 1.22 H (0.52-1.04) mg/dL Estimated GFR 49 L (>60) mL/min BUN/Creatinine Ratio 14.8 (6-22) Glucose 124 H (80-110) mg/dL Lactate 1.5 (0.7-2.1) mmol/L Calcium 9.0 (8.4-10.2) mg/dL Total Bilirubin 1.9 H (0.2-1.3) mg/dL AST 65 H (14-36) IU/L ALT 34 (<35) IU/L Alkaline Phosphatase 116 (38-126) U/L Ammonia (9-30) umol/L Total Creatine Kinase 309 H (30-135) U/L Troponin I < 0.012 (0.01-0.034) ng/mL NT-Pro-B Natriuret Pep 382 H Cancelled (<125) pg/mL Total Protein 7.9 (6.3-8.2) g/dL Albumin 3.5 (3.5-5.0) g/dL Globulin 4.4 H (1.7-4.1) g/dL Albumin/Globulin Ratio 0.8 L (1.0-2.8) Lipase 418 H (23-300) U/L Procalcitonin 0.122 (<0.5) ng/mL Urine Color Yellow Urine Appearance Clear Urine pH 6.0 (4.5-8.0) Ur Specific [place] 1.015 (1.000-1.035) Urine Protein 1+ H (Negative) Urine Glucose (UA) Negative (Negative) g/dL Urine Ketones 1+ H (NEGATIVE) Urine Occult Blood Negative (Negative) Urine Nitrate Negative (Negative) Urine Bilirubin Negative (NEGATIVE) Urine Urobilinogen 1.0 (0.2) E.U./dL Ur Leukocyte Esterase Negative (NEGATIVE) Urine RBC None seen (0-5/HPF) Urine WBC None seen (0-5/HPF) Ur Squamous Epith Cells None seen (0-5/HPF) Urine Bacteria None seen (None) Ur Culture Indicated? Cult not indicated Vol Urine Centrifuged 10ml (spun) U Opiates 300ng/mL cut Negative (Negative) Ur Oxycodone Screen Negative (Negative) Urine Methadone Screen Negative (Negative) Ur Barbiturates Screen Negative (Negative) U Tricyclic Antidepress Negative (Negative) Ur Phencyclidine Scrn Negative (Negative) Ur Amphetamines Screen Negative (Negative) U Methamphetamines Scrn Negative (Negative) Ur MDMA Scrn (Ecstasy) Negative (Negative) U Benzodiazepines Scrn Negative (Negative) Urine Cocaine Screen Negative (Negative) U Marijuana (THC) Screen Negative (Negative) Urine Specific [place] (Normal) Ethyl Alcohol < 10 ( - 10) mg/dL Ur Creatinine (Normal) Chlamy pneumoniae PCR Not detected (Not Detect) Adenovirus (PCR) Not detected (Not Detect) B.parapertussis DNA PCR Not detected (Not Detecte) Coronavirus OC43 (PCR) Not detected (Not Detect) Coronavirus HKU1 (PCR) Not detected (Not Detect) Coronavirus 229E (PCR) Not detected (Not Detect) SARS-CoV-2 (PCR) Not detected (Not Detecte) Coronavirus NL63 (PCR) Not detected (Not Detect) Human Metapneumovir PCR Not detected (Not Detect) Influenza Type A (PCR) Not detected (Not Detect) Influenza Type B (PCR) Not detected (Not Detect) M. pneumoniae (PCR) Not detected (Not Detect) Parainfluenza 1 (PCR) Not detected (Not Detect) Parainfluenza 2 (PCR) Not detected (Not Detect) Parainfluenza 3 (PCR) Not detected (Not Detect) Parainfluenza 4 (PCR) Not detected (Not Detect) RSV (PCR) Not detected (Not Detect) Entero/Rhino (PCR) Not detected (Not Detect) 05/31/24 05/31/24 05/31/24 Range/Units 10:15 12:12 14:41 WBC (4.5-11.0) X10^3/uL RBC (4.0-5.2) X10^6/uL Hgb (12.0-16.0) g/dL Hct (36-46) % MCV (80-100) fL MCH (26-34) PG MCHC (30-36) % RDW (11.6-14.8) % Plt Count (150-400) X10^3/uL Neut % (Auto) Lymph % (Auto) [place] % (Auto) Eos % (Auto) Baso % (Auto) Lymph # (Auto) [place] # (Auto) Baso # (Auto) Total Counted Seg Neutrophils % (38-70) % Lymphocytes % (Manual) (25-45) % Monocytes % (Manual) (2-11) % Eosinophils % (Manual) (2-4) % Neutrophils # (Manual) (6899-3298) /uL RBC Morphology Anisocytosis PT (9.4-12.5) SECONDS INR (0.9-1.3) APTT (25.1-36.5) SECONDS Sodium 142 (137-145) mmol/L Potassium 4.2 (3.4-5.1) mmol/L Chloride 114 H (98-107) mmol/L Carbon Dioxide 21 L (22-32) mmol/L BUN 16 (7-17) mg/dL Creatinine 1.11 H (0.52-1.04) mg/dL Estimated GFR 55 L (>60) mL/min BUN/Creatinine Ratio 14.4 (6-22) Glucose 121 H (80-110) mg/dL Lactate (0.7-2.1) mmol/L Calcium 8.8 (8.4-10.2) mg/dL Total Bilirubin 1.9 H (0.2-1.3) mg/dL AST 56 H (14-36) IU/L ALT 34 (<35) IU/L Alkaline Phosphatase 99 (38-126) U/L Ammonia 46 H (9-30) umol/L Total Creatine Kinase (30-135) U/L Troponin I (0.01-0.034) ng/mL NT-Pro-B Natriuret Pep (<125) pg/mL Total Protein 7.4 (6.3-8.2) g/dL Albumin 3.3 L (3.5-5.0) g/dL Globulin 4.1 (1.7-4.1) g/dL Albumin/Globulin Ratio 0.8 L (1.0-2.8) Lipase (23-300) U/L Procalcitonin (<0.5) ng/mL Urine Color Urine Appearance Urine pH Normal (4.5-8.0) Ur Specific [place] (1.000-1.035) Urine Protein (Negative) Urine Glucose (UA) (Negative) g/dL Urine Ketones (NEGATIVE) Urine Occult Blood (Negative) Urine Nitrate (Negative) Urine Bilirubin (NEGATIVE) Urine Urobilinogen (0.2) E.U./dL Ur Leukocyte Esterase (NEGATIVE) Urine RBC (0-5/HPF) Urine WBC (0-5/HPF) Ur Squamous Epith Cells (0-5/HPF) Urine Bacteria (None) Ur Culture Indicated? Vol Urine Centrifuged U Opiates 300ng/mL cut (Negative) Ur Oxycodone Screen (Negative) Urine Methadone Screen (Negative) Ur Barbiturates Screen (Negative) U Tricyclic Antidepress (Negative) Ur Phencyclidine Scrn (Negative) Ur Amphetamines Screen (Negative) U Methamphetamines Scrn (Negative) Ur MDMA Scrn (Ecstasy) (Negative) U Benzodiazepines Scrn (Negative) Urine Cocaine Screen (Negative) U Marijuana (THC) Screen (Negative) Urine Specific [place] Normal (Normal) Ethyl Alcohol ( - 10) mg/dL Ur Creatinine Normal (Normal) Chlamy pneumoniae PCR (Not Detect) Adenovirus (PCR) (Not Detect) B.parapertussis DNA PCR (Not Detecte) Coronavirus OC43 (PCR) (Not Detect) Coronavirus HKU1 (PCR) (Not Detect) Coronavirus 229E (PCR) (Not Detect) SARS-CoV-2 (PCR) (Not Detecte) Coronavirus NL63 (PCR) (Not Detect) Human Metapneumovir PCR (Not Detect) Influenza Type A (PCR) (Not Detect) Influenza Type B (PCR) (Not Detect) M. pneumoniae (PCR) (Not Detect) Parainfluenza 1 (PCR) (Not Detect) Parainfluenza 2 (PCR) (Not Detect) Parainfluenza 3 (PCR) (Not Detect) Parainfluenza 4 (PCR) (Not Detect) RSV (PCR) (Not Detect) Entero/Rhino (PCR) (Not Detect) Point of Care Testing Glucose POC [address] scan - head: Radiologist's Impression: [address] [address] [address] Scan Report Signed Patient: Ruba Lan MR#: [id number] : 1960 Acct:[id number] Age/Sex: 64 / F Date of Service: 05/31/24 Loc: ED Accession Number: [id number] Procedure: CT head/brain wo con Ordering Provider: Sam Fajardo MD PROCEDURE: CT HEAD/BRAIN WO CON INDICATIONS: change in mental status TECHNIQUE: Noncontrast 4.5 mm thick angled axial sections acquired from the foramen magnum to the vertex, with coronal and sagittal reformats. For radiation dose reduction, the following was used: automated exposure control, adjustment of mA and/or kV according to patient size. COMPARISON: None. FINDINGS: Image quality: Diagnostic. CSF spaces: Basal cisterns are patent. No extra-axial fluid collections. The ventricles are symmetric in size and shape. Brain: Incidental calcified right frontal meningioma measuring 1.2 cm without vasogenic edema. No suspicious masses. No hemorrhage. There is cerebral volume loss for age, with resultant ventricular and sulcal prominence. There are periventricular and deep white matter chronic small vessel ischemic changes. There is intracranial internal carotid artery atherosclerosis. Skull and face: Calvarium and visualized facial bones appear intact, without suspicious lesions. Sinuses: Large air-fluid level, left maxillary sinus. Other paranasal sinuses and mastoids are clear. IMPRESSION: 1. No acute intracranial pathology. 2. Acute left maxillary sinusitis. 3. Incidental meningioma. 4. Small vessel ischemic change. Dictated by: Davi Chung M.D. on 05/31/2024 at 11:45 Approved by: Davi Chung M.D. on 05/31/2024 at 11:46 CTA - brain/neck: Radiologist's Impression: [address] [address] [address] Scan Report Signed Patient: Ruba Lan MR#: [id number] : 1960 Acct:[id number] Age/Sex: 64 / F Date of Service: 05/31/24 Loc: ED Accession Number: [id number] Procedure: CT angio head and neck Ordering Provider: Sam Fajardo MD PROCEDURE: CT ANGIO HEAD AND NECK INDICATIONS: change in mental status TECHNIQUE: After the administration of intravenous contrast, 1 mm thick sections acquired from the aortic arch through the [place]. 3-dimensional xmkyiek-hnbchljfl-vbhfwpipgw (MIP) and/or volume rendering reformats were acquired of the central intracranial vasculature and neck separately. For radiation dose reduction, the following was used: automated exposure control, adjustment of mA and/or kV according to patient size. COMPARISON: [facility], CT, CT HEAD/BRAIN WO CON, 05/31/2024, 10:11. FINDINGS: Image quality: Diagnostic. BRAIN: CSF spaces: Ventricles are normal in size and shape. Basal cisterns are patent. No extra-axial fluid collections. Brain: Calcified incidental right frontal meningioma, measuring 1.2 cm without vasogenic edema. No significant abnormality of the brain can be seen. Skull and face: Calvarium and facial bones appear intact, without suspicious lesions. Orbits appear normal. Sinuses: Large left maxillary sinus air-fluid level. HEAD CT ANGIOGRAPHY: Anterior circulation: Intracranial internal carotid arteries are normal in size and flow. The flow within the paired anterior cerebral arteries is normal and symmetric. The flow within the middle cerebral arteries is normal and symmetric. The anterior communicating artery is seen. No aneurysms are seen. Posterior circulation: Visualized portions of the vertebral arteries demonstrate normal caliber, and join to form a normal appearing basilar artery. Flow within the posterior cerebral arteries is normal and symmetric. No aneurysms are seen. NECK CT ANGIOGRAPHY: Carotid system: The great vessels demonstrate a conventional anatomy as they arise from the aortic arch. The origins of the common carotid arteries appear patent. The common carotid arteries demonstrate normal caliber and courses. The bifurcation regions are both widely patent. The internal carotid arteries demonstrate normal caliber is. The high left cervical internal carotid is deviated anterior to the vertebral bodies of C3 and the inferior aspect of C2 as well. Posterior circulation: The origins of the vertebral arteries both appear widely patent. The more superior extracranial portions of both vertebral arteries also demonstrate normal courses and calibers. They join to form a normal appearing basilar artery. Soft tissues: Visualized neck soft tissues demonstrate no suspicious abnormalities. Bones: No suspicious bony lesions. Visualized cervical spine appears normally aligned. IMPRESSION: No significant intracranial arterial abnormality is seen. No significant abnormality is seen within the arteries of the neck. Incidental meningioma. Left internal carotid artery is medially deviated anterior to the C3 vertebral body and the inferior aspect of C2 near midline. Any quantitative measurements of stenosis were performed using NASCET criteria. Dictated by: Davi Chung M.D. on 05/31/2024 at 11:38 Approved by: Davi Chung M.D. on 05/31/2024 at 11:42 Chest x-ray: Radiologist's Impression: [address] [address] XRay Report Signed Patient: Ruba Lan MR#: [id number] : 1960 Acct:[id number] Age/Sex: 64 / F Date of Service: 05/31/24 Loc: ED Accession Number: [id number] Procedure: XR chest 1V Ordering Provider: Sam Fajardo MD PROCEDURE: XR CHEST 1V INDICATIONS: suspected sepsis TECHNIQUE: One view of the chest was acquired. COMPARISON: None. FINDINGS: Surgical changes and devices: None. Lungs and pleura: Pulmonary edema. No pleural effusions or pneumothorax. Mediastinum: Mediastinal contours appear normal. Cardiomegaly. Bones and chest wall: No suspicious bony lesions. Overlying soft tissues appear unremarkable. IMPRESSION: Pulmonary edema. Cardiomegaly. Dictated by: Davi Chung M.D. on 05/31/2024 at 11:12 Approved by: Davi Chung M.D. on 05/31/2024 at 11:20 [facility] Narrative Medical decision making narrative: Patient brought in by her niece. Here for altered mental status confusion. Patient is following instructions and commands. But has slow speech and slow processing. Has slurred speech. The niece states that she was over at patient's house yesterday to visit. Yesterday morning she was sitting on the stairs and staring out and appeared to be confused. According to the niece no known fall or injury. No complaints of pain yesterday. However patient has had nausea and vomiting. Patient denies any problems urinating. Patient does answers to some short questions/answers. Moving all 4 extremities. No facial droop. No unilateral weakness or numbness. No prior history of stroke. At this time patient denies any pain. She is only alert to self and name. Today, niece found her in the bathroom. Needed to have a bowel movement. Niece states patient has never had this type of episode before. Blood sugar 117 After history and exam CBC CMP lactic acid procalcitonin blood culture urine specimen, chest x-ray, normal saline 500 mL respiratory panel, CT head CT angiogram head neck [facility] Medical records reviewed: No recent visit for this complaint Differential considered: Includes but not limited to sepsis UTI pneumonia respiratory infection stroke dehydration Lab Test results independently reviewed as above. Pertinent findings: WBC 6.7 hemoglobin 11.2 sodium 142 potassium 4.3 bicarb 21 BUN 18 creatinine 1.22 GFR 49 glucose 124 total bilirubin 1.9 AST 65 ALT 34 ammonia 46 troponin less than 0.012 BNP 382 urinalysis negative nitrate negative leukocyte esterase drug screen negative respiratory panel negative alcohol negative Independently reviewed EKG sinus rhythm rate [address] elevation or depression Imaging studies independently reviewed: CT head CT angio head neck no acute finding. Chest x-ray pulmonary edema with cardiomegaly CT chest abdomen pelvis no acute finding Consultations: 2:[address] Mead, would like lactulose 20 mg by mouth. You will need to do some more research before evaluating patient for admission, possible hepatic encephalopathy 3:[address] Mead, who will admit patient Treatments: Normal saline Zofran Re-evaluations: 1:24 p.m.. Reviewed results with patient and family. Patient is not at baseline. Usually she is walking talking driving. Ambulating on her own. This is a start contrast from her baseline. The family does not feel safe for her to go home. Discussion: Appropriate for admission for altered mental status and further observation and possible MRI and echocardiogram. Family agree for admit. Patient agrees for admit. Diagnosis: Altered mental status Discharge Plan Departure Patient Disposition: Admitted as Observation Clinical Impression: Altered mental status Qualifiers: Altered mental status type: unspecified Qualified Code(s): R41.82 - Altered mental status, unspecified Admit Date/Time: 05/31/24 15:11 Admit Provider: Woo Mead
[2024-05-31] MEDS: SODIUM CHLORIDE 0.9% 1,000 ML 1000 ML IV (10:05)
[2024-05-31 10:16] LABS: Hematocrit 33.3 % (36-46); Hemoglobin 11.2 g/dL (12.0-16.0); Mean Corpuscular HGB Conc 33.6 % (30-36); Mean Corpuscular Hemoglobin 29.2 PG (26-34); Mean Corpuscular Volume 86.8 fL (80-100); Platelet Count 144 X10^3/uL (150-400); Red Blood Cell Count 3.84 X10^6/uL (4.0-5.2); Red Cell Distribution Width 14.9 % (11.6-14.8); White Blood Cell Count 6.7 X10^3/uL (4.5-11.0)
[2024-05-31 10:18] LABS: Add Manual Diff / Slide Review YES
[2024-05-31 10:20] LABS: INR 1.2 (0.9-1.3); Prothrombin Time 13.5 SECONDS (9.4-12.5)
--- NOTE | 2024-05-31 10:21 | DI.CT.S_ITS ---
PROCEDURE: CT CHEST ABD PEL W CON INDICATIONS: altered TECHNIQUE: After the administration of intravenous contrast, 5 mm thick sections acquired from the lung apices to the symphysis. 5 mm coronal and sagittal reformats were performed, with additional 7 mm MIP reformats through the lungs. For radiation dose reduction, the following was used: automated exposure control, adjustment of mA and/or kV according to patient size. COMPARISON: [facility], CT, CT ABDOMEN PELVIS W CON, 10/19/2022, 23:10. FINDINGS: Image quality: Excellent. CHEST: Lower Neck: No enlarged lymph nodes. Thyroid: No thyroid nodules which require sonographic follow up, per consensus guidelines. Axillae: No enlarged lymph nodes. Chest Wall: Unremarkable. Lungs and Pleura: No pneumothorax or pleural effusions. Was ache appearance with patchy ground-glass opacities may represent early pulmonary edema. Heart: Cardiomegaly. Moderately severe coronary artery calcifications. No pericardial effusion. Thoracic Vessels: The aorta and pulmonary arteries demonstrate normal size. Mediastinum and [place]: No enlarged lymph nodes. Esophagus: No wall thickening. No hiatal hernia. ABDOMEN: Liver: No solid mass. Cirrhosis. Recanalization of the umbilical vein. Upper abdominal varicosities. Gallbladder: Surgically absent Biliary ducts: No biliary dilation. Pancreas: No ductal dilation. Spleen: Size is within normal limits. Adrenal Glands: No adrenal nodules. Kidneys and Ureters: No hydronephrosis. No solid mass. No complex renal cystic lesion which requires follow up. Stomach and Bowel: Normal colonic caliber, without significant wall thickening. Peritoneum: [id number] ascites. The amount of abdominal fluid is less than on the previous study. No free air or abscess cavity. Ventral Wall: No significant ventral hernia. Anasarca. Abdominal Nodes: No retroperitoneal or mesenteric adenopathy by size criteria. Vessels: Aorta and inferior vena cava are normal in size. Upper abdominal varicosities with spontaneous splenorenal shunt. PELVIS: Pelvic Organs: A [place] catheter decompresses the bladder.. Bladder: No bladder wall thickening, accounting for underdistention. Pelvic Nodes: No enlarged lymph nodes. Miscellaneous: No inguinal hernias are seen. Bones: No aggressive osseous abnormality. Lumbar degenerative change. IMPRESSION: 1. Cardiomegaly, moderately severe coronary artery calcifications. 2. Question pulmonary edema. 3. Cirrhosis, portal venous hypertension with ascites in varicosities. 4. Spontaneous splenorenal shunt. 5. Lern-be-djlkhhpo ascites. Dictated by: Davi Chung M.D. on 05/31/2024 at 12:39 Approved by: Davi Chung M.D. on 05/31/2024 at 12:45
[2024-05-31 10:23] LABS: PTT Partial Thromboplastin Tim 39 SECONDS (25.1-36.5)
[2024-05-31 10:26] LABS: Lactate (Lactic Acid) 1.5 mmol/L (0.7-2.1)
[2024-05-31 10:27] LABS: Alanine Aminotransferase 34 IU/L (<35); Albumin 3.5 g/dL (3.5-5.0); Albumin Globulin Ratio 0.8 (1.0-2.8); Alkaline Phosphatase 116 U/L (38-126); Aspartate Aminotransferase 65 IU/L (14-36); BUN Creatinine Ratio 14.8 (6-22); Bilirubin Total 1.9 mg/dL (0.2-1.3); Blood Urea Nitrogen 18 mg/dL (7-17); Carbon Dioxide 21 mmol/L (22-32); Chloride 114 mmol/L (98-107); Creatine Kinase 309 U/L (30-135); Estimated Glomerular Filt Rate 49 mL/min (>60); Globulin 4.4 g/dL (1.7-4.1); Glucose 124 mg/dL (80-110); HEMOLYSIS < 15 (0-50); Lipase 418 U/L (23-300); Potassium 4.3 mmol/L (3.4-5.1); Sodium 142 mmol/L (137-145); Total Protein 7.9 g/dL (6.3-8.2)
[2024-05-31 10:37] LABS: Appearance Urine UA CLEAR; Bilirubin Urine UA NEGATIVE (NEGATIVE); Color Urine UA YELLOW; Glucose Urine UA NEGATIVE (Negative); Ketones Urine UA 1+ (NEGATIVE); Leukocyte Esterase Urine UA NEGATIVE (NEGATIVE); Nitrite Urine UA NEGATIVE (Negative); Occult Blood Urine UA NEGATIVE (Negative); Protein Urine UA 1+ (Negative); Specific Gravity Urine UA 1.015 (1.000-1.035)
[2024-05-31 10:39] LABS: Bacteria Urine None Seen; Culture Indicated Urine Cult Not Indicated; RBC Urine None Seen (0-5/HPF); Squamous Epithelial Cell Urine None Seen (0-5/HPF); Ur Creatinine Normal (Normal); Ur Specific Gravity Normal (Normal); Urine Volume 10mL (spun); Urine pH Normal (Normal); WBC Urine None Seen (0-5/HPF)
[2024-05-31 10:39] LABS: NT-proBNP (BNP-Adult 18+) 382 pg/mL (<125); Troponin I < 0.012 ng/mL (0.01-0.034)
[2024-05-31 10:40] LABS: UR Morphine/Opiate cutoff 300 Negative (Negative); Urine Amphetamines Negative (Negative); Urine Barbiturates Negative (Negative); Urine Benzodiazepines Negative (Negative); Urine Cocaine Negative (Negative); Urine MDMA Negative (Negative); Urine Methadone Negative (Negative); Urine Methamphetamines Negative (Negative); Urine Oxycodone Negative (Negative); Urine Phencyclidine Negative (Negative); Urine Tetrahydrocannabinol Negative (Negative); Urine Tricyclic Antidepressant Negative (Negative)
[2024-05-31 10:44] LABS: Procalcitonin 0.122 ng/mL (<0.5)
[2024-05-31 10:52] LABS: Anisocytosis 1+; Neutrophils Absolute Manual 3350 /uL (3000-5900); Total Cells Counted 100
[2024-05-31 11:09] LABS: Adenovirus Not Detected (Not Detect); B. parapertussis Not Detected (Not Detecte); Bordetella pertussis Not Detected (Not Detect); Chlamydophila pneumoniae Not Detected (Not Detect); Coronavirus 229E Not Detected (Not Detect); Coronavirus HKU1 Not Detected (Not Detect); Coronavirus NL 63 Not Detected (Not Detect); Coronavirus OC43 Not Detected (Not Detect); Human Metapneumovirus Not Detected (Not Detect); Human Rhinovirus/Enterovirus Not Detected (Not Detect); Influenza A Not Detected (Not Detect); Influenza B Not Detected (Not Detect); Mycoplasma pneumoniae Not Detected (Not Detect); Parainfluenza Virus 1 Not Detected (Not Detect); Parainfluenza Virus 2 Not Detected (Not Detect); Parainfluenza Virus 3 Not Detected (Not Detect); Parainfluenza Virus 4 Not Detected (Not Detect); Respiratory Syncytial Virus Not Detected (Not Detect); SARS- CoV-2 Not Detected (Not Detecte)
--- NOTE | 2024-05-31 12:02 | PC.NURSE ---
Pt family reports pt has been more lethargic/sleeping more than usual and disoriented to situation. Pt was found to have an episode of incontinence. No known history of taking medicines to make pt less responsive (i.e., sleeping meds, narcotics). Pt extremities very edematous, including abdomen. Pt family states pt takes a fluid / lasix pill.
[2024-05-31 12:23] LABS: Ethanol (ETOH) < 10 mg/dL
[2024-05-31 12:30] LABS: Ammonia (NH3) 46 umol/L (9-30)
[2024-05-31 15:01] LABS: Alanine Aminotransferase 34 IU/L (<35); Albumin 3.3 g/dL (3.5-5.0); Albumin Globulin Ratio 0.8 (1.0-2.8); Alkaline Phosphatase 99 U/L (38-126); Aspartate Aminotransferase 56 IU/L (14-36); BUN Creatinine Ratio 14.4 (6-22); Bilirubin Total 1.9 mg/dL (0.2-1.3); Blood Urea Nitrogen 16 mg/dL (7-17); Calcium 8.8 mg/dL (8.4-10.2); Carbon Dioxide 21 mmol/L (22-32); Chloride 114 mmol/L (98-107); Estimated Glomerular Filt Rate 55 mL/min (>60); Globulin 4.1 g/dL (1.7-4.1); Glucose 121 mg/dL (80-110); HEMOLYSIS < 15 (0-50); Potassium 4.2 mmol/L (3.4-5.1); Sodium 142 mmol/L (137-145); Total Protein 7.4 g/dL (6.3-8.2)
[2024-05-31] MEDS: LACTULOSE 20 GM/30 ML SOLUTION PO ×2 (15:02→21:27)
--- NOTE | 2024-05-31 15:58 | CM.MNRNOTE ---
Pt ambulated in room w/ walker. Pt asking about going home. Pt updated on plan of care. Pitting edema continues. Pt cognition is alert but slow. Some confusion.
--- NOTE | 2024-05-31 17:20 | P.HP_ITS ---
History of Present Illness History of Present Illness Date Patient Seen: 05/31/24 Time Patient Seen: 17:20 Chief complaint: Dizzy and passing out . Narrative: This is a 64 year old female with PMH of MASH(GARCIA) cirrhosis, previous upper GI bleed, paroxysmal afib who presented with altered mental status. Patient is unable to recall recent history, so history obtained from Niece and chart review of recent GI note from 05/23/24. Patient saw her GI doc at [facility] in [place] on 05/23, complained of edema and volume overload. She was started on furosemide and aldactone increased at that time. Since then, her leg swelling has markedly improved. This morning, Niece found the patient sitting on the bottom of her stairs, and was acting drunk. Niece also notes patient does not drink at all. She was disoriented, lethargic, and had some slurred speech. Niece reports improvement in this after ER interventions. No recent fever, chills, abdominal pain, melena or BRBPR, nausea, or vomiting. In the ER, she was borderline tachycardic, but the remainder of her vitals were unremarkable. Imaging showed no acute findings, but did show spontaneous splenorenal shunt in the setting of cirrhosis. Labs showed slight anemia with hg 11.2, plt 144, INR 1.2, Cr 1.22 from baseline 0.66. Tbili was 1.9. Ammonia was 46. UA negative for infection. [facility] Medical History Diastolic heart failure Cirrhosis Metabolic dysfunction-associated steatohepatitis (MASH) Social History household members: spouse and caregiver Smoking Status: Never smoker alcohol intake: never Meds Home Medications and Allergies Home Medications Medication Instructions Recorded Confirmed Type aspirin 81 mg tablet,delayed 81 mg PO DAILY PRN Pain (Scale 07/25/18 05/31/24 History release Score 1-3) atorvastatin 10 mg tablet 10 mg PO DAILY 07/25/18 05/31/24 History furosemide 20 mg tablet 20 mg PO DAILY 10/20/22 05/31/24 History losartan 25 mg tablet 25 mg PO DAILY 10/20/22 05/31/24 History potassium chloride 20 mEq 20 meq PO BID 10/23/22 05/31/24 History tablet,extended release(part/cryst) diltiazem HCl 120 mg capsule,24 120 mg PO DAILY 05/31/24 05/31/24 History hr,extended release hydroxychloroquine 200 mg tablet 200 mg PO BID 05/31/24 05/31/24 History (Plaquenil) spironolactone 25 mg tablet 25 mg PO DAILY 05/31/24 05/31/24 History Allergies Allergy/AdvReac Type Severity Reaction Status Date / Time atenolol [ATENOLOL] Allergy Unknown RASH Verified 05/31/24 10:01 lisinopril AdvReac Verified 05/31/24 10:01 Review of Systems Review of Systems Narrative: All other systems reviewed with the patient and are negative unless otherwise stated. Limited due to patient's encephalopathy. Exam Vital Signs (past 8 hours): - 05/31/24 09:55 05/31/24 09:58 05/31/24 10:00 Temperature 97.7 F Pulse Rate 101 H 102 H 98 H Respiratory Rate 24 16 Blood Pressure 160/71 H Pulse Oximetry 98 99 100 Oxygen Delivery Method Room Air 05/31/24 10:00 05/31/24 10:15 05/31/24 10:40 Temperature 96.1 F L Pulse Rate 97 H 97 H Respiratory Rate 16 Blood Pressure 145/63 H Pulse Oximetry 94 98 Oxygen Delivery Method Room Air 05/31/24 10:41 05/31/24 10:41 05/31/24 10:45 Temperature 96.1 F L 96.1 F L Pulse Rate 97 H 96 H Respiratory Rate 14 17 Blood Pressure 150/70 H Pulse Oximetry 100 100 Oxygen Delivery Method 05/31/24 11:00 05/31/24 11:00 05/31/24 11:15 Temperature 96.1 F L 96.3 F L Pulse Rate 96 H 96 H Respiratory Rate 18 16 Blood Pressure 143/70 H Pulse Oximetry 100 100 Oxygen Delivery Method Room Air 05/31/24 11:30 05/31/24 11:30 05/31/24 11:45 Temperature 96.4 F L 96.6 F L Pulse Rate 96 H 97 H Respiratory Rate 18 18 Blood Pressure 142/68 H Pulse Oximetry 100 100 Oxygen Delivery Method 05/31/24 12:00 05/31/24 12:00 05/31/24 12:15 Temperature 97.0 F L Pulse Rate 97 H 98 H Respiratory Rate 19 17 Blood Pressure 148/69 H Pulse Oximetry 100 100 Oxygen Delivery Method 05/31/24 12:30 05/31/24 12:30 05/31/24 12:45 Temperature 97.2 F L 97.3 F L Pulse Rate 97 H 96 H Respiratory Rate 18 19 Blood Pressure 142/67 H Pulse Oximetry 99 99 Oxygen Delivery Method 05/31/24 13:00 05/31/24 13:00 05/31/24 13:15 Temperature 97.5 F L 97.7 F Pulse Rate 96 H 97 H Respiratory Rate 18 18 Blood Pressure 135/68 Pulse Oximetry 99 99 Oxygen Delivery Method Room Air 05/31/24 13:30 05/31/24 13:30 05/31/24 13:45 Temperature 97.9 F 97.9 F Pulse Rate 96 H 97 H Respiratory Rate 18 17 Blood Pressure 134/63 Pulse Oximetry 98 98 Oxygen Delivery Method 05/31/24 14:00 05/31/24 14:00 05/31/24 14:15 Temperature 98.1 F 98.2 F Pulse Rate 97 H 99 H Respiratory Rate 19 19 Blood Pressure 141/68 H Pulse Oximetry 98 98 Oxygen Delivery Method 05/31/24 14:26 05/31/24 14:26 05/31/24 14:30 Temperature Pulse Rate 101 H 100 H Respiratory Rate 14 17 Blood Pressure 143/72 H Pulse Oximetry 97 97 Oxygen Delivery Method 05/31/24 14:30 05/31/24 14:45 05/31/24 15:00 Temperature Pulse Rate 98 H 100 H Respiratory Rate 16 19 Blood Pressure 135/68 Pulse Oximetry 98 98 Oxygen Delivery Method 05/31/24 15:00 05/31/24 15:15 05/31/24 15:30 Temperature Pulse Rate 100 H 100 H Respiratory Rate 17 17 Blood Pressure 145/69 H Pulse Oximetry 98 99 Oxygen Delivery Method Room Air 05/31/24 15:30 05/31/24 15:47 05/31/24 16:00 Temperature 98.6 F 98.7 F Pulse Rate 97 H Respiratory Rate 16 Blood Pressure 142/68 H 140/62 Pulse Oximetry 98 Oxygen Delivery Method 05/31/24 16:39 Temperature Pulse Rate Respiratory Rate Blood Pressure Pulse Oximetry 98 Oxygen Delivery Method Room Air Oxygen Delivery Method Room Air Narrative Exam Narrative: Gen: WDWN female, mildly lethargic and speaks slowly CV: RRR no m/r/g Pulm: CTA b/l, diminished breath sounds b/l lung bases Abd: S NT ND Ext: 1-2+ pitting edema b/l LE Neuro: Oriented to name, hospital. No focal deficits, normal sensation to light touch bilaterally. Objective ECG Impression: NSR with PVC. No acute ischemia as interpreted by me. Labs 05/31/24 09:59 05/31/24 14:41 Labs: Laboratory Results - last 24 hr 05/31/24 05/31/24 05/31/24 09:59 09:59 10:15 WBC 6.7 RBC 3.84 L Hgb 11.2 L Hct 33.3 L MCV 86.8 MCH 29.2 MCHC 33.6 RDW 14.9 H Plt Count 144 L Neut % (Auto) Not Reportable Lymph % (Auto) Not Reportable [place] % (Auto) Not Reportable Eos % (Auto) Not Reportable Baso % (Auto) Not Reportable Lymph # (Auto) Not Reportable [place] # (Auto) Not Reportable Baso # (Auto) Not Reportable Total Counted 100 Seg Neutrophils % 50.0 Lymphocytes % (Manual) 31.0 Monocytes % (Manual) 11.0 Eosinophils % (Manual) 8.0 H Neutrophils # (Manual) 3350 RBC Morphology See below Anisocytosis 1+ H PT 13.5 H INR 1.2 APTT 39 H Sodium 142 Potassium 4.3 Chloride 114 H Carbon Dioxide 21 L BUN 18 H Creatinine 1.22 H Estimated GFR 49 L BUN/Creatinine Ratio 14.8 Glucose 124 H Lactate 1.5 Calcium 9.0 Total Bilirubin 1.9 H AST 65 H ALT 34 Alkaline Phosphatase 116 Ammonia Total Creatine Kinase 309 H Troponin I < 0.012 NT-Pro-B Natriuret Pep 382 H Cancelled Total Protein 7.9 Albumin 3.5 Globulin 4.4 H Albumin/Globulin Ratio 0.8 L Lipase 418 H Procalcitonin 0.122 Urine Color Yellow Urine Appearance Clear Urine pH 6.0 Ur Specific [place] 1.015 Urine Protein 1+ H Urine Glucose (UA) Negative Urine Ketones 1+ H Urine Occult Blood Negative Urine Nitrate Negative Urine Bilirubin Negative Urine Urobilinogen 1.0 Ur Leukocyte Esterase Negative Urine RBC None seen Urine WBC None seen Ur Squamous Epith Cells None seen Urine Bacteria None seen Ur Culture Indicated? Cult not indicated Vol Urine Centrifuged 10ml (spun) U Opiates 300ng/mL cut Negative Ur Oxycodone Screen Negative Urine Methadone Screen Negative Ur Barbiturates Screen Negative U Tricyclic Antidepress Negative Ur Phencyclidine Scrn Negative Ur Amphetamines Screen Negative U Methamphetamines Scrn Negative Ur MDMA Scrn (Ecstasy) Negative U Benzodiazepines Scrn Negative Urine Cocaine Screen Negative U Marijuana (THC) Screen Negative Urine Specific [place] Ethyl Alcohol < 10 Ur Creatinine Chlamy pneumoniae PCR Not detected Adenovirus (PCR) Not detected B.parapertussis DNA PCR Not detected Coronavirus OC43 (PCR) Not detected Coronavirus HKU1 (PCR) Not detected Coronavirus 229E (PCR) Not detected SARS-CoV-2 (PCR) Not detected Coronavirus NL63 (PCR) Not detected Human Metapneumovir PCR Not detected Influenza Type A (PCR) Not detected Influenza Type B (PCR) Not detected M. pneumoniae (PCR) Not detected Parainfluenza 1 (PCR) Not detected Parainfluenza 2 (PCR) Not detected Parainfluenza 3 (PCR) Not detected Parainfluenza 4 (PCR) Not detected RSV (PCR) Not detected Entero/Rhino (PCR) Not detected 05/31/24 05/31/24 05/31/24 10:15 12:12 14:41 WBC RBC Hgb Hct MCV MCH MCHC RDW Plt Count Neut % (Auto) Lymph % (Auto) [place] % (Auto) Eos % (Auto) Baso % (Auto) Lymph # (Auto) [place] # (Auto) Baso # (Auto) Total Counted Seg Neutrophils % Lymphocytes % (Manual) Monocytes % (Manual) Eosinophils % (Manual) Neutrophils # (Manual) RBC Morphology Anisocytosis PT INR APTT Sodium 142 Potassium 4.2 Chloride 114 H Carbon Dioxide 21 L BUN 16 Creatinine 1.11 H Estimated GFR 55 L BUN/Creatinine Ratio 14.4 Glucose 121 H Lactate Calcium 8.8 Total Bilirubin 1.9 H AST 56 H ALT 34 Alkaline Phosphatase 99 Ammonia 46 H Total Creatine Kinase Troponin I NT-Pro-B Natriuret Pep Total Protein 7.4 Albumin 3.3 L Globulin 4.1 Albumin/Globulin Ratio 0.8 L Lipase Procalcitonin Urine Color Urine Appearance Urine pH Normal Ur Specific [place] Urine Protein Urine Glucose (UA) Urine Ketones Urine Occult Blood Urine Nitrate Urine Bilirubin Urine Urobilinogen Ur Leukocyte Esterase Urine RBC Urine WBC Ur Squamous Epith Cells Urine Bacteria Ur Culture Indicated? Vol Urine Centrifuged U Opiates 300ng/mL cut Ur Oxycodone Screen Urine Methadone Screen Ur Barbiturates Screen U Tricyclic Antidepress Ur Phencyclidine Scrn Ur Amphetamines Screen U Methamphetamines Scrn Ur MDMA Scrn (Ecstasy) U Benzodiazepines Scrn Urine Cocaine Screen U Marijuana (THC) Screen Urine Specific [place] Normal Ethyl Alcohol Ur Creatinine Normal Chlamy pneumoniae PCR Adenovirus (PCR) B.parapertussis DNA PCR Coronavirus OC43 (PCR) Coronavirus HKU1 (PCR) Coronavirus 229E (PCR) SARS-CoV-2 (PCR) Coronavirus NL63 (PCR) Human Metapneumovir PCR Influenza Type A (PCR) Influenza Type B (PCR) M. pneumoniae (PCR) Parainfluenza 1 (PCR) Parainfluenza 2 (PCR) Parainfluenza 3 (PCR) Parainfluenza 4 (PCR) RSV (PCR) Entero/Rhino (PCR) Assessment & Plan Assessment & Plan narrative: 1. Acute hepatic encephalopathy - start lactulose 20 mg BID for now, titrate to 2-4 BM per day. - not enough ascites on imaging for diagnostic paracentesis - UA negative, infectious etiologies unlikely - CT scan showed splenorenal shunt, spontaneous. Sometimes this can lead to resistant encephalopathy. Discussed with patient's GI provider, management at first is medication based, will start lactulose for hepatic encephalopathy, also discussed stopping diuretic for now, possibly to resume at smaller dosing on discharge. 2. POONAM - likely due to new diuretics, will hold furosemide and aldactone for now. S/p 1L IVF with improvement from 1.22 to 1.11. Continue to follow renal function with BMP. 3. Chronic diastolic heart failure - will hold diuretics as noted above. 4. MASH(GARCIA) cirrohsis 5. 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 - has been following with rhematologist for joint pains and a polyarthritis. Recently started on plaquenil a few months ago. Can continue for now. 6. Paroxysmal afib - NSR currently, continue home diltiazem. Not on anticoagulation with previous GI bleeding which occurred in the [facility]. Code: Full, surrogate is patient's spouse, Niece at bedside. DVT: Lovenox daily I have utilized all available immediate resources to obtain, update, or review the patient's current medications. Dispo: patient admitted under observation status. Possible discharge 1-2 days depending on improvement with above interventions. Additional history obtained via discussions with the ER provider and Niece. These discussions contributed to the creation of the above assessment and plan. I have reviewed patient's presenting documentation, labs, and imaging personally. Extensively reviewed outpatient GI provider notes and evaluation, discussed with patient's GI provider Dr. Calderon over the phone as well. Time-Based Coding :: [TOTAL MINUTES] spent with patient and on the chart (including review of chart, obtaining history, exam, reviewing outside data, placing orders, documenting exam and treatment plan, and counseling patient) on [DATE]. Quality VTE Deep Vein Thrombosis/Pulmonary Embolism Present on Admission: No
[2024-05-31] MEDS: HYDROXYCHLOROQUINE 200 MG TABLET PO (21:26)
[2024-05-31] MEDS: ATORVASTATIN 20 MG TABLET 10 MG PO (21:26)
[2024-06-01] VITALS: BP 124/69; PULSE 94; RESP 12; TEMP 37.3; O2SAT 98
[2024-06-01 00:22] VITALS: O2SAT 97
[2024-06-01 04:00] VITALS: BP 122/63; PULSE 91; RESP 16; TEMP 37.4; O2SAT 97
[2024-06-01 08:00] VITALS: BP 115/60; PULSE 89; RESP 16; TEMP 36.7; O2SAT 97; O2SAT 99
--- NOTE | 2024-06-01 09:08 | P.DS_ITS ---
History of Present Illness History of Present Illness Date Patient Seen: 06/01/24 Time Patient Seen: 09:08 Chief complaint: Dizzy and passing out Narrative: This is a 64 year old female with PMH of MASH(GARCIA) cirrhosis, previous upper GI bleed, paroxysmal afib who presented with altered mental status. Patient is unable to recall recent history, so history obtained from Niece and chart review of recent GI note from 05/23/24. Patient saw her GI doc at [facility] in [place] on 05/23, complained of edema and volume overload. She was started on furosemide and aldactone increased at that time. Since then, her leg swelling has markedly improved. This morning, Niece found the patient sitting on the bottom of her stairs, and was acting drunk. Niece also notes patient does not drink at all. She was disoriented, lethargic, and had some slurred speech. Niece reports improvement in this after ER interventions. No recent fever, chills, abdominal pain, melena or BRBPR, nausea, or vomiting. In the ER, she was borderline tachycardic, but the remainder of her vitals were unremarkable. Imaging showed no acute findings, but did show spontaneous splenorenal shunt in the setting of cirrhosis. Labs showed slight anemia with hg 11.2, plt 144, INR 1.2, Cr 1.22 from baseline 0.66. Tbili was 1.9. Ammonia was 46. UA negative for infection. Discharge Providers Provider Date of admission: 05/31/24 15:11 Discharge Date: 06/01/24 Primary care physician: Megna Domingo PA-C Discharge provider: Woo Maed DO Summary Hospital Course Discharge Diagnosis: 1. Acute hepatic encephalopathy - start lactulose 20 mg BID for now, titrate to 2-4 BM per day. - not enough ascites on imaging for diagnostic paracentesis - UA negative, infectious etiologies unlikely - CT scan showed splenorenal shunt, spontaneous. Sometimes this can lead to resistant encephalopathy. Discussed with patient's GI provider, management at first is medication based. 2. POONAM 3. Chronic diastolic heart failure 4. MASH(GARCIA) cirrohsis 5. 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 6. Paroxysmal afib - NSR currently, continue home diltiazem. Not on anticoagulation with previous GI bleeding which [place] Hospital Course: This is a 64 year old female with PMH of MASH cirrhosis who was admitted with an acute hepatic encephalopathy. Infectious etiologies were ruled out with negative UA and no evidence of pneumonia, there was also not enough fluid for paracentesis on imaging. She had recently been started on diuretics by her GI provider, with improvement in her edema recently. Her Cr was elevated at 1.2 on presentation, improved with fluids and cessation. Her mentation markedly improved the following morning after initiation of lactulose, and she elected for discharge home. CT Imaging did show a splenorenal shunt, but given her encephalopathy was not refractory this can be discussed with her GI provider in the outpatient setting. Her home diuretics were cut in half at discharge, and 20 mg of lactulose was prescribed BID, though the patient was instructed to titrate dosing to 2-4 bowel movements per day. She should follow up with her PCP and GI provider as previously scheduled. Time Spent with Patient Time spent: Less than 30 minutes Exam Vital Signs (past 8 hours): - 06/01/24 04:00 06/01/24 04:00 Temperature 99.4 F Pulse Rate 91 H Respiratory Rate 16 Blood Pressure 122/63 Pulse Oximetry 97 97 Oxygen Delivery Method Room Air Oxygen Flow Rate 0 Oxygen Delivery Method Room Air Oxygen Flow Rate 0 Narrative Exam Narrative: Gen: WDWN female, NAD. CV: RRR no m/r/g Pulm: CTA b/l, diminished breath sounds b/l lung bases Abd: S NT ND Ext: trace pitting edema b/l LE Neuro: Oriented to name, hospital, date. Normal mentation per niece today. No focal deficits, normal sensation to light touch bilaterally. Objective Labs 05/31/24 09:59 05/31/24 14:41 Labs: Laboratory Results - last 24 hr 05/31/24 05/31/24 05/31/24 09:59 09:59 10:15 WBC 6.7 RBC 3.84 L Hgb 11.2 L Hct 33.3 L MCV 86.8 MCH 29.2 MCHC 33.6 RDW 14.9 H Plt Count 144 L Neut % (Auto) Not Reportable Lymph % (Auto) Not Reportable [place] % (Auto) Not Reportable Eos % (Auto) Not Reportable Baso % (Auto) Not Reportable Lymph # (Auto) Not Reportable [place] # (Auto) Not Reportable Baso # (Auto) Not Reportable Total Counted 100 Seg Neutrophils % 50.0 Lymphocytes % (Manual) 31.0 Monocytes % (Manual) 11.0 Eosinophils % (Manual) 8.0 H Neutrophils # (Manual) 3350 RBC Morphology See below Anisocytosis 1+ H PT 13.5 H INR 1.2 APTT 39 H Sodium 142 Potassium 4.3 Chloride 114 H Carbon Dioxide 21 L BUN 18 H Creatinine 1.22 H Estimated GFR 49 L BUN/Creatinine Ratio 14.8 Glucose 124 H Lactate 1.5 Calcium 9.0 Total Bilirubin 1.9 H AST 65 H ALT 34 Alkaline Phosphatase 116 Ammonia Total Creatine Kinase 309 H Troponin I < 0.012 NT-Pro-B Natriuret Pep 382 H Cancelled Total Protein 7.9 Albumin 3.5 Globulin 4.4 H Albumin/Globulin Ratio 0.8 L Lipase 418 H Procalcitonin 0.122 Urine Color Yellow Urine Appearance Clear Urine pH 6.0 Ur Specific [place] 1.015 Urine Protein 1+ H Urine Glucose (UA) Negative Urine Ketones 1+ H Urine Occult Blood Negative Urine Nitrate Negative Urine Bilirubin Negative Urine Urobilinogen 1.0 Ur Leukocyte Esterase Negative Urine RBC None seen Urine WBC None seen Ur Squamous Epith Cells None seen Urine Bacteria None seen Ur Culture Indicated? Cult not indicated Vol Urine Centrifuged 10ml (spun) U Opiates 300ng/mL cut Negative Ur Oxycodone Screen Negative Urine Methadone Screen Negative Ur Barbiturates Screen Negative U Tricyclic Antidepress Negative Ur Phencyclidine Scrn Negative Ur Amphetamines Screen Negative U Methamphetamines Scrn Negative Ur MDMA Scrn (Ecstasy) Negative U Benzodiazepines Scrn Negative Urine Cocaine Screen Negative U Marijuana (THC) Screen Negative Urine Specific [place] Ethyl Alcohol < 10 Ur Creatinine Chlamy pneumoniae PCR Not detected Adenovirus (PCR) Not detected B.parapertussis DNA PCR Not detected Coronavirus OC43 (PCR) Not detected Coronavirus HKU1 (PCR) Not detected Coronavirus 229E (PCR) Not detected SARS-CoV-2 (PCR) Not detected Coronavirus NL63 (PCR) Not detected Human Metapneumovir PCR Not detected Influenza Type A (PCR) Not detected Influenza Type B (PCR) Not detected M. pneumoniae (PCR) Not detected Parainfluenza 1 (PCR) Not detected Parainfluenza 2 (PCR) Not detected Parainfluenza 3 (PCR) Not detected Parainfluenza 4 (PCR) Not detected RSV (PCR) Not detected Entero/Rhino (PCR) Not detected 05/31/24 05/31/24 05/31/24 10:15 12:12 14:41 WBC RBC Hgb Hct MCV MCH MCHC RDW Plt Count Neut % (Auto) Lymph % (Auto) [place] % (Auto) Eos % (Auto) Baso % (Auto) Lymph # (Auto) [place] # (Auto) Baso # (Auto) Total Counted Seg Neutrophils % Lymphocytes % (Manual) Monocytes % (Manual) Eosinophils % (Manual) Neutrophils # (Manual) RBC Morphology Anisocytosis PT INR APTT Sodium 142 Potassium 4.2 Chloride 114 H Carbon Dioxide 21 L BUN 16 Creatinine 1.11 H Estimated GFR 55 L BUN/Creatinine Ratio 14.4 Glucose 121 H Lactate Calcium 8.8 Total Bilirubin 1.9 H AST 56 H ALT 34 Alkaline Phosphatase 99 Ammonia 46 H Total Creatine Kinase Troponin I NT-Pro-B Natriuret Pep Total Protein 7.4 Albumin 3.3 L Globulin 4.1 Albumin/Globulin Ratio 0.8 L Lipase Procalcitonin Urine Color Urine Appearance Urine pH Normal Ur Specific [place] Urine Protein Urine Glucose (UA) Urine Ketones Urine Occult Blood Urine Nitrate Urine Bilirubin Urine Urobilinogen Ur Leukocyte Esterase Urine RBC Urine WBC Ur Squamous Epith Cells Urine Bacteria Ur Culture Indicated? Vol Urine Centrifuged U Opiates 300ng/mL cut Ur Oxycodone Screen Urine Methadone Screen Ur Barbiturates Screen U Tricyclic Antidepress Ur Phencyclidine Scrn Ur Amphetamines Screen U Methamphetamines Scrn Ur MDMA Scrn (Ecstasy) U Benzodiazepines Scrn Urine Cocaine Screen U Marijuana (THC) Screen Urine Specific [place] Normal Ethyl Alcohol Ur Creatinine Normal Chlamy pneumoniae PCR Adenovirus (PCR) B.parapertussis DNA PCR Coronavirus OC43 (PCR) Coronavirus HKU1 (PCR) Coronavirus 229E (PCR) SARS-CoV-2 (PCR) Coronavirus NL63 (PCR) Human Metapneumovir PCR Influenza Type A (PCR) Influenza Type B (PCR) M. pneumoniae (PCR) Parainfluenza 1 (PCR) Parainfluenza 2 (PCR) Parainfluenza 3 (PCR) Parainfluenza 4 (PCR) RSV (PCR) Entero/Rhino (PCR) PFSH Medical History Diastolic heart failure Cirrhosis Metabolic dysfunction-associated steatohepatitis (MASH) Social History household members: spouse and caregiver Smoking Status: Never smoker alcohol intake: never Discharge Plan Discharge Plan Patient Disposition: Home Provider Discharge Comment: You were admitted to the hospital with hepatic encephalopathy and slight POONAM. I am going to cut down on your dose of furosemide and aldactone, recommend lower dose or splitting pills in half. Please try to see PCP for repeat blood work, or with your GI doctor. Also started on a medication for prevention of confusion in the future called lactulose. Continue this every day, this medication should be adjusted to 2-4 bowel movements per day. So if you have less bowel movements you need to increase the dose a bit, or if you're having more take less of the medication. Discharge orders & Medications Prescriptions: New lactulose 20 gram/30 mL solution 20 g PO BID 30 Days Qty: 1800 0RF Continued atorvastatin 10 mg tablet 10 mg PO DAILY aspirin 81 mg tablet,delayed release (DR/EC) 81 mg PO DAILY PRN (Reason: Pain (Scale Score 1-3)) Patient Comments: states uses when needed losartan 25 mg Tablet 25 mg PO BID potassium chloride 20 mEq tablet,ER particles/crystals 20 meq PO BID diltiazem HCl 120 mg capsule,extended release 24 hr 120 mg PO DAILY hydroxychloroquine [Plaquenil] 200 mg tablet 200 mg PO BID Changed spironolactone 25 mg tablet 12.5 mg PO DAILY Qty: 30 0RF furosemide 20 mg Tablet 10 mg PO DAILY Qty: 30 0RF No Action pantoprazole 40 mg tablet,delayed release (DR/EC) 40 mg PO BID Follow up/Referrals: Megan Domingo PAStacyC [Primary Care Provider] - Diet/Activity/Treatments Diet: Diet as Tolerated and Regular Activity: As tolerated, no restrictions. Visit Report/Discharge Packet Instructions: How to Prevent Falls, DI for Hepatic Encephalopathy Stand Alone Forms: Patient Portal/API, Stroke Signs & Symptoms Discharge Data Primary Care Provider: Megan Domingo Attending Provider: Woo Mead Admit Date/Time: 05/31/24 15:11 Quality VTE Deep Vein Thrombosis/Pulmonary Embolism Present on Admission: No MIPS - DC The patient has a history of heart transplant or Left Ventricular Assist Device (LVAD). If yes, STOP here.: No The patient has current or prior documentation of left ventricular ejection fraction (LVEF) less than or equal to 40%, or moderate or severely depressed left ventricular systolic function.: No
[2024-06-01] MEDS: LACTULOSE 20 GM/30 ML SOLUTION PO (09:10)
[2024-06-01] MEDS: ENOXAPARIN 40 MG/0.4 ML SYRINGE SUBCUT (09:10)
[2024-06-01] MEDS: dilTIAZem CD 120 MG CAP PO (09:10)
--- NOTE | 2024-06-01 10:06 | PC.NURSE ---
Day shift: Discharge instructions gone over with patient and patient's niece. Patient A&Ox4 this AM. All questions answered, patient and niece stated understanding. PIV removed prior to discharge. All belongings with patient. PCT Ishaan escorted patient to exit where patient's niece plans to drive her home.
--- NOTE | 2024-06-01 10:38 | CM.DANOTE ---
Patient is a 64 yo female who was admitted OBS Status on 05/31/24 for Hepatic Encephalopathy. Pt has [employer] for insurance and her PCP is Megan Domingo. EMR was reviewed. Per MD, pt with hx of cirrhosis and GI issues and admitted for AMS with hepatic encephalopathy and POONAM. Pt has improved and now medically stable to discharge home today and no identified barriers to discharge. Per RN, pt has ambulated in room independently and was able to stand at the sink and complete ADLs and pt currently dressing into street clothes and niece in room to provide transport and pt leaving any minute for home and no concerns noted. No bedside assessment completed at this time due to triage needs and no identified barriers to discharge. Plan: Patient to discharge home this morning via niece POV back to [place] and outpt f/u and no further discharge needs at this time. MARY Burrell
== END 2024-06-01 10:40 | disposition home or self-care (01) ==
LOC: ED 13:25 → AC 15:11
PROVIDERS: Admitting Provider Internal Medicine; Emergency Provider Emergency Medicine; PCP Physician Assistant; Referring Provider Emergency Medicine; Visit Provider Internal Medicine
DX: K76.82 Hepatic encephalopathy (principal); K74.69 Other cirrhosis of liver; N17.9 Acute kidney failure, unspecified; I48.0 Paroxysmal atrial fibrillation; I50.32 Chronic diastolic (congestive) heart failure; M13.0 Polyarthritis, unspecified; Z11.52 Encounter for screening for COVID-19
CPT/HCPCS: 36415; 70450; 70496; 70498; 71045; 71260; 74177; 80053; 80305; 80320; 81001; 82140; 82550; 82962; 83605; 83690; 83880; 84145; 84484; 85007; 85025; 85610; 85730; 87040; 87633; 93005; 93010; 96360; 96361; 96372; 99284; G0378; J1650; Q9967

== ENCOUNTER 2024-07-17 10:51 | Inpatient (IN) | payer MEDICARE, OTHER, SELFPAY ==
[2024-05-31 16:40] VITALS: BMI 35.4
[2024-07-17] VITALS (42 sets, daily range): BP systolic 91–148; BP diastolic 50–68; PULSE 28–82; RESP 0–30; TEMP 36.3–36.8; O2SAT 85–100; BMI 39.9
--- NOTE | 2024-07-17 11:02 | ED_ITS ---
HPI - General Adult General Chief complaint: Shortness of Breath/Dyspnea Stated complaint: Check Pneumonia levels Time Seen by Provider: 07/17/24 10:54 History of Present Illness HPI narrative: 64-year-old woman with a history of hypertension, hyperlipidemia, reflux, MASH/Sequeira, diastolic heart failure, presumably autoimmune polyarthritis, paroxysmal atrial fibrillation presents complaining that she is ?developing a double chin? and that is sometimes is making it hard to breathe. Her niece accompanies her and both note that it seems to be after starting levothyroxine and discontinuing furosemide. She was recently admitted for acute hepatic encephalopathy and today does seem confused and somewhat slowed. Patient did have a CT angiogram of the head and neck on May 31 with her recent hospital admission. There is a mention in the study that the soft tissues of the neck or visualized and demonstrate ?no suspicious abnormalities?. She complains that sometimes her throat is getting in the way of her breathing, overall somewhat cognitively slowed, is not complaining of dyspnea or orthopnea. No abdominal pain, vomiting or diarrhea. No recent fevers. Related Data Home Medications Medication Instructions Recorded Confirmed aspirin 81 mg tablet,delayed 81 mg PO DAILY PRN Pain (Scale 07/25/18 05/31/24 release Score 1-3) atorvastatin 10 mg tablet 10 mg PO DAILY 07/25/18 05/31/24 losartan 25 mg tablet 25 mg PO BID 10/20/22 06/01/24 potassium chloride 20 mEq 20 meq PO BID 10/23/22 07/17/24 tablet,extended release(part/cryst) hydroxychloroquine 200 mg tablet 200 mg PO BID 05/31/24 05/31/24 (Plaquenil) pantoprazole 40 mg tablet,delayed 40 mg PO BID 06/01/24 06/01/24 release diltiazem HCl 120 mg capsule,24 120 mg PO DAILY 07/17/24 07/17/24 hr,extended release Previous Rx's Medication Instructions Recorded furosemide 20 mg tablet 10 mg (1/2 x 20 mg) PO DAILY #30 06/01/24 tabs spironolactone 25 mg tablet 12.5 mg (1/2 x 25 mg) PO DAILY #30 06/01/24 tabs Allergies Allergy/AdvReac Type Severity Reaction Status Date / Time amlodipine Allergy Unknown Verified 07/17/24 11:14 atenolol [ATENOLOL] Allergy Unknown RASH Verified 05/31/24 10:01 metformin Allergy Unknown Verified 07/17/24 11:14 metoprolol Allergy Unknown Verified 07/17/24 11:14 lisinopril AdvReac Verified 05/31/24 10:01 Review of Systems Review of Systems Narrative: Pertinent positive and negative findings as per HPI Patient History Medical History Diastolic heart failure Cirrhosis Metabolic dysfunction-associated steatohepatitis (MASH) Social History household members: spouse and caregiver Smoking Status: Never smoker alcohol intake: never Smoking Status: Never smoker alcohol intake frequency: holidays/special occasions only Substance Use Type: does not use Exam Initial Vital Signs Initial Vital Signs: Vital Signs Pulse Rate 82 07/17/24 10:57 Pulse Oximetry 100 07/17/24 10:57 General: Chronically ill-appearing, significantly volume overloaded, cognitively slowed HEENT: Moist mucous membranes, normal sclera with reactive pupils, tongue is beefy red in appearance, there is some mild erythema in the posterior pharynx without exudate. Neck: Patient does have excess subcutaneous tissue in the neck but no obvious masses, abscess or dramatically enlarged thyroid or lymph nodes Respiratory: Lungs with bibasilar crackles. When she is slumped down in bed she has wheezing that resolved completely when she sits up and her chin is lifted and airway cleared Cardiac: Regular rate and rhythm no murmurs no bruits Abdomen: Obese, Soft, nontender, good bowel tones, no flank pain Skin: Anasarca with swelling through to her face Neurologic: Slightly slowed responses, baseline cognitive function is not entirely clear, she does not have localizing neurologic symptoms Extremities: Chronic venous stasis changes, Flushing edema bilaterally with continued edema extending through thighs abdomen torso arms neck and including face Psych: Cooperative, slowed overall responses Course Orders Ordered: ED Orders 07/17/24 11:06 XR chest 1V Stat EKG-12 Lead Stat Measure peak expiratory flow ONCE RT Consult Eval and Treat NOW 07/17/24 11:10 Ammonia (NH3) Stat Complete Blood Count AUTO DIFF Stat Comprehensive Metabolic Panel Stat Lactate (Lactic Acid) Stat NT-proBNP (BNP-Adult 18+) Stat Prothrombin Time INR Stat TSH w/ Reflex to FT4 Stat Troponin I Stat Discontinued Medications Furosemide (Furosemide 40 Mg/4 Ml Vial) 40 mg IV NOW ONE Stop: 07/17/24 11:30 Last Admin: 07/17/24 11:40 Dose: 40 mg Documented By: NELY Vital Signs Vital signs: Vital Signs - 8 hr 07/17/24 10:57 07/17/24 11:00 07/17/24 11:00 Temperature Pulse Rate 82 78 Respiratory Rate 12 Blood Pressure 132/61 Pulse Oximetry 100 98 Oxygen Delivery Method 07/17/24 11:08 07/17/24 11:30 07/17/24 11:30 Temperature 98.3 F Pulse Rate 80 74 Respiratory Rate 24 13 Blood Pressure 120/64 Pulse Oximetry 99 98 Oxygen Delivery Method Room Air Medical Decision Making Lab Data 07/17/24 11:10 07/17/24 11:10 Labs: Lab Results 07/17/24 Range/Units 11:10 WBC 6.0 (4.5-11.0) X10^3/uL RBC 3.42 L (4.0-5.2) X10^6/uL Hgb 10.1 L (12.0-16.0) g/dL Hct 29.8 L (36-46) % MCV 87.2 (80-100) fL MCH 29.6 (26-34) PG MCHC 33.9 (30-36) % RDW 16.7 H (11.6-14.8) % Plt Count 124 L (150-400) X10^3/uL Neut % (Auto) Not Reportable Lymph % (Auto) Not Reportable [place] % (Auto) Not Reportable Eos % (Auto) Not Reportable Baso % (Auto) Not Reportable Lymph # (Auto) Not Reportable [place] # (Auto) Not Reportable Baso # (Auto) Not Reportable Total Counted 100 Seg Neutrophils % 49.0 (38-70) % Lymphocytes % (Manual) 29.0 (25-45) % Monocytes % (Manual) 12.0 H (2-11) % Eosinophils % (Manual) 10.0 H (2-4) % Neutrophils # (Manual) 2940 L (0883-1485) /uL RBC Morphology See below Poikilocytosis 1+ H Anisocytosis 1+ H Schistocytes 1+ H PT 14.4 H (9.4-12.5) SECONDS INR 1.3 (0.9-1.3) Sodium 133 L (137-145) mmol/L Potassium 5.5 H (3.4-5.1) mmol/L Chloride 109 H (98-107) mmol/L Carbon Dioxide 18 L (22-32) mmol/L BUN 38 H (7-17) mg/dL Creatinine 2.59 H (0.52-1.04) mg/dL Estimated GFR 20 L (>60) mL/min BUN/Creatinine Ratio 14.7 (6-22) Glucose 134 H (80-110) mg/dL Lactate 1.4 (0.7-2.1) mmol/L Calcium 8.8 (8.4-10.2) mg/dL Total Bilirubin 1.8 H (0.2-1.3) mg/dL AST 58 H (14-36) IU/L ALT 32 (<35) IU/L Alkaline Phosphatase 89 (38-126) U/L Ammonia 146 H (9-30) umol/L Troponin I 0.013 (0.01-0.034) ng/mL NT-Pro-B Natriuret Pep 850 H (<125) pg/mL Total Protein 7.6 (6.3-8.2) g/dL Albumin 3.3 L (3.5-5.0) g/dL Globulin 4.3 H (1.7-4.1) g/dL Albumin/Globulin Ratio 0.8 L (1.0-2.8) MDM Narrative Medical decision making narrative: CC: Shortness of breath, complaining of developing a double chin, sore throat Complicating co-morbidities: Hospital admission with discharge June 01 for hepatic encephalopathy, SEQUEIRA, hyperlipidemia, heart failure Data collected from: patient, niece Medical records reviewed: Discharge summary from 06/01 is reviewed Differential considered: Heart failure, thyroid abnormalities, neck mass Exam documented above, pertinent findings include: 64-year-old woman who appears chronically ill, bibasilar crackles, cardiac wheeze, anasarca Lab Test results independently reviewed as above. Pertinent findings: CBC shows no leukocytosis. Mild anemia at 10.1 and 29.8 which is not far from her baseline platelet count is slightly low at 124 PT is slightly elevated at 14.4 Chemistries are notable for significant worsening creatinine jumping from 1.1- 2.6, potassium of 5.5. Elevated BUN. Bilirubin and AST are chronically elevated and unchanged Significantly elevated ammonia level at 146 BNP is elevated at 850 Troponin is undetected Independently reviewed EKG: Regular rate at 75, low voltage overall, no peaked T-waves or widened QRS. With minimal voltage it is unclear if P waves are present or not. Imaging studies independently reviewed: Pulmonary edema with cardiomegaly Consultations: Discussed with hospitalist, Dr. Trujillo. We reviewed recent hospitalization and discussions of her Gastroenterology consultation in May in [place]. Given the fact that this is quite similar to that admission and she did well we will begin her admission here. Recommendations, findings and concerns reviewed with the patient and her niece. Both are agreeable to plans with hospital admission Treatments: 40 mg of Lasix, lokelima for the minimally elevated potassium, lactulose for the significantly elevated ammonia level Discussion: 64-year-old woman with anasarca, acute kidney injury, significant volume overload, mild hypokalemia and hepatic encephalopathy in the setting of mass/SEQUEIRA. No evidence of bleeding. Given recent admission and workup at that time no advanced imaging is ordered today. We will be admitted to the hospitalist service Discharge Plan Departure Patient Disposition: Admitted As Inpatient Clinical Impression: Acute hepatic encephalopathy, Anasarca, Metabolic dysfunction-associated steatohepatitis (MASH), Acute kidney injury, Acute hyperkalemia, Anemia, chronic disease Prescriptions: No Action atorvastatin 10 mg tablet 10 mg PO DAILY aspirin 81 mg tablet,delayed release (DR/EC) 81 mg PO DAILY PRN (Reason: Pain (Scale Score 1-3)) Patient Comments: states uses when needed diltiazem HCl 120 mg capsule,extended release 24 hr 120 mg PO DAILY losartan 25 mg Tablet 25 mg PO BID potassium chloride 20 mEq tablet,ER particles/crystals 20 meq PO BID hydroxychloroquine [Plaquenil] 200 mg tablet 200 mg PO BID spironolactone 25 mg tablet 12.5 mg PO DAILY Qty: 30 0RF furosemide 20 mg Tablet 10 mg PO DAILY Qty: 30 0RF pantoprazole 40 mg tablet,delayed release (DR/EC) 40 mg PO BID Referrals: Megan Domingo PA-C [Primary Care Provider] - Admit Date/Time: 07/17/24 12:26 Admit Provider: Jc Trujillo
--- NOTE | 2024-07-17 11:06 | DI.RAD.S_ITS ---
PROCEDURE: XR CHEST 1V INDICATIONS: Shortness of breath TECHNIQUE: One view of the chest was acquired. COMPARISON: [facility], CR, XR CHEST 1V, 05/31/2024, 10:28. FINDINGS: Surgical changes and devices: None. Lungs and pleura: No silhouetting. Suspected pulmonary edema is decreased. No significant pleural effusions or pneumothorax. Mediastinum: Mediastinal contours appear normal. Heart size is prominent. Bones and chest wall: No suspicious bony lesions. Overlying soft tissues appear unremarkable. IMPRESSION: Suspected pulmonary edema is decreased. Dictated by: Santy Simpson M.D. on 07/17/2024 at 11:46 Approved by: Santy Simpson M.D. on 07/17/2024 at 11:49
--- NOTE | 2024-07-17 11:06 | EKG_ITS ---
[place] [address] [place] [id number] Test Date: 2024-07-17 Pat Name: Ruba Lan Department: [facility] Room: Gender: Female Box Lidder: MELBA : 1960 Requested By: Order Number: [id number] Reading MD: Micky Carty MD Measurements Intervals [place] Rate: 75 P: AL: QRS: 34 QRSD: 78 T: 9 QT: 384 QTc: 428 Interpretive Statements Accelerated Junctional rhythm vs Sinus rhythm, prefer sinus rhythm Low voltage QRS Cannot rule out Anterior infarct , age undetermined Electronically Signed On 07-17-2024 12:10:06 PDT by Micky Carty MD
[2024-07-17 11:28] LABS: INR 1.3 (0.9-1.3); Prothrombin Time 14.4 SECONDS (9.4-12.5)
[2024-07-17 11:29] LABS: Hematocrit 29.8 % (36-46); Hemoglobin 10.1 g/dL (12.0-16.0); Mean Corpuscular HGB Conc 33.9 % (30-36); Mean Corpuscular Hemoglobin 29.6 PG (26-34); Mean Corpuscular Volume 87.2 fL (80-100); Platelet Count 124 X10^3/uL (150-400); Red Blood Cell Count 3.42 X10^6/uL (4.0-5.2); Red Cell Distribution Width 16.7 % (11.6-14.8)
[2024-07-17 11:30] LABS: Add Manual Diff / Slide Review YES
[2024-07-17 11:31] LABS: Ammonia (NH3) 146 umol/L (9-30)
[2024-07-17 11:32] LABS: Alanine Aminotransferase 32 IU/L (<35); Albumin 3.3 g/dL (3.5-5.0); Albumin Globulin Ratio 0.8 (1.0-2.8); Alkaline Phosphatase 89 U/L (38-126); Aspartate Aminotransferase 58 IU/L (14-36); BUN Creatinine Ratio 14.7 (6-22); Bilirubin Total 1.8 mg/dL (0.2-1.3); Blood Urea Nitrogen 38 mg/dL (7-17); Calcium 8.8 mg/dL (8.4-10.2); Carbon Dioxide 18 mmol/L (22-32); Chloride 109 mmol/L (98-107); Estimated Glomerular Filt Rate 20 mL/min (>60); Globulin 4.3 g/dL (1.7-4.1); Glucose 134 mg/dL (80-110); HEMOLYSIS < 15 (0-50); Potassium 5.5 mmol/L (3.4-5.1); Sodium 133 mmol/L (137-145); Total Protein 7.6 g/dL (6.3-8.2)
[2024-07-17 11:33] LABS: Lactate (Lactic Acid) 1.4 mmol/L (0.7-2.1)
[2024-07-17] MEDS: FUROSEMIDE 40 MG/4 ML VIAL IV (11:40)
[2024-07-17 11:44] LABS: NT-proBNP (BNP-Adult 18+) 850 pg/mL (<125); Troponin I 0.013 ng/mL (0.01-0.034)
[2024-07-17 11:50] LABS: Neutrophils Absolute Manual 2940 /uL (3000-5900); Total Cells Counted 100
[2024-07-17 11:51] LABS: Anisocytosis 1+; Schistocytes 1+
[2024-07-17 11:52] LABS: Poikilocytosis 1+
[2024-07-17] MEDS: LACTULOSE 20 GM/30 ML SOLUTION PO ×3 (12:44→20:22)
[2024-07-17 12:48] LABS: Free T4, Direct Thyroxine 1.76 ng/dL (0.78-2.19)
[2024-07-17] MEDS: SODIUM ZIRCONIUM CYCLOSILICATE 10 GM POWD.PACK PO ×3 (12:58→20:23)
--- NOTE | 2024-07-17 13:07 | PM.HP.1 ---
History of Present Illness History of Present Illness Date Patient Seen: 07/17/24 Chief complaint: Check Pneumonia levels Narrative: Summary: The patient was a 64-year-old female with history of hypertension, Garcia, hyperlipidemia, diastolic heart failure, polyarthritis, and PAF who presented with dyspnea and edema. In the ED she was found to be edematous, encephalopathic, and had POONAM as well as an elevated ammonia. Subjective: She presents with progressive gross anasarca as well as slow speech and slurred speech. She lives in [place] with her . She does take Lasix 20 mg daily as well as lactulose. She denies any diarrhea or blood per rectum. All of her medications. She has a history of GARCIA, as well as diastolic heart failure and chronic edema. This is much worse than normal. Her anasarca includes her entire chest and thorax as well as her arms and legs. She denies fevers, or chills. No dyspnea. She was comfortable on room air. She has been more fatigued globally. In the ED she was noted to have POONAM as well. She denies any other unusual symptoms. She was recently started on Synthroid and she and her appeared think that taking this new medication exacerbated her edema and they do not want to take it currently. [facility] Medical History Diastolic heart failure Cirrhosis Metabolic dysfunction-associated steatohepatitis (MASH) Social History household members: spouse and caregiver Smoking Status: Never smoker alcohol intake: never Meds Home Medications and Allergies Home Medications Medication Instructions Recorded Confirmed Type aspirin 81 mg tablet,delayed 81 mg PO DAILY PRN Pain (Scale 07/25/18 05/31/24 History release Score 1-3) atorvastatin 10 mg tablet 10 mg PO DAILY 07/25/18 05/31/24 History losartan 25 mg tablet 25 mg PO BID 10/20/22 06/01/24 History potassium chloride 20 mEq 20 meq PO BID 10/23/22 07/17/24 History tablet,extended release(part/cryst) hydroxychloroquine 200 mg tablet 200 mg PO BID 05/31/24 05/31/24 History (Plaquenil) furosemide 20 mg tablet 10 mg (1/2 x 20 mg) PO DAILY #30 06/01/24 07/17/24 Rx tabs pantoprazole 40 mg tablet,delayed 40 mg PO BID 06/01/24 06/01/24 History release spironolactone 25 mg tablet 12.5 mg (1/2 x 25 mg) PO DAILY #30 06/01/24 07/17/24 Rx tabs diltiazem HCl 120 mg capsule,24 120 mg PO DAILY 07/17/24 07/17/24 History hr,extended release Allergies Allergy/AdvReac Type Severity Reaction Status Date / Time amlodipine Allergy Unknown Verified 07/17/24 11:14 atenolol [ATENOLOL] Allergy Unknown RASH Verified 05/31/24 10:01 metformin Allergy Unknown Verified 07/17/24 11:14 metoprolol Allergy Unknown Verified 07/17/24 11:14 lisinopril AdvReac Verified 05/31/24 10:01 Review of Systems Review of Systems Narrative: All else reviewed and otherwise unremarkable except as noted in the history and physical. Exam Vital Signs (past 8 hours): - 07/17/24 10:57 07/17/24 11:00 07/17/24 11:00 Temperature Pulse Rate 82 78 Respiratory Rate 12 Blood Pressure 132/61 Pulse Oximetry 100 98 Oxygen Delivery Method 07/17/24 11:08 07/17/24 11:30 07/17/24 11:30 Temperature 98.3 F Pulse Rate 80 74 Respiratory Rate 24 13 Blood Pressure 120/64 Pulse Oximetry 99 98 Oxygen Delivery Method Room Air 07/17/24 12:00 07/17/24 12:00 07/17/24 12:30 Temperature Pulse Rate 72 Respiratory Rate 12 Blood Pressure 140/64 128/65 Pulse Oximetry 99 Oxygen Delivery Method 07/17/24 12:30 07/17/24 13:00 Temperature Pulse Rate 70 69 Respiratory Rate 18 Blood Pressure Pulse Oximetry 99 Oxygen Delivery Method Oxygen Delivery Method Room Air Narrative Exam Narrative: NAD, alert and oriented, fluent speech, calm. She was chronically ill in appearance, and soft and slow spoken. No anxiety. Her is at the bedside. Normocephalic skull, EOMI, anicteric sclera, symmetric pupils. Oropharynx unremarkable, no droop. Neck supple, midline trachea, no adenopathy. Lungs clear, normal rate and effort. Heart regular, no murmur gallop or rub. Abdomen is soft, non distended and non tender. Extremities are grossly edematous and she was anasarca of her entire body including her chest, neck chin and extremities. Skin is free of rash or lesions. Joints are not swollen or deformed. Judgment appears to be abnormal. Objective ECG Impression: Accelerated Junctional rhythm vs Sinus rhythm, prefer sinus rhythm Low voltage QRS Cannot rule out Anterior infarct , age undetermined Imaging Chest x-ray: Radiologist's impression: Suspected pulmonary edema is decreased. Labs 07/17/24 11:10 07/17/24 11:10 Labs: Laboratory Results - last 24 hr 07/17/24 11:10 WBC 6.0 RBC 3.42 L Hgb 10.1 L Hct 29.8 L MCV 87.2 MCH 29.6 MCHC 33.9 RDW 16.7 H Plt Count 124 L Neut % (Auto) Not Reportable Lymph % (Auto) Not Reportable [place] % (Auto) Not Reportable Eos % (Auto) Not Reportable Baso % (Auto) Not Reportable Lymph # (Auto) Not Reportable [place] # (Auto) Not Reportable Baso # (Auto) Not Reportable Total Counted 100 Seg Neutrophils % 49.0 Lymphocytes % (Manual) 29.0 Monocytes % (Manual) 12.0 H Eosinophils % (Manual) 10.0 H Neutrophils # (Manual) 2940 L RBC Morphology See below Poikilocytosis 1+ H Anisocytosis 1+ H Schistocytes 1+ H PT 14.4 H INR 1.3 Sodium 133 L Potassium 5.5 H Chloride 109 H Carbon Dioxide 18 L BUN 38 H Creatinine 2.59 H Estimated GFR 20 L BUN/Creatinine Ratio 14.7 Glucose 134 H Lactate 1.4 Calcium 8.8 Total Bilirubin 1.8 H AST 58 H ALT 32 Alkaline Phosphatase 89 Ammonia 146 H Troponin I 0.013 NT-Pro-B Natriuret Pep 850 H Total Protein 7.6 Albumin 3.3 L Globulin 4.3 H Albumin/Globulin Ratio 0.8 L TSH 36.30 H Free T4 1.76 Assessment & Plan Assessment & Plan narrative: 1. POONAM, present on admission and active. 2. Hyperkalemia, present on admission and active. 3. Hepatic encephalopathy, present on admission and active. 4. GARCIA, present on admission and active. 5. Anasarca, present on admission and active. 6. Acute on chronic diastolic heart failure, present on admission and active. 7. Chronic polyarthritis, present on admission and stable. 8. PAF, present on admission and stable. Not on anticoagulation due to a history of GI bleeding in the [facility]. PLAN: -lactulose for encephalopathy. -Lokelma -diuresis and monitor renal function. -octreotide and albumin for hepatorenal dysfunction. -telemetry and monitor heart rate. -recheck TSH Inpatient status, anticipate 2 midnights of care. Full resuscitation JIL is July 19. Time-Based Coding :: 40 min spent with patient and on the chart (including review of chart, obtaining history, exam, reviewing outside data, placing orders, documenting exam and treatment plan, and counseling patient) on 07/17. Quality MIPS - Admit I confirm the patient?s Advance Care Plan is present, Code status is documented, Surrogate decision maker is in patient?s record [If Yes, STOP here]: Yes MIPS - Meds 'Current medications' to include all prescriptions, [id number] products, herbals, cannabis/cannabidiol products, and vitamin/mineral/dietary (nutritional) supplements. I have utilized all available resources to obtain, update, or review the patient?s current medications. [If Yes, STOP here]: Yes
[2024-07-17] MEDS: ALBUMIN HUMAN 25 GM/100 ML VIAL IV ×2 (14:54→22:47)
[2024-07-17] MEDS: HEPARIN 5,000 UNIT/ML VIAL 5000 UNIT SUBCUT ×2 (14:54→20:22)
[2024-07-17] MEDS: OCTREOTIDE 100 MCG/ML VIAL SUBCUT ×2 (14:54→20:22)
[2024-07-17] MEDS: FUROSEMIDE 60 MG in SODIUM CHLORIDE 0.9% 50 ML 112 MG IV (15:52)
[2024-07-17 16:22] LABS: MRSA (Nasal) PCR NOT DETECTED (Not Detect)
[2024-07-17 17:34] LABS: BUN Creatinine Ratio 14.4 (6-22); Blood Urea Nitrogen 38 mg/dL (7-17); Calcium 8.8 mg/dL (8.4-10.2); Carbon Dioxide 17 mmol/L (22-32); Chloride 109 mmol/L (98-107); Estimated Glomerular Filt Rate 20 mL/min (>60); Glucose 148 mg/dL (80-110); HEMOLYSIS 32 (0-50); Sodium 135 mmol/L (137-145)
[2024-07-17 17:35] LABS: Potassium 5.5 mmol/L (3.4-5.1)
[2024-07-17] MEDS: MIDODRINE HCL 5 MG TABLET PO (19:18)
[2024-07-17] MEDS: OXYCODONE IR 5 MG TABLET PO (19:43)
--- NOTE | 2024-07-17 22:18 | EKG_ITS ---
[address] [address] [address] Test Date: 2024-07-17 Pat Name: Ruba Lan Department: Room: 226 Gender: Female Java Sdet: : 1960 Requested By: Jc Trujillo Order Number: [id number] Reading MD: Micky Carty MD Measurements Intervals [place] Rate: 44 P: [place]: QRS: 60 QRSD: 78 T: 32 QT: 518 QTc: 442 Interpretive Statements Atrial fibrillation with slow ventricular response with a competing junctional pacemaker Low voltage QRS Electronically Signed On 07-18-2024 7:47:54 PDT by Micky Carty MD
--- NOTE | 2024-07-17 22:25 | EKG_ITS ---
[address] [address] Test Date: 2024-07-17 Pat Name: Ruba Lan Department: [facility] Room: 226 Gender: Female Director Consumer Affairs: JONES : 1960 Requested By: Order Number: [id number] Reading MD: Micky Carty MD Measurements Intervals [place] Rate: 65 P: [place]: QRS: 71 QRSD: 76 T: 63 QT: 434 QTc: 451 Interpretive Statements Atrial fibrillation Low voltage QRS Electronically Signed On 07-18-2024 7:47:59 PDT by Micky Carty MD
[2024-07-17] MEDS: ATROPINE 1 MG/10 ML SYRINGE 0.5 MG IV (22:35)
[2024-07-17 22:41] LABS: Alanine Aminotransferase 31 IU/L (<35); Albumin 3.3 g/dL (3.5-5.0); Albumin Globulin Ratio 0.8 (1.0-2.8); Alkaline Phosphatase 87 U/L (38-126); Aspartate Aminotransferase 55 IU/L (14-36); BUN Creatinine Ratio 13.8 (6-22); Bilirubin Total 1.9 mg/dL (0.2-1.3); Blood Urea Nitrogen 39 mg/dL (7-17); Calcium 8.9 mg/dL (8.4-10.2); Carbon Dioxide 18 mmol/L (22-32); Chloride 107 mmol/L (98-107); Estimated Glomerular Filt Rate 18 mL/min (>60); Globulin 4.3 g/dL (1.7-4.1); Glucose 157 mg/dL (80-110); HEMOLYSIS < 15 (0-50); Magnesium 2.4 mg/dL (1.6-2.3); Sodium 132 mmol/L (137-145); Total Protein 7.6 g/dL (6.3-8.2)
[2024-07-17 22:43] LABS: Potassium 5.7 mmol/L (3.4-5.1)
--- NOTE | 2024-07-17 23:09 | PC.NURSE ---
[employer] Machine Operator Note-At beginning of shift, patient was awake and participating in care. Slow, delayed speech and slow to move. Up to BSC with 2-person assist, had large loose stool mixed with urine, unable to get accurate UOP. VSS, 96% on RA. 5mg oxycodone given for leg pain. After patient fell asleep around 2130, her HR started decreasing to 40s, BP trending downward 91/50(67). At 2215, HR dipping into 20s, Dr Teresa on Telehealth monitor visualized patient, ordered EKG and Atropine, 0.5mg given, rapid response called. Patient very slow to respond but able to state [facility] CMP and Mg+ drawn. Patient responded to Atropine, HR now in 70s, BP 133/63, monitoring frequently.
[2024-07-18] VITALS (20 sets, daily range): BP systolic 103–149; BP diastolic 55–65; PULSE 64–72; RESP 12–20; TEMP 36.3–37.1; O2SAT 96–99
--- NOTE | 2024-07-18 | DI.US.S_ITS ---
PROCEDURE: US RENAL COMPLETE INDICATIONS: POONAM r/o obstruction TECHNIQUE: Real-time scanning was performed of the kidneys and bladder, with image documentation. COMPARISON: None. FINDINGS: Kidneys: Right kidney not seen. Left kidney measures 13.9 centimeters, cortex measuring 1.7 centimeters. No hydronephrosis. No mass or cysts. Bladder: decompressed around a Barak[place] catheter. Miscellaneous: No free pelvic fluid. IMPRESSION: Right Kidney was not visualized. Left kidney demonstrates no hydronephrosis. Dictated by: Garrick Boo M.D. on 07/18/2024 at 9:44 Approved by: Garrick Boo M.D. on 07/18/2024 at 9:46
--- NOTE | 2024-07-18 00:45 | RT ---
AT 2215 this evening, responded to rapid response call. Performed EKGS x2, 1st was very low voltage so another EKG was obtained after replacing electrodes. No other RT interventions required.
[2024-07-18] MEDS: FUROSEMIDE 60 MG in SODIUM CHLORIDE 0.9% 50 ML 112 MG IV (00:46)
[2024-07-18 06:10] LABS: Hematocrit 27.7 % (36-46); Hemoglobin 9.4 g/dL (12.0-16.0); Mean Corpuscular Hemoglobin 29.6 PG (26-34); Mean Corpuscular Volume 86.9 fL (80-100); Platelet Count 117 X10^3/uL (150-400); Red Blood Cell Count 3.19 X10^6/uL (4.0-5.2); Red Cell Distribution Width 16.5 % (11.6-14.8); White Blood Cell Count 4.5 X10^3/uL (4.5-11.0)
[2024-07-18 06:18] LABS: Add Manual Diff / Slide Review YES
[2024-07-18 06:24] LABS: Alanine Aminotransferase 29 IU/L (<35); Albumin 3.6 g/dL (3.5-5.0); Albumin Globulin Ratio 0.9 (1.0-2.8); Alkaline Phosphatase 79 U/L (38-126); Aspartate Aminotransferase 61 IU/L (14-36); BUN Creatinine Ratio 13.6 (6-22); Bilirubin Total 1.9 mg/dL (0.2-1.3); Blood Urea Nitrogen 39 mg/dL (7-17); Calcium 8.9 mg/dL (8.4-10.2); Carbon Dioxide 18 mmol/L (22-32); Chloride 108 mmol/L (98-107); Estimated Glomerular Filt Rate 18 mL/min (>60); Glucose 126 mg/dL (80-110); HEMOLYSIS 17 (0-50); Sodium 135 mmol/L (137-145); Total Protein 7.6 g/dL (6.3-8.2)
[2024-07-18 06:32] LABS: Potassium 6.3 mmol/L (3.4-5.1)
[2024-07-18 06:47] LABS: Neutrophils Absolute Manual 2565 /uL (3000-5900); Total Cells Counted 100
[2024-07-18 06:48] LABS: Anisocytosis 1+; Poikilocytosis 1+; Schistocytes 1+; Thyroid Stimulating Hormone 15.9 uIU/mL (0.47-4.68)
[2024-07-18] MEDS: ALBUMIN HUMAN 25 GM/100 ML VIAL IV ×2 (06:57→14:47)
[2024-07-18 08:39] LABS: Allen Test for ABG Passed? Positive; Base Excess ABG -4.9 mmol/L (-2-3); Blood Gas Collection Site Right Radial; HCO3 ABG 19 mmol/L (23-27); Oxygen Saturation ABG 97 % (95-100); PCO2 ABG 29.4 mmHg (35-45); PO2 ABG 83 mmHg (80-100); TCO2 ABG 18 mmol/L (23-27); pH ABG 7.42 (7.35-7.45)
[2024-07-18] MEDS: SODIUM CHLORIDE 0.9% FLUSH 10 ML IV (09:31)
[2024-07-18] MEDS: OCTREOTIDE 100 MCG/ML VIAL SUBCUT ×2 (09:31→14:47)
[2024-07-18] MEDS: PANTOPRAZOLE 40 MG VIAL 80 MG IV (09:31)
[2024-07-18] MEDS: LACTULOSE 20 GM/30 ML SOLUTION PR (09:47)
[2024-07-18 10:22] LABS: Appearance Urine UA CLOUDY; Bilirubin Urine UA 2+ (NEGATIVE); Color Urine UA BROWN; Glucose Urine UA TRACE g/dL (Negative); Ketones Urine UA 1+ (NEGATIVE); Leukocyte Esterase Urine UA TRACE (NEGATIVE); Nitrite Urine UA POSITIVE (Negative); Occult Blood Urine UA 3+ (Negative); Protein Urine UA 3+ (Negative); Specific Gravity Urine UA >=1.030 (1.000-1.035)
[2024-07-18 10:26] LABS: Sodium Urine Random 12 mmol/L (30-90)
[2024-07-18 10:38] LABS: pH Urine UA 6.5 (4.5-8.0)
[2024-07-18 10:40] LABS: Ictotest Urine Negative (Negative); RBC Urine 30-100/HPF (0-5/HPF); Urine Volume 10mL (spun); WBC Urine 1-5/HPF (0-5/HPF)
[2024-07-18 10:41] LABS: Bacteria Urine Few (2-10); Culture Indicated Urine Specimen Cultured; Squamous Epithelial Cell Urine None Seen (0-5/HPF)
[2024-07-18 11:13] LABS: Hematocrit 27.9 % (36-46); Hemoglobin 9.4 g/dL (12.0-16.0)
[2024-07-18 11:17] LABS: BUN Creatinine Ratio 13.3 (6-22); Blood Urea Nitrogen 39 mg/dL (7-17); Calcium 8.9 mg/dL (8.4-10.2); Carbon Dioxide 18 mmol/L (22-32); Chloride 108 mmol/L (98-107); Estimated Glomerular Filt Rate 17 mL/min (>60); Glucose 118 mg/dL (80-110); HEMOLYSIS < 15 (0-50); Sodium 135 mmol/L (137-145)
[2024-07-18 11:18] LABS: Potassium 6.3 mmol/L (3.4-5.1)
--- NOTE | 2024-07-18 11:54 | CM.DANOTE ---
Initial DCP Assessment Note Pt is a 64 yo female, resident of [place], arrives with family, spouse concerned that patient had a high ammonia level related to her cirrhosis. Patient alert and oriented x3, weak, admitted for work up and management of POONAM, Hyperkalemia, Hepatic encephalopathy and other chronic conditions. PCP: Megan Domingo Payer: [facility]/ [employer] [facility] Reviewed chart, pt discussed in multidisciplinary rounds this morning. Patient is quite ill with worsening kidney function; Dr Mead would like patient transferred to higher level of care for nephrology. Plan: Transfer to higher level of care. CM team will plan to follow clinical course closely. MARY Waggoner Discharge Planning/Care Management CM Discharge Assessment Start: 07/18/24 11:28 Freq: Status: Active Protocol: Document 07/18/24 11:28 REOL (Rec: 07/18/24 11:54 ROEL [id number]) Discharge Planning Assessment Assigned Training Designer MARY Penny DPOA/Assigned Designee Name Yash Lan, spouse Contact Information [phone] Advance Directives? Yes Advance Directives on File No History Provided By Patient,Family Member,Medical Record Prior Living Arrangements House Household Members spouse,caregiver Type of transporation used prior to Relies on Others admit Independent with ADL's Yes Is patient alert and oriented? Cognitive baseline unknown Comment Patient is expected to transfer to higher level of care for nephrology Discharge Plan Transfer to Higher Level of Care Transportation Arrangement Ambulance Referrals Initiated None needed
--- NOTE | 2024-07-18 12:20 | DI.RAD.S_ITS ---
PROCEDURE: XR CHEST 1V INDICATIONS: feeding tube placement TECHNIQUE: One view of the chest was acquired. COMPARISON: [facility], CR, XR CHEST 1V, 07/17/2024, 11:13. [facility], CR, XR CHEST 1V, 05/31/2024, 10:28. FINDINGS: Surgical changes and devices: Gastric tube tip and side port project over the stomach. Lungs and pleura: Cephalized pulmonary vessels. Mediastinum: Mediastinal contours appear normal. Heart size is enlarged. Bones and chest wall: No suspicious bony lesions. Overlying soft tissues appear unremarkable. IMPRESSION: Gastric tube tip and side port project over the stomach. Dictated by: Garrick Boo M.D. on 07/18/2024 at 14:48 Approved by: Garrick Boo M.D. on 07/18/2024 at 14:50
[2024-07-18] MEDS: SODIUM ZIRCONIUM CYCLOSILICATE 10 GM POWD.PACK TUBE (15:02)
[2024-07-18] MEDS: LACTULOSE 20 GM/30 ML SOLUTION TUBE (15:02)
--- NOTE | 2024-07-18 15:04 | PM.DS.1 ---
History of Present Illness History of Present Illness Date Patient Seen: 07/18/24 Time Patient Seen: 15:29 Chief complaint: Check Pneumonia levels Narrative: Per admitting provider, Summary: The patient was a 64-year-old female with history of hypertension, Sequeira, hyperlipidemia, diastolic heart failure, polyarthritis, and PAF who presented with dyspnea and edema. In the ED she was found to be edematous, encephalopathic, and had POONAM as well as an elevated ammonia. Subjective: She presents with progressive gross anasarca as well as slow speech and slurred speech. She lives in [place] with her . She does take Lasix 20 mg daily as well as lactulose. She denies any diarrhea or blood per rectum. All of her medications. She has a history of SEQUEIRA, as well as diastolic heart failure and chronic edema. This is much worse than normal. Her anasarca includes her entire chest and thorax as well as her arms and legs. She denies fevers, or chills. No dyspnea. She was comfortable on room air. She has been more fatigued globally. In the ED she was noted to have POONAM as well. She denies any other unusual symptoms. She was recently started on Synthroid and she and her appeared think that taking this new medication exacerbated her edema and they do not want to take it currently. Discharge Providers Provider Date of admission: 07/17/24 12:26 Discharge Date: 07/18/24 Primary care physician: Megan Domingo PA-C Discharge provider: Woo Mead DO Summary Hospital Course Discharge Diagnosis: 1. Acute hepatic encephalopathy, possible metabolic encephalopathy 2. POONAM vs HRS, acute oliguric renal failure 3. Possible acute cystitis. 4. Hx of MASH cirrhosis 5. Hyperkalemia 6. Pancytopenia, chronic Hospital Course: This is a 64-year-old female with a known history of MASH cirrhosis with 2 prior admissions in the past 6 weeks for hepatic encephalopathy and POONAM who was admitted on 07/17 with creatinine of 2.6 and altered mental status. Admit ammonia level was 146. On admission she also appeared volume overloaded but does have a history of chronic anasarca. Initially diuresis was attempted with furosemide but this was stopped shortly after admission as she had worsening Cr (last dose PM of 07/17. She was also started on albumin, octreotide and midodrine. There was minimal effect on her urine output with furosemide, and she has had minimal urine output today. She was given a dose of rectal lactulose with improvement in her mentation yesterday, though overnight she worsened and has severe encephalopathy this morning. She is able to open her eyes, localize today pain, and moans. NG tube was placed this morning, in coordination with outside GI provider recommendations for lactulose administration. She was noted to have probable bleeding from around her gums, and was also started on 40 mg of protonix BID. This morning, her Cr continued to rise and given she was not responding to 25 g TID of albumin, along with octreotide and midodrine transfer was arranged for possible hepatorenal syndrome and higher level of care. She was accepted to [facility] ICU given her mentation currently. She remains hemodynamically stable. Her potassium remains elevated, currently 6.3, though no T-wave abnormalities are noted on EKG. On the day of discharge, renal ultrasound was performed, which was unable to visualize a R kidney, but showed unremarkable L kidney (of note previous CT imaging from 05/2024 showed normal appearing kidneys). Bedside ultrasound showed no abdominal ascites for possible diagnostic paracentesis. UA showed 30-100 RBC, 1-5 WBC, 3+ blood, 3+ protein, sp. gravity >1.030. Urine Na was 12. She was given ceftriaxone for possible, yet unlikely acute cystitis given her UA. Time Spent with Patient Time spent: Greater than 30 minutes Exam Vital Signs (past 8 hours): - 07/18/24 08:00 07/18/24 08:00 07/18/24 08:00 Temperature 98.2 F Pulse Rate 68 Respiratory Rate Blood Pressure 112/57 L Pulse Oximetry 97 Oxygen Delivery Method 07/18/24 09:00 07/18/24 09:45 07/18/24 09:45 Temperature Pulse Rate 67 70 Respiratory Rate Blood Pressure 128/57 L Pulse Oximetry 98 97 Oxygen Delivery Method 07/18/24 10:00 07/18/24 10:00 07/18/24 11:00 Temperature Pulse Rate 68 Respiratory Rate Blood Pressure 122/58 L Pulse Oximetry 97 99 Oxygen Delivery Method Room Air 07/18/24 11:00 07/18/24 11:01 07/18/24 11:01 Temperature Pulse Rate 67 67 Respiratory Rate Blood Pressure 126/64 Pulse Oximetry 98 98 Oxygen Delivery Method 07/18/24 12:00 07/18/24 12:00 07/18/24 13:00 Temperature Pulse Rate 66 Respiratory Rate Blood Pressure 126/58 L 119/55 L Pulse Oximetry 99 Oxygen Delivery Method 07/18/24 13:00 07/18/24 14:00 07/18/24 14:00 Temperature 98.7 F Pulse Rate 67 69 Respiratory Rate 15 Blood Pressure Pulse Oximetry 98 98 Oxygen Delivery Method 07/18/24 14:01 07/18/24 14:01 Temperature Pulse Rate 68 Respiratory Rate Blood Pressure 138/61 Pulse Oximetry 97 Oxygen Delivery Method Oxygen Delivery Method Room Air Oxygen Flow Rate 0 Narrative Exam Narrative: Gen: WDWN female, lethargic, moans intermittently CV: RRR no m/r/g Pulm: CTA b/l, diminished breath sounds b/l lung bases Abd: S NT ND Ext: 1-2+ pitting edema b/l LE Neuro: moans, opens eyes, localizing to pain. Objective Labs 07/18/24 10:58 07/18/24 10:58 Labs: Laboratory Results - last 24 hr 07/17/24 07/17/24 07/17/24 14:30 17:04 22:24 WBC RBC Hgb Hct MCV MCH MCHC RDW Plt Count Neut % (Auto) Lymph % (Auto) [place] % (Auto) Eos % (Auto) Baso % (Auto) Lymph # (Auto) [place] # (Auto) Baso # (Auto) Total Counted Seg Neutrophils % Lymphocytes % (Manual) Monocytes % (Manual) Eosinophils % (Manual) Neutrophils # (Manual) RBC Morphology Poikilocytosis Anisocytosis Schistocytes ABG Sample Site ABG pH ABG pCO2 ABG pO2 ABG HCO3 ABG Total CO2 ABG O2 Saturation ABG Base Excess Jc Test Sodium 135 L 132 L Potassium 5.5 H 5.7 H Chloride 109 H 107 Carbon Dioxide 17 L 18 L BUN 38 H 39 H Creatinine 2.63 H 2.82 H Estimated GFR 20 L 18 L BUN/Creatinine Ratio 14.4 13.8 Glucose 148 H 157 H Calcium 8.8 8.9 Magnesium 2.4 H Total Bilirubin 1.9 H AST 55 H ALT 31 Alkaline Phosphatase 87 Total Protein 7.6 Albumin 3.3 L Globulin 4.3 H Albumin/Globulin Ratio 0.8 L TSH Urine Color Urine Appearance Urine pH Ur Specific [place] Urine Protein Urine Glucose (UA) Urine Ketones Urine Occult Blood Urine Nitrate Urine Bilirubin Ur Bilirubin Confirm Urine Urobilinogen Ur Leukocyte Esterase Urine RBC Urine WBC Ur Squamous Epith Cells Urine Bacteria Ur Culture Indicated? Vol Urine Centrifuged Ur Random Sodium Nasal Screen MRSA (PCR) Not detected 07/18/24 07/18/24 07/18/24 05:55 08:34 09:57 WBC 4.5 RBC 3.19 L Hgb 9.4 L Hct 27.7 L MCV 86.9 MCH 29.6 MCHC 34.0 RDW 16.5 H Plt Count 117 L Neut % (Auto) Not Reportable Lymph % (Auto) Not Reportable [place] % (Auto) Not Reportable Eos % (Auto) Not Reportable Baso % (Auto) Not Reportable Lymph # (Auto) Not Reportable [place] # (Auto) Not Reportable Baso # (Auto) Not Reportable Total Counted 100 Seg Neutrophils % 57.0 Lymphocytes % (Manual) 24.0 L Monocytes % (Manual) 17.0 H Eosinophils % (Manual) 2.0 Neutrophils # (Manual) 2565 L RBC Morphology See below Poikilocytosis 1+ H Anisocytosis 1+ H Schistocytes 1+ H ABG Sample Site Right radial ABG pH 7.42 ABG pCO2 29.4 L ABG pO2 83 ABG HCO3 19 L ABG Total CO2 18 L ABG O2 Saturation 97 ABG Base Excess -4.9 L Jc Test Positive Sodium 135 L Potassium 6.3 H* Chloride 108 H Carbon Dioxide 18 L BUN 39 H Creatinine 2.87 H Estimated GFR 18 L BUN/Creatinine Ratio 13.6 Glucose 126 H Calcium 8.9 Magnesium Total Bilirubin 1.9 H AST 61 H ALT 29 Alkaline Phosphatase 79 Total Protein 7.6 Albumin 3.6 Globulin 4.0 Albumin/Globulin Ratio 0.9 L TSH 15.9 H Urine Color Brown Urine Appearance Cloudy Urine pH 6.5 Ur Specific [place] >=1.030 H Urine Protein 3+ H Urine Glucose (UA) Trace H Urine Ketones 1+ H Urine Occult Blood 3+ H Urine Nitrate Positive H Urine Bilirubin 2+ H Ur Bilirubin Confirm Negative Urine Urobilinogen 1.0 Ur Leukocyte Esterase Trace H Urine RBC 30-100/hpf H Urine WBC 1-5/hpf Ur Squamous Epith Cells None seen Urine Bacteria Few (2-10) H Ur Culture Indicated? Specimen cultured Vol Urine Centrifuged 10ml (spun) Ur Random Sodium 12 L Nasal Screen MRSA (PCR) 07/18/24 10:58 WBC RBC Hgb 9.4 L Hct 27.9 L MCV MCH MCHC RDW Plt Count Neut % (Auto) Lymph % (Auto) [place] % (Auto) Eos % (Auto) Baso % (Auto) Lymph # (Auto) [place] # (Auto) Baso # (Auto) Total Counted Seg Neutrophils % Lymphocytes % (Manual) Monocytes % (Manual) Eosinophils % (Manual) Neutrophils # (Manual) RBC Morphology Poikilocytosis Anisocytosis Schistocytes ABG Sample Site ABG pH ABG pCO2 ABG pO2 ABG HCO3 ABG Total CO2 ABG O2 Saturation ABG Base Excess Jc Test Sodium 135 L Potassium 6.3 H* Chloride 108 H Carbon Dioxide 18 L BUN 39 H Creatinine 2.94 H Estimated GFR 17 L BUN/Creatinine Ratio 13.3 Glucose 118 H Calcium 8.9 Magnesium Total Bilirubin AST ALT Alkaline Phosphatase Total Protein Albumin Globulin Albumin/Globulin Ratio TSH Urine Color Urine Appearance Urine pH Ur Specific [place] Urine Protein Urine Glucose (UA) Urine Ketones Urine Occult Blood Urine Nitrate Urine Bilirubin Ur Bilirubin Confirm Urine Urobilinogen Ur Leukocyte Esterase Urine RBC Urine WBC Ur Squamous Epith Cells Urine Bacteria Ur Culture Indicated? Vol Urine Centrifuged Ur Random Sodium Nasal Screen MRSA (PCR) [facility] Medical History Diastolic heart failure Cirrhosis Metabolic dysfunction-associated steatohepatitis (MASH) Social History household members: spouse and caregiver Smoking Status: Never smoker alcohol intake: never Discharge Plan Discharge Plan Patient Disposition: [facility] Provider Discharge Comment: See discharge summary Discharge Health Status Precautions: [place] Diet/Activity/Treatments Diet: Diet as Tolerated and Nothing by Mouth Liquid consistency: Normal/Thin Food texture: Regular Diet comment: NG tube in place Activity: No restrications. Discharge Data Primary Care Provider: Megan Domingo
[2024-07-18] MEDS: cefTRIAXone 1,000 MG in SODIUM CHLORIDE 0.9% 100 ML 200 MG IV (15:43)
--- NOTE | 2024-07-18 16:44 | PC.NURSE ---
Report called to [facility] [place]. Report given to ambulance transport team. Transferred via ambulance. All pt belongings with family.
== END 2024-07-18 16:40 | disposition short-term general hospital (02) | DRG 441 ==
LOC: ED 11:15 → AC 12:27 → ICU 13:17
PROVIDERS: Internal Medicine; Admitting Provider Hospitalist; Emergency Provider Emergency Medicine; PCP Physician Assistant; Referring Provider Emergency Medicine; Visit Provider Hospitalist
DX: K76.82 Hepatic encephalopathy (principal); G93.41 Metabolic encephalopathy; I50.33 Acute on chronic diastolic (congestive) heart failure; K76.7 Hepatorenal syndrome; N17.9 Acute kidney failure, unspecified; N30.00 Acute cystitis without hematuria; D61.818 Other pancytopenia; I11.0 Hypertensive heart disease with heart failure; R47.81 Slurred speech; E87.5 Hyperkalemia; K75.81 Nonalcoholic steatohepatitis (NASH); R60.1 Generalized edema; M13.0 Polyarthritis, unspecified; Z87.19 Personal history of other diseases of the digestive system
CPT/HCPCS: 36415; 36592; 36600; 71045; 76770; 80048; 80053; 81001; 82140; 82805; 83605; 83735; 83880; 84300; 84439; 84443; 84484; 85007; 85014; 85018; 85025; 85610; 87086; 87797; 93005; 93010; 96374; 99284; 99285; J0461; J0696; J1644; J1940; J2354; J2470; P9041